=== PATIENT | female | born 1970 | race Two or more races ===

== ENCOUNTER → 2021-07-12 08:53 | Outpatient (BNVA) | payer OTHER, SELFPAY | PROVIDERS: Visit Provider Physician Assistant ==

== ENCOUNTER 2021-07-15 07:37 | Outpatient (REF) | payer OTHER, SELFPAY ==
--- NOTE | ~2021-07-15 | XR_ITS ---
EXAMINATION: XR CHEST CLINICAL INFORMATION: Preoperative evaluation. COMPARISON: None TECHNIQUE: 2 views of the chest were obtained. FINDINGS: No significant abnormality is noted involving the heart, lungs, mediastinum, bony thorax or soft tissues. XR/XR chest 2V IMPRESSION: No acute cardiopulmonary process.
--- NOTE | 2021-07-15 07:43 | ECG_ITS ---
Test Reason : preop Blood Pressure : / mmHG Vent. Rate : 074 BPM Atrial Rate : 074 BPM P-R Int : 180 ms QRS Dur : 102 ms QT Int : 434 ms P-R-T Axes : 045 015 -18 degrees QTc Int : 481 ms Normal sinus rhythm Minimal voltage criteria for LVH, may be normal variant ( [place] product ) Nonspecific T wave abnormality Prolonged QT Abnormal ECG No previous ECGs available Referred By: Justine Brady Electronically Signed By:NUHA CAMP
[2021-07-15 07:54] LABS: MANUAL DIFF FLAG NO
[2021-07-15 08:20] LABS: Basophils Percent Auto 0.4 % (0-2); Eosinophils Percent Auto 0.6 % (0-4); Hematocrit 42.6 % (37.0-47.0); Hemoglobin 14.3 g/dl (12.0-16.0); Imm Gran Abs Auto 0.01 X10*3/uL (0.00-0.03); Imm Gran Pct Auto 0.2 % (0.0-0.4); Lymphocytes Absolute Auto 1.9 X10*3/uL (1.2-4.9); Lymphocytes Percent Auto 39.9 % (20-40); Mean Corpuscular HGB Conc 33.6 g/dl (31.0-35.0); Mean Corpuscular Hemoglobin 29.4 pg (27.0-33.0); Mean Corpuscular Volume 87.5 fL (80.0-98.0); Mean Platelet Volume 9.6 fL (9.4-12.3); Monocytes Absolute Auto 0.4 X10*3/uL (0.1-1.2); Monocytes Percent Auto 7.5 % (2-11); Neutrophils Absolute Auto 2.5 x10*3/uL (2.0-8.3); Neutrophils Percent Auto 51.4 % (45-73); Platelet Count 211 X10*3/uL (160-400); Red Blood Count 4.87 X10*6/uL (4.20-5.50); Red Cell Distribution Width 12.9 % (11.0-16.0); White Blood Count 4.8 X10*3/uL (4.8-10.8)
[2021-07-15 08:30] LABS: Estimated Average Glucose 117 mg/dL; Hemoglobin A1C 149.9412 umol/L; Hemoglobin A1c % 5.7 %
[2021-07-15 08:46] LABS: Alanine Aminotransferase 10 U/L (0-31); Albumin Level 4.2 g/dL (3.5-5.0); Alkaline Phosphatase 89 U/L (39-117); Anion Gap 10 (12-20); Aspartate Amino Transferase 15 U/L (5-31); Bilirubin Total 0.5 mg/dL (0.0-1.0); Blood Urea Nitrogen 22 mg/dL (9-16); C Reactive Protein 1.09 mg/dL (< or = 0.50); Calcium 9.6 mg/dL (8.4-10.2); Carbon Dioxide 28 mmol/L (22-29); Chloride 101 mmol/L (96-108); Cholesterol 153 mg/dL; Estimated Glomerular Filt Rate > 60; Glucose Random 111 mg/dL (60-115); Iron 86 mcg/dL (30-160); Percent Iron Saturation 25 % (15-50); Potassium 4.1 mmol/L (3.3-5.1); Sodium 135 mmol/L (135-145); Total Iron Binding Capacity 348 mcg/dL (228-428); Total Protein 7.6 g/dL (6.5-8.0); Triglycerides 65 mg/dL; Unsaturated Iron Binding 262 ug/dL
[2021-07-15 08:47] LABS: HDL Cholesterol 49 mg/dL; LDL Cholesterol Calculated 91 mg/dl
[2021-07-15 09:11] LABS: TSH reflex Free T4 0.87 uIU/mL (0.32-4.0); Vitamin D 25-OH Total 19.6 ng/mL (>30)
[2021-07-15 09:15] LABS: Folate 19.4 ng/mL (> or = 4.0); Vitamin B12 376 pg/mL (200-900)
[2021-07-15 09:23] LABS: Ferritin 152 ng/mL (10-250); Insulin 14 uU/mL (2-29)
[2021-07-19 15:06] LABS: Calcium (PTHI) 9.6 mg/dL (8.6-10.4); PTHI 33 pg/mL (14-64)
[2021-07-20 03:01] LABS: Zinc 65 mcg/dL (60-130)
[2021-07-21 16:56] LABS: Vitamin B1 8 nmol/L (8-30)
[2021-07-21 17:31] LABS: Vitamin A 56 mcg/dL (38-98)
== END 2021-07-15 07:38 | disposition home or self-care (01) ==
LOC: HO.LAB 07:37
PROVIDERS: PCP Internal Medicine; Visit Provider Physician Assistant
DX: Z01.818 Encounter for other preprocedural examination (principal); I45.81 Long QT syndrome
CPT/HCPCS: 36415; 71046; 80053; 80061; 82306; 82607; 82728; 82746; 83036; 83525; 83540; 83970; 84425; 84443; 84590; 84630; 85025; 86140; 93005

== ENCOUNTER → 2021-08-04 14:54 | Outpatient (BNVA) | payer OTHER, SELFPAY | PROVIDERS: PCP Internal Medicine; Visit Provider Physician Assistant ==

== ENCOUNTER → 2021-08-17 08:08 | Outpatient (BNVA) | payer OTHER, SELFPAY | PROVIDERS: PCP Internal Medicine; Visit Provider Dietitian, Registered | DX: E66.9 Obesity, unspecified (principal); Z68.36 Body mass index [BMI] 36.0-36.9, adult | CPT/HCPCS: 97803 ==

== ENCOUNTER 2021-09-21 12:00 | Outpatient (REF) | payer OTHER, SELFPAY ==
[2021-09-23 11:10] LABS: H Pylori Breath Test Negative (Negative)
== END 2021-09-21 12:01 | disposition home or self-care (01) ==
LOC: HO.LNP 12:00
PROVIDERS: PCP Internal Medicine; Visit Provider Physician Assistant
DX: Z01.818 Encounter for other preprocedural examination (principal); K59.09 Other constipation; E66.9 Obesity, unspecified; Z90.3 Acquired absence of stomach [part of]
CPT/HCPCS: 83013

== ENCOUNTER 2021-09-27 07:49 | Outpatient (REF) | payer OTHER, SELFPAY ==
--- NOTE | ~2021-09-27 | FL_ITS ---
EXAMINATION: XR FLUOROSCOPY UPPER GI WITH AIR CLINICAL INFORMATION: Obesity. Preop. COMPARISON: None TECHNIQUE: Upper GI was performed using thin and thick barium and effervescent granules. FINDINGS: The swallowing mechanism is normal. There is mild gastroesophageal reflux. No hernia is seen. Postsurgical changes from gastric sleeve procedure not definitely identified. No fold thickening, mass, ulcer or stricture is seen. FLUOROSCOPY TIME: 0.9 minutes DOSE AREA PRODUCT: 11 gavin per centimeter squared. 30 saved fluoroscopic images. FL/FL upper GI w air IMPRESSION: Mild gastroesophageal reflux. Definite postsurgical changes from gastric sleeve procedure not appreciated.
--- NOTE | ~2021-09-27 | US_ITS ---
EXAMINATION: US COMPLETE ABDOMEN WITH LIVER ELASTOGRAPHY CLINICAL INFORMATION: Obesity. Preprocedure. COMPARISON: None. TECHNIQUE: Real-time imaging of the abdominal viscera. Noninvasive ultrasound liver fibrosis assessment is performed using Joana ElastPQ point quantification shear wave elastography (2D-SWE) with a C5-2 MHz transducer. Multiple elastography samples are obtained. FINDINGS: PANCREAS: Normal. The visualized pancreatic head and body are normal in appearance. The remainder of the pancreas is obscured from visualization by the overlying bowel gas. ABDOMINAL AORTA: The proximal, middle, and distal aortic segments are normal in caliber. INFERIOR VENA CAVA: Visualized portions are normal. LIVER: The liver demonstrates normal size, contour and increased. No focal lesion or intrahepatic biliary duct dilatation. The right lobe measures 17.6 cm in length. The left lobe measures 13.2 cm in length. Portal flow is hepatopedal. Shear wave liver elastography median stiffness is 1.5 m/s (reference: normal median stiffness is 1.3 m/s or less). IQR/median stiffness to assess sampling precision is 0.15 (reference: good quality data set is IQR/median stiffness of 0.15 or less). GALLBLADDER: Normal. The gallbladder is physiologically distended without evidence of stones, sludge, polyps, wall thickening or pericholecystic fluid. COMMON BILE DUCT: Normal in caliber measuring 0.4 cm in proximal and 0.9 cm and distal segment. RIGHT KIDNEY: No hydronephrosis. No renal calculi or focal parenchymal lesions. The kidney measures . 12.8 cm in maximum dimension. There is an echogenic lesion midpole cortex measuring 0.5 x 0.5 x 0.3 cm suggestive of angiomyolipoma. LEFT KIDNEY: Normal. No hydronephrosis. No renal calculi or focal parenchymal lesions. The kidney measures 11.3 cm in maximum dimension. SPLEEN: Normal. The spleen measures 11.4 cm in maximum dimension. FREE FLUID: None. US/US abdomen comp w elastography IMPRESSION: 1. Hepatic steatosis without focal lesion. 2. Small angiomyolipoma right kidney. 3. Liver elastography: Median liver stiffness 1.5 m/s, correlating with cACLD, ruled out. REFERENCE: Society of Radiologists in Ultrasound Liver Stiffness Thresholds (2020): LIVER STIFFNESS THRESHOLDS: *Liver Stiffness equal or less than 1.3 m/s: High probability of being normal. *Liver Stiffness less than 1.7 m/s: In the absence of other known clinical signs, rules out compensated advanced chronic liver disease. *Liver Stiffness 1.7-2.1 m/s: Suggestive of compensated advanced chronic liver disease but need further test for confirmation. *Liver Stiffness over 2.1 m/s: Rules in compensated advanced chronic liver disease. *Liver Stiffness over 2.4 m/s: Suggestive of clinically significant portal hypertension. QUALITY OF DATA SET: *IQR/Median value equal or less than 0.15 implies a quality data set. *IQR/Median value over 0.15 implies a poor quality data set. SIGNIFICANT CHANGE FROM PRIOR EXAM: Significant change if liver stiffness measurement is 10% or greater from prior exam. OTHER CONSIDERATIONS: The stage of liver fibrosis may be overestimated in the setting of acute hepatitis, liver inflammation, elevated liver function tests, hepatic vascular congestion, obstructive cholestasis, non-fasting state, and infiltrative diseases such as amyloidosis and lymphoma. In some patients with NAFLD, the liver stiffness thresholds for compensated advanced chronic liver disease may be lower. In causes other than viral hepatitis and NAFLD, liver stiffness thresholds are not well established.
== END 2021-09-27 07:50 | disposition home or self-care (01) ==
LOC: HO.US 07:49
PROVIDERS: Visit Provider Physician Assistant
DX: Z01.818 Encounter for other preprocedural examination (principal); E66.9 Obesity, unspecified
CPT/HCPCS: 74246; 76705; 76981

== ENCOUNTER → 2021-11-01 12:00 | Outpatient (BNVA) | payer OTHER, SELFPAY | PROVIDERS: PCP Internal Medicine; Visit Provider Counselor Mental Health | DX: F43.20 Adjustment disorder, unspecified (principal); E66.9 Obesity, unspecified; K59.09 Other constipation | CPT/HCPCS: 90791 ==

== ENCOUNTER 2021-11-16 11:02 | Outpatient (REF) | payer OTHER, SELFPAY ==
[2021-11-16 11:59] LABS: Estimated Average Glucose 120 mg/dL; Hemoglobin A1c % 5.8 %
[2021-11-16 12:15] LABS: Alanine Aminotransferase 11 U/L (0-31); Albumin Level 4.2 g/dL (3.5-5.0); Alkaline Phosphatase 95 U/L (39-117); Anion Gap 12 (12-20); Aspartate Amino Transferase 14 U/L (5-31); Bilirubin Total 0.4 mg/dL (0.0-1.0); Blood Urea Nitrogen 19 mg/dL (9-16); Carbon Dioxide 30 mmol/L (22-29); Chloride 104 mmol/L (96-108); Estimated Glomerular Filt Rate > 60; Glucose Random 94 mg/dL (60-115); Potassium 4.5 mmol/L (3.3-5.1); Sodium 141 mmol/L (135-145); Total Protein 7.4 g/dL (6.5-8.0)
== END 2021-11-16 11:03 | disposition home or self-care (01) ==
LOC: HO.LAB 11:02
PROVIDERS: PCP Internal Medicine; Visit Provider Internal Medicine
DX: E11.9 Type 2 diabetes mellitus without complications (principal); I10 Essential (primary) hypertension
CPT/HCPCS: 36415; 80053; 83036

== ENCOUNTER → 2021-12-01 14:50 | Outpatient (BNVA) | payer OTHER, SELFPAY | PROVIDERS: PCP Internal Medicine; Visit Provider Physician Assistant | DX: Z13.89 Encounter for screening for other disorder (principal) ==

== ENCOUNTER 2022-09-18 07:26 | Outpatient (REF) | payer OTHER, SELFPAY ==
[2022-09-18 07:38] LABS: MANUAL DIFF FLAG NO
[2022-09-18 09:21] LABS: Basophils Percent Auto 0.4 % (0-2); Eosinophils Absolute Auto 0.1 X10*3/uL (0.0-0.4); Hematocrit 40.2 % (37.0-47.0); Imm Gran Abs Auto 0.01 X10*3/uL (0.00-0.03); Imm Gran Pct Auto 0.2 % (0.0-0.4); Lymphocytes Absolute Auto 2.3 X10*3/uL (1.2-4.9); Lymphocytes Percent Auto 46.2 % (20-40); Mean Corpuscular HGB Conc 32.3 g/dl (31.0-35.0); Mean Corpuscular Hemoglobin 28.8 pg (27.0-33.0); Mean Corpuscular Volume 88.9 fL (80.0-98.0); Mean Platelet Volume 10.1 fL (9.4-12.3); Monocytes Absolute Auto 0.4 X10*3/uL (0.1-1.2); Monocytes Percent Auto 6.9 % (2-11); Neutrophils Absolute Auto 2.3 x10*3/uL (2.0-8.3); Neutrophils Percent Auto 45.3 % (45-73); Platelet Count 223 X10*3/uL (160-400); Red Blood Count 4.52 X10*6/uL (4.20-5.50); Red Cell Distribution Width 12.9 % (11.0-16.0)
[2022-09-18 09:32] LABS: Estimated Average Glucose 111 mg/dL; Hemoglobin A1c % 5.5 %
[2022-09-18 10:09] LABS: Alanine Aminotransferase 9 U/L (0-31); Alkaline Phosphatase 88 U/L (39-117); Anion Gap 15 (12-20); Aspartate Amino Transferase 12 U/L (5-31); Bilirubin Total 0.4 mg/dL (0.0-1.0); Carbon Dioxide 26 mmol/L (22-29); Chloride 107 mmol/L (96-108); Cholesterol 142 mg/dL; Estimated Glomerular Filt Rate > 60; Glucose Random 93 mg/dL (60-115); HDL Cholesterol 46 mg/dL; LDL Cholesterol Calculated 78 mg/dl; Potassium 4.8 mmol/L (3.3-5.1); Rheumatoid Factor < 13.0 IU/mL (<15.0); Sodium 143 mmol/L (135-145); Total Protein 6.8 g/dL (6.5-8.0); Triglycerides 91 mg/dL
[2022-09-18 10:37] LABS: Ferritin 54 ng/mL (10-250)
[2022-09-18 12:01] LABS: Blood Urea Nitrogen 18 mg/dL (9-16)
[2022-09-21 15:49] LABS: Cyclic Citrullinated Peptide <16 UNITS
== END 2022-09-18 07:27 | disposition home or self-care (01) ==
LOC: HO.LAB 07:26
PROVIDERS: PCP Internal Medicine; Visit Provider Internal Medicine
DX: M79.641 Pain in right hand (principal); R53.83 Other fatigue; I10 Essential (primary) hypertension; E11.9 Type 2 diabetes mellitus without complications
CPT/HCPCS: 36415; 80053; 80061; 82728; 83036; 85025; 86200; 86431

== ENCOUNTER 2022-09-24 19:03 | Emergency (ER) | payer OTHER, SELFPAY ==
--- NOTE | ~2022-09-24 | XR_ITS ---
EXAMINATION: XR SHOULDER, RIGHT. XR KNEE, RIGHT. XR ANKLE, LEFT. XR FOOT, LEFT. CLINICAL INFORMATION: Fall COMPARISON: None. TECHNIQUE: 4 views of the right shoulder. 4 views of the right knee. 3 views of the left ankle. 3 views of the left foot. FINDINGS: Right shoulder: No acute fracture or dislocation. Mild glenohumeral osteoarthritis. Right knee: No fracture or malalignment. Moderate patellofemoral and medial compartment osteoarthritis with a trace joint effusion. Left ankle and foot: The ankle mortise is preserved. Probable tiny avulsion fracture at the lateral aspect of the distal calcaneus, at the extensor digitorum brevis origin. Mild lateral soft tissue swelling. Mild hallux valgus and 1st MTP joint osteoarthritis. XR/XR knee RT 3V IMPRESSION: RIGHT SHOULDER: Mild glenohumeral osteoarthritis. RIGHT KNEE: No fracture. Moderate patellofemoral and medial compartment osteoarthritis with a trace joint effusion. LEFT ANKLE AND FOOT: Probable tiny avulsion fracture at the extensor digitorum brevis origin the lateral aspect of the distal calcaneus. Otherwise unremarkable.
--- NOTE | ~2022-09-24 | XR_ITS ---
EXAMINATION: XR SHOULDER, RIGHT. XR KNEE, RIGHT. XR ANKLE, LEFT. XR FOOT, LEFT. CLINICAL INFORMATION: Fall COMPARISON: None. TECHNIQUE: 4 views of the right shoulder. 4 views of the right knee. 3 views of the left ankle. 3 views of the left foot. FINDINGS: Right shoulder: No acute fracture or dislocation. Mild glenohumeral osteoarthritis. Right knee: No fracture or malalignment. Moderate patellofemoral and medial compartment osteoarthritis with a trace joint effusion. Left ankle and foot: The ankle mortise is preserved. Probable tiny avulsion fracture at the lateral aspect of the distal calcaneus, at the extensor digitorum brevis origin. Mild lateral soft tissue swelling. Mild hallux valgus and 1st MTP joint osteoarthritis. XR/XR shoulder RT min 2V IMPRESSION: RIGHT SHOULDER: Mild glenohumeral osteoarthritis. RIGHT KNEE: No fracture. Moderate patellofemoral and medial compartment osteoarthritis with a trace joint effusion. LEFT ANKLE AND FOOT: Probable tiny avulsion fracture at the extensor digitorum brevis origin the lateral aspect of the distal calcaneus. Otherwise unremarkable.
--- NOTE | ~2022-09-24 | XR_ITS ---
EXAMINATION: XR SHOULDER, RIGHT. XR KNEE, RIGHT. XR ANKLE, LEFT. XR FOOT, LEFT. CLINICAL INFORMATION: Fall COMPARISON: None. TECHNIQUE: 4 views of the right shoulder. 4 views of the right knee. 3 views of the left ankle. 3 views of the left foot. FINDINGS: Right shoulder: No acute fracture or dislocation. Mild glenohumeral osteoarthritis. Right knee: No fracture or malalignment. Moderate patellofemoral and medial compartment osteoarthritis with a trace joint effusion. Left ankle and foot: The ankle mortise is preserved. Probable tiny avulsion fracture at the lateral aspect of the distal calcaneus, at the extensor digitorum brevis origin. Mild lateral soft tissue swelling. Mild hallux valgus and 1st MTP joint osteoarthritis. XR/XR foot LT 2V IMPRESSION: RIGHT SHOULDER: Mild glenohumeral osteoarthritis. RIGHT KNEE: No fracture. Moderate patellofemoral and medial compartment osteoarthritis with a trace joint effusion. LEFT ANKLE AND FOOT: Probable tiny avulsion fracture at the extensor digitorum brevis origin the lateral aspect of the distal calcaneus. Otherwise unremarkable.
--- NOTE | ~2022-09-24 | XR_ITS ---
EXAMINATION: XR SHOULDER, RIGHT. XR KNEE, RIGHT. XR ANKLE, LEFT. XR FOOT, LEFT. CLINICAL INFORMATION: Fall COMPARISON: None. TECHNIQUE: 4 views of the right shoulder. 4 views of the right knee. 3 views of the left ankle. 3 views of the left foot. FINDINGS: Right shoulder: No acute fracture or dislocation. Mild glenohumeral osteoarthritis. Right knee: No fracture or malalignment. Moderate patellofemoral and medial compartment osteoarthritis with a trace joint effusion. Left ankle and foot: The ankle mortise is preserved. Probable tiny avulsion fracture at the lateral aspect of the distal calcaneus, at the extensor digitorum brevis origin. Mild lateral soft tissue swelling. Mild hallux valgus and 1st MTP joint osteoarthritis. XR/XR ankle LT min 3V IMPRESSION: RIGHT SHOULDER: Mild glenohumeral osteoarthritis. RIGHT KNEE: No fracture. Moderate patellofemoral and medial compartment osteoarthritis with a trace joint effusion. LEFT ANKLE AND FOOT: Probable tiny avulsion fracture at the extensor digitorum brevis origin the lateral aspect of the distal calcaneus. Otherwise unremarkable.
[2022-09-24 19:30] VITALS: BP 157/78; PULSE 87; RESP 18; TEMP 36.6; O2SAT 100; BMI 38.4
--- NOTE | 2022-09-24 19:33 | ED.FALL ---
HPI - Fall General Chief Complaint: Fall Stated Complaint: Fall Time Seen by Provider: 09/24/22 22:03 Related Data Home Medications Medication Instructions Recorded Confirmed cyanocobalamin (vitamin B-12) 1,000 mcg PO DAILY 07/12/21 1,000 mcg tablet (Vitamin B-12) omeprazole 40 mg capsule,delayed 40 mg PO DAILY 07/12/21 release irbesartan 75 mg tablet 75 mg PO DAILY 12/01/21 multivitamin 1 tab PO DAILY 03/31/22 Previous Rx's Medication Instructions Recorded docusate sodium 100 mg capsule 100 mg PO BID #60 caps 09/21/21 (Colace) inulin 2 gram chewable tablet 2 g PO BID #60 tabs 09/21/21 (Fiber Gummies) methylcellulose (with sugar) oral 1 tbsp PO DAILY #850 grams 09/21/21 powder (Citrucel (sucrose) oral powder) cyclobenzaprine 10 mg tablet 10 mg PO TID PRN pain #14 tabs 09/24/22 oxycodone 5 mg tablet 5 mg PO Q8H PRN pain #7 tabs 09/24/22 Allergies Allergy/AdvReac Type Severity Reaction Status Date / Time penicillin G Allergy Severe hives Verified 09/24/22 19:30 acetaminophen [From Tylenol] Allergy Intermediate hives Verified 09/24/22 19:30 lisinopril Allergy Intermediate tingling Verified 09/24/22 19:30 in throat and cough PMFSH Past Medical History Surgical History History of sleeve gastrectomy Hx of breast surgery Hx of carpal tunnel repair Hx of cholecystectomy Hx of total hysterectomy Hx of tubal ligation Family History Family History Mother Diabetes Hypertension Father No problems noted. Sister No problems noted. Sister Arthritis Son Diabetes Son Diabetes Social History Social History Alcohol intake: never Patient Tobacco Use Status: Former Tobacco user Quit Date: 2017 Smoked in Last 30 Days: No Use of substances other than those prescribed or required for medical reasons: No Advance Directives: No Advance Directives Information Provided: No Patient : No Physical Exam Vital Signs: Vital Signs: Last Vital Signs Temp 97.9 F 09/24/22 19:30 Pulse 87 09/24/22 19:30 Resp 18 09/24/22 19:30 BP 157/78 H 09/24/22 19:30 Pulse Ox 100 09/24/22 19:30 O2 Del Method Room Air 09/24/22 19:30 BMI result Body Mass Index 38.4 Course Course Course Narrative: RME: 52 yold female presents to the ED for RIght shoulder pain, right knee pain, and left ankle pain after falling. patient did not hit her head or lose consciousness. images ordered. Discharge Plan Discharge Clinical Impression: Sprain of right shoulder, Knee sprain, Avulsion fracture of ankle Patient Disposition: Home, Self-Care Instructions: Ankle Fracture (DC), Knee Sprain (DC), How to Use an Elastic Bandage (ED), Shoulder Sprain (ED) Prescriptions: New cyclobenzaprine 10 mg tablet 10 mg PO TID PRN (Reason: pain) Qty: 14 0RF oxycodone 5 mg tablet 5 mg PO Q8H PRN (Reason: pain) Qty: 7 0RF Rx Instructions: Partial Fill upon patient request. No Action Fiber Gummies 2 gram tablet,chewable 2 g PO BID Qty: 60 6RF Citrucel (sucrose) Powder 1 tbsp PO DAILY Qty: 850 6RF docusate sodium [Colace] 100 mg capsule 100 mg PO BID Qty: 60 6RF multivitamin Tablet 1 tab PO DAILY cyanocobalamin (vitamin B-12) [Vitamin B-12] 1,000 mcg tablet 1,000 mcg PO DAILY omeprazole 40 mg capsule,delayed release(DR/EC) 40 mg PO DAILY irbesartan 75 mg tablet 75 mg PO DAILY Referrals: Husam Estrada MD [Physician] - 2 days Physician,Unknown J [Primary Care Provider] - Stand Alone Forms: Work/School Release Interventions: ED Discharge Assessment Last Done: 09/24/22 23:05 Discharge Date/Time: 09/24/22 23:09
--- NOTE | 2022-09-24 22:05 | ED_ITS ---
HPI - Fall General Chief Complaint: Fall Stated Complaint: Fall Time Seen by Provider: 09/24/22 22:03 History of Present Illness HPI Narrative: Patient is a 52-year-old female not on blood thinners status post accidental fall hitting her right shoulder right knee and right ankle. No head injury. No nausea no vomiting. No focal weakness. Pain worsens with movement. Presented to the emergency department. Related Data Home Medications Medication Instructions Recorded Confirmed cyanocobalamin (vitamin B-12) 1,000 mcg PO DAILY 07/12/21 1,000 mcg tablet (Vitamin B-12) omeprazole 40 mg capsule,delayed 40 mg PO DAILY 07/12/21 release irbesartan 75 mg tablet 75 mg PO DAILY 12/01/21 multivitamin 1 tab PO DAILY 03/31/22 Previous Rx's Medication Instructions Recorded docusate sodium 100 mg capsule 100 mg PO BID #60 caps 09/21/21 (Colace) inulin 2 gram chewable tablet 2 g PO BID #60 tabs 09/21/21 (Fiber Gummies) methylcellulose (with sugar) oral 1 tbsp PO DAILY #850 grams 09/21/21 powder (Citrucel (sucrose) oral powder) cyclobenzaprine 10 mg tablet 10 mg PO TID PRN pain #14 tabs 09/24/22 oxycodone 5 mg tablet 5 mg PO Q8H PRN pain #7 tabs 09/24/22 Allergies Allergy/AdvReac Type Severity Reaction Status Date / Time penicillin G Allergy Severe hives Verified 09/24/22 19:30 acetaminophen [From Tylenol] Allergy Intermediate hives Verified 09/24/22 19:30 lisinopril Allergy Intermediate tingling Verified 09/24/22 19:30 in throat and cough Review of Systems Review of Systems: No chest pain or diaphoresis. No fever no chills. No focal weakness. Yes all other systems are reviewed and are negative [facility] Past Medical History Attestation statement: The following information was validated with the patient. Surgical History History of sleeve gastrectomy Hx of breast surgery Hx of carpal tunnel repair Hx of cholecystectomy Hx of total hysterectomy Hx of tubal ligation Family History Family History Mother Diabetes Hypertension Father No problems noted. Sister No problems noted. Sister Arthritis Son Diabetes Son Diabetes Social History Social History Alcohol intake: never Patient Tobacco Use Status: Former Tobacco user Quit Date: 2017 Smoked in Last 30 Days: No Use of substances other than those prescribed or required for medical reasons: No Advance Directives: No Advance Directives Information Provided: No Patient : No Physical Exam Vital Signs: Vital Signs: Last Vital Signs Temp 97.9 F 09/24/22 19:30 Pulse 87 09/24/22 19:30 Resp 18 09/24/22 19:30 BP 157/78 H 09/24/22 19:30 Pulse Ox 100 09/24/22 19:30 O2 Del Method Room Air 09/24/22 19:30 BMI result Body Mass Index 38.4 Appearance: Alert. Oriented X3. No acute distress. Eyes: Pupils equal, round and reactive to light. ENT: Pharynx normal. Neck: Normal inspection. Neck supple. No lymph nodes noted. No crepitus CVS: Normal heart rate and rhythm. Pulses normal. Normal S1 and S2 Respiratory: No respiratory distress. Breath sounds normal. No Wheezing. No rales Abdomen: Soft and nontender. No rigidity. No distention. good BS x4 Skin: Skin warm and dry. Normal skin color. Normal skin turgor. Extremities: Examination of the right shoulder limited range of motion. No gross deformity noted. Skin intact. Motion at the elbow the wrist the hands all intact. Capillary refill less than 2 seconds. Examination of the knee showed good range of motion. No tenderness on palpation of patella no tenderness on palpation in medial lateral collateral ligament. Examination of the ankle showed mild swelling over the lateral malleolus. Sensation over the foot intact pulse 2 +at dorsalis pedis. Skin intact Neuro: Oriented X 3. No motor deficit. No sensory deficit. Moving all extermities. No slurred speech Medical Decision Making Medical Decision Making MDM Narrative: Patient has no head injury. X-ray of the shoulder grossly negative for any acute evidence of fracture. X-ray of the right knee was grossly negative for any acute evidence of fracture no dislocation patient's x-ray of the ankle showed a possible avulsion fracture. We will go ahead wrap the knee in Jarred bandage. Close follow-up on an outpatient basis with Orthopedics. In stable condition. Pain medication given. Patient has no head injury not on blood thinners. No nausea no vomiting no focal weakness Differential Diagnosis Differential Diagnoses: The differential diagnosis associated with the presentation includes Traumatic injury to the shoulder, knee, ankle Lab Data MDM Lab Attestation statement: I reviewed the patient's lab results. Radiology Impression Discussion of test interpretation with radiology: I have reviewed the radiologist's reading. Independent Historian Additional history was obtained from patient's family Discharge Plan Discharge Clinical Impression: Sprain of right shoulder, Knee sprain, Avulsion fracture of ankle Patient Disposition: Home, Self-Care Instructions: Ankle Fracture (DC), Knee Sprain (DC), How to Use an Elastic Bandage (ED), Shoulder Sprain (ED) Prescriptions: New cyclobenzaprine 10 mg tablet 10 mg PO TID PRN (Reason: pain) Qty: 14 0RF oxycodone 5 mg tablet 5 mg PO Q8H PRN (Reason: pain) Qty: 7 0RF Rx Instructions: Partial Fill upon patient request. No Action Fiber Gummies 2 gram tablet,chewable 2 g PO BID Qty: 60 6RF Citrucel (sucrose) Powder 1 tbsp PO DAILY Qty: 850 6RF docusate sodium [Colace] 100 mg capsule 100 mg PO BID Qty: 60 6RF multivitamin Tablet 1 tab PO DAILY cyanocobalamin (vitamin B-12) [Vitamin B-12] 1,000 mcg tablet 1,000 mcg PO DAILY omeprazole 40 mg capsule,delayed release(DR/EC) 40 mg PO DAILY irbesartan 75 mg tablet 75 mg PO DAILY Referrals: Husam Estrada MD [Physician] - 2 days Physician,Unknown J [Primary Care Provider] - Stand Alone Forms: Work/School Release
--- NOTE | 2022-09-24 22:26 | PC.NURSE ---
Pt fell leaving [employer] this morning and is complaining of pain in the right shoulder, right knee, and left ankle. Pt has limited mobility in the right arm but is able to bend her knee and ankle with some pain. CSM's are in tact q4 extremities. Pt denies head strike or loss of consciousness.
== END 2022-09-24 23:09 | disposition home or self-care (01) ==
PROVIDERS: Emergency Provider Emergency Medicine Emergency Medical Services
DX: S43.401A Unspecified sprain of right shoulder joint, initial encounter (principal); S83.91XA Sprain of unspecified site of right knee, initial encounter; S82.891A Other fracture of right lower leg, initial encounter for closed fracture; M25.511 Pain in right shoulder; M25.572 Pain in left ankle and joints of left foot; M79.672 Pain in left foot; W01.0XXA Fall on same level from slipping, tripping and stumbling without subsequent striking against object, initial encounter; Y93.9 Activity, unspecified; Y92.9 Unspecified place or not applicable; Y99.9 Unspecified external cause status; X58.XXXA Exposure to other specified factors, initial encounter; Z87.891 Personal history of nicotine dependence; Z79.899 Other long term (current) drug therapy
CPT/HCPCS: 73030; 73562; 73610; 73620; 99283; 99284

== ENCOUNTER → 2022-10-10 10:14 | Outpatient (BNVA) | payer OTHER, SELFPAY | PROVIDERS: PCP Internal Medicine; Visit Provider Physician Assistant | DX: Z13.89 Encounter for screening for other disorder (principal) ==

== ENCOUNTER 2022-10-12 07:09 | Outpatient (REF) | payer OTHER, SELFPAY ==
--- NOTE | ~2022-10-12 | XR_ITS ---
EXAMINATION: XR SHOULDER, RIGHT CLINICAL INFORMATION: Pain in right shoulder. COMPARISON: None available. TECHNIQUE: 3 views of the right shoulder. FINDINGS: The bones and soft tissues are normal. No fracture. Glenohumeral and acromioclavicular alignment is anatomic with normal joint space. No abnormal soft tissue calcifications. XR/XR shoulder RT min 2V IMPRESSION: Unremarkable right shoulder.
== END 2022-10-12 07:10 | disposition home or self-care (01) ==
LOC: HO.HOSX 07:09
PROVIDERS: Visit Provider Physician Assistant
DX: S46.001A Unspecified injury of muscle(s) and tendon(s) of the rotator cuff of right shoulder, initial encounter (principal)
CPT/HCPCS: 73030

== ENCOUNTER 2022-11-08 07:30 | Outpatient (RCR) | payer OTHER, SELFPAY | END 2022-11-08 07:51 | disposition home or self-care (01) | LOC: HO.OT 07:30 | PROVIDERS: PCP Internal Medicine; Visit Provider Orthopaedic Surgery | DX: G56.02 Carpal tunnel syndrome, left upper limb (principal) | CPT/HCPCS: 29125; 97110; 97140; 97165; 97760 ==

== ENCOUNTER 2022-11-08 14:29 | Outpatient (REF) | payer OTHER, SELFPAY ==
--- NOTE | ~2022-11-08 | MR_ITS ---
EXAMINATION: MR SHOULDER WITHOUT CONTRAST, RIGHT CLINICAL INFORMATION: Right shoulder pain with motion following a fall. COMPARISON: Right shoulder radiographs dated 10/12/2022 and 09/24/2022. TECHNIQUE: MRI of the shoulder without contrast was performed on a high-field scanner. FINDINGS: ROTATOR CUFF: Mild infraspinatus tendinosis. Mild subscapularis tendinosis with articular surface fraying. No full-thickness rotator cuff tendon tear. No muscle atrophy or fatty infiltration. BICEPS: Intact. Fluid within the proximal tendon sheath, likely related to the joint effusion. CORACOACROMIAL ARCH: The undersurface of the acromion is flat with small subacromial spurs. Mild acromioclavicular osteoarthritis. LABRUM/CAPSULE: Heterogeneous signal within the base of the anteroinferior labrum, which could represent a nondisplaced labral injury. Intact joint capsule. GLENOHUMERAL JOINT/MARROW: Articular cartilage fissuring and heterogeneity of the anteroinferior glenoid. Marrow edema at the anteroinferior glenoid without a definite fracture line. Mild cortical flattening with marrow edema at the posterolateral humeral head which could represent a Hill-Sachs deformity. Findings could indicate a prior anteroinferior humeral head dislocation. The humeral head is currently well seated within the glenoid. Moderate joint effusion. MR/MR shoulder RT wo con IMPRESSION: 1. Mild infraspinatus tendinosis. Mild subscapularis tendinosis with articular surface fraying. No full-thickness rotator cuff tendon tear. 2. Mild acromioclavicular osteoarthritis with small subacromial spurs. 3. Heterogeneous signal within the base of the anteroinferior labrum, which could represent a nondisplaced labral injury. Adjacent marrow edema within the anteroinferior glenoid without a definite fracture line which could represent an osseous contusion. Possible mild Hill-Sachs deformity. Findings could indicate a prior anteroinferior humeral head dislocation. Moderate joint effusion.
== END 2022-11-08 14:30 | disposition home or self-care (01) ==
LOC: HO.MRI 14:29
PROVIDERS: PCP Internal Medicine; Visit Provider Physician Assistant
DX: S46.001A Unspecified injury of muscle(s) and tendon(s) of the rotator cuff of right shoulder, initial encounter (principal); X58.XXXA Exposure to other specified factors, initial encounter; Y93.9 Activity, unspecified; Y92.9 Unspecified place or not applicable; Y99.9 Unspecified external cause status
CPT/HCPCS: 73221

== ENCOUNTER → 2022-12-11 12:57 | Outpatient (BNVA) | payer OTHER, SELFPAY | PROVIDERS: PCP Internal Medicine; Visit Provider Orthopaedic Surgery | DX: M75.51 Bursitis of right shoulder (principal); S46.001D Unspecified injury of muscle(s) and tendon(s) of the rotator cuff of right shoulder, subsequent encounter | CPT/HCPCS: 20610; J1100 ==

== ENCOUNTER 2023-10-31 12:34 | Outpatient (AMB) | payer OTHER, SELFPAY ==
--- NOTE | 2023-10-31 12:57 | A.OFFVIS_ITS ---
Vital Signs 10/31/23 13:31 Height 5 ft 2 in Weight 208 lb BMI 38.0 Intake Visit Reasons: new prob- b/l cts Intake Note: Sherie 53 yr old right hand dominant female presents today for bilateral CTS. States her left is worse. States CTS come and go, worsens in the night time. States CTS in left hand started about 08/2022. EMG done with [facility]. Last A1C in on file was done 09/18/22 and was at a 5.5 however states she had another A1C checked about 6n months and was a 5.0 Hx of Right CTR in [address] [facility]. Allergies penicillin G Allergy (Severe, Verified 10/31/23 13:31) hives acetaminophen [From Tylenol] Allergy (Intermediate, Verified 10/31/23 13:31) hives lisinopril Allergy (Intermediate, Verified 10/31/23 13:31) tingling in throat and cough HPI HPI new prob- b/l cts: Details: Sherie is a 53 year old right hand dominant Diabetic woman who presents with complaints of left hand numbness. She complains of numbness in the thumb, index, and middle fingers. Symptoms intermittent, but daily, worse at night. She says she has occasional numbness in her left small finger. She says she was previously diagnosed with bilateral carpal tunnel syndrome. She has a hx of a right carpal tunnel release done at [facility] in 2019, and had good improvement in her numbness. She says she had a recent NCS done at [facility], she brought this with her today. She says ~5 months ago she struck the counter with the ulnar side of her right hand. She still sometimes has episodes of right ulnar-sided hand pain. She is a Diabetic and says this is well-controlled. She says she recently switched to a new Diabetes medication for weight loss, and due to the shortage she is not currently taking any medication at this time. [facility] Surgical History History of sleeve gastrectomy Hx of cholecystectomy Hx of carpal tunnel repair Hx of tubal ligation Hx of total hysterectomy Hx of breast surgery Family History Mother Diabetes Hypertension Father No problems noted. Sister No problems noted. 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 Review of Systems Const All systems reviewed & are unremarkable except as noted in HPI and below Physical Exam Vital Signs: BMI result Body Mass Index 38.0 Const General: cooperative, healthy appearing and no acute distress Orientation/consciousness: patient oriented x3 HEENT Head: Yes normocephalic and Yes atraumatic Eyes EOM: EOMs intact bilaterally Resp Effort & Inspection: normal respiratory effort and able to speak in complete sentences Cardio Jugular venous distension: no JVD Skin General skin exam: turgor normal Rashes: no rashes Neuro General: patient oriented x3 Extrem Other: Evaluation of Left Upper Extremity: The patient is alert, oriented, and in no acute distress Neuro: Median, Ulnar, Radial nerves motor and sensory intact and sensation is normal to the tips of all digits No thenar or intrinsic wasting Good APB muscle belly firing & good finger cross Vascular: Cap refill brisk ROM: She can make a fist and extend all her digits No locking or catching Skin: No lacerations or abrasions. General: No Ecchymosis. No Erythema or evidence of infection. Nerve Conduction Study: Left-side only 1. Mild left carpal tunnel syndrome No evidence of ulner neuropathy, cervical radiculopathy, or brachial plexopathy Wilberto Plascencia MD 02/21/23 [facility] Psych Appearance: grossly normal Affect: normal affect Attitude: cooperative Assessment & Plan Assessment & Plan (1) Carpal tunnel syndrome of left wrist: Code(s): G56.02 - Carpal tunnel syndrome, left upper limb Category: Medical (2) History of carpal tunnel surgery of right wrist: Comment: ~2019 at [facility] Code(s): Z98.890 - Other specified postprocedural states Category: Surgical (3) Diabetes mellitus: Code(s): E11.9 - Type 2 diabetes mellitus without complications Category: Medical Plan Assessment & Plan: 1. Left carpal tunnel syndrome, mild Symptoms intermittent, but daily, worse at night She reports having some intermittent numbness in her small finger Her NCS was negative for any cubital tunnel syndrome I educated her about this condition I discussed operative and non-operative treatment options The patient would like to proceed with surgery The risks and benefits of operative treatment were discussed with the patient and the patient wishes to proceed with surgery. These risks include, but are not limited to risk of damage to blood vessels, nerves, tendons, infection, recurrence, incomplete relief of preoperative symptoms, persistent pain, possible need for further surgery and the risks associated with regional blocks and anesthesia. The plan is to take the patient to the operating room sometime in the next few weeks for the following procedures: 1. Left carpal tunnel release, under local All of the preoperative paperwork including the consent was reviewed today. All the patient's questions were answered. The patient understands that they will be contacted by our medical office scheduler soon to schedule this procedure She denies blood thinners, asthma, heart, lung, kidney issues She is a Diabetic, she says this has been well-controlled but she is currently not on any medication due to a shortage. She is working with her PCP concerning this. They will need an updated HgA1c that is <8.1% in order to proceed with surgery, and they expressed understanding 2. Right carpal tunnel syndrome, S/P release DOS: 2019 at [facility] With normal sensation Scribed for Edel Peña MD by Mohit Candelario, medical engineer, on 10/31/23 at 1:55 PM, EST. Coding Level of Care Code New Pt Level 4 (50183) Diagnoses Carpal tunnel syndrome of left wrist G56.02 History of carpal tunnel surgery of right wrist Z98.890 Diabetes mellitus E11.9
[2023-10-31 13:31] VITALS: BMI 38.0
== END 2023-10-31 14:15 | disposition home or self-care (01) ==
PROVIDERS: PCP Internal Medicine; Visit Provider Orthopaedic Surgery
DX: G56.02 Carpal tunnel syndrome, left upper limb (principal); E11.9 Type 2 diabetes mellitus without complications
CPT/HCPCS: 99214

== ENCOUNTER → 2023-10-31 12:34 | Outpatient (BNVA) | payer OTHER, SELFPAY | PROVIDERS: PCP Internal Medicine; Visit Provider Orthopaedic Surgery ==

== ENCOUNTER 2024-01-07 10:42 | Day surgery (SDC) | payer OTHER, SELFPAY ==
[2024-01-07 06:34] VITALS: BMI 38.4
[2024-01-07 11:29] VITALS: BP 142/78; PULSE 78; RESP 20; TEMP 36.9; O2SAT 98
--- NOTE | 2024-01-07 13:49 | MHC.SHP ---
Pre-Procedural Eval Section A - 24 Hr Update-Section A only Date of Service: 01/07/24 The patient is an INPATIENT: No Changes since office visit: No Cold of Flu in the past 2 weeks, No New Medical Problems, No Changes in Medication and No Patient answered all questions The patient has been examined within 24 hours of the surgical procedure. The History & Physical has been completed within 30 days and I have reviewed it.: Yes Section B - Complete if H&P > 30 days Chief Complaint: Carpal tunnel syndrome, left upper limb Allergies: Allergies Allergy/AdvReac Type Severity Reaction Status Date / Time penicillin G Allergy Severe hives Verified 10/31/23 13:31 acetaminophen [From Tylenol] Allergy Intermediate hives Verified 10/31/23 13:31 lisinopril Allergy Intermediate tingling Verified 10/31/23 13:31 in throat and cough Plan Diagnosis/Plan: Unchanged I have reviewed the history and physical and performed a pertinent physical examination on my patient. No changes have occurred unless specified. Time Spent With Patient Time: Total time managing care of this patient today ____ minutes.
--- NOTE | 2024-01-07 13:51 | W.PM.OPN ---
Operative Note Operative Note Date of Service: 01/07/24 Narrative: Preop diagnosis: 1. Left Carpal tunnel syndrome Postop diagnosis: same Procedure: 1. Left Carpal tunnel release Surgeon: Edel Peña MD Anesthesia: local block using 1% lidocaine with epinephrine Findings: Thickened transverse carpal ligament. EBL: Less than 5 mL Specimens: None Complications: None Disposition: Brought to recovery room in stable condition Plan: Follow-up for 10-14 days for wound check and suture removal Indications: The patient is 53 years old, with left carpal tunnel syndrome that has been unresponsive to nonoperative management. The risks and benefits of operative treatment including but not limited to risk of damage to blood vessels, nerves, tendons, infection, persistent pain, persistent symptoms, or possible need for additional surgery were discussed with the patient and the patient wishes to proceed with surgery. Procedure: Once consent was obtained a local block was performed using a combination of 1% lidocaine with epinephrine. The patient was then brought back to the operating suite and placed on the operative table in supine position. The left upper extremity was prepped and draped in a standard surgical fashion. Once assured that we had a good block, a 2.0 cm longitudinal incision was made centered over the carpal tunnel. The incision was made through the skin to the subcutaneous tissues using a #15 blade. Dissection was made down to the level of the transverse carpal ligament with care being taken to protect the palmar cutaneous nerve. Once the transverse carpal ligament was clearly visualized, a longitudinal incision was made in the transverse carpal ligament 1st using a #15 blade, then using tenotomy scissors under direct visualization. Care was taken to look for and protect the motor branch of the median nerve when seen in this area. Once satisfied with our carpal tunnel release the wound was copiously irrigated with normal saline and hemostasis was obtained with a brief period of local pressure. The skin edges were reapproximated with some 5.0 nylon suture material and a sterile dressing was applied. The patient appears to have tolerated the procedure well and with no complications. All digits were well vascularized at the conclusion of the case.
[2024-01-07 14:33] VITALS: BP 150/87; PULSE 66; RESP 18; O2SAT 99
== END 2024-01-07 15:11 | disposition home or self-care (01) ==
PROVIDERS: PCP Internal Medicine; Visit Provider Orthopaedic Surgery
PROC: (CPT 64721; principal; 2024-01-07 13:20)
DX: G56.02 Carpal tunnel syndrome, left upper limb (principal); R20.0 Anesthesia of skin; E11.9 Type 2 diabetes mellitus without complications; Z79.899 Other long term (current) drug therapy; Z88.0 Allergy status to penicillin; Z98.84 Bariatric surgery status; Z98.890 Other specified postprocedural states; Z87.891 Personal history of nicotine dependence
CPT/HCPCS: 64721; J0171

== ENCOUNTER → 2024-01-07 10:42 | Outpatient (BNV) | payer OTHER, SELFPAY | PROVIDERS: PCP Internal Medicine; Visit Provider Orthopaedic Surgery | DX: G56.02 Carpal tunnel syndrome, left upper limb (principal) | CPT/HCPCS: 64721 ==

== ENCOUNTER 2024-01-23 12:48 | Outpatient (AMB) | payer OTHER, SELFPAY ==
--- NOTE | 2024-01-23 12:53 | A.OFFVIS_ITS ---
Vital Signs 01/23/24 12:54 Height 5 ft 2 in Weight 210 lb BMI 38.4 Intake Visit Reasons: PO LT CTR 01/07/24 AR Intake Note: Sherie a 53 year old female who presents today for a post operative visit s/p left CTR on 01/07/24 AR. Sutures removed and steri-strips applied. Patient reports she is doing well, however she complains of pain in her 4th and 5th digits. Allergies penicillin G Allergy (Severe, Verified 01/23/24 13:05) hives acetaminophen [From Tylenol] Allergy (Intermediate, Verified 01/23/24 13:05) hives lisinopril Allergy (Intermediate, Verified 01/23/24 13:05) tingling in throat and cough HPI HPI PO LT CTR 01/07/24 AR: Details: Sherie a 53 year old female who presents today for a post operative visit s/p left CTR on 01/07/24 AR. She reports overall she is doing well. She reports that she is able to make a full fist. She reports mild numbness and pain in her 4th and 5th digits. Sutures were removed and Steri-strips were applied. [facility] Surgical History History of sleeve gastrectomy Hx of cholecystectomy Hx of carpal tunnel repair Hx of tubal ligation Hx of total hysterectomy Hx of breast surgery Family History Mother Diabetes Hypertension Father No problems noted. Sister No problems noted. 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 Review of Systems Const All systems reviewed & are unremarkable except as noted in HPI and below Physical Exam Vital Signs: BMI result Body Mass Index 38.4 Const General: cooperative, healthy appearing, comfortable and no acute distress Orientation/consciousness: patient oriented x3 Neck Neck: Yes normal visual inspection and Yes no JVD Chest Chest palpation & inspection: normal inspection of the chest Resp Effort & Inspection: normal respiratory effort Auscultation: clear to auscultation bilaterally, crackles (no), rales (no), rhonchi (no) and wheezes (no) Cardio Jugular venous distension: no JVD Rate: regular rate Rhythm: regular rhythm Heart sounds: S1 normal heart sound present, S2 normal heart sound present, Murmur heart sound present (no) and Rub heart sound present (no) Neuro General: patient oriented x3 Extrem Other: Left wrist: Incision is clean, dry, and intact. No erythema or drainage. She can extend all digits and make a full fist. NVI. General: Yes normal to inspection, Yes no pedal edema and Yes no calf tenderness Psych Appearance: grossly normal Mental Status: mental status grossly normal Speech and movement: Normal speech and movement present Assessment & Plan Assessment & Plan (1) Carpal tunnel syndrome of left wrist: Code(s): G56.02 - Carpal tunnel syndrome, left upper limb Category: Medical Plan Sutures removed today, Steri-strips applied. She will refrain from submerging the left hand underwater for the next 7 to 10 days. She can lightly get it wet, but be certain to dry it off. No heavy lifting, grasping, and gripping motions for the next 3 weeks. She can return to the gym but avoid impact activities and avoid upper body strength for approximately 3 weeks. She will see us back as needed for her left wrist. She would like to make an appointment with her right hand to see Dr. Peña, which she will do so today. Patient Instructions: Scribed for Arianne Santos PA-C, by Galina Gutierrez medical transcriber, on 01/23/2024 at 1:00 PM EST. I, Arianne Santos PA-C, have personally reviewed and agree with the information entered by the scribe. Coding Level of Care Code Global (43214) Diagnoses Carpal tunnel syndrome of left wrist G56.02
[2024-01-23 12:54] VITALS: BMI 38.4
== END 2024-01-23 13:14 | disposition home or self-care (01) ==
PROVIDERS: PCP Internal Medicine; Visit Provider Physician Assistant
DX: G56.02 Carpal tunnel syndrome, left upper limb (principal)
CPT/HCPCS: 99024

== ENCOUNTER → 2024-01-23 12:48 | Outpatient (BNVA) | payer OTHER, SELFPAY | PROVIDERS: PCP Internal Medicine; Visit Provider Physician Assistant ==

== ENCOUNTER 2024-02-27 08:59 | Outpatient (AMB) | payer OTHER, SELFPAY ==
--- NOTE | 2024-02-27 09:18 | MHC.OFFVIS ---
Vital Signs 02/27/24 09:39 Height 5 ft 2 in Weight 195 lb BMI 35.7 Handedness Right Intake Visit Reasons: New Prob - Right Wrist/Hand Pain Intake Note: Sherie is a 53 year old right hand dominant female who presents today for a new problem visit with complaints of right wrist pain. Patient expresses aching pain on the ulnar aspect of her right wrist. She says some days it is so severe that she is unable to tolerate it. She reports this started approximately 8 months ago. At night her right hand occasionally wakes her up from numbness and tingling so she shakes her hand off for some kind of relief. The tingling is in the ulnar aspect as well, she says sometimes it is in her 3rd, 4th, and 5th digits but this is rare for her. 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 Patient is pre-diabetic. Hx of CTR Right hand [phone] at [facility]. Allergies penicillin G Allergy (Severe, Verified 02/27/24 09:44) hives acetaminophen [From Tylenol] Allergy (Intermediate, Verified 02/27/24 09:44) hives lisinopril Allergy (Intermediate, Verified 02/27/24 09:44) tingling in throat and cough HPI HPI New Prob - Right Wrist/Hand Pain: Details: Patient is a 53-year-old female presents for evaluation of bilateral wrist pain, as well as right hand numbness and tingling, ongoing for approximately 1-2 years. The patient reports that she did previously have a carpal tunnel release on the right in approximately 2018 to 2019, although she is unable to recall the exact year this was done. Patient reports that her numbness is intermittent, only occurs occasionally, and is worse at night. She reports that, when her fingers go numb, she believes it is her middle and ring fingers in the right hand. However, the patient is chief concern is ulnar-sided hand and wrist pain that worsens with passive flexion and active extension of bilateral wrists. Patient reports that this has been going on for approximately the same timeframe. No other acute complaints or concerns at this time. [facility] Surgical History History of sleeve gastrectomy Hx of cholecystectomy Hx of carpal tunnel repair Hx of tubal ligation Hx of total hysterectomy Hx of breast surgery Family History Mother Diabetes Hypertension Father No problems noted. Sister No problems noted. 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 Neuro: Patient reports normal sensation of the tips of all digits at this time Good APB muscle belly firing Good finger cross No evidence of thenar or intrinsic wasting Vascular: Cap refill brisk Pain: Patient reports tenderness to palpation over the ulnar styloid bilaterally, moving up into the forearm down into the hand No other pain or tenderness to palpation noted ROM: Patient is able to make a closed fist without difficulty Patient reports discomfort with active extension and passive flexion of bilateral wrists Skin: No lacerations or abrasions. General: No ecchymosis, erythema, or evidence of infection. Psych: Appears grossly normal Affect normal Attitude cooperative Assessment & Plan Assessment & Plan (1) Extensor carpi ulnaris tendinitis: Code(s): M77.8 - Other enthesopathies, not elsewhere classified Category: Medical (2) Numbness and tingling of right hand: Code(s): R20.0 - Anesthesia of skin; R20.2 - Paresthesia of skin Category: Medical Plan 1. Right hand numbness and tingling Symptoms intermittent, not daily, worse at night Patient has no current nerve conduction study on file Patient is referred for new nerve conduction study today to assess the health of the nerves of the right upper extremity Patient is amenable to this plan Patient will follow-up after nerve conduction study for results review and discussion of further treatment options at that time 2. Bilateral ECU tendinitis Ongoing for approximately 1-2 years Patient is educated about this condition and the typical recovery course Patient is referred to occupational hand therapy at this time for range of motion, strengthening, stabilization of bilateral wrists and treatment of ECU tendinitis bilaterally Patient is amenable to this plan Patient will follow-up p.r.n. with any acute concerns Orders: Orders OT Evaluation and Treatment Today M77.8 - Other enthesopathies, not elsewhere classified NE nerve conduction velocity Today R20.0 - Anesthesia of skin, R20.2 - Paresthesia of skin NE electromyogram (EMG) Today R20.0 - Anesthesia of skin, R20.2 - Paresthesia of skin Coding Level of Care Code New Pt Level 3 (63796) Diagnoses Extensor carpi ulnaris tendinitis M77.8 Numbness and tingling of right hand R20.0; R20.2
[2024-02-27 09:39] VITALS: BMI 35.7
== END 2024-02-27 10:04 | disposition home or self-care (01) ==
PROVIDERS: PCP Internal Medicine
DX: M77.8 Other enthesopathies, not elsewhere classified (principal); R20.0 Anesthesia of skin; R20.2 Paresthesia of skin
CPT/HCPCS: 99203

== ENCOUNTER → 2024-02-27 08:59 | Outpatient (BNVA) | payer OTHER, SELFPAY | PROVIDERS: PCP Internal Medicine ==

== ENCOUNTER 2024-03-07 12:37 | Outpatient (REF) | payer OTHER, SELFPAY ==
--- NOTE | 2024-03-07 12:39 | EMG_ITS ---
Chief complaint: Hand numbness especially the smaller fingers, Carpal Tunnel Syndrome surgery right side 2018 Reason for referral: Evaluate for Carpal Tunnel Syndrome Referred by: Shahid QUIROZ Procedure done: Right upper extremity NCS/EMG Precautions and/or limitations: None Previous EMG not available for comparison. The limb temperature was monitored continuously and remained between 32-36 degrees C during the performance of the NCS. Nerve Conduction Studies Anti Sensory Summary Table ?Stim Site NR Onset (ms) Norm Onset (ms) Peak (ms) Norm Peak (ms) O-P Amp (?V) Norm O-P Amp Site1 Site2 Delta-0 (ms) Dist (cm) Zacarias (m/s) Norm Zacarias (m/s) Right Median Anti Sensory (2nd Digit) Wrist ? 3.4 4.5 <3.6 57.8 >10 Wrist 2nd Digit 3.4 14.0 41 Right Radial Anti Sensory (Thumb) Forearm ? 2.1 2.7 <3.1 19.7 Forearm Thumb 2.1 0.0 Right Ulnar Anti Sensory (5th Digit) Wrist ? 2.9 3.7 <3.7 24.7 >15.0 Wrist 5th Digit 2.9 14.0 48 Motor Summary Table ?Stim Site NR Onset (ms) Norm Onset (ms) O-P Amp (mV) Norm O-P Amp iAmp (mV) Amp (1st) (%) Site1 Site2 Delta-0 (ms) Dist (cm) Zacarias (m/s) Norm Zacarias (m/s) Right Median Motor (Abd Poll Brev) Wrist ? 4.5 <3.9 7.9 >4.5 9.4 100.0 Elbow Wrist 4.1 20.0 49 >45 Elbow ? 8.6 7.8 9.3 98.7 Right Ulnar Motor (Abd Dig Minimi) Wrist ? 3.0 <3.0 10.7 >5 12.5 100.0 B Elbow Wrist 4.3 20.5 48 >45 B Elbow ? 7.3 10.6 12.6 99.1 A Elbow B Elbow 1.8 10.0 56 >45 A Elbow ? 9.1 10.5 12.3 98.1 EMG ?Side Muscle Nerve Root Ins Act Fibs Psw Amp Dur Poly Recrt Int Pat Comment Right 1stDorInt Ulnar C8-T1 Nml Nml Nml Nml Nml 0 Nml Complete Right FlexCarRad Median C6-7 Nml Nml Nml Nml Nml 0 Nml Complete Right Biceps Musculocut C5-6 Nml Nml Nml Nml Nml 0 Nml Complete Right Triceps Radial C6-7-8 Nml Nml Nml Nml Nml 0 Nml Complete Right Deltoid Axillary C5-6 Nml Nml Nml Nml Nml 0 Nml Complete FINDINGS: Right median motor nerve showed prolonged distal latency, normal amplitude and normal conduction velocity. Right median sensory nerve showed prolonged peak latency. All other nerves tested were within normal. Concentric needle EMG was performed in selected muscles of the right upper extremity. Study did not reveal signs of electric abnormalities as shown in the table above. IMPRESSION: 1. This is an abnormal study. 2. There is electrodiagnostic evidence for right moderate-severe median neuropathy at the wrist, consistent with carpal tunnel syndrome. 3. There is no electrodiagnostic evidence for ulnar neuropathy, brachial plexopathy, or cervical radiculopathy. CLINICAL COMMENT: Past EMG not available for comparison, obtain if possible. Thank you for your kind referral. Kaitlin Vizcarra MD, ADDY Board Certified, [place] Board [employer] and Rehabilitation (ABPMR) Board Certified, [place] Board [employer] Electrodiagnostic [employer] (ABEM) CODIN [id number] [facility]
== END 2024-03-07 12:38 | disposition home or self-care (01) ==
LOC: HO.NEURO 12:37
PROVIDERS: PCP Internal Medicine
DX: R20.0 Anesthesia of skin (principal); R20.2 Paresthesia of skin
CPT/HCPCS: 95886; 95909

== ENCOUNTER → 2024-03-07 12:39 | Outpatient (BNV) | payer OTHER, SELFPAY | PROVIDERS: PCP Internal Medicine; Visit Provider Physical Medicine & Rehabilitation | DX: G56.01 Carpal tunnel syndrome, right upper limb (principal) | CPT/HCPCS: 95886; 95909 ==

== ENCOUNTER 2024-03-19 08:42 | Observation (INO) | payer OTHER, SELFPAY ==
[2024-03-19] VITALS (7 sets, daily range): BP systolic 126–150; BP diastolic 65–83; PULSE 67–76; RESP 16–20; TEMP 36–36.7; O2SAT 98–100; BMI 34.8
--- NOTE | ~2024-03-19 | CT_ITS ---
EXAMINATION: CT ABDOMEN AND PELVIS WITHOUT CONTRAST CLINICAL INFORMATION: Left-sided flank pain COMPARISON: None available. TECHNIQUE: Multidetector volumetric imaging was performed from the superior aspect of the liver through the pubic symphysis. Sagittal and coronal reformatted images were obtained on the technologist's workstation. This CT examination was performed using dose optimization techniques as appropriate, variously including the following: *Automated exposure control *Adjustment of mA and/or kV according to patient size (this includes techniques or standardized protocols for targeted exams where dose is matched to indication/reason for exam; i.e. extremities or head) *Use of iterative reconstruction technique DLP: 622 mGy-cm FINDINGS: LUNG BASES: The visualized lung bases are unremarkable. LIVER, GALLBLADDER, AND BILIARY TREE: The liver is normal in size, shape, and attenuation. No focal hepatic lesion or biliary ductal dilatation is present. The gallbladder is absent. PANCREAS: Unremarkable. SPLEEN: Unremarkable. ADRENAL GLANDS: Unremarkable. KIDNEYS AND URETERS: The kidneys are normal in size, shape, and attenuation. No hydronephrosis, hydroureter, or calculi seen. No perinephric stranding. BLADDER: Unremarkable. GASTROINTESTINAL TRACT: Normal. Dilated jejunal loops are observed in the central upper abdomen and left upper quadrant. There is postsurgical change related to the stomach. Small bowel findings could be related to adhesions with a partial SBO. No right or left lower quadrant inflammation. Appendix normal. ABDOMINAL WALL: No significant hernia is appreciated. LYMPH NODES: Normal. VASCULAR: Unremarkable. PELVIC VISCERA: Uterus is absent. No adnexal masses. Multiple pelvic phleboliths present. OSSEOUS STRUCTURES: No destructive lesions in the spine. There is degenerative change in the thoracolumbar junction. CT/CT abdomen pelvis wo IV con IMPRESSION: Dilated jejunal loops suggest partial SBO or ileus. Fleischner guidelines were followed. Electronically signed by: Ben Bryan MD 03/19/2024 09:56 AM EDT
--- NOTE | 2024-03-19 09:29 | ED_ITS ---
HPI - Female Genitourinary General Chief complaint: Urogenital-Female Stated complaint: l flank pain Time Seen by Provider: 03/19/24 09:21 Source: patient Mode of arrival: ambulatory Limitations: no limitations History of Present Illness ED Provider: MAX AVILA Narrative: 53 yo female with PMH of DM, GERD, MARY KATE on CPAP, sleeve gastrectomy in the past, renal colic, she presents today with c/o L flank pain that was there 2 weeks ago and went away then last night could not get comfortable and she has nausea. Feels like she cannot empty her bladder. No fevers. Pain is not improving and she feels like when she did when she had stones in the past. No prior need for interventions in the past. No BM or flatus since yesterday MD elicited complaint: other (flank pain) Pertinent past history: other (renal colic) Onset (ago): day(s) (1) Location of symptoms: flank Severity: moderate Quality of pain: sharp Consistency: intermittent Vaginal discharge: none Vaginal bleeding: none Urinary symptoms: Frequency Exacerbating factors: none Relieving factors: none Associated symptoms: nausea Related Data Home Medications ?Medication ?Instructions ?Recorded ?Confirmed cyanocobalamin (vitamin B-12) 1,000 mcg PO DAILY 07/12/21 1,000 mcg tablet (Vitamin B-12) irbesartan 75 mg tablet 75 mg PO DAILY 12/01/21 multivitamin 1 tab PO DAILY 03/31/22 albuterol sulfate 90 mcg/actuation inhalation 02/27/24 aerosol inhaler alprazolam 0.5 mg tablet 0.5 mg PO DAILY 02/27/24 diclofenac sodium 1 % topical gel topical BID 02/27/24 duloxetine 30 mg capsule,delayed 30 mg PO DAILY 02/27/24 release mirtazapine 15 mg tablet 15 mg PO BEDTIME 02/27/24 ondansetron 4 mg disintegrating 4 mg PO DAILY 02/27/24 tablet tirzepatide 5 mg/0.5 mL mg subcut 02/27/24 subcutaneous pen injector (Mounjaro) tirzepatide 7.5 mg/0.5 mL mg subcut 02/27/24 subcutaneous pen injector (Mounjaro) zolpidem 10 mg tablet 10 mg PO BEDTIME PRN 02/27/24 Allergies Allergy/AdvReac Type Severity Reaction Status Date / Time penicillin G Allergy Severe hives Verified 03/19/24 08:59 acetaminophen [From Tylenol] Allergy Intermediate hives Verified 03/19/24 08:59 lisinopril Allergy Intermediate tingling Verified 03/19/24 08:59 in throat and cough Review of Systems 2 Review of Systems: Constitutional : No Weight loss, No Fever, No Chills ENT/Mouth : No sore throat, No Rhinorrhea Eyes: No Swelling, No Redness Cardiovascular : No Chest Pain, No SOB, NoEdema Respiratory : No Cough, No Sputum, No Wheezing Gastrointestinal : Positive Nausea, no Vomiting, no Diarrhea, positive flank Pain, No Hematochezia, No Melena Genitourinary : No Dysuria, pos Urinary Frequency, No Hematuria, No Urgency Musculoskeletal : No joint pain, No Myalgias, No Joint Swelling Skin : No Skin Lesions, No rash Neuro : No Weakness, No Numbness, No Dizziness, No Headache Psych : No Anxiety/Panic, No Depression All other systems reviewed and are negative. [facility] Past Medical History Attestation statement: The following information was validated with the patient. Source: old records reviewed Medical History Obesity MARY KATE on CPAP GERD (gastroesophageal reflux disease) Abnormal ECG Chronic constipation Adjustment disorder, unspecified Diabetes mellitus Surgical History History of sleeve gastrectomy Hx of cholecystectomy Hx of carpal tunnel repair Hx of tubal ligation Hx of total hysterectomy Hx of breast surgery Family History Family History Mother Diabetes Hypertension Father No problems noted. Sister No problems noted. 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 Oriented X3. No acute distress. Eyes: Pupils equal, round and reactive to light. ENT: Pharynx normal. Neck: Normal inspection. Neck supple. CVS: Normal heart rate and rhythm. Pulses normal. Respiratory: No respiratory distress. Breath sounds normal. Abdomen: Soft and nontender. L CVA ttp moderate Skin: Skin warm and dry. Normal skin color. Normal skin turgor. Extremities: No lower extremity edema. No calf ttp Neuro: Oriented X 3. No motor deficit. No sensory deficit. Medications Administered Generic Name Dose Route Start Last Admin Trade Name Freq PRN Reason Stop Dose Admin Sodium Chloride 1,000 mls @ 100 mls/hr 03/19/24 12:15 03/19/24 12:16 Ns IVCONT 100 mls/hr .Q10H PAYAM Administration Discontinued Medications Generic Name Dose Route Start Last Admin Trade Name Freq PRN Reason Stop Dose Admin Sodium Chloride 500 mls @ 500 mls/hr 03/19/24 09:25 03/19/24 11:30 Ns IV 03/19/24 10:24 Infused .Q1H ONE Infusion Morphine Sulfate 4 mg 03/19/24 09:31 03/19/24 09:55 Morphine Sulfate 4 Mg/Ml Cartridge IVPUSH 03/19/24 09:32 4 mg ONCE ONE Administration Protocol Ondansetron HCl 4 mg 03/19/24 09:25 03/19/24 09:55 Ondansetron Hcl 4 Mg/2 Ml Vial IVPUSH 03/19/24 09:26 4 mg ONCE ONE Administration Medical Decision Making Medical Decision Making MDM Narrative: 53 yo female with PMH of DM, GERD, MARY KATE on CPAP, sleeve gastrectomy in the past, renal colic, she presents today with c/o L flank pain, nausea and urinary frequency at this time will obtain labs, UA, CT scan for renal colic. Patient has had sleeve gastrectomy will avoid toradol. At this time labs, UA, CT scan for renal colic and IV morphine for pain. Also no BM or flatus since yesterday. Differential Diagnosis Differential Diagnoses: The differential diagnosis associated with the presentation includes renal colic, MSK pain, UTI, SBO Admission/Observation Consideration of admission/observation: Escalation of care including admission/observation considered to be admitted overnight by gen surgery Consult Healthcare Provider Management of the patient was discussed with: Chief Jailer noreen QUIROZ from bariatrics states refer to general surgery Dr. Hardwick came down to evaluate the patient Lab Data MDM Lab Attestation statement: I reviewed the patient's lab results. 03/19/24 09:46 03/19/24 09:46 Labs: Lab Results 03/19/24 03/19/24 Range/Units 09:46 09:57 WBC 4.8 (4.8-10.8) X10*3/uL RBC 4.51 (4.20-5.50) X10*6/uL Hgb 13.6 (12.0-16.0) g/dl Hct 38.8 (37.0-47.0) % MCV 86.0 (80.0-98.0) fL MCH 30.2 (27.0-33.0) pg MCHC 35.1 H (31.0-35.0) g/dl RDW 13.5 (11.0-16.0) % Plt Count 189 (160-400) X10*3/uL MPV 9.5 (9.4-12.3) fL Immature Gran % (Auto) 0.2 (0.0-0.4) % Neut % (Auto) 43.7 L (45-73) % Lymph % (Auto) 48.9 H (20-40) % [place] % (Auto) 5.8 (2-11) % Eos % (Auto) 1.2 (0-4) % Baso % (Auto) 0.2 (0-2) % Lymph # (Auto) 2.4 (1.2-4.9) X10*3/uL [place] # (Auto) 0.3 (0.1-1.2) X10*3/uL Eos # (Auto) 0.1 (0.0-0.4) X10*3/uL Baso # (Auto) 0.0 (0.0-0.2) X10*3/uL Abs Immat Gran (auto) 0.01 (0.00-0.03) X10*3/uL Absolute Neuts (auto) 2.1 (2.0-8.3) x10*3/uL Absolute Nucleated RBC 0.000 (0.0-0.012) X10*3/uL Nucleated RBC % (auto) 0.0 (0.0-0.2) /100WBC Sodium 140 (135-145) mmol/L Potassium 4.1 (3.3-5.1) mmol/L Chloride 110 H (96-108) mmol/L Carbon Dioxide 27 (22-29) mmol/L Anion Gap 7 L (12-20) BUN 14 (9-16) mg/dL Creatinine 0.75 (0.5-1.4) mg/dL Estim Creat Clear Calc 86.3 Estimated GFR > 60 Random Glucose 81 (60-115) mg/dL Calcium 9.0 (8.4-10.2) mg/dL Total Bilirubin 0.4 (0.0-1.0) mg/dL Direct Bilirubin 0.2 (0.0-0.5) mg/dL AST 14 (5-31) U/L ALT 9 (0-31) U/L Alkaline Phosphatase 83 (39-117) U/L Total Protein 7.1 (6.5-8.0) g/dL Albumin 3.9 (3.5-5.0) g/dL Lipase 19 (8-78) U/L Urine Color Yellow Urine Appearance Clear Urine pH 7.0 (5.0-9.0) Ur Specific [place] 1.025 (1.005-1.025) Urine Protein Negative (Neg-Trace) mg/dL Urine Glucose (UA) Negative (Negative) mg/dL Urine Ketones Negative (Negative) mg/dL Urine Blood Trace H (Negative) Urine Nitrite Negative (Negative) Ur Leukocyte Esterase Small (1+) H (Negative) Urine RBC 6-10 H (0-2) /HPF Urine WBC 6-10 H (0-5) /HPF Ur Squamous Epith Cells 6-10 (0-2) /HPF Urine Bacteria Trace (None Seen) Hyaline Casts 0-2 (0-2) /LPF Independent Interpretation I performed an independent interpretation of an: CT Scan (ileus vs SBO) Radiology Impression Discussion of test interpretation with radiology: I have reviewed the radiologist's reading. External Record Review External record reviewed: Inpatient record Discharge Plan Discharge Clinical Impression: Partial small bowel obstruction Patient Disposition: Admitted As Inpatient Print Language: Portuguese
[2024-03-19 09:51] LABS: MANUAL DIFF FLAG NO
[2024-03-19] MEDS: ondansetron HCL 4 MG/2 ML VIAL IVPUSH (09:55)
[2024-03-19] MEDS: Morphine Sulfate 4 MG/ML CARTRIDGE IVPUSH (09:55)
[2024-03-19] MEDS: 0.9 % Sodium Chloride 500 ML IV (09:55)
[2024-03-19 09:58] LABS: Basophils Percent Auto 0.2 % (0-2); Eosinophils Absolute Auto 0.1 X10*3/uL (0.0-0.4); Eosinophils Percent Auto 1.2 % (0-4); Hematocrit 38.8 % (37.0-47.0); Hemoglobin 13.6 g/dl (12.0-16.0); Imm Gran Abs Auto 0.01 X10*3/uL (0.00-0.03); Imm Gran Pct Auto 0.2 % (0.0-0.4); Lymphocytes Absolute Auto 2.4 X10*3/uL (1.2-4.9); Lymphocytes Percent Auto 48.9 % (20-40); Mean Corpuscular HGB Conc 35.1 g/dl (31.0-35.0); Mean Corpuscular Hemoglobin 30.2 pg (27.0-33.0); Mean Platelet Volume 9.5 fL (9.4-12.3); Monocytes Absolute Auto 0.3 X10*3/uL (0.1-1.2); Monocytes Percent Auto 5.8 % (2-11); Neutrophils Absolute Auto 2.1 x10*3/uL (2.0-8.3); Neutrophils Percent Auto 43.7 % (45-73); Platelet Count 189 X10*3/uL (160-400); Red Blood Count 4.51 X10*6/uL (4.20-5.50); Red Cell Distribution Width 13.5 % (11.0-16.0); White Blood Count 4.8 X10*3/uL (4.8-10.8)
[2024-03-19 10:04] LABS: Appearance Urine Clear; Color Urine Yellow; Glucose Urine UA Negative (Negative); Leukocyte Esterase Urine Small (1+) (Negative); Nitrite Urine Negative (Negative); Specific Gravity - Urine 1.025 (1.005-1.025); UMIC TRIGGER UACC YES; Urine Blood Trace (Negative); Urine Ketones Negative (Negative); Urine Protein Negative (Neg-Trace)
[2024-03-19 10:07] LABS: Bacteria Urine Trace (None Seen); Hyaline Casts Urine 0-2 /LPF (0-2); UACC Culture Trigger YES
[2024-03-19 10:30] LABS: Alanine Aminotransferase 9 U/L (0-31); Albumin Level 3.9 g/dL (3.5-5.0); Alkaline Phosphatase 83 U/L (39-117); Anion Gap 7 (12-20); Aspartate Amino Transferase 14 U/L (5-31); Bilirubin Direct 0.2 mg/dL (0.0-0.5); Bilirubin Total 0.4 mg/dL (0.0-1.0); Blood Urea Nitrogen 14 mg/dL (9-16); Carbon Dioxide 27 mmol/L (22-29); Chloride 110 mmol/L (96-108); Creatinine Clr Calc Pharmacy 86.3; Estimated Glomerular Filt Rate > 60; Glucose Random 81 mg/dL (60-115); Lipase 19 U/L (8-78); Potassium 4.1 mmol/L (3.3-5.1); Sodium 140 mmol/L (135-145); Total Protein 7.1 g/dL (6.5-8.0)
[2024-03-19] MEDS: 0.9 % Sodium Chloride 1,000 ML 100 ML IVCONT ×2 (12:16→23:41)
--- NOTE | 2024-03-19 13:11 | P.HPGS_ITS ---
History of Present Illness History of Present Illness Date of Service: 03/19/24 <Rowan Vela PA-C - Last Filed: 03/19/24 13:31> 03/20/24 <Db Hardwick MD - Last Filed: 03/20/24 14:36> Chief complaint: Abdominal pain <Rowan Vela PA-C - Last Filed: 03/19/24 13:31> Narrative: Sherie Michelle is a 53 year old female with PMH significant for diabetes mellitus, HTN, MARY KATE on CPAP who presented to the ED with complaints of abdominal pain. Patient reports acute onset of left upper flank pain yesterday. It began to radiate into her left upper abdomen. The pain was associated with nausea without vomiting. She denies flatus or BM since onset of pain. She reports one prior episode of pain a few weeks ago that was not as severe and resolved on its own. Due to the persistence of pain she presented to the ED for evaluation. Work up included CBC, BMP, LFTs which were WNL. UA essentially negative. CT scan abd/pelvis showed dilated small bowel loops in the LUQ. She has a surgical history of laparoscopic sleeve gastrectomy in 2019 and laparoscopic cholecystectomy in 2009. She feels somewhat improved currently. She denies fevers, chills, diarrhea, dysuria, hematuria. <Rowan Vela PA-C - Last Filed: 03/19/24 13:31> Review of Systems Constitutional: Constitutional: Denies chills and Denies fever(s) <Rowan Vela PA-C - Last Filed: 03/19/24 13:31> ENT: Denies dizziness <Rowan Vela PA-C - Last Filed: 03/19/24 13:31> Cardiovascular: Cardiovascular: Denies chest pain and Denies dyspnea <Rowan Vela PA-C - Last Filed: 03/19/24 13:31> Respiratory: Respiratory: Denies dyspnea <SAGE Schwarz Last Filed: 03/19/24 13:31> Gastrointestinal: Gastrointestinal: Reports as per HPI <Rowan Vela PA-C - Last Filed: 03/19/24 13:31> Genitourinary: Genitourinary: Denies hematuria and Denies dysuria <Rowan Vela PA-C - Last Filed: 03/19/24 13:31> Integumentary/Breasts: Skin/Breast: Denies rash and Denies jaundice <Rowan Vela PA-C - Last Filed: 03/19/24 13:31> Neurologic: Denies dizziness <Rowan Vela PA-C - Last Filed: 03/19/24 13:31> [facility] Past Medical History Medical History: Medical History Obesity MARY KATE on CPAP GERD (gastroesophageal reflux disease) Abnormal ECG Chronic constipation Adjustment disorder, unspecified Diabetes mellitus <SAGE Schwarz Last Filed: 03/19/24 13:31> Family History Family History: Family History Mother Diabetes Hypertension Father No problems noted. Sister No problems noted. Sister Arthritis Son Diabetes Son Diabetes <Rowan Vela PA-C - Last Filed: 03/19/24 13:31> Surgical History Surgical History: Surgical History History of sleeve gastrectomy Hx of cholecystectomy Hx of carpal tunnel repair Hx of tubal ligation Hx of total hysterectomy Hx of breast surgery <SAGE Schwarz Last Filed: 03/19/24 13:31> Social History Social History: Social History Household Members: Children Housing: House Do you presently have visiting nurse or other home services: No Alcohol intake: never Comment: counts correct Patient Tobacco Use Status: Never used Tobacco Smoked in Last 30 Days: No Use of substances other than those prescribed or required for medical reasons: No Currently Displaying Signs/Symptoms of Drug Intoxication Withdrawal: No Have you been hit, kicked, punched, or otherwise hurt by someone within the past year? 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 <Rowan Vela PA-C - Last Filed: 03/19/24 13:31> Meds Allergies/Adverse reactions: Allergies Allergy/AdvReac Type Severity Reaction Status Date / Time penicillin G Allergy Severe hives Verified 03/19/24 08:59 acetaminophen [From Tylenol] Allergy Intermediate hives Verified 03/19/24 08:59 lisinopril Allergy Intermediate tingling Verified 03/19/24 08:59 in throat and cough <Rowan Vela PA-C - Last Filed: 03/19/24 13:31> Active Medications: Current Medications Calcium Carbonate (Calcium Carbonate 750 Mg Tab.Chew) 750 mg PO Q4H PRN PRN Reason: Heartburn Glucose (Glucose Gel 15 Gm Gel..Gram.) 15 gm PO Q15M PRN; Protocol PRN Reason: per Hypoglycemia Standing Ord. Hydromorphone HCl (Hydromorphone Hcl 1 Mg/Ml Syringe) 0.5 mg IVPUSH Q4H PRN; Protocol PRN Reason: Pain, Severe (Pain Scale 7-10) Sodium Chloride (Ns) 1,000 mls @ 100 mls/hr IVCONT .Q10H [facility] Last Admin: 03/19/24 12:16 Dose: 100 mls/hr Insulin Human Lispro (Insulin Lispro 100 Unit/Ml 3 Ml Vial) 0 unit SUBCUT QIDACHS [facility]; Protocol Magnesium Hydroxide (Milk Of Magnesia 30 Ml Oral.Susp) 30 ml PO DAILY PRN PRN Reason: Constipation Melatonin (Melatonin 3 Mg Tablet) 6 mg PO BEDTIME PRN PRN Reason: Insomnia Ondansetron HCl (Ondansetron Hcl 4 Mg/2 Ml Vial) 4 mg IVPUSH Q8H PRN PRN Reason: Nausea and Vomiting Oxycodone HCl (Oxycodone Hcl Immed Release 5 Mg Tablet) 5 mg PO Q6H PRN PRN Reason: Pain, Moderate(Pain Scale 4-6) Sodium Chloride (0.9 % Sodium Chloride Flush 3 Ml Syringe) 3 ml IVFLUSH QSHIFT PAYAM <Rowan Vela PA-C - Last Filed: 03/19/24 13:31> Home medications: Home Medications ?Medication ?Instructions ?Recorded ?Confirmed ?Last Taken ?Type irbesartan 75 mg tablet 75 mg PO DAILY 12/01/21 03/19/24 03/18/24 History albuterol sulfate 90 mcg/actuation 2 puff inhalation QID PRN 02/27/24 03/19/24 Unknown History aerosol inhaler Shortness Of Breath Or Wheezing alprazolam 0.5 mg tablet 0.5 mg PO DAILY PRN Anxiety 02/27/24 03/19/24 03/18/24 History diclofenac sodium 1 % topical gel 1 ea topical BID PRN Pain 02/27/24 03/19/24 Unknown History duloxetine 30 mg capsule,delayed 30 mg PO DAILY 02/27/24 03/19/24 03/18/24 History release mirtazapine 15 mg tablet 15 mg PO BEDTIME 02/27/24 03/19/24 03/18/24 History ondansetron 4 mg disintegrating 4 mg PO DAILY PRN Nausea And 02/27/24 03/19/24 Unknown History tablet Vomiting tirzepatide 7.5 mg/0.5 mL 7.5 mg subcut TU 02/27/24 03/19/24 03/18/24 History subcutaneous pen injector (Deanne) risperidone 0.5 mg tablet 0.5 mg PO DAILY 03/19/24 03/19/24 03/18/24 History vitamin B complex 1 tab PO DAILY 03/19/24 03/19/24 03/18/24 History <Rowan Vela PA-C - Last Filed: 03/19/24 13:31> Physical Exam Vital Signs: Vital Signs: Last Vital Signs Temp 97.7 F 03/19/24 09:59 Pulse 70 03/19/24 12:15 Resp 16 03/19/24 12:15 BP 126/69 03/19/24 12:15 Pulse Ox 100 03/19/24 12:15 O2 Del Method Room Air 03/19/24 12:15 BMI result Body Mass Index 34.8 <Rowan Vela PA-C - Last Filed: 03/19/24 13:31> Const: General: comfortable, no acute distress and alert <Rowan Jonesdeau SAGE Rain Last Filed: 03/19/24 13:31> Orientation/consciousness: patient oriented x3 <Rowan JonesdeauRICHIEMert Rain Last Filed: 03/19/24 13:31> Neck: Neck: No JVD <Rowan Vela SAGE Rain Last Filed: 03/19/24 13:31> Resp: Effort & Inspection: normal respiratory effort <Rowan Vela SAGE Rain Last Filed: 03/19/24 13:31> Cardio: Rate: regular rate <Rowan Vela SAGE Rain Last Filed: 03/19/24 13:31> GI: Other: corpulent abdomen well healed small surgical scars of upper abdomen consistent with laparoscopic sleeve gastrectomy and cholecystectomy <Rowan Jonesdeau SAGE Rain Last Filed: 03/19/24 13:31> Inspection: No distended <Rowan Vela SAGE Rain Last Filed: 03/19/24 13:31> Palpation (GI): Soft to palpation, Tenderness to palpation present (GI) in the LUQ (very mild); with no rebound tenderness and no guarding <Rowan Jonesdeau SAGE Rain Last Filed: 03/19/24 13:31> Percussion: Yes normal to percussion <Rowan Jonesdeau SAGE Rain Last Filed: 03/19/24 13:31> Skin: General skin exam: no rashes or lesions noted <Rowan OseibodeauRICHIEMert Rain Last Filed: 03/19/24 13:31> Neuro: General: patient oriented x3 <Rowan Jonesmahogany SAGE Rain Last Filed: 03/19/24 13:31> Results Results Labs: Short CBC 03/19/24 Range/Units 09:46 WBC 4.8 (4.8-10.8) X10*3/uL Hgb 13.6 (12.0-16.0) g/dl Hct 38.8 (37.0-47.0) % Plt Count 189 (160-400) X10*3/uL BMP 03/19/24 09:46 Sodium 140 Potassium 4.1 Chloride 110 H Carbon Dioxide 27 BUN 14 Creatinine 0.75 Calcium 9.0 Liver Function 03/19/24 Range/Units 09:46 Total Bilirubin 0.4 (0.0-1.0) mg/dL Direct Bilirubin 0.2 (0.0-0.5) mg/dL AST 14 (5-31) U/L ALT 9 (0-31) U/L Alkaline Phosphatase 83 (39-117) U/L Albumin 3.9 (3.5-5.0) g/dL Urine 03/19/24 Range/Units 09:57 Urine Color Yellow Urine Appearance Clear Urine pH 7.0 (5.0-9.0) Ur Specific [place] 1.025 (1.005-1.025) Urine Protein Negative (Neg-Trace) mg/dL Urine Glucose (UA) Negative (Negative) mg/dL <SAGE Schwarz Last Filed: 03/19/24 13:31> Abdomen CT scan report/results: report reviewed and image reviewed <SAGE Schwarz Last Filed: 03/19/24 13:31> Assessment and Plan (1) Abdominal pain: Status: Acute <SAGE Schwarz Last Filed: 03/19/24 13:31> Patient with mostly left-sided abdominal pain since last night Denies flatus since then Little bit of nausea Abdomen is soft and very benign CT scan shows some mild dilatation of the jejunal loops We will admit for observation Clear liquids advance as tolerated Seen and examined independently <Db Hardwick MD - Last Filed: 03/20/24 14:36> 53 year old female with PMH significant for diabetes mellitus, HTN, MARY KATE on CPAP and surgical history or lap sleeve gastrectomy and cholecystectomy with acute onset left flank/left upper quadrant abdominal pain associated with nausea. CT scan shows mildly dilated jejunal loops in the LUQ. Unclear etiology of pain however her abdomen is very benign however given no evidence of flatus or GI function and concern for PSBO, will admit for observation. Cont IVF, can have clear liquids, PRN analgesics and antiemetics. Further plan dependent on clinical course. Patient is comfortable with plan. Hx of diabetes on Mounjaro. Reports good BS control at home. ISS. <SAGE Schwarz Last Filed: 03/19/24 13:31> Quality Stroke Does the patient have a stroke diagnosis?: No <Rowan Vela PA-C - Last Filed: 03/19/24 13:31> VTE Prior VTE?: No <Rowan Vela PA-C - Last Filed: 03/19/24 13:31> VTE Risk Level:: Medical - low <Rowan Vela PA-C - Last Filed: 03/19/24 13:31> VTE Device Contraindication: N/A - Device Ordered <Rowan Vela PA-C - Last Filed: 03/19/24 13:31> VTE Drug Contraindication: Treatment Not Indicated <Rowan Vela PA-C - Last Filed: 03/19/24 13:31> Procedures Date of Service Date of Service: 03/19/24 <Rowan Vela PA-C - Last Filed: 03/19/24 13:31> 03/20/24 <Db Hardwick MD - Last Filed: 03/20/24 14:36>
--- NOTE | 2024-03-19 13:33 | PHA.MEDREC ---
Addendum entered by Katya Tidwell RPh 03/19/24 13:53: Med rec was reviewed by [facility]. Original Note: Pharmacy Consult ? Medication Reconciliation Pharmacy has completed the medication reconciliation. Spoke to patient to confirm med list. patient states she in no longer taking Vitamin B-12 1,000 mg, Multivitamin , and Zoloidem 10 mg. Patient confirm Mounjaro 7.5 mg every Sun, last dose was 03-18-24.
--- NOTE | 2024-03-19 14:27 | MHC.CM.ED ---
PATIENT IS FULLY INDEPENDENT WITH ADLS. 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 IF SHE DOES NOT HAVE ONE AVAILABLE, SHE IS AWARE HTTA ONE CAN BE COMPLETED DURING HER STAY. MADDOX 03/19 SIGNED AND COPY PLACED IN CHART. CM FOLLOWING.
[2024-03-19] MEDS: oxyCODONE HCl Immed Release 5 MG TABLET PO (14:47)
[2024-03-19] MEDS: Ibuprofen 600 MG TABLET PO (18:12)
[2024-03-19 18:13] LABS: Glucose, Whole Blood 67 mg/dL (60-115)
[2024-03-19 18:56] LABS: Glucose, Whole Blood 94 mg/dL (60-115)
[2024-03-19] MEDS: Mirtazapine 15 MG TABLET PO (20:19)
[2024-03-19] MEDS: HYDROmorphone HCl 1 MG/ML SYRINGE 0.5 MG IVPUSH (20:31)
[2024-03-19] MEDS: Valsartan 40 MG TABLET PO (20:36)
[2024-03-20 03:33] VITALS: BP 142/71; PULSE 57; RESP 18; TEMP 36.6; O2SAT 98
--- NOTE | 2024-03-20 07:32 | PM.PNGS ---
Subjective Subjective Date of Service: 03/20/24 Interval history: Pain still somewhat present but better. Passing flatus now. Denies nausea. Physical Exam Vital Signs: Vital Signs: Last Vital Signs Temp 97.8 F 03/20/24 03:33 Pulse 57 03/20/24 03:33 Resp 18 03/20/24 03:33 BP 142/71 H 03/20/24 03:33 Pulse Ox 98 03/20/24 03:33 O2 Del Method Room Air 03/20/24 03:33 BMI result Body Mass Index 34.8 Const: General: comfortable, no acute distress and alert Orientation/consciousness: patient oriented x3 Resp: Effort & Inspection: normal respiratory effort GI: Inspection: No distended Palpation (GI): Soft to palpation, nontender and no guarding Percussion: Yes normal to percussion Skin: General skin exam: no rashes or lesions noted Neuro: General: patient oriented x3 Objective Data Active Medications Albuterol Sulfate (Albuterol Sulfate 90 Mcg 8 Gm Inhaler) 2 puff INHALE QID PRN PRN Reason: Shortness Of Breath Or Wheezing Alprazolam (Alprazolam 0.5 Mg Tablet) 0.5 mg PO DAILY PRN PRN Reason: Anxiety Calcium Carbonate (Calcium Carbonate 750 Mg Tab.Chew) 750 mg PO Q4H PRN PRN Reason: Heartburn Duloxetine HCl (Duloxetine Hcl 30 Mg Capsule.Dr) 30 mg PO DAILY PAYAM Glucose (Glucose Gel 15 Gm Gel..Gram.) 15 gm PO Q15M PRN; Protocol PRN Reason: per Hypoglycemia Standing Ord. Hydromorphone HCl (Hydromorphone Hcl 1 Mg/Ml Syringe) 0.5 mg IVPUSH Q4H PRN; Protocol PRN Reason: Pain, Severe (Pain Scale 7-10) Last Admin: 03/19/24 20:31 Dose: 0.5 mg Documented By: GILDA Sodium Chloride (Ns) 1,000 mls @ 100 mls/hr IVCONT .Q10H PAYAM Last Admin: 03/19/24 23:41 Dose: 100 mls/hr Documented By: GILDA Dextrose (D10) 250 mls @ 750 mls/hr IV Q15M PRN; Protocol PRN Reason: per Hypoglycemia Standing Ord. Ibuprofen (Ibuprofen 600 Mg Tablet) 600 mg PO Q6H PRN PRN Reason: Pain, Mild (Pain Scale 1-3) Last Admin: 03/19/24 18:12 Dose: 600 mg Documented By: LUH Influenza Virus Vaccine (Flu Vacc [id number](6mos Up)/Pf 0.5 Ml Syringe) 0.5 ml IM .ONCE ONE Stop: 03/20/24 09:01 Insulin Human Lispro (Insulin Lispro 100 Unit/Ml 3 Ml Vial) 0 unit SUBCUT QIDACHS [facility]; Protocol Last Admin: 03/19/24 21:26 Dose: Not Given Documented By: GILDA Non-Admin Reason: No Insulin Coverage Magnesium Hydroxide (Milk Of Magnesia 30 Ml Oral.Susp) 30 ml PO DAILY PRN PRN Reason: Constipation Melatonin (Melatonin 3 Mg Tablet) 6 mg PO BEDTIME PRN PRN Reason: Insomnia Mirtazapine (Mirtazapine 15 Mg Tablet) 15 mg PO BEDTIME [facility] Last Admin: 03/19/24 20:19 Dose: 15 mg Documented By: GILDA Ondansetron HCl (Ondansetron Hcl 4 Mg/2 Ml Vial) 4 mg IVPUSH Q8H PRN PRN Reason: Nausea and Vomiting Oxycodone HCl (Oxycodone Hcl Immed Release 5 Mg Tablet) 5 mg PO Q6H PRN PRN Reason: Pain, Moderate(Pain Scale 4-6) Last Admin: 03/19/24 14:47 Dose: 5 mg Documented By: KATHIE Risperidone (Risperidone 0.5 Mg Tablet) 0.5 mg PO DAILY [facility] Sodium Chloride (0.9 % Sodium Chloride Flush 3 Ml Syringe) 3 ml IVFLUSH QSHIFT [facility] Last Admin: 03/20/24 00:40 Dose: Not Given Documented By: GLIDA Non-Admin Reason: IV Running Valsartan (Valsartan 40 Mg Tablet) 40 mg PO BEDTIME [facility] Last Admin: 03/19/24 20:36 Dose: 40 mg Documented By: GILDA Labs 03/19/24 09:46 03/19/24 09:46 Labs: Laboratory Results - last 24 hr 03/19/24 03/19/24 03/19/24 09:46 09:57 18:08 MCV 86.0 MCH 30.2 MCHC 35.1 H RDW 13.5 Plt Count 189 MPV 9.5 Immature Gran % (Auto) 0.2 Neut % (Auto) 43.7 L Lymph % (Auto) 48.9 H [place] % (Auto) 5.8 Eos % (Auto) 1.2 Baso % (Auto) 0.2 Lymph # (Auto) 2.4 [place] # (Auto) 0.3 Eos # (Auto) 0.1 Baso # (Auto) 0.0 Abs Immat Gran (auto) 0.01 Absolute Neuts (auto) 2.1 Absolute Nucleated RBC 0.000 Nucleated RBC % (auto) 0.0 Anion Gap 7 L Estim Creat Clear Calc 86.3 Estimated GFR > 60 POC Glucose 67 Random Glucose 81 Calcium 9.0 Total Bilirubin 0.4 Direct Bilirubin 0.2 AST 14 ALT 9 Alkaline Phosphatase 83 Total Protein 7.1 Albumin 3.9 Lipase 19 Urine Color Yellow Urine Appearance Clear Urine pH 7.0 Ur Specific Witter 1.025 Urine Protein Negative Urine Glucose (UA) Negative Urine Ketones Negative Urine Blood Trace H Urine Nitrite Negative Ur Leukocyte Esterase Small (1+) H Urine RBC 6-10 H Urine WBC 6-10 H Ur Squamous Epith Cells 6-10 Urine Bacteria Trace Hyaline Casts 0-2 03/19/24 18:52 MCV MCH MCHC RDW Plt Count MPV Immature Gran % (Auto) Neut % (Auto) Lymph % (Auto) [place] % (Auto) Eos % (Auto) Baso % (Auto) Lymph # (Auto) [place] # (Auto) Eos # (Auto) Baso # (Auto) Abs Immat Gran (auto) Absolute Neuts (auto) Absolute Nucleated RBC Nucleated RBC % (auto) Anion Gap Estim Creat Clear Calc Estimated GFR POC Glucose 94 Random Glucose Calcium Total Bilirubin Direct Bilirubin AST ALT Alkaline Phosphatase Total Protein Albumin Lipase Urine Color Urine Appearance Urine pH Ur Specific [place] Urine Protein Urine Glucose (UA) Urine Ketones Urine Blood Urine Nitrite Ur Leukocyte Esterase Urine RBC Urine WBC Ur Squamous Epith Cells Urine Bacteria Hyaline Casts Procedures Date of Service Date of Service: 03/20/24 Progress Note: A&P Assessment and plan (1) Abdominal pain: Status: Acute Plan Clinically appearing well. Now with evidence of GI function, pain somewhat improved. Will advance to solid diet, bowel regimen. If tolerating, home today. Patient comfortable with plan. Time Spent With Patient Time: Total time managing care of this patient today ____ minutes. Quality Stroke Does the patient have a stroke diagnosis?: No VTE Prior VTE?: No VTE Risk Level:: Medical - low VTE Device Contraindication: N/A - Device Ordered VTE Drug Contraindication: Treatment Not Indicated
[2024-03-20 07:39] LABS: Glucose, Whole Blood 73 mg/dL (60-115)
[2024-03-20 07:46] VITALS: BP 148/78; PULSE 68; RESP 14; TEMP 36.3; O2SAT 99
[2024-03-20] MEDS: DULoxetine HCl 30 MG CAPSULE.DR PO (08:24)
[2024-03-20] MEDS: risperiDONE 0.5 MG TABLET PO (08:24)
[2024-03-20] MEDS: Ibuprofen 600 MG TABLET PO (08:25)
[2024-03-20] MEDS: Flu Vacc TS2024-25(6mos up)/PF 0.5 ML SYRINGE IM (08:25)
[2024-03-20] MEDS: 0.9 % Sodium Chloride 1,000 ML 100 ML IVCONT (11:40)
[2024-03-20 11:52] LABS: Glucose, Whole Blood 112 mg/dL (60-115)
--- NOTE | 2024-03-20 14:36 | PM.EVENT ---
Event Note Date of Service: 03/20/24 Event Note: Seen on afternoon rounds Tolerating diet well Passing flatus Abdomen is soft and benign She says she feels much better and denies pain She says she is ready to be discharged She says she has a history of constipation and is asking for a stool softener She was instructed to follow up with her primary care physician as well Time Spent With Patient Time: Total time managing care of this patient today ____ minutes.
--- NOTE | 2024-03-20 15:04 | MHC.CM.PN ---
PT CLEARED TO DC HOME TODAY WITH NO SERVICES VIA PRIVATE TRANSPORT
[2024-03-20 15:37] VITALS: BP 127/67; PULSE 74; RESP 18; TEMP 36.5; O2SAT 98
--- NOTE | 2024-03-20 15:55 | PM.DS ---
DS: Providers Provider Date of Service: 03/20/24 <Rowan Vela PA-C - Last Filed: 03/25/24 14:26> Date of admission: 03/19/24 13:07 <Rowan Vela PA-C - Last Filed: 03/25/24 14:26> Primary care physician: Unknown Physician <Rowan Vela PA-C - Last Filed: 03/25/24 14:26> Attending physician on admission: Db Hardwick <Rowan Vela PA-C - Last Filed: 03/25/24 14:26> Attending physician on discharge: Db Hardwick <Rowan Vela PA-C - Last Filed: 03/25/24 14:26> DS: Diagnosis Discharge Diagnosis (1) Abdominal pain: Status: Acute <Rowan Vela PA-C - Last Filed: 03/25/24 14:26> DS: Summary Hospital Course Hospital Course: HPI AT ADMISSION: Sherie Michelle is a 53 year old female with PMH significant for diabetes mellitus, HTN, MARY KATE on CPAP who presented to the ED with complaints of abdominal pain. Patient reports acute onset of left upper flank pain yesterday. It began to radiate into her left upper abdomen. The pain was associated with nausea without vomiting. She denies flatus or BM since onset of pain. She reports one prior episode of pain a few weeks ago that was not as severe and resolved on its own. Due to the persistence of pain she presented to the ED for evaluation. Work up included CBC, BMP, LFTs which were WNL. UA essentially negative. CT scan abd/pelvis showed dilated small bowel loops in the LUQ. She has a surgical history of laparoscopic sleeve gastrectomy in 2019 and laparoscopic cholecystectomy in 2009. She feels somewhat improved currently. She denies fevers, chills, diarrhea, dysuria, hematuria. HOSPITAL COURSE: She was admitted to the surgical service for further treatment of the possible PSBO for observation. She was started on clear liquids. She had improvement in her abdominal pain and resolution of her nausea the following day. She began to pass flatus. She was advanced to a solid diet. She was reassessed later in the day and was tolerating a solid diet without any symptoms. She felt ready for discharge. She was discharged to home on 03/20/24 in stable condition. She was discharged to home on a bowel regimen. <Rowan Vela PA-C - Last Filed: 03/25/24 14:26> Status at Discharge Functional status at discharge: independent ambulation <Rowan Vela PA-C - Last Filed: 03/25/24 14:26> Overall status at discharge: patient is progressing back to baseline <Rowan Vela PA-C - Last Filed: 03/25/24 14:26> Time Attestation Discharge Coordination Time (in mins): 30 min <Db Hardwick MD - Last Filed: 03/25/24 11:18> Quality: Safe Use of Opioids Does Pt have an Active Cancer Diagnosis on the Problem List?: No <Db Hardwick MD - Last Filed: 03/25/24 11:18> Quality: Stroke Does the patient have a stroke diagnosis?: No <Db Hardwick MD - Last Filed: 03/25/24 11:18> Physical Exam Vital Signs: Vital Signs: Last Vital Signs Temp 97.7 F 03/20/24 15:37 Pulse 74 03/20/24 15:37 Resp 18 03/20/24 15:37 BP 127/67 03/20/24 15:37 Pulse Ox 98 03/20/24 15:37 O2 Del Method Room Air 03/20/24 15:37 BMI result Body Mass Index 34.8 <Rowan Vela PA-C - Last Filed: 03/25/24 14:26> Const: General: comfortable, no acute distress and alert <Rowan Vela PA-C - Last Filed: 03/25/24 14:26> Resp: Effort & Inspection: normal respiratory effort <SAGE Schwarz Last Filed: 03/25/24 14:26> Discharge Plan Discharge Anticipated Discharge Date/Time: 03/20/24 08:35 <Rowan Vela PA-C - Last Filed: 03/25/24 14:26> Patient Disposition: Home, Self-Care <SAGE Schwarz Last Filed: 03/25/24 14:26> Discharge Diagnosis: abdominal pain <Rowan Vela PA-C - Last Filed: 03/25/24 14:26> abdominal pain <Db Hardwick MD - Last Filed: 03/25/24 11:18> Referrals: Physician,Unknown J [Primary Care Provider] - 1 Week <Rowan Vela PA-C - Last Filed: 03/25/24 14:26> Discharge Medications: New docusate sodium [Colace] 100 mg capsule 100 mg PO BID Qty: 60 2RF Continued risperidone 0.5 mg tablet 0.5 mg PO DAILY vitamin B complex Tablet 1 tab PO DAILY irbesartan 75 mg tablet 75 mg PO DAILY duloxetine 30 mg capsule,delayed release(DR/EC) 30 mg PO DAILY alprazolam 0.5 mg tablet 0.5 mg PO DAILY PRN (Reason: Anxiety) mirtazapine 15 mg tablet 15 mg PO BEDTIME Mounjaro 7.5 mg/0.5 mL pen injector 7.5 mg subcut TU albuterol sulfate 90 mcg/actuation HFA aerosol inhaler 2 puff inhalation QID PRN (Reason: Shortness Of Breath Or Wheezing) diclofenac sodium 1 % gel 1 ea topical BID PRN (Reason: Pain) ondansetron 4 mg tablet,disintegrating 4 mg PO DAILY PRN (Reason: Nausea And Vomiting) <Rowan Vela PA-C - Last Filed: 03/25/24 14:26> Discharge Orders: Discharge Order (Routine); Ordered 03/20/24 Ordered By: Db Hardwick <Rowan Vela PA-C - Last Filed: 03/25/24 14:26> Diet: Diabetic diet <Rowan Vela PA-C - Last Filed: 03/25/24 14:26> Diabetic diet <Db Hardwick MD - Last Filed: 03/25/24 11:18> Activity on Discharge: As tolerated <Rowan Vela PA-C - Last Filed: 03/25/24 14:26> As tolerated <Db Hardwick MD - Last Filed: 03/25/24 11:18> Stand Alone Forms: Patient Portal Discharge page <Rowan Vela PA-C - Last Filed: 03/25/24 14:26> Print Language: Bahraini <Rowan Vela PA-C - Last Filed: 03/25/24 14:26> Activity Restrictions/Additional Instructions: Follow up with your PCP. Call Your Doctor Or Return To ED If: ? ? -Your temperature exceeds 101.5? F? ? ? -You experience excessive pain ? ? -You have an unexpected reaction to medication ? ? -You experience continued vomiting/nausea <Rowan Vela PA-C - Last Filed: 03/25/24 14:26> Care Plan Goals: Return to baseline health and resume normal activities. <Rowan Vela PA-C - Last Filed: 03/25/24 14:26> Health Concerns: diabetes mellitus abdominal pain <SAGE Schwarz Last Filed: 03/25/24 14:26> Plan of Treatment: supportive with IVF, pain control f/u with PCP <Rowan Vela PA-C - Last Filed: 03/25/24 14:26> Assessment: Improved <Rowan Vela PA-C - Last Filed: 03/25/24 14:26> Discharge Date/Time: 03/20/24 16:55 <Rowan Vela PA-C - Last Filed: 03/25/24 14:26>
[2024-03-20 16:07] LABS: Glucose, Whole Blood 70 mg/dL (60-115)
== END 2024-03-20 16:55 | disposition home or self-care (01) ==
LOC: HO.ED 12:14 → HO.EDOVER 13:13 → HO.S3 16:08
PROVIDERS: Admitting Provider Physician Assistant Surgical; Emergency Provider Emergency Medicine; Visit Provider Physician Assistant Surgical
DX: K56.600 Partial intestinal obstruction, unspecified as to cause (principal); R10.12 Left upper quadrant pain; R11.0 Nausea; R11.2 Nausea with vomiting, unspecified; E11.9 Type 2 diabetes mellitus without complications; I10 Essential (primary) hypertension; G47.33 Obstructive sleep apnea (adult) (pediatric); Z99.89 Dependence on other enabling machines and devices; Z23 Encounter for immunization; Z79.899 Other long term (current) drug therapy
CPT/HCPCS: 36415; 74176; 80048; 80076; 81001; 81003; 82947; 83690; 85025; 87086; 87147; 90471; 90656; 96361; 96374; 96375; 99221; 99285; J1170; J2270; J2405

== ENCOUNTER → 2024-03-19 13:07 | Outpatient (BNV) | payer OTHER, SELFPAY | PROVIDERS: Admitting Provider Physician Assistant Surgical; Emergency Provider Emergency Medicine; Visit Provider Physician Assistant Surgical | DX: R10.9 Unspecified abdominal pain (principal) | CPT/HCPCS: 99222; 99238; 99499 ==

== ENCOUNTER 2024-04-08 08:33 | Outpatient (AMB) | payer OTHER, SELFPAY ==
--- NOTE | 2024-04-08 08:38 | MHC.OFFVIS ---
Vital Signs 04/08/24 08:39 Height 5 ft 2 in Weight 190 lb 0.6 oz BMI 34.8 Intake Visit Reasons: OV- Nerve Conduction Test follow up Intake Note: Sherie is a 53 year old right hand dominant female who presents today to discuss EMG results showing right carpal tunnel syndrome despite of right carpal tunnel repair done around 1414-0143 at [facility]. Patient reports numbness and tingling that occurs most days, on and off. Denies finger locking. Patient states pain is worse at night. Patient states a few months ago she was carrying a big water jug and since then she has been experiencing pain on the ulnar aspect of the right hand. She is also experiencing left hand numbness and tingling on the left ring finger and left small finger. Patient would like to be referred to rheumatology for concerns of fibromyalgia. She would also like a brace for the right hand. EMG done 03/07/24. Allergies penicillin G Allergy (Severe, Verified 04/08/24 08:40) hives acetaminophen [From Tylenol] Allergy (Intermediate, Verified 04/08/24 08:40) hives lisinopril Allergy (Intermediate, Verified 04/08/24 08:40) tingling in throat and cough HPI HPI OV- Nerve Conduction Test follow up: Details: Sherie is a 53 year old right hand dominant woman who returns for a NCS review of her right hand numbness & hand pain. She has a Hx of a right carpal tunnel release in ~2018, at [facility], and a left carpal tunnel release, DOS: 01/07/24. Her chief complaint today is of pain in the ulnar aspect of her bilateral hand & wrist, right worse than left, worse with heavy lifting activities. She has been attending OT hand therapy, which she finds helpful. She says this pain began after lifting a heavy it is bottle of water for a water dispenser ~8 months ago. She was previously noted to have pain in this region after she struck her hand against a countertop in ~06/2023. She also complains of similar pain in her left hand & wrist. She finds it difficult to lift & carry heavy objects. She also complains of numbness in the right index & middle fingers. Symptoms intermittent & occasional throughout the week, worse at night. She had good improvement and normal sensation following her right carpal tunnel release. She says she began feeling numbness in her index & middle fingers ~1 year ago. In regards to her left hand, her sensation is normal in the median nerve distribution, and she is doing well following surgery. [facility] Medical History Obesity MARY KATE on CPAP GERD (gastroesophageal reflux disease) Abnormal ECG Chronic constipation Adjustment disorder, unspecified Diabetes mellitus Surgical History History of sleeve gastrectomy Hx of cholecystectomy Hx of carpal tunnel repair Hx of tubal ligation Hx of total hysterectomy Hx of breast surgery Family History Mother Diabetes Hypertension Father No problems noted. Sister No problems noted. 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 Review of Systems Const All systems reviewed & are unremarkable except as noted in HPI and below Physical Exam Vital Signs: BMI result Body Mass Index 34.8 Const General: cooperative, healthy appearing and no acute distress Orientation/consciousness: patient oriented x3 HEENT Head: Yes normocephalic and Yes atraumatic Eyes EOM: EOMs intact bilaterally Resp Effort & Inspection: normal respiratory effort and able to speak in complete sentences Cardio Jugular venous distension: no JVD Skin General skin exam: turgor normal Rashes: no rashes Neuro General: patient oriented x3 Extrem Other: Evaluation of Right Upper Extremity: The patient is alert, oriented, and in no acute distress Neuro: Median, Ulnar, Radial nerves motor and sensory intact and sensation is normal to the tips of all digits No thenar or intrinsic wasting Good APB muscle belly firing and good finger cross Vascular: Cap refill brisk ROM: She can make a fist and extend all her digits No locking or catching General: No Ecchymosis. No Erythema or evidence of infection. Mild tenderness over the right ECU tendon Mildly Increased pain with resisted wrist extension No subluxation of the ECU tendon with pronosupination and ulnar deviation Nerve Conduction Study: Right-side only IMPRESSION: 1. This is an abnormal study. 2. There is electrodiagnostic evidence for right moderate-severe median neuropathy at the wrist, consistent with carpal tunnel syndrome. 3. There is no electrodiagnostic evidence for ulnar neuropathy, brachial plexopathy, or cervical radiculopathy. CLINICAL COMMENT: Past EMG not available for comparison, obtain if possible. Kaitlin Vizcarra MD, ADDY 03/07/24 Psych Appearance: grossly normal Affect: normal affect Attitude: cooperative Assessment & Plan Assessment & Plan (1) Carpal tunnel syndrome of right wrist: Code(s): G56.01 - Carpal tunnel syndrome, right upper limb Category: Medical (2) History of carpal tunnel surgery of right wrist: Comment: ~2018 at [facility] Code(s): Z98.890 - Other specified postprocedural states Category: Surgical (3) Carpal tunnel syndrome of left wrist: Code(s): G56.02 - Carpal tunnel syndrome, left upper limb Category: Medical (4) Extensor carpi ulnaris tendinitis: Comment: R Code(s): M77.8 - Other enthesopathies, not elsewhere classified Category: Medical Plan Assessment & Plan: 1. Right carpal tunnel syndrome, moderate-severe Recurrent S/P release, DOS: & [facility] Symptoms intermittent & occasional thoughout the week, worse at night I educated her about this condition I discussed operative and non-operative treatment options I recommend she consider surgical intervention, given the severity on her NCS She is unsure if she wants to consider surgery at this time I educated her on the risks of delaying treatment, and she expressed understanding She is also going to be more mindful to notice how often she is getting numbness and tingling in the right hand. If her symptoms increase in frequency or severity, she will follow up to discuss treatment options 2. Right ECU tendinitis I educated her about this condition I recommend activity modification & therapy She was fitted for a velcro wrist splint, to be worn with heavy lifting activities or when she has worsening pain. She should limit her use of this brace. She should limit or avoid any heavy lifting activities, or other activities which cause her pain She should continue to attend OT hand therapy for strengthening & normalizing function I am hopeful that this will resolve with time and activity modification. No indication for injection today. 3. Left carpal tunnel syndrome, S/P release DOS: 01/07/24 Pre-operative symptoms intermittent, but daily, worse at night Now with normal sensation Resolved Scribed for Edel Peña MD by Mohit Candelario, medical administrative, on 04/08/24 at 9:10 AM, EST. Coding Level of Care Code Est Pt Level 4 (83282) Diagnoses Carpal tunnel syndrome of right wrist G56.01 History of carpal tunnel surgery of right wrist Z98.890 Carpal tunnel syndrome of left wrist G56.02 Extensor carpi ulnaris tendinitis M77.8
[2024-04-08 08:39] VITALS: BMI 34.8
== END 2024-04-08 09:46 | disposition home or self-care (01) ==
PROVIDERS: PCP Internal Medicine; Visit Provider Orthopaedic Surgery
DX: G56.03 Carpal tunnel syndrome, bilateral upper limbs (principal); M77.8 Other enthesopathies, not elsewhere classified
CPT/HCPCS: 99214

== ENCOUNTER → 2024-04-08 08:33 | Outpatient (BNVA) | payer OTHER, SELFPAY | PROVIDERS: PCP Internal Medicine; Visit Provider Orthopaedic Surgery ==

== ENCOUNTER 2024-04-22 07:33 | Outpatient (REF) | payer OTHER, SELFPAY ==
[2024-04-22 10:52] LABS: Rheumatoid Factor < 13.0 IU/mL (<15.0)
[2024-04-30 07:54] LABS: Anti Nuclear Antibody Pattern Nuclear, Speckled; Anti Nuclear Antibody Screen POSITIVE (NEGATIVE); Anti Nuclear Antibody Titer 1:40 titer
== END 2024-04-22 07:34 | disposition home or self-care (01) ==
LOC: HO.LAB 07:33
PROVIDERS: PCP Internal Medicine; Visit Provider Internal Medicine
DX: R52 Pain, unspecified (principal)
CPT/HCPCS: 36415; 86038; 86039; 86431

== ENCOUNTER 2024-04-29 06:49 | Outpatient (REF) | payer OTHER, SELFPAY ==
[2024-04-29 08:21] LABS: Calcium 9.5 mg/dL (8.4-10.2)
[2024-04-29 08:29] LABS: Ferritin 157 ng/mL (10-250); Vitamin D 25-OH Total 30.7 ng/mL (>30)
[2024-04-29 08:41] LABS: Vitamin B12 354 pg/mL (200-900)
== END 2024-04-29 06:50 | disposition home or self-care (01) ==
LOC: HO.LAB 06:49
PROVIDERS: PCP Internal Medicine; Visit Provider Surgery
DX: E66.09 Other obesity due to excess calories (principal); Z98.84 Bariatric surgery status
CPT/HCPCS: 36415; 82306; 82310; 82607; 82728

== ENCOUNTER 2024-05-01 06:23 | Outpatient (REF) | payer OTHER, SELFPAY ==
[2024-05-01 06:43] LABS: MANUAL DIFF FLAG NO
[2024-05-01 08:01] LABS: Appearance Urine Clear; Color Urine Yellow; Glucose Urine UA Negative (Negative); Leukocyte Esterase Urine Small (1+) (Negative); Nitrite Urine Negative (Negative); Specific Gravity - Urine >= 1.030 (1.005-1.025); UMIC TRIGGER UA YES; Urine Blood Trace (Negative); Urine Ketones Negative (Negative); Urine Protein Negative (Neg-Trace)
[2024-05-01 08:02] LABS: Basophils Percent Auto 0.4 % (0-2); Eosinophils Absolute Auto 0.1 X10*3/uL (0.0-0.4); Hematocrit 40.6 % (37.0-47.0); Hemoglobin 14.1 g/dl (12.0-16.0); Imm Gran Abs Auto 0.01 X10*3/uL (0.00-0.03); Imm Gran Pct Auto 0.2 % (0.0-0.4); Lymphocytes Absolute Auto 2.3 X10*3/uL (1.2-4.9); Lymphocytes Percent Auto 45.9 % (20-40); Mean Corpuscular HGB Conc 34.7 g/dl (31.0-35.0); Mean Corpuscular Hemoglobin 30.4 pg (27.0-33.0); Mean Corpuscular Volume 87.5 fL (80.0-98.0); Mean Platelet Volume 9.7 fL (9.4-12.3); Monocytes Absolute Auto 0.3 X10*3/uL (0.1-1.2); Monocytes Percent Auto 6.7 % (2-11); Neutrophils Absolute Auto 2.3 x10*3/uL (2.0-8.3); Neutrophils Percent Auto 45.8 % (45-73); Platelet Count 217 X10*3/uL (160-400); Red Blood Count 4.64 X10*6/uL (4.20-5.50); Red Cell Distribution Width 12.8 % (11.0-16.0); White Blood Count 5.1 X10*3/uL (4.8-10.8)
[2024-05-01 08:07] LABS: Bacteria Urine None Seen (None Seen); Hyaline Casts Urine 0-2 /LPF (0-2)
[2024-05-01 08:44] LABS: Estimated Average Glucose 103 mg/dL; Hemoglobin A1C 117.1408 umol/L; Hemoglobin A1c % 5.2 % (<6.0); Total Hemoglobin (HGBA1C) 3533.7861 umol/L
[2024-05-01 08:50] LABS: Alanine Aminotransferase 9 U/L (0-31); Albumin Level 4.2 g/dL (3.5-5.0); Alkaline Phosphatase 86 U/L (39-117); Anion Gap 16 (12-20); Aspartate Amino Transferase 23 U/L (5-31); Bilirubin Total 0.5 mg/dL (0.0-1.0); Blood Urea Nitrogen 22 mg/dL (9-16); Calcium 9.3 mg/dL (8.4-10.2); Carbon Dioxide 25 mmol/L (22-29); Chloride 104 mmol/L (96-108); Cholesterol 133 mg/dL (<200); Estimated Glomerular Filt Rate > 60; Glucose Random 80 mg/dL (60-115); HDL Cholesterol 50 mg/dL (>40); LDL Cholesterol Calculated 64 mg/dL (<100); Potassium 3.9 mmol/L (3.3-5.1); Sodium 141 mmol/L (135-145); Total Protein 7.5 g/dL (6.5-8.0); Triglycerides 97 mg/dL (<150)
[2024-05-01 09:09] LABS: Thyroid Stimulating Hormone 1.97 uIU/mL (0.32-4.0); Vitamin D 25-OH Total 30.7 ng/mL (>30)
== END 2024-05-01 06:24 | disposition home or self-care (01) ==
LOC: HO.LAB 06:23
PROVIDERS: Visit Provider Nurse Practitioner Acute Care
DX: Z00.00 Encounter for general adult medical examination without abnormal findings (principal); E55.9 Vitamin D deficiency, unspecified; Z13.1 Encounter for screening for diabetes mellitus; Z13.220 Encounter for screening for lipoid disorders
CPT/HCPCS: 36415; 80053; 80061; 81001; 81003; 82306; 83036; 84443; 85025

== ENCOUNTER 2024-05-08 08:00 | Outpatient (RCR) | payer OTHER, SELFPAY ==
--- NOTE | 2024-05-08 08:36 | MHC.OT.DC ---
[address] [phone] F: [phone] Occupational Therapy Discharge Note Patient Name: Sherie Michelle Provider: Shahid Arreola Diagnosis: Date of Surgery: Date of Evaluation: 03/21/24 Date of Discharge: Treatments to Date: 9 Cancellations to Date: No Shows to Date: Discharge Status: Discharge Summary: Pt tolerated therapy well today; we reviewed HEP, ergonomics, self massage w/ pt. She has improved since her IE and is OK for d/charge; she has a GREAT understanding of her HEP and ergonomics to continue w/ progression of physical improvements on her own Electronically Signed By: Molly Forbes OTR/L Reviewed/agree with student documentation: N/A Therapist: Please Sign and return to therapist, thank you for your referral.
== END 2024-05-08 08:37 | disposition home or self-care (01) ==
LOC: HO.OT 08:00
PROVIDERS: PCP Internal Medicine
DX: M23.91 Unspecified internal derangement of right knee (principal)
CPT/HCPCS: 97035; 97110; 97140; 97166; 97535

== ENCOUNTER 2024-06-17 09:19 | Outpatient (AMB) | payer OTHER, SELFPAY ==
--- NOTE | 2024-06-17 10:43 | A.OFFVIS_ITS ---
Vital Signs 06/17/24 10:51 Height 5 ft 2 in Weight 194 lb 14.218 oz BMI 35.6 BP 150/90 H Blood Pressure Location Lt brachial Position Sitting Pulse 94 Pulse Source Pulse Oximeter Pulse Oximetry (%) 98 Oxygen Delivery Method Room Air Intake Visit Reasons: Joint Pain Intake Note: Patient presents for joint pain. I have pain all over the joints of my body. The pain comes and goes but is extremely painful. I been feeling this pains for over a year. I take Duloxetine, Gabapantin and Ibupropfen. The medicine works sometimes. Allergies penicillin G Allergy (Severe, Verified 06/17/24 10:51) hives acetaminophen [From Tylenol] Allergy (Intermediate, Verified 06/17/24 10:51) hives lisinopril Allergy (Intermediate, Verified 06/17/24 10:51) tingling in throat and cough Medication List - Last Reconciled 06/17/24 by Tapan Weber MD albuterol sulfate 90 mcg/actuation 2 puffs inhalation QID PRN alprazolam 0.5 mg PO DAILY PRN diclofenac sodium 1% 1 ea topical BID PRN docusate sodium (Colace) 100 mg PO BID duloxetine 30 mg PO DAILY irbesartan 75 mg PO DAILY mirtazapine 15 mg PO BEDTIME ondansetron 4 mg PO DAILY PRN risperidone 0.5 mg PO DAILY tirzepatide (Mounjaro) 7.5 mg subcut TU vitamin B complex 1 tab PO DAILY HPI Comments Details: This is a 54-year-old female who presents for evaluation of diffuse pain. She states that for over 1 year she has been having diffuse pains, affecting different areas, she would have abrupt sharp pains in different joints such as her hands, her knees, her ankles. She denies any unexplained fevers. She has lost significant weight on Mounjaro then gained some of it back when majora was no longer covered by insurance. She denies any skin rashes. She has noticed thinning of her hair. She denies any history of DVT/PE. She had 2 pregnancies, 2 children, no abortions or miscarriages. She mentions that she has a half sister who in her 20s from lupus. For her pains she was started on gabapentin, she took 200 mg without much improvement, she was also prescribed duloxetine, she did not take it has it was recently recalled. She has history of MARY KATE but she had a sleeve procedure in the past and no longer needed the CPAP machine. She is seeing a psychiatrist for anxiety. She is on risperidone and Xanax as needed [facility] Medical History Obesity MARY KATE on CPAP GERD (gastroesophageal reflux disease) Abnormal ECG Chronic constipation Adjustment disorder, unspecified Diabetes mellitus Surgical History History of sleeve gastrectomy Hx of cholecystectomy Hx of carpal tunnel repair Hx of tubal ligation Hx of total hysterectomy Hx of breast surgery Family History Mother Diabetes Hypertension Father No problems noted. 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 Female Reproductive History Menstrual Total pregnancies: 2 Full term: 2 Ab induced: 0 Ab spontaneous: 0 Review of Systems Const Reports fatigue, Denies fever(s) and Reports weakness Eyes Reports blurry vision and Denies diplopia GI Reports constipation and Reports heartburn Musc Reports joint swelling, Reports muscle weakness and Reports stiffness Neuro Reports weakness Psych Reports abnormal sleep pattern and Reports anxiety Endo Reports fatigue Physical Exam Vital Signs: Last Vital Signs Pulse 94 06/17/24 10:51 BP 150/90 H 06/17/24 10:51 Pulse Ox 98 06/17/24 10:51 Oxygen Delivery Method Room Air 06/17/24 10:51 BMI result Body Mass Index 35.6 Const General: cooperative, healthy appearing and comfortable Nutritional Appearance: obese morbidly obese Orientation/consciousness: patient oriented x3 Limitations: no limitations HEENT Head: Yes normocephalic and Yes atraumatic Mouth: moist mucous membranes Resp Effort & Inspection: normal respiratory effort and able to speak in complete sentences Auscultation: clear to auscultation bilaterally Cardio Rate: regular rate Rhythm: regular rhythm Skin Other: Subtle hyperpigmentation on her cheeks Neuro General: patient oriented x3 Extrem Other: Bilateral tender wrists but no swelling Negative MCP squeeze test bilaterally Numerous fibromyalgia tender points Normal nailfold capillaroscopy Assessment & Plan Assessment & Plan (1) QUNA positive: Code(s): R76.8 - Other specified abnormal immunological findings in serum Category: Medical Plan: This is a 54-year-old female who presents for evaluation of diffuse pain. Labs showed a positive QUAN 1-40. Upon evaluation I do not see any signs suggestive of an autoimmune rheumatic disease. About 20% of the population can have a positive QUAN with no underlying autoimmune rheumatic disease. QUAN 1-40 is generally considered negative in the Rheumatology world symptoms are rather consistent with fibromyalgia Discussed management of fibromyalgia with patient. Is a noninflammatory, non- autoimmune central afferent processing disorder leading to a diffuse pain syndrome. Patient follows up regularly with a psychiatrist for anxiety, I suggested evaluation by a psychotherapist. Try to follow sleep hygiene practices. Patient would benefit from increased physical activity, either through formal physical therapy or by joining a gym. She has a treadmill at home that she uses about twice a. I suggested different exercises such as swimming, aquatherapy, light weights. Discussed symptoms and signs that are suggestive of an autoimmune rheumatic disease and advised patient to return as needed Follow-up with PCP Plan I spent 30 minutes reviewing patient's chart, evaluating patient, counseling patient and documenting in the chart Coding Level of Care Code New Pt Level 3 (21397) Diagnoses QUAN positive R76.8
[2024-06-17 10:51] VITALS: BP 150/90; PULSE 94; O2SAT 98; BMI 35.6
== END 2024-06-17 11:27 | disposition home or self-care (01) ==
PROVIDERS: PCP Internal Medicine; Visit Provider Student in an Organized Health Care Education/Training Program
DX: R76.8 Other specified abnormal immunological findings in serum (principal)
CPT/HCPCS: 99203

== ENCOUNTER → 2024-06-17 09:19 | Outpatient (BNVA) | payer OTHER, SELFPAY | PROVIDERS: PCP Internal Medicine; Visit Provider Student in an Organized Health Care Education/Training Program ==

== ENCOUNTER 2024-07-01 07:49 | Outpatient (RCR) | payer OTHER, SELFPAY | END 2024-08-07 15:33 | disposition home or self-care (01) | LOC: HO.PT 07:49 | PROVIDERS: PCP Internal Medicine; Visit Provider Student in an Organized Health Care Education/Training Program | DX: M76.32 Iliotibial band syndrome, left leg (principal); G57.02 Lesion of sciatic nerve, left lower limb | CPT/HCPCS: 97110; 97140; 97161 ==

== ENCOUNTER → 2024-08-06 14:29 | Outpatient (BNVA) | payer OTHER, SELFPAY | PROVIDERS: PCP Internal Medicine; Visit Provider Surgery ==

== ENCOUNTER 2024-08-22 07:53 | Outpatient (AMB) | payer OTHER, SELFPAY ==
--- OUTSIDE RECORDS SUMMARY | 2024-08-22 07:55 | XMS_ITS ---
Author Organization [facility] Address [address] [place] [address] Care Team Providers Care Web Art Director Name Role Phone ACE UGALDE Unavailable [phone] REASON FOR VISIT Pt here for Tirzepatide 2.5mg on LLQ sub q, pt tolerated well with no reaction. Encounters Encounter Location Date Provider Diagnosis [address] [address] 06/02/2024 ACE UGALDE PLAN OF TREATMENT No Information MEDICATIONS ADMINISTERED Medication Instructions Date of Administration Dosage Notes Tirzepatide 06/02/2024 Progress Notes * Sherie GARCIADOB:[birth year] (54 yo F)Acc No.[id number]:06/02/2024 Patient:??Catie GARCIA Provider:??ACE UGALDE NP :1970?Age:53 Y?Sex:Fe male Date:06/02/2024 Address:[address] [place] [address] Subjective: * Chief Complaints: * ?1. Pt here for Tirzepa tide 2.5mg on LLQ sub q, pt tolerated well with no reaction.. * Medical History:?? Objective: Assessment: Plan: * Treatment: * Therapeutic Injections:? Tirzepatide (Route: Subcutaneous) given by Elaine Mendieta on subcutaneus * Images: Billing Information: * Visit Code:?? * Procedure Codes:?? * Sign off status: Pending * Provider:??ACE UGALDE NP Date:??08/2023
--- OUTSIDE RECORDS SUMMARY | 2024-08-22 07:55 | XMS_ITS | Encounter Summary ---
Author Organization [facility] Address [address] [place] [address] Care Team Providers Care Electrical Sign Servicer Name Role Tap DancerRaji Wallace MD Primary Care Provider Unavailab le Alda Thurman MD Primary Care Provider [facility], Pcp Primary Care Provider [facility] Encounter Details Date Type Department Care Team Description 05/29/2017 [facility] Medical Records [address] [place] [id number] Abstract, Provider Social History Tobacco Use Types Packs/Day Years Used Date Smoking Tobacco: Former Cigarettes 0 07/02/2015 - 06/25/2016 Smokeless Tobacco: Never Alcohol Use Standard Drinks/Week Comments Yes 0 (1 standard drink = 0.6 oz pur e alcohol) twice a year Sex Assigned at Date Recorded Not on file Job Start Date Occupation Industry Not on file Not on file Not on file documented as of this encounter Plan of Treatment Not on file documented as of this encounter Visit Diagnoses Not on filedocumented in this encounter Additional Health Concerns Infection Onset Date Last Indicated Resolved Time COVID-19 01/17/2022 01/17/2022 documented as of this encounter Care Teams Electrical Sign Servicer Relationship Specialty Start Date End Date Raji Wallace MD PCP - General Internal Medicine 01/29/15 08/13/18 Alda Thurman MD PCP - General Internal Medicine 08/14/18 [facility], Pcp PCP - General Internal Medicine 12/05/22 documented as of this encounter
--- OUTSIDE RECORDS SUMMARY | 2024-08-22 07:56 | XMS_ITS | Encounter Summary ---
Author Organization [facility] Address [address] [place] [address] Care Team Providers Care General Operations Manager Name Role Phone Alda Thurman MD Primary Care Provider renee Hoskins, Pcp [facility] Encounter Details Date Type Department Care Team Description 02/27/2019 Telephone Adult Medicine [facility] [address] [place] [address] Alda Thurman MD Social History Tobacco Use Types Packs/Day Years [...] documented as of this encounter Care Teams General Operations Manager Relationship Specialty Start Date End Date Alda Thurman MD PCP - General Internal Medicine 08/14/18 [facility], Pcp PCP - General Internal Medicine 12/05/22 documented as of this encounter
--- OUTSIDE RECORDS SUMMARY | 2024-08-22 07:56 | XMS_ITS | Encounter Summary ---
Author Organization [facility] Address [address] [place] [address] Care Team Providers Care Pickling Tank Operator Name Role Phone Alda Thurman MD Primary Care Provider [facility] Hoskins Pcp [facility] Encounter Details Date Type Department Care Team Description 12/14/2021 Release of Information Medical Records [address] [place] [address] Abstract, Provider Social History Tobacco Use Types Packs/Day Years Used Date Smoking Tobacco: Former Cigarettes 0 07/02/2015 - 06/25/2016 Smokeless Tobacco: Never Alcohol Use Standard Drinks/Week Comments No 0 (1 standard drink = 0.6 oz pur e alcohol) Sex Assigned at Date Recorded Not on file Job Start Date Occupation Industry Not on file Not on file Not on file COVID-19 Exposure Response Date Recorded In the last 10 days, have brenda landaverde been in contact with someone who was confirmed or suspected to have Coronavirus/COVID-19? No / Unsure 12/13/2021 7:51 AM EDT documented as of this encounter Plan of Treatment Not on file documented as of this encounter Visit Diagnoses Not on filedocumented in this encounter Additional Health Concerns Infection Onset Date Last Indicated Resolved Time COVID-19 01/17/2022 01/17/2022 documented as of this encounter Care Teams Pickling Tank Operator Relationship Specialty Start Date End Date Alda Thurman MD PCP - General Internal Medicine 08/14/18 [facility], Pcp PCP - General Internal Medicine 12/05/22 documented as of this encounter
--- OUTSIDE RECORDS SUMMARY | 2024-08-22 07:56 | XMS_ITS | Encounter Summary ---
Author Organization [facility] Address [address] [place] [address] Care Team Providers Care Shrimping Boat Captain Name Role Phone Alda Thurman MD Primary Care Provider renee [facility], Pcp Primary Care Provider [facility] Encounter Details Date Type Department Care Team Description 03/13/2019 [facility] Report Medical Records [address] [place] [address] Nils Duggan IV, MD Social History Tobacco Use Types Packs/Day [...] documented as of this encounter Care Teams Shrimping Boat Captain Relationship Specialty Start Date End Date Alda Thurman MD PCP - General Internal Medicine 08/14/18 [facility], Pcp PCP - General Internal Medicine 12/05/22 documented as of this encounter
--- OUTSIDE RECORDS SUMMARY | 2024-08-22 07:56 | XMS_ITS | Encounter Summary ---
Author Organization [facility] Address [address] [place] [address] Care Team Providers Care Rn Complex Care Name Role Phone [facility], Pcp Primary Care Provider Unavailabl e Encounter Details Date Type Department Care Team Description 01/09/2023 Telephone [facility] [address] [id number] Lea Egan MD [address] [address] Social History Tobacco Use Types Packs/Day Years Used Date Smoking Tobacco: Former Cigarettes 0 07/02/2015 - 06/25/2016 Smokeless Tobacco: Never Alcohol Use Standard Drinks/Week Comments No 0 (1 standard drink = 0.6 oz pur e alcohol) Sex Assigned at Date Recorded Not on file Job Start Date Occupation Industry Not on file Not on file Not on file documented as of this encounter Miscellaneous Notes * Telephone Encounter - Maribell Mccloud - 01/09/2023 3:03 PM EDT carpal tunnel release on the right back in 2019 * Telephone Encounter - Maribell Mccloud - 01/09/2023 3:00 PM EDT Pt requested Op Note from Dr Egan be faxed to [phone] Unable to find in [facility] may have been surgery ctr in the past Please obtain from [facility] and scan into chart Thank You documented in this encounter Plan of Treatment Not on file documented as of this encounter Visit Diagnoses Not on filedocumented in this encounter Additional Health Concerns Infection Onset Date Last Indicated Resolved Time COVID-19 01/17/2022 01/17/2022 documented as of this encounter Care Teams Rn Complex Care Relationship Specialty Start Date End Date [facility], Pcp PCP - General Internal Medicine 12/05/22 documented as of this encounter
--- OUTSIDE RECORDS SUMMARY | 2024-08-22 07:56 | XMS_ITS | Encounter Summary ---
Author Organization [facility] Address [address] [place] [address] Care Team Providers Care Business Process Specialist Name Role Phone Alda Thurman MD Primary Care Provider [facility] Pcp Primary Care Provider Unavailabl e Reason for Visit * Reason Comments E-prescribe Rx Request Encounter Details Date Type Department Care Team Description 12/03/2022 Refill Adult Medicine A - [address] [address] Maryse Fernandez APRN [address] [place] [address] E-prescribe Rx Request Social History Tobacco Use Types Packs/Day Years [...] encounter Miscellaneous Notes * Telephone Encounter - Herber Gannon PA-C - 12/04/2022 2:00 PM EDT Patient will need med review * Telephone Encounter - Leigh Howe M.A. - 12/04/2022 1:33 PM EDT Jon 06/15/22 no pended appt Lab Results Component Value Date NA 139 04/21/2021 K 4.6 04/21/2021 CO2 27 04/21/2021 CL 107 04/21/2021 BUN 19 04/21/2021 CREAT 0.66 04/21/2021 GLU 76 04/21/2021 CA 9.3 04/21/2021 GFR > 60 04/21/2021 * Telephone Encounter - Mario Alberto Mora - 12/04/2022 10:30 AM EDT Patient would like script to be: E-PRESCRIBED/FAXED TO PHARMACY ?? WHEN WAS THE PATIENT'S LAST APPOINTMENT IN ADULT MEDICINE? 06/15/22 ?? WHEN WAS THE LAST TIME THE PATIENT SAW THEIR PCP? ?? Does patient have an upcoming appointment? Left vm for pt to call and change pcp and make an appt ?? (THE MEDICATION REQUESTED IS ON THE MED LIST ABOVE) All of the medications requested were on the CURRENT MEDS list ?? Did you check the Pharmacy information above?: YES ?? Patient wants: 30 -day supply ?? Is this a mail order prescription request ? NO ?? If the refill is from a FAXED refill request what is the RX # listed on the fax? N/A ?? Patients current insurance carrier is: Payor: [employer]-SHAD/PPO POS / Plan: EPO $35 [place] / Product Type: EPO ?? documented in this encounter Plan of Treatment Not on file documented as of this encounter Visit Diagnoses Not on filedocumented in this encounter Additional Health Concerns Infection Onset Date Last Indicated Resolved Time COVID-19 01/17/2022 01/17/2022 documented as of this encounter Care Teams Business Process Specialist Relationship Specialty Start Date End Date Alda Thurman MD PCP - General Internal Medicine 08/14/18 [facility], Pcp PCP - General Internal Medicine 12/05/22 documented as of this encounter
--- OUTSIDE RECORDS SUMMARY | 2024-08-22 07:56 | XMS_ITS | Clinical Summary ---
Author Organization [facility] ity Address [address] [place] [address] Care Team Providers Care Windows Server Architect Name Role Phone Alda Galan MD Primary Care Provider [phone] Allergies Active Allergy Reactions Criticality Noted Date Comments Acetaminophen Rash 03/15/2015 Lisinopril Cough 04/13/2015 Penicillins Rash 03/15/2015 Medications famotidine (PEPCID) 20 mg tablet TAKE 1 TABLET BY MOUTH TWICE A DAY NEEDED FOR DYSPEPSIA 3 Active gabapentin (NEURONTIN) 100 mg capsule Take 1 Capsule by mouth daily. Active hydroquinone (ALEXSANDRA) 4 % cream APPLY TO DARK SPOTS ON FACE TWICE A DAY X6 MONTHS 3 Active ibuprofen (ADVIL,MOTRIN) 200 mg tablet TAKE 2 TABLETS BY MOUTH EVERY 6 HOURS NEEDED FOR PAIN 3 Active irbesartan (AVAPRO) 75 mg tablet TAKE 1 TABLET BY MOUTH EVERY DAY 3 Active ketoconazole (NIZORAL) 2 % shampoo Apply to wet hair, lather, and rinse thoroughly; repeat. Use every 3 to 4 days for up to 8 weeks 2 Active risperiDONE (RisperDAL) 0.5 mg tablet TAKE 1 TABLET BY MOUTH AT BEDTIME 3 Active tirzepatide (Mounjaro) 2.5 mg/0.5 mL injection INJECT 1 PEN WEEKLY 3 Active zolpidem (AMBIEN) 10 mg tablet TAKE 1 TABLET BY MOUTH EVERY DAY AT BEDTIME NEEDED 3 Active albuterol HFA (PROAIR HFA ; PROVENTIL HFA ; VENTOLIN HFA) 90 mcg/actuation inhaler Inhale 2 Puffs into the lungs every 4 hours as needed for Cough, Wheezing or Shortness of Breath. 2 Active Active Problems Problem Noted Date Diagnosed Date Left carpal tunnel syndrome 09/19/2022 Right carpal tunnel syndrome 09/19/2022 COVID-19 virus detected 01/17/2022 Prediabetes 11/22/2021 Obesity (BMI 35.0-39.9 without comorbidity) 12/01 Type 2 diabetes mellitus wit hout complication, without long-term current use of insulin 05/01/2018 Asthma 09/05/2017 Gastroesophageal reflux disease 09/05/2017 Positive PPD 05/02/2017 Overview (06/12/2024): [facility] 01/16 - negative QuantiFERON testing Obstructive sleep apnea 04/24/2016 Overview (06/12/2024): Intolerant to CPAP [facility] 06/28/18 - home sleep study ordered, follow-up 3 months Home sleep study 07/11/18 - mild obstructive sleep apnea, auto CPAP 8-16 cm H2O Osteopenia 09/20/2015 Overview (06/12/2024): 08/20 - bone density, osteopenia Hypertension 03/15/2015 Migraine 03/15/2015 Immunizations Name Administration Dates Next Due Hepatitis B (Mkczrou-Y-Teatb , Recombivax HB-Adult) 19yo and older 05/15/2016,01/12/2016,12/09/2015 Influenza Quadravalent, MDCK , 0.5ml, preservative free (Flucelvax) 6mo and older 04/21/2021,03/24/2020 Influenza trivalent, 0.5mL, preservative free (Fluarix; FluLaval; Fluzone) ages 6mo and older (Afluria) 3 years and older 04/04/2022,03/20/2019,03/02/2017,2015 Moderna SARS-CoV-2 COVID-19, mRNA, LNP-S, preservative free 05/17/2021 PPD Test 12/24/2015 Rubella 03/06/2019 Tdap Tetanus diptheria acell ular pertussis (Boostrix; Adacel) 7yo and older 04/13/2015 Varicella live (Varivax) 12m o and older 03/07/2019 Surgical History Surgery Date Site/Laterality Comments HYSTERECTOMY 2008 PROCEDURE: HISTORICAL TOTAL HYSTERECTOMY WITH BSO CHOLECYSTECTOMY PROCEDURE: HISTORICAL CHOLECYSTECTOMY TUBAL LIGATION 1988 PROCEDURE: HISTORICAL TUBAL LIGATION OTHER SURGICAL HISTORY PROCEDURE: ---- OTHER ----; COMMENT: breast cysts bilaterally BREAST BIOPSY 2007 PROCEDURE: BX BREAST; PERC NEEDLE CORE W/IMAG GUID BREAST BIOPSY 2013 Right PROCEDURE: BX BREAST; PERC NEEDLE CORE W/IMAG GUID; COMMENT: benign BREAST SURGERY Left PROCEDURE: TN UNLISTED PROCEDURE BREAST; COMMENT: exc as teenager benign BREAST SURGERY Right PROCEDURE: TN UNLISTED PROCEDURE BREAST; COMMENT: exc as teenager benign COLONOSCOPY 12/02/2018 PROCEDURE: HISTORICAL COLONOSCOPY; COMMENT: Senthil. Normal. q10 years OTHER SURGICAL HISTORY 10/04/2018 PROCEDURE: ---- OTHER ----; COMMENT: Urban. Sleeve Gastrectomy Medical History Medical History Date Comments Essential hypertension DX:Essent ial hypertension Positive PPD 05/02/2017 DX:Positive PPD Gastroesophageal reflux disease 09/05/2017 DX:Gastroesophageal reflux disease Morbid obesity with BMI of 4 0.0-44.9, adult ([facility]) 04/16/2015 DX:Morbid obesity with BMI o f 40.0-44.9, adult ([facility]) Abnormal mammogram 04/01/2015 DX:Abnormal m ammogram; COMMENT: 03/31/15 Probable benign lymph node R breast- follow up recommended 6 months 09/27/15 - mammo repeated 04/16 - normal mammogram Asthma 09/05/2017 DX:Asthma Elevated hemoglobin A1c 12/11/2016 DX:Douglass sb hemoglobin A1c Hypertension 03/15/2015 DX:Hypertension Migraine 03/15/2015 DX:Migraine Obstructive sleep apnea 04/24/2016 DX:Obstr uctive sleep apnea; COMMENT: Intolerant to CPAP Osteopenia 09/20/2015 DX:Osteopenia Smoker 04/14/2015 DX:Smoker Type 2 diabetes mellitus wit hout complication, without long-term current use of insulin ([facility]) 05/01/2018 DX:Type 2 diabetes mellitus without complication, without long-term current use of insulin (HCC) Family History Medical History Relation Name Comments Diabetes Father HTN Lung cancer Father Breast cancer Mother dx'd age 73 Mental illness Mother dx'd age 73 CAD, ulcers Blindness Other great paternal uncle Other: Lupus Sister 1 Depression Sister 2 chronic back pa in No Known Problems Son 1 No Known Problems Son 2 Cataracts Neg Hx Colon cancer Neg Hx Glaucoma Neg Hx Macular degeneration Neg Hx Ovarian cancer Neg Hx Strabismus Neg Hx Relation Name Status Comments Father Maternal Grandfather Alive Maternal Grandmother Stroke Mother dx'd age 73 Alive Other Paternal Grandfather Paternal Grandmother Stomach Ca Sister 1 Sister 2 Alive Son 1 Alive Healthy Son 2 Alive Healthy Social History Tobacco Use Types Packs/Day Years Used Date Smoking Tobacco: Former Cigarettes 0 07/02/2015 - 06/25/2016 Smokeless Tobacco: Never Alcohol Use Standard Drinks/Week Comments No 0 (1 standard drink = 0.6 oz pur e alcohol) Comments Unknown Sex and Gender Information Value Date Recorded Sex Assigned at Not on file Legal Sex Female 10:11 AM EST Gender Identity Not on file Sexual Orientation Not on file Obstetrics History Last Filed Vital Signs Vital Sign Reading Time Taken Comments Blood Pressure 126/85 04/15/2024 8:17 AM EDT Pulse 84 04/15/2024 8:17 AM EDT Temperature - - Respiratory Rate - - Oxygen Saturation - - Inhaled Oxygen Concentration - - Weight 86.6 kg (191 lb) 04/15/2024 8:17 AM EDT Height 157.5 cm (5' 2 ) 04/15/2024 8:17 AM EDT Body Mass Index 34.93 04/15/2024 8:17 AM EDT Plan of Treatment Upcoming Encounters Date Type Department Care Team (Late st Contact Info) Description 09/05/2024 1:00 PM EST Appointment Radiology Department - [address] [phone] 10/14/2024 8:00 AM EDT Office Visit Bariatric Surgery - [place] [address] [id number] Stella Bhandari MD 175 [facility] [address] [place] [address] Health Maintenance Due Date Last Done Comments Diabetes: Annual Foot Exam 1978 Diabetes: Annual Retina Eye Exam 1978 Pneumococcal Vaccine: 50+ Years (1 of 2 - PCV) 1987 Pneumococcal Vaccine: Pediatrics (0 to 5 Years) and At-Risk Patients (6 to 64 Years) (1 of 2 - PCV) 1987 Zoster Vaccines (1 of 2) 05/02/2019 03/07/2019 Depression Screening 06/10/2022 HIV Screening 06/10/2022 Hepatitis C Screening 06/10/2022 Social Influencers of Health Screening 06/10/2022 Diabetes: Blood Sugar Control Test (HGBA1C) 06/16/2022 11/16/2021 Diabetes: Annual Urine Albumin-Creatinine Ratio (uACR) 11/16/2022 11/16/2021 Diabetes: Annual GFR (Glomerular Filtration Rate) 11/16/2022 11/16/2021 Hypertension/CHF/CAD Annual BMP Blood Test 11/16/2022 11/16/2021 Osteoporosis Screening (Bone Density Screening) 08/26/2023 08/26/2018 COVID-19 Vaccine ( season) 2024 05/17/2021, 08/18/2020, 07/23/2020 Influenza Vaccine (#1) 2024 , 04/21/2021, 03/24/2020, Additional history exists DTaP,Tdap,and Td Vaccines (2 - Td or Tdap) 04/13/2025 04/13/2015 Breast Cancer Screening 08/15/2025 08/15/19 24, 08/15/2023, 08/11/2022, Additional history exists Cholesterol Screening (Lipid Panel) 04/21/2026 04/21/2021 Colorectal Cancer Screening: Colonoscopy 12/02/2028 12/02/2018 Hepatitis B Vaccines Completed 05/15/2016, 01/12/2016, 12/09/2015 Varicella Vaccines Aged Out 03/07/2019 No longer eligible based on patient's age to complete this topic HIB Vaccines Aged Out No longer eligi ble based on patient's age to complete this topic HPV Vaccines Aged Out No longer eligi ble based on patient's age to complete this topic Hepatitis A Vaccines Aged Out No long er eligible based on patient's age to complete this topic IPV Vaccines Aged Out No longer eligi ble based on patient's age to complete this topic MMR Vaccines Aged Out No longer eligi ble based on patient's age to complete this topic Meningococcal ACWY Vaccine Aged Out N o longer eligible based on patient's age to complete this topic Meningococcal B Vacine Aged Out No lo nger eligible based on patient's age to complete this topic RSV Immunization Patients Under 20 months Aged Out No longer eligible based on patient's age to complete this topic Procedures Procedure Name Priority Date/Time Associated Diagnosis Comments SCREENING MAMMOGRAPHY BI 2-VIEW BREAST INC CAD Routine 08/15/2023 7:53 AM EST Encounter for screening mammogram for malignant neoplasm of breast URINE ALBUMIN CREATININE RATIO Routine 11/16/2021 ANNUAL BMP BLOOD TEST Routine 11/16/2021 HEMOGLOBIN A1C Routine 11/16/2021 LIPID PANEL Routine 04/21/2021 COLONOSCOPY Routine 12/02/2018 DXA BONE DENSITY STUDY 1+ SITS AXIAL SKEL Routine 08/26/2018 1:19 PM EST Other specified disorders of bone density and structure, unspecified site from Last 3 Months or Most Recently Relevant to Health Maintenance Results * SCREENING MAMMOGRAPHY BI 2-VIEW BREAST INC CAD (08/15/2023 7:53 AM EST) Anatomical Region Laterality Modality Radiographic Meredith ging 08/11/2022 7:23 AM EST Narrative 08/15/2023 12:58 PM EST This is a summary report. The complete report is available in the patient's medical record. If you cannot access the medical record, please contact the sending organization for a detailed fax or copy. Study: SCREENING MAMMOGRAPHY BI 2-VIEW BREAST INC CAD Technique: Bilateral full-field digital screening mammography is obtained and read in conjunction with computer aided detection. ??Tomosynthesis as well as 2D C-View imaging were obtained. Comparison: Comparison made to multiple prior, most recent August 11, 2022, and most remote March 31, 2015. Breast composition: There are scattered areas of fibroglandular density. Right breast: Tissue marker from previous needle core biopsy. ??History of remote excisional biopsy. ??No suspicious masses, suspicious calcifications or other abnormalities are seen. Left breast: History of remote excisional biopsy. ??No suspicious masses, suspicious calcifications or other abnormalities are seen. IMPRESSION: Impression: Bilateral breasts: Benign, no specific mammographic evidence of malignancy. ??Normal interval follow-up is recommended in 12 months. BI-RADS: Category 2: Benign Procedure Note Kenji Bruce MD - 02/18/2024 This is a summary report. The complete report is available in thepatient's medical record. If you cannot access the medical record, pleasecontact the sending organization for a detailed fax or copy. Study: SCREENING MAMMOGRAPHY BI 2-VIEW BREAST INC CAD Technique: Bilateral full-field digital screening mammography is obtainedand read in conjunction with computer aided detection. Tomosynthesis aswell as 2D C-View imaging were obtained. Comparison: Comparison made to multiple prior, most recent August, and most remote March 31, 2015. Breast composition: There are scattered areas of fibroglandular density. Right breast: Tissue marker from previous needle core biopsy. History ofremote excisional biopsy. No suspicious masses, suspicious calcificationsor other abnormalities are seen. Left breast: History of remote excisional biopsy. No suspicious masses,suspicious calcifications or other abnormalities are seen. IMPRESSION: Impression: Bilateral breasts: Benign, no specific mammographic evidence ofmalignancy. Normal interval follow-up is recommended in 12 months. BI-RADS: Category 2: Benign Alda Galan MD IMG XR PROCEDURES Final Result * Urine Albumin Creatinine Ratio (11/16/2021) Urine Albumin Creatinine Ratio Abstracted Historical Provider HEALTH MAINTENANCE Final Result * Annual BMP Blood Test (11/16/2021) Annual BMP Blood Test Abstracted Historical Provider HEALTH MAINTENANCE Final Result * Hemoglobin A1c (11/16/2021) Pathologist [facility] Hemoglobin A1C 0.0 % Blood Venous blood specimen / Unknown Historical Provider LAB BLOOD ORDERABLES Priti l Result * Lipid panel (04/21/2021) Pathologist [facility] LDL/HDL Ratio 2 0 - 4 Triglycerides 89 0 - 150 mg/dL Cholesterol 146 0 - 200 mg/dL HDL 62 >=40 mg/dL LDL Cholesterol 67 0 - 100 mg/dL Blood Venous blood specimen / Unknown Historical Provider LAB BLOOD ORDERABLES Priti l Result * Colonoscopy (12/02/2018) Pathologist [facility] HM Colonoscopy No interpreta tion,abstr acted Anatomical Region Laterality Modality Other Historical Provider HEALTH MAINTENANCE Final Result * DXA BONE DENSITY STUDY 1+ SITS AXIAL SKEL (08/26/2018 1:19 PM EST) Anatomical Region Laterality Modality Bone Densitometr y 08/05/2018 12:1 8 PM EST Narrative 08/26/2018 4:33 PM EST BONE DENSITY ? Lumbar Spine T-score is -1.4 ?? (SD relative to 20-29 y/o adult) Z-score is -0.7 ??(SD relative to age matched peers) This is consistent with osteopenia by criteria defined by the WHO. Left Hip T-score is -0.8 Z-score is -0.3 This is normal by criteria defined by the WHO. Comparison exam(s): significant increase in bone density of ??hip and lumbar spine when compared to most recent bone density examination ?? Confidence level is +/-95%. Impression: Based on the World Health Organization criteria, Sherie Michelle should be classified as having osteopenia. This patient has a 1.8% risk of major osteoporotic fracture and a 0.1% risk of hip fracture over the next 10 years. (World Health Organization Fracture Risk Assessment) The [facility] Department of Internal Medicine recommends using National Osteoporosis Foundation (NOF) guidelines in treatment decisions related to osteoporosis. NOF guidelines suggest considering treatment for postmenopausal women and men aged 50 or older presenting with the following: History of hip or vertebral fracture. T-score less than or equal to -2.5 (DXA) at the femoral neck, total hip, or spine, after appropriate evaluation to exclude secondary causes. Low bone mass (T-score between -1.0 and -2.5 at the femoral neck or spine) AND a 10-year probability of a hip fracture greater than or equal to 3% OR a 10-year probability of a major osteoporosis-related fracture greater than or equal to 20% based on the [place]-adapted WHO algorithm Please note that all treatment decisions require clinical judgment and consideration of individual patient factors, including patient preferences, co-morbidities, previous drug use, risk factors not captured in the FRAX model (e.g., frailty, falls, vitamin D deficiency, increased bone turnover, interval significant decline in bone density) and possible under- or over-estimation of fracture risk by FRAX. Procedure Note Jose F Gray MD - 06/20/2022 BONE DENSITY Lumbar Spine T-score is -1.4 (SD relative to 20-29 y/o adult) Z-score is -0.7 (SD relative to age matched peers) This is consistent with osteopenia by criteria defined by the WHO. Left Hip T-score is -0.8 Z-score is -0.3 This is normal by criteria defined by the WHO. Comparison exam(s): significant increase in bone density of hip andlumbar spine when compared to most recent bone density examination Confidence level is +/-95%. Impression: Based on the World Health Organization criteria, Sherie Douglasould be classified as having osteopenia. This patient has a 1.8% risk ofmajor osteoporotic fracture and a 0.1% risk of hip fracture over the next10 years. (World Health Organization Fracture Risk Assessment) [facility] Department of Internal Medicine recommendsusing National Osteoporosis Foundation (NOF) guidelines in treatmentdecisions related to osteoporosis. NOF guidelines suggest consideringtreatment for postmenopausal women and men aged 50 or older presentingwith the following: History of hip or vertebral fracture. T-score less than or equal to -2.5 (DXA) at the femoral neck, total hip,or spine, after appropriate evaluation to exclude secondary causes. Low bone mass (T-score between -1.0 and -2.5 at the femoral neck or spine)AND a 10-year probability of a hip fracture greater than or equal to 3% ORa 10-year probability of a major osteoporosis-related fracture greaterthan or equal to 20% based on the [place]-adapted WHO algorithm Please note that all treatment decisions require clinical judgment andconsideration of individual patient factors, including patientpreferences, co-morbidities, previous drug use, risk factors not capturedin the FRAX model (e.g., frailty, falls, vitamin D deficiency, increasedbone turnover, interval significant decline in bone density) and possibleunder- or over-estimation of fracture risk by FRAX. Raji Wallace MD IMG DXA PROCEDURES Final Resul t from Last 3 Months or Most Recently Relevant to Health Maintenance Care Teams Windows Server Architect Relationship Specialty Start Date End Date Alda Galan MD PCP - General Internal Medicine 08/14/18
--- OUTSIDE RECORDS SUMMARY | 2024-08-22 07:56 | XMS_ITS | Encounter Summary ---
Author Organization [facility] Address [address] [place] [address] Care Team Providers Care Grinder Set Up Operator Thread Tool Name Role Cash AnalystRaji Wallace MD Primary Care Provider Unavailab le Alda Thurman MD Primary Care Provider [facility], Pcp Primary Care Provider [facility] john Encounter Details Date Type Department Care Team Description 12/25/2015 Pt. Referral Request [address] [address] Md Josefa Social History Tobacco Use Types Packs/Day Years Used Date Smoking Tobacco: Light Smoker Smokeless Tobacco: Never Alcohol Use Standard Drinks/Week [...] documented as of this encounter Care Teams Grinder Set Up Operator Thread Tool Relationship Specialty Start Date End Date Raji Wallace MD PCP - General Internal Medicine 01/29/15 08/13/18 Alda Thurman MD PCP - General Internal Medicine 08/14/18 [facility], Ashley PCP - General Internal Medicine 12/05/22 documented as of this encounter
--- OUTSIDE RECORDS SUMMARY | 2024-08-22 07:56 | XMS_ITS | Encounter Summary ---
Author Organization [facility] Address [address] [place] [address] Care Team Providers Care Wrapper Stripper Name Role Phone Community, Pcp Primary Care Provider Unavailabl e Encounter Details Date Type Department Care Team Description 03/06/2023 Control Area Operator Report Medical Records [address] [place] [id number] Gilberto Tinajero MD Social History Tobacco Use Types Packs/Day [...] documented as of this encounter Care Teams Wrapper Stripper Relationship Specialty Start Date End Date Community, Pcp PCP - General Internal Medicine 12/05/22 documented as of this encounter
--- OUTSIDE RECORDS SUMMARY | 2024-08-22 07:56 | XMS_ITS | Encounter Summary ---
Author Organization [facility] Address [address] [place] [address] Care Team Providers Care Instructor Industrial Design Name Role Phone Alda Thurman MD Primary Care Provider renee [facility], Pcp Primary Care Provider [facility] Encounter Details Date Type Department Care Team Description 10/04/2018 Hospital Medical Records [address] [place] [address] Nils Duggan IV, MD Social History Tobacco [...] documented as of this encounter Care Teams Instructor Industrial Design Relationship Specialty Start Date End Date Alda Thurman MD PCP - General Internal Medicine 08/14/18 [facility], Pcp PCP - General Internal Medicine 12/05/22 documented as of this encounter
--- OUTSIDE RECORDS SUMMARY | 2024-08-22 07:56 | XMS_ITS ---
Author Organization [facility] Address [address] [place] [address] Care Team Providers Care Net Software Developer Name Role Phone ACE UGALDE Unavailable [phone] Encounters Encounter Location Date Provider Diagnosis [place] [id number] [phone] 07/08/2024 ACE UGALDE PLAN OF TREATMENT No Information Progress Notes * Sherie GARCIADOB:[birth year] (54 yo F)Acc No.[id number]:07/08/2024 Patient:??Catie GARCIA Provider:??ACE UGALDE NP :1970?Age:54 Y?Sex:Fe male Date:07/08/2024 Address:[address] [place], [place] [id number] Subjective: * Chief Complaints: * ? * Medical History:?? Objective: Assessment: Plan: * Treatment: * Images: Billing Information: * Visit Code:?? * Procedure Codes:?? * Sign off status: Pending * Provider:??ACE UGALDE NP Date:??12/2024
--- OUTSIDE RECORDS SUMMARY | 2024-08-22 07:56 | XMS_ITS | Encounter Summary ---
Author Organization [facility] Address [address] [place] [address] Care Team Providers Care Drill Press Hand Name Role Phone Alda Thurman MD Primary Care Provider [facility], Pcp Primary Care Provider [facility] e Encounter Details Date Type Department Care Team Description 03/05/2019 Orders Only Adult Medicine - [place] [address] [place] [address] Alda Thurman MD Antibody response examination; Screening for endocrine, nutritional, metabolic and immunity disorder Social History Tobacco Use Types Packs/Day Years [...] on file documented as of this encounter Results * QUANTIFERON TB GOLD (03/06/2019 10:32 AM EDT) QFT PLUS NIL 0.02 IU/mL 03/08/2019 12:38 PM EDT [facility] QFT PLUS MITOGEN 3.93 IU/mL 03/08/20 19 12:38 PM EDT [facility] QFT PLUS ANTIGEN 1 0 IU/mL 2018 12:38 PM EDT [facility] QFT PLUS ANTIGEN 2 0 IU/mL 2018 12:38 PM EDT [facility] INTERPRETATION NEGATIVE NEGATIVE 03/08/2019 12:38 PM EDT [facility] 03/06/2019 10:3 2 AM EDT 03/06/2019 10:33 AM EDT Alda Galan MD LAB Performing Organization Address [facility] Co de Phone Number [facility] * (ABNORMAL) HEPATITIS B SURFACE AB TEST (03/06/2019 10:32 AM EDT) Hepatitis B surface antibody POSITIVE(A ) NEGATIVE 03/06/2019 3:29 PM EDT [facility] 03/06/2019 10:3 2 AM EDT 03/06/2019 10:33 AM EDT Alda Galan MD LAB Performing Organization Address [facility] de Phone Number [facility] * VARICELLA-ZOSTER ANTIBODY SCREENING (03/06/2019 10:32 AM EDT) VARICELLA ANTIBODY IGG POSITIVE POSITIVE 03/07/2019 9:06 AM EDT [facility] Varicella IGG Quant 1800.0 >165 INDEX 03/07/2019 9:06 AM EDT [facility] Comment:>165 Index is consid ered to be consistent with Immunity. 03/06/2019 10:3 2 AM EDT 03/06/2019 10:33 AM EDT Alda Galan MD LAB Performing Organization Address [facility] Co de Phone Number [facility] * RUBELLA ANTIBODY (03/06/2019 10:32 AM EDT) Rubella IGG Qual POSITIVE POSITIVE 03/06/2019 3:45 PM EDT [facility] Rubella IGG QUANT 336.5 >=10.0 IU/mL 03/06/2019 3:45 PM EDT [facility] 03/06/2019 10:3 2 AM EDT 03/06/2019 10:33 AM EDT Alda Galan MD LAB Performing Organization Address [facility] de Phone Number [facility] * RUBEOLA ANTIBODY IGG (03/06/2019 10:32 AM EDT) MEASLES IGG POSITIVE POSITIVE 03/07/2019 9:06 AM EDT [facility] MEASLES IGG QUANT > 300.0 >=30.0 AU/mL 03/07/2019 9:06 AM EDT [facility] Comment:>=30 AU/mL is consid ered to be consistent with Immunity. 03/06/2019 10:3 2 AM EDT 03/06/2019 10:33 AM EDT Alda Galan MD LAB Performing Organization Address [facility] de Phone Number [facility] * MUMPS ANTIBODY IGG,SAMANTHA (03/06/2019 10:32 AM EDT) MUMPS IGG POSITIVE POSITIVE 03/07/2019 9:06 AM EDT [facility] Mumps IGG Quant 16.6 >=11 AU/mL 9 9:06 AM EDT [facility] Comment:>=11 AU/mL is consid ered to be consistent with Immunity. 03/06/2019 10:3 2 AM EDT 03/06/2019 10:33 AM EDT Alda Galan MD LAB Performing Organization Address [facility] Co de Phone Number [facility] documented in this encounter Visit Diagnoses Diagnosis Antibody response examination Screening for endocrine, nutritional, metabolic and immunity disorder Screening for other and unspecified endocrine, nutritional, metabolic, and immunity disorders documented in this encounter Additional Health Concerns Infection Onset Date Last Indicated Resolved Time COVID-19 01/17/2022 01/17/2022 documented as of this encounter Care Teams Drill Press Hand Relationship Specialty Start Date End Date Alda Thurman MD PCP - General Internal Medicine 08/14/18 Community, Pcp PCP - General Internal Medicine 12/05/22 documented as of this encounter
--- OUTSIDE RECORDS SUMMARY | 2024-08-22 07:56 | XMS_ITS | Patient Health Record ---
Author Organization [facility] Address [address] [place] [address] Care Team Providers Care Siderographist Name Role Phone ACE UGALDE Unavailable [phone] VLAD BALL Unavailable [phone] AKIL STARKS Unavailable [phone] ALLERGIES Allergen (clinical drug ingredient) Drug/Non Drug Allergy documented on EMR Reaction Allergy Type Onset Date Status lisinopril Lisinopril Dry cough Drug Allergy Activ e acetaminophen Tylenol hives Drug Allergy Act sary Penicillin hives Drug Allergy Active REASON FOR REFERRAL No Information MEDICATIONS Medication SIG (Take, Route, Frequency, Duration) Notes Start Date End Date Status Mounjaro 2.5 MG/0.5ML 2.5mg Subcutaneous weekly for 30 days Not-Taking Ondansetron 4 MG 1 tablet on the tong ue and allow to dissolve prn nausea/vomiting Orally Once a day for 30 days 09/28/2023 Active Zepbound 10 MG/0.5ML 10mg Subcutaneous w eekly for 30 days 05/15/2024 Active Mounjaro 10 MG/0.5ML Inject 10 mg (0.5 m L) Subcutaneous once weekly for 28 days Active ALPRAZolam 0.5 MG 1 tablet Orally Twic e a day Active Irbesartan 75 MG 2 tablets Orally Onc e a day Active risperiDONE 0.5 MG 1 tablet on the tong ue and allow to dissolve Orally Once daily at night time Active Mounjaro 5 MG/0.5ML 5mg Subcutaneous wee kly for 30 days 06/18/2023 Not-Taking PROBLEMS Problem Type ICD Code Onset Dates Problem Status W/U Status Risk SNOMED Code Notes Problem Vitamin D deficiency, unspecified (E55.9) Active confirmed 57289799 Problem Other obesity due to excess calories (E66.09) Active confirmed 830651600 Problem Anxiety (F41.9) Active confirmed 292632 02 Problem MARY KATE (obstructive sleep apnea) (G47.33) Active confirmed 99725088 Problem Body mass index [BMI] 39.0-39.9, adult (Z68.39) Active confirmed 049923517 Problem BMI 37.0-37.9, adult (Z68.37) Active confirmed 645036115 Problem BMI 33.0-33.9,adult (Z68.33) Active confirmed 411732494 Problem BMI 38.0-38.9,adult (Z68.38) Active confirmed 553436773 Problem Adult-onset obesity (E66.9) Active confirmed 208144208 VITAL SIGNS Heart Rate 80 /min 05/09/2024 Oximetry 99 % 05/09/2024 Blood pressure diastolic 82 mm Hg 05/09/2024 Height 62 in 05/09/2024 Blood pressure systolic 126 mm Hg 05/09/2024 Weight 184 lbs 05/09/2024 BMI 33.65 kg/m2 05/09/2024 Encounters Encounter Location Date Provider Diagnosis [facility] [address] [facility] [address] [id number] 11/16/[address] [facility] [address] [facility] [address] 12/21/2023 [facility] [address] 01/02/2024 [facility] [address] [address] [place] [address] 01/17/2024 [facility] [address] [facility] [address] 02/04/2024 ACE UGALDE Other obesity due to excess calories E66.09 ; BMI 37.0-37.9, adult Z68.37 ; Dietary counseling and surveillance Z71.3 ; Prediabetes R73.03 and MARY KATE (obstructive sleep apnea) G47.33 [address] [facility] [address] [facility] [address] [place] [address] 05/19/2024 ACE [facility]HOT [address] [place], [place] 06/02/2024 [facility] [address] [facility] [address] [place], [place] 06/10/2024 VLAD BALL [facility] [address] [facility] [address] 07/08/2024 [facility] [address] [facility] [address] 09/28/2023 ACE SAGARHOT Other obesity due to excess calories E66.09 ; Prediabetes R73.03 ; MARY KATE (obstructive sleep apnea) G47.33 and BMI 37.0-37.9, adult Z68.[address] [facility] [address] [facility] [address] [facility] [address] 12/03/2023 ACE BORHOT Other obesity due to excess calories E66.09 ; BMI 37.0-37.9, adult Z68.37 ; Dietary counseling and surveillance Z71.3 ; Prediabetes R73.03 and MARY KATE (obstructive sleep apnea) G47.[address] [facility] [address] [facility] [address] [facility] [address] 04/07/2024 ACE KEITHHOT Other obesity due to excess calories E66.09 ; BMI 33.0-33.9,adult Z68.33 ; Dietary counseling and surveillance Z71.3 ; Prediabetes R73.03 and MAR YKATE (obstructive sleep apnea) G47.[address] [facility] [address] [facility] [address] 05/09/2024 AKIL STARKS Adult-onset obesity E66.9 ; BMI 33.0-33.9,adult Z68.33 ; Prediabetes R73.03 ; Anxiety F41.9 and Nausea R11.[address] [facility] [address] [address] 12/20/2023 ACE BORHOT [facility] [address] 05/15/2024 ACE BORHOT [facility] [address] [place] [phone] 05/16/2024 [facility] Encounter Date Diagnosis Assessment Notes Treatment Notes Treatment Clinical Notes Section Notes 09/28/2023 Other obesity due to excess calories (ICD-10 - E66.09) #Weight Management 09/28/2023 Updated hemoglobin A1c in office 5.5, now euglycemic incr to 7.5 mg Deanne Body analysis improvement including fat mass Total time spent today was 30 minutes of which greater than 50% was spent on coordinating and counseling Patient has been found to be obese with a BMI of (37). Patient has class (2) obesity. We are a board certified obesity and weight management practice Patient has trialed behavioral modification, dietary restrictions and exercise for a minimum of 6 months The most recent [place] [employer]ocrinologists and [place] [employer] guidelines recommend patients who have overweight BMI or obesity BMI, who also have metabolic syndrome, prediabetes, HLD, and other comorbidities or at risk of developing type 2 diabetes should aim for a weight loss goal of at least 10% of the baseline body weight Patient counseled regarding effects of GLP/GIP-1 agonists, and other FDA approved wgt loss meds with regards to a multifactorial approach of weight loss as mentioned above and not solely appetite suppression. We have discussed the mechanism of GLP-1's/GIP, dual incretins, appetitite suppressants I think this would be fantastic option for her given her metabolic workup and body composition We have discussed the risks and benefits and side effects including/and not limited to Sarcopenia, intestinal obstruction, constipation, nausea, lethargy, headache Discussed importance of protein consumption for muscle maintenance as well as strength and resistance training ,probiotics, B12 complex biotin , iron and other nutrients, To help avoid telogen effluvium We have discussed the lifelong requirement of nutritional supplementation And adherence to an exercise regimen as well as importance of follow-up The patient understands and agrees There is no history of medullary thyroid cancer or multiple endocrine neoplasia There is also no history of cardiovascular disease, hypertension, palpitations, or arrhythmias In the setting of potential stimulant/amphetamine use such as phentermine We have also discussed risks and benefits, and the use of compounded medications to help offset the national shortages as well as financial implications vs trade name drugs Patient was reassured and welcomed to the practice. We discussed that we stress a hollistic medical approach with emphasis on lifestyle modification. Patient was informed that a healthy lifestyle with exercise and good eating habits can help reduce his risk of medical complications. He is explained that obesity increases his risk of diabetes, cardiovascular disease, or organ damage. We spent a lot of time discussing the relationship between food, exercise, sleep, mental health and obesity. Patient was counseled on the importance EATING local, organic food when possible. Patient was educated on clean 15 and dirty dozen. I provided information about reading books called The Food Rules by Mic Orosco and Eat Fat Get Lean by Dr Jhonatan Toledo. Self education is important in the journey for weight management. Patient was offered diagnostic testing. We want to measure visceral adiposity, advanced body composition, adverse lipids, fatty acid balance, risk for heart disease and atherosclerosis, markers of inflammation and genetic susceptibility. Patient was counseled on weight management and was advised to lose weight using A. Meal Replacement Products We discussed the lifelong requirement of nutritional supplementation and adherence to an exercise regimen as well as importance of dietary follow-up Patient was educated on the replacement products called optifast. This is a good way of taking fixed amount of calories. It has been shown in studies to be ineffective weight management tool. We also recommend maintaining adequate protein intake and muscle composition, 1.5mg/kg This however has to be coupled with lifestyle intervention as well as laboratory data and EKG monitoring. It is impossible to know how a person will tolerate complete meal replacement. The side effects of meal replacement and weight loss could include syncopal attacks, dizziness, gallstones, potential cholecystectomy, possible heart attack and even . The benefits of meal replacement would be potential weight loss but no guarantees can be made. Meal replacement products are not covered by insurance. Once the patient has bought these products we cannot return them B. Lifestyle management which includes several strategies as below 1. Eat a low carbohydrate good fat good protein diet. Eliminate refined carbohydrates from the diet. Continue blood sugar and sugared beverages. Eat local organic when possible. Cook your own meals. Read food labels. None about healthy snacks. Portion control and food with low glycemic index 2. Exercise regularly. Try to get at least 6000 steps a day. Use a predominant to track activity level. Consider using apps like Minitrade, Redeemiapal, lose it, stick as needed for self-monitoring and weight management. Consider group exercises. Consider hiring a hearing dog trainer. Regular exercise is arce to sustainable health and prevents as a buffer against weight regain 3. Sleep is most important for healing. Tried to sleep at least 8 hours a night. A good quality sleep needs a sleep ritual with ideal room temperature of around 68. It might help to take a shower and have no electronics in the room and sleep in a very dark room without artificial light. Start her sleep routine and get up early in the morning and go to bed on time 4. Make a social connection. Surround yourself with positive people with positive energy. Connect with friends and family. 5. Get into the habit of meditating and mindfulness while doing everything. 6. Go outside and connect with nature. C. Prescription medications Patient was educated on the use of prescription medications for medical weight loss. This is a growing list and includes phentermine, Topamax,Qsymia, contrave, belviq and saxenda. All prescription medications could have side effects including but not limited to kidney stones, seizure disorder cardiac arrhythmias heart attack pancreatitis etc. etc.. Patient was encouraged to read the prescription insert and have coaching with their pharmacist and make an informed decision about taking medication and know that these medications are being prescribed with good intentions and we do not know how a patient would react to her medication. Sudden medications are FDA approved for weight loss and there is also off label use depending on patient's inability to afford medications in an attempt to lose weight D. Behavioral counseling was done to establish a relationship between food and an mood. Patient was provided information about local counseling and psychiatry and Dr Saldana at [email or web address]. We would like to cover regular topics and build on low glycemic eating exercise mindful eating, using yoga and meditation along with deep breathing and connecting with friends and family. E. MASS PAT reviewed, Patient's current medications were reviewed and opinion was given on medication that can cause weight gain and can be substituted F. Patient was assessed for risk with obesity including and not limiting to atherosclerosis heart disease stroke kidney disease, restrictive lung disease, irritable bowel syndrome and overall mortality. Risk of developing prediabetes diabetes and metabolic syndrome was discussed G. Therapeutic plan: We have decided to make therapeutic plan which would include choosing wisely on calories restricting portion getting active, tracking weight, getting good quality sleep and working on time management H. Patient will follow up in (4) weeks for weight management Of note, some information is being carried forward from prior records for informational purposes only and is being cited so that efficiency, safety and quality of the patient's care is not compromised This note was prepared using voice recognition software and direct typing Please excuse inadvertent union carpenter or typing errors, or uncorrected word substitutions Although every attempt has been made by the provider to proofread this document, occasional misspellings and typographical errors may still be present Due to the previous pandemic, and the use of personal protective equipment (PPE) This may decrease voice recognition accuracy Inadvertent union carpenter errors may occur 12/03/2023 Other obesity due to excess calories (ICD-10 - E66.09) #Weight Management 12/03/2023 scheduled to have left hand CTS surgery, [facility] [place] under local anesthesia, not GENERAL, 01/07/2024 she would not have to hold this dual incretin Updated hemoglobin A1c in office 5.5, now euglycemic cont 7.5 mg Mounjaro Body analysis improvement including fat mass Total time spent today was 30 minutes of which greater than 50% was spent on coordinating and counseling Patient has been found to be obese with a BMI of (37). Patient has class (2) obesity. We are a board certified obesity and weight management practice Patient has trialed behavioral modification, dietary restrictions and exercise for a minimum of 6 months The most recent [place] [employer]ocrinologists and [place] [employer] guidelines recommend patients who have overweight BMI or obesity BMI, who also have metabolic syndrome, prediabetes, HLD, and other comorbidities or at risk of developing type 2 diabetes should aim for a weight loss goal of at least 10% of the baseline body weight Patient counseled regarding effects of GLP/GIP-1 agonists, and other FDA approved wgt loss meds with regards to a multifactorial approach of weight loss as mentioned above and not solely appetite suppression. We have discussed the mechanism of GLP-1's/GIP, dual incretins, appetitite suppressants I think this would be fantastic option for her given her metabolic workup and body composition We have discussed the risks and benefits and side effects including/and not limited to Sarcopenia, intestinal obstruction, constipation, nausea, lethargy, headache Discussed importance of protein consumption for muscle maintenance as well as strength and resistance training ,probiotics, B12 complex biotin , iron and other nutrients, To help avoid telogen effluvium We have discussed the lifelong requirement of nutritional supplementation And adherence to an exercise regimen as well as importance of follow-up The patient understands and agrees There is no history of medullary thyroid cancer or multiple endocrine neoplasia There is also no history of cardiovascular disease, hypertension, palpitations, or arrhythmias In the setting of potential stimulant/amphetamine use such as phentermine We have also discussed risks and benefits, and the use of compounded medications to help offset the national shortages as well as financial implications vs trade name drugs Patient was reassured and welcomed to the practice. We discussed that we stress a hollistic medical approach with emphasis on lifestyle modification. Patient was informed that a healthy lifestyle with exercise and good eating habits can help reduce his risk of medical complications. He is explained that obesity increases his risk of diabetes, cardiovascular disease, or organ damage. We spent a lot of time discussing the relationship between food, exercise, sleep, mental health and obesity. Patient was counseled on the importance EATING local, organic food when possible. Patient was educated on clean 15 and dirty dozen. I provided information about reading books called The Food Rules by Mic Orosco and Eat Fat Get Lean by Dr Jhonatan Toledo. Self education is important in the journey for weight management. Patient was offered diagnostic testing. We want to measure visceral adiposity, advanced body composition, adverse lipids, fatty acid balance, risk for heart disease and atherosclerosis, markers of inflammation and genetic susceptibility. Patient was counseled on weight management and was advised to lose weight using A. Meal Replacement Products We discussed the lifelong requirement of nutritional supplementation and adherence to an exercise regimen as well as importance of dietary follow-up Patient was educated on the replacement products called optifast. This is a good way of taking fixed amount of calories. It has been shown in studies to be ineffective weight management tool. We also recommend maintaining adequate protein intake and muscle composition, 1.5mg/kg This however has to be coupled with lifestyle intervention as well as laboratory data and EKG monitoring. It is impossible to know how a person will tolerate complete meal replacement. The side effects of meal replacement and weight loss could include syncopal attacks, dizziness, gallstones, potential cholecystectomy, possible heart attack and even . The benefits of meal replacement would be potential weight loss but no guarantees can be made. Meal replacement products are not covered by insurance. Once the patient has bought these products we cannot return them B. Lifestyle management which includes several strategies as below 1. Eat a low carbohydrate good fat good protein diet. Eliminate refined carbohydrates from the diet. Continue blood sugar and sugared beverages. Eat local organic when possible. Cook your own meals. Read food labels. None about healthy snacks. Portion control and food with low glycemic index 2. Exercise regularly. Try to get at least 6000 steps a day. Use a predominant to track activity level. Consider using apps like Minitrade, JukedeckfitCloudsnappal, lose it, stick as needed for self-monitoring and weight management. Consider group exercises. Consider hiring a hearing dog trainer. Regular exercise is arce to sustainable health and prevents as a buffer against weight regain 3. Sleep is most important for healing. Tried to sleep at least 8 hours a night. A good quality sleep needs a sleep ritual with ideal room temperature of around 68. It might help to take a shower and have no electronics in the room and sleep in a very dark room without artificial light. Start her sleep routine and get up early in the morning and go to bed on time 4. Make a social connection. Surround yourself with positive people with positive energy. Connect with friends and family. 5. Get into the habit of meditating and mindfulness while doing everything. 6. Go outside and connect with nature. C. Prescription medications Patient was educated on the use of prescription medications for medical weight loss. This is a growing list and includes phentermine, Topamax,Qsymia, contrave, belviq and saxenda. All prescription medications could have side effects including but not limited to kidney stones, seizure disorder cardiac arrhythmias heart attack pancreatitis etc. etc.. Patient was encouraged to read the prescription insert and have coaching with their pharmacist and make an informed decision about taking medication and know that these medications are being prescribed with good intentions and we do not know how a patient would react to her medication. Sudden medications are FDA approved for weight loss and there is also off label use depending on patient's inability to afford medications in an attempt to lose weight D. Behavioral counseling was done to establish a relationship between food and an mood. Patient was provided information about local counseling and psychiatry and Dr Saldana at [email or web address]. We would like to cover regular topics and build on low glycemic eating exercise mindful eating, using yoga and meditation along with deep breathing and connecting with friends and family. E. MASS PAT reviewed, Patient's current medications were reviewed and opinion was given on medication that can cause weight gain and can be substituted F. Patient was assessed for risk with obesity including and not limiting to atherosclerosis heart disease stroke kidney disease, restrictive lung disease, irritable bowel syndrome and overall mortality. Risk of developing prediabetes diabetes and metabolic syndrome was discussed G. Therapeutic plan: We have decided to make therapeutic plan which would include choosing wisely on calories restricting portion getting active, tracking weight, getting good quality sleep and working on time management H. Patient will follow up in (4) weeks for weight management Of note, some information is being carried forward from prior records for informational purposes only and is being cited so that efficiency, safety and quality of the patient's care is not compromised This note was prepared using voice recognition software and direct typing Please excuse inadvertent union carpenter or typing errors, or uncorrected word substitutions Although every attempt has been made by the provider to proofread this document, occasional misspellings and typographical errors may still be present Due to the previous pandemic, and the use of personal protective equipment (PPE) This may decrease voice recognition accuracy Inadvertent union carpenter errors may occur 12/03/2023 BMI 37.0-37.9, adult (ICD-10 - Z68.37) #Weight Management 12/03/2023 scheduled to have left hand CTS surgery, [facility] [place] under local anesthesia, not GENERAL, 01/07/2024 she would not have to hold this dual incretin Updated hemoglobin A1c in office 5.5, now euglycemic cont 7.5 mg Mounjaro Body analysis improvement including fat mass Total time spent today was 30 minutes of which greater than 50% was spent on coordinating and counseling Patient has been found to be obese with a BMI of (37). Patient has class (2) obesity. We are a board certified obesity and weight management practice Patient has trialed behavioral modification, dietary restrictions and exercise for a minimum of 6 months The most recent [place] [employer]ocrinologists and [place] [employer] guidelines recommend patients who have overweight BMI or obesity BMI, who also have metabolic syndrome, prediabetes, HLD, and other comorbidities or at risk of developing type 2 diabetes should aim for a weight loss goal of at least 10% of the baseline body weight Patient counseled regarding effects of GLP/GIP-1 agonists, and other FDA approved wgt loss meds with regards to a multifactorial approach of weight loss as mentioned above and not solely appetite suppression. We have discussed the mechanism of GLP-1's/GIP, dual incretins, appetitite suppressants I think this would be fantastic option for her given her metabolic workup and body composition We have discussed the risks and benefits and side effects including/and not limited to Sarcopenia, intestinal obstruction, constipation, nausea, lethargy, headache Discussed importance of protein consumption for muscle maintenance as well as strength and resistance training ,probiotics, B12 complex biotin , iron and other nutrients, To help avoid telogen effluvium We have discussed the lifelong requirement of nutritional supplementation And adherence to an exercise regimen as well as importance of follow-up The patient understands and agrees There is no history of medullary thyroid cancer or multiple endocrine neoplasia There is also no history of cardiovascular disease, hypertension, palpitations, or arrhythmias In the setting of potential stimulant/amphetamine use such as phentermine We have also discussed risks and benefits, and the use of compounded medications to help offset the national shortages as well as financial implications vs trade name drugs Patient was reassured and welcomed to the practice. We discussed that we stress a hollistic medical approach with emphasis on lifestyle modification. Patient was informed that a healthy lifestyle with exercise and good eating habits can help reduce his risk of medical complications. He is explained that obesity increases his risk of diabetes, cardiovascular disease, or organ damage. We spent a lot of time discussing the relationship between food, exercise, sleep, mental health and obesity. Patient was counseled on the importance EATING local, organic food when possible. Patient was educated on clean 15 and dirty dozen. I provided information about reading books called The Food Rules by Mic Orosco and Eat Fat Get Lean by Dr Jhonatan Toledo. Self education is important in the journey for weight management. Patient was offered diagnostic testing. We want to measure visceral adiposity, advanced body composition, adverse lipids, fatty acid balance, risk for heart disease and atherosclerosis, markers of inflammation and genetic susceptibility. Patient was counseled on weight management and was advised to lose weight using A. Meal Replacement Products We discussed the lifelong requirement of nutritional supplementation and adherence to an exercise regimen as well as importance of dietary follow-up Patient was educated on the replacement products called optifast. This is a good way of taking fixed amount of calories. It has been shown in studies to be ineffective weight management tool. We also recommend maintaining adequate protein intake and muscle composition, 1.5mg/kg This however has to be coupled with lifestyle intervention as well as laboratory data and EKG monitoring. It is impossible to know how a person will tolerate complete meal replacement. The side effects of meal replacement and weight loss could include syncopal attacks, dizziness, gallstones, potential cholecystectomy, possible heart attack and even . The benefits of meal replacement would be potential weight loss but no guarantees can be made. Meal replacement products are not covered by insurance. Once the patient has bought these products we cannot return them B. Lifestyle management which includes several strategies as below 1. Eat a low carbohydrate good fat good protein diet. Eliminate refined carbohydrates from the diet. Continue blood sugar and sugared beverages. Eat local organic when possible. Cook your own meals. Read food labels. None about healthy snacks. Portion control and food with low glycemic index 2. Exercise regularly. Try to get at least 6000 steps a day. Use a predominant to track activity level. Consider using apps like Minitrade, Redeemiapal, lose it, stick as needed for self-monitoring and weight management. Consider group exercises. Consider hiring a hearing dog trainer. Regular exercise is arce to sustainable health and prevents as a buffer against weight regain 3. Sleep is most important for healing. Tried to sleep at least 8 hours a night. A good quality sleep needs a sleep ritual with ideal room temperature of around 68. It might help to take a shower and have no electronics in the room and sleep in a very dark room without artificial light. Start her sleep routine and get up early in the morning and go to bed on time 4. Make a social connection. Surround yourself with positive people with positive energy. Connect with friends and family. 5. Get into the habit of meditating and mindfulness while doing everything. 6. Go outside and connect with nature. C. Prescription medications Patient was educated on the use of prescription medications for medical weight loss. This is a growing list and includes phentermine, Topamax,Qsymia, contrave, belviq and saxenda. All prescription medications could have side effects including but not limited to kidney stones, seizure disorder cardiac arrhythmias heart attack pancreatitis etc. etc.. Patient was encouraged to read the prescription insert and have coaching with their pharmacist and make an informed decision about taking medication and know that these medications are being prescribed with good intentions and we do not know how a patient would react to her medication. Sudden medications are FDA approved for weight loss and there is also off label use depending on patient's inability to afford medications in an attempt to lose weight D. Behavioral counseling was done to establish a relationship between food and an mood. Patient was provided information about local counseling and psychiatry and Dr Saldana at [email or web address]. We would like to cover regular topics and build on low glycemic eating exercise mindful eating, using yoga and meditation along with deep breathing and connecting with friends and family. E. MASS PAT reviewed, Patient's current medications were reviewed and opinion was given on medication that can cause weight gain and can be substituted F. Patient was assessed for risk with obesity including and not limiting to atherosclerosis heart disease stroke kidney disease, restrictive lung disease, irritable bowel syndrome and overall mortality. Risk of developing prediabetes diabetes and metabolic syndrome was discussed G. Therapeutic plan: We have decided to make therapeutic plan which would include choosing wisely on calories restricting portion getting active, tracking weight, getting good quality sleep and working on time management H. Patient will follow up in (4) weeks for weight management Of note, some information is being carried forward from prior records for informational purposes only and is being cited so that efficiency, safety and quality of the patient's care is not compromised This note was prepared using voice recognition software and direct typing Please excuse inadvertent union carpenter or typing errors, or uncorrected word substitutions Although every attempt has been made by the provider to proofread this document, occasional misspellings and typographical errors may still be present Due to the previous pandemic, and the use of personal protective equipment (PPE) This may decrease voice recognition accuracy Inadvertent union carpenter errors may occur 02/04/2024 Other obesity due to excess calories (ICD-10 - E66.09) #Weight Management 02/04/2024 scheduled to have left hand CTS surgery, [facility], [place] under local anesthesia, not GENERAL, 01/07/2024 she would not have to hold this dual incretin Updated hemoglobin A1c in office 5.5, now euglycemic cont 7.5 mg Frankunjaro Body analysis improvement including fat mass Total time spent today was 30 minutes of which greater than 50% was spent on coordinating and counseling Patient has been found to be obese with a BMI of (37). Patient has class (2) obesity. We are a board certified obesity and weight management practice Patient has trialed behavioral modification, dietary restrictions and exercise for a minimum of 6 months The most recent [place] [employer] and [place] guidelines recommend patients who have overweight BMI or obesity BMI, who also have metabolic syndrome, prediabetes, HLD, and other comorbidities or at risk of developing type 2 diabetes should aim for a weight loss goal of at least 10% of the baseline body weight Patient counseled regarding effects of GLP/GIP-1 agonists, and other FDA approved wgt loss meds with regards to a multifactorial approach of weight loss as mentioned above and not solely appetite suppression. We have discussed the mechanism of GLP-1's/GIP, dual incretins, appetitite suppressants I think this would be fantastic option for her given her metabolic workup and body composition We have discussed the risks and benefits and side effects including/and not limited to Sarcopenia, intestinal obstruction, constipation, nausea, lethargy, headache Discussed importance of protein consumption for muscle maintenance as well as strength and resistance training ,probiotics, B12 complex biotin , iron and other nutrients, To help avoid telogen effluvium We have discussed the lifelong requirement of nutritional supplementation And adherence to an exercise regimen as well as importance of follow-up The patient understands and agrees There is no history of medullary thyroid cancer or multiple endocrine neoplasia There is also no history of cardiovascular disease, hypertension, palpitations, or arrhythmias In the setting of potential stimulant/amphetamine use such as phentermine We have also discussed risks and benefits, and the use of compounded medications to help offset the national shortages as well as financial implications vs trade name drugs Patient was reassured and welcomed to the practice. We discussed that we stress a hollistic medical approach with emphasis on lifestyle modification. Patient was informed that a healthy lifestyle with exercise and good eating habits can help reduce his risk of medical complications. He is explained that obesity increases his risk of diabetes, cardiovascular disease, or organ damage. We spent a lot of time discussing the relationship between food, exercise, sleep, mental health and obesity. Patient was counseled on the importance EATING local, organic food when possible. Patient was educated on clean 15 and dirty dozen. I provided information about reading books called The Food Rules by Mic Orosco and Eat Fat Get Lean by Dr Jhonatan Toledo. Self education is important in the journey for weight management. Patient was offered diagnostic testing. We want to measure visceral adiposity, advanced body composition, adverse lipids, fatty acid balance, risk for heart disease and atherosclerosis, markers of inflammation and genetic susceptibility. Patient was counseled on weight management and was advised to lose weight using A. Meal Replacement Products We discussed the lifelong requirement of nutritional supplementation and adherence to an exercise regimen as well as importance of dietary follow-up Patient was educated on the replacement products called optifast. This is a good way of taking fixed amount of calories. It has been shown in studies to be ineffective weight management tool. We also recommend maintaining adequate protein intake and muscle composition, 1.5mg/kg This however has to be coupled with lifestyle intervention as well as laboratory data and EKG monitoring. It is impossible to know how a person will tolerate complete meal replacement. The side effects of meal replacement and weight loss could include syncopal attacks, dizziness, gallstones, potential cholecystectomy, possible heart attack and even . The benefits of meal replacement would be potential weight loss but no guarantees can be made. Meal replacement products are not covered by insurance. Once the patient has bought these products we cannot return them B. Lifestyle management which includes several strategies as below 1. Eat a low carbohydrate good fat good protein diet. Eliminate refined carbohydrates from the diet. Continue blood sugar and sugared beverages. Eat local organic when possible. Cook your own meals. Read food labels. None about healthy snacks. Portion control and food with low glycemic index 2. Exercise regularly. Try to get at least 6000 steps a day. Use a predominant to track activity level. Consider using apps like Minitrade, myfitCloudsnappal, lose it, stick as needed for self-monitoring and weight management. Consider group exercises. Consider hiring a hearing dog trainer. Regular exercise is arce to sustainable health and prevents as a buffer against weight regain 3. Sleep is most important for healing. Tried to sleep at least 8 hours a night. A good quality sleep needs a sleep ritual with ideal room temperature of around 68. It might help to take a shower and have no electronics in the room and sleep in a very dark room without artificial light. Start her sleep routine and get up early in the morning and go to bed on time 4. Make a social connection. Surround yourself with positive people with positive energy. Connect with friends and family. 5. Get into the habit of meditating and mindfulness while doing everything. 6. Go outside and connect with nature. C. Prescription medications Patient was educated on the use of prescription medications for medical weight loss. This is a growing list and includes phentermine, Topamax,Qsymia, contrave, belviq and saxenda. All prescription medications could have side effects including but not limited to kidney stones, seizure disorder cardiac arrhythmias heart attack pancreatitis etc. etc.. Patient was encouraged to read the prescription insert and have coaching with their pharmacist and make an informed decision about taking medication and know that these medications are being prescribed with good intentions and we do not know how a patient would react to her medication. Sudden medications are FDA approved for weight loss and there is also off label use depending on patient's inability to afford medications in an attempt to lose weight D. Behavioral counseling was done to establish a relationship between food and an mood. Patient was provided information about local counseling and psychiatry and Dr Saldana at [email or web address]. We would like to cover regular topics and build on low glycemic eating exercise mindful eating, using yoga and meditation along with deep breathing and connecting with friends and family. E. MASS PAT reviewed, Patient's current medications were reviewed and opinion was given on medication that can cause weight gain and can be substituted F. Patient was assessed for risk with obesity including and not limiting to atherosclerosis heart disease stroke kidney disease, restrictive lung disease, irritable bowel syndrome and overall mortality. Risk of developing prediabetes diabetes and metabolic syndrome was discussed G. Therapeutic plan: We have decided to make therapeutic plan which would include choosing wisely on calories restricting portion getting active, tracking weight, getting good quality sleep and working on time management H. Patient will follow up in (4) weeks for weight management Of note, some information is being carried forward from prior records for informational purposes only and is being cited so that efficiency, safety and quality of the patient's care is not compromised This note was prepared using voice recognition software and direct typing Please excuse inadvertent union carpenter or typing errors, or uncorrected word substitutions Although every attempt has been made by the provider to proofread this document, occasional misspellings and typographical errors may still be present Due to the previous pandemic, and the use of personal protective equipment (PPE) This may decrease voice recognition accuracy Inadvertent union carpenter errors may occur 04/07/2024 Other obesity due to excess calories (ICD-10 - E66.09) #Weight Management 04/07/2024 Patient reports intestinal obstruction two weeks ago, treated at [facility]. Will obtain ER and admission notes from [facility] to verify diagnosis and adjust treatment if necessary. Patient is due for lab work. Ordered comprehensive labs. She understands that she she will be called about any abnormal findings. She is proud of her weight loss and will continue on Mounjaro 7.5 mg . She was given a sample of Linzess in office today as well as education on its function as an osmotic laxative. Counseling was given on the continued importance of resistance training and protein intake to prevent muscle loss over time. She will resume her resistance training pending results of orthopedic workup for hand pain. Body analysis improvement including fat mass Total time spent today was 30 minutes of which greater than 50% was spent on coordinating and counseling Patient has been found to be obese with a BMI of (37). Patient has class (2) obesity. We are a board certified obesity and weight management practice Patient has trialed behavioral modification, dietary restrictions and exercise for a minimum of 6 months The most recent [place] [employer]in[employer] and [place] [employer] guidelines recommend patients who have overweight BMI or obesity BMI, who also have metabolic syndrome, prediabetes, HLD, and other comorbidities or at risk of developing type 2 diabetes should aim for a weight loss goal of at least 10% of the baseline body weight Patient counseled regarding effects of GLP/GIP-1 agonists, and other FDA approved wgt loss meds with regards to a multifactorial approach of weight loss as mentioned above and not solely appetite suppression. We have discussed the mechanism of GLP-1's/GIP, dual incretins, appetitite suppressants I think this would be fantastic option for her given her metabolic workup and body composition We have discussed the risks and benefits and side effects including/and not limited to Sarcopenia, intestinal obstruction, constipation, nausea, lethargy, headache Discussed importance of protein consumption for muscle maintenance as well as strength and resistance training ,probiotics, B12 complex biotin , iron and other nutrients, To help avoid telogen effluvium We have discussed the lifelong requirement of nutritional supplementation And adherence to an exercise regimen as well as importance of follow-up The patient understands and agrees There is no history of medullary thyroid cancer or multiple endocrine neoplasia There is also no history of cardiovascular disease, hypertension, palpitations, or arrhythmias In the setting of potential stimulant/amphetamine use such as phentermine We have also discussed risks and benefits, and the use of compounded medications to help offset the national shortages as well as financial implications vs trade name drugs Patient was reassured and welcomed to the practice. We discussed that we stress a hollistic medical approach with emphasis on lifestyle modification. Patient was informed that a healthy lifestyle with exercise and good eating habits can help reduce his risk of medical complications. He is explained that obesity increases his risk of diabetes, cardiovascular disease, or organ damage. We spent a lot of time discussing the relationship between food, exercise, sleep, mental health and obesity. Patient was counseled on the importance EATING local, organic food when possible. Patient was educated on clean 15 and dirty dozen. I provided information about reading books called The Food Rules by Mci Orosco and Eat Fat Get Lean by Dr Jhonatan Toledo. Self education is important in the journey for weight management. Patient was offered diagnostic testing. We want to measure visceral adiposity, advanced body composition, adverse lipids, fatty acid balance, risk for heart disease and atherosclerosis, markers of inflammation and genetic susceptibility. Patient was counseled on weight management and was advised to lose weight using A. Meal Replacement Products We discussed the lifelong requirement of nutritional supplementation and adherence to an exercise regimen as well as importance of dietary follow-up Patient was educated on the replacement products called optifast. This is a good way of taking fixed amount of calories. It has been shown in studies to be ineffective weight management tool. We also recommend maintaining adequate protein intake and muscle composition, 1.5mg/kg This however has to be coupled with lifestyle intervention as well as laboratory data and EKG monitoring. It is impossible to know how a person will tolerate complete meal replacement. The side effects of meal replacement and weight loss could include syncopal attacks, dizziness, gallstones, potential cholecystectomy, possible heart attack and even . The benefits of meal replacement would be potential weight loss but no guarantees can be made. Meal replacement products are not covered by insurance. Once the patient has bought these products we cannot return them B. Lifestyle management which includes several strategies as below 1. Eat a low carbohydrate good fat good protein diet. Eliminate refined carbohydrates from the diet. Continue blood sugar and sugared beverages. Eat local organic when possible. Cook your own meals. Read food labels. None about healthy snacks. Portion control and food with low glycemic index 2. Exercise regularly. Try to get at least 6000 steps a day. Use a predominant to track activity level. Consider using apps like Minitrade, Redeemiapal, lose it, stick as needed for self-monitoring and weight management. Consider group exercises. Consider hiring a hearing dog trainer. Regular exercise is arce to sustainable health and prevents as a buffer against weight regain 3. Sleep is most important for healing. Tried to sleep at least 8 hours a night. A good quality sleep needs a sleep ritual with ideal room temperature of around 68. It might help to take a shower and have no electronics in the room and sleep in a very dark room without artificial light. Start her sleep routine and get up early in the morning and go to bed on time 4. Make a social connection. Surround yourself with positive people with positive energy. Connect with friends and family. 5. Get into the habit of meditating and mindfulness while doing everything. 6. Go outside and connect with nature. C. Prescription medications Patient was educated on the use of prescription medications for medical weight loss. This is a growing list and includes phentermine, Topamax,Qsymia, contrave, belviq and saxenda. All prescription medications could have side effects including but not limited to kidney stones, seizure disorder cardiac arrhythmias heart attack pancreatitis etc. etc.. Patient was encouraged to read the prescription insert and have coaching with their pharmacist and make an informed decision about taking medication and know that these medications are being prescribed with good intentions and we do not know how a patient would react to her medication. Sudden medications are FDA approved for weight loss and there is also off label use depending on patient's inability to afford medications in an attempt to lose weight D. Behavioral counseling was done to establish a relationship between food and an mood. Patient was provided information about local counseling and psychiatry and Dr Saldana at [email or web address]. We would like to cover regular topics and build on low glycemic eating exercise mindful eating, using yoga and meditation along with deep breathing and connecting with friends and family. E. MASS PAT reviewed, Patient's current medications were reviewed and opinion was given on medication that can cause weight gain and can be substituted F. Patient was assessed for risk with obesity including and not limiting to atherosclerosis heart disease stroke kidney disease, restrictive lung disease, irritable bowel syndrome and overall mortality. Risk of developing prediabetes diabetes and metabolic syndrome was discussed G. Therapeutic plan: We have decided to make therapeutic plan which would include choosing wisely on calories restricting portion getting active, tracking weight, getting good quality sleep and working on time management H. Patient will follow up in (4) weeks for weight management Of note, some information is being carried forward from prior records for informational purposes only and is being cited so that efficiency, safety and quality of the patient's care is not compromised This note was prepared using voice recognition software and direct typing Please excuse inadvertent union carpenter or typing errors, or uncorrected word substitutions Although every attempt has been made by the provider to proofread this document, occasional misspellings and typographical errors may still be present Due to the previous pandemic, and the use of personal protective equipment (PPE) This may decrease voice recognition accuracy Inadvertent union carpenter errors may occur 04/07/2024 BMI 33.0-33.9,adult (ICD-10 - Z68.33) #Weight Management 04/07/2024 Patient reports intestinal obstruction two weeks ago, treated at [facility]. Will obtain ER and admission notes from [facility] to verify diagnosis and adjust treatment if necessary. Patient is due for lab work. Ordered comprehensive labs. She understands that she she will be called about any abnormal findings. She is proud of her weight loss and will continue on Mounjaro 7.5 mg . She was given a sample of Linzess in office today as well as education on its function as an osmotic laxative. Counseling was given on the continued importance of resistance training and protein intake to prevent muscle loss over time. She will resume her resistance training pending results of orthopedic workup for hand pain. Body analysis improvement including fat mass Total time spent today was 30 minutes of which greater than 50% was spent on coordinating and counseling Patient has been found to be obese with a BMI of (37). Patient has class (2) obesity. We are a board certified obesity and weight management practice Patient has trialed behavioral modification, dietary restrictions and exercise for a minimum of 6 months The most recent [place] [employer] and [employer] guidelines recommend patients who have overweight BMI or obesity BMI, who also have metabolic syndrome, prediabetes, HLD, and other comorbidities or at risk of developing type 2 diabetes should aim for a weight loss goal of at least 10% of the baseline body weight Patient counseled regarding effects of GLP/GIP-1 agonists, and other FDA approved wgt loss meds with regards to a multifactorial approach of weight loss as mentioned above and not solely appetite suppression. We have discussed the mechanism of GLP-1's/GIP, dual incretins, appetitite suppressants I think this would be fantastic option for her given her metabolic workup and body composition We have discussed the risks and benefits and side effects including/and not limited to Sarcopenia, intestinal obstruction, constipation, nausea, lethargy, headache Discussed importance of protein consumption for muscle maintenance as well as strength and resistance training ,probiotics, B12 complex biotin , iron and other nutrients, To help avoid telogen effluvium We have discussed the lifelong requirement of nutritional supplementation And adherence to an exercise regimen as well as importance of follow-up The patient understands and agrees There is no history of medullary thyroid cancer or multiple endocrine neoplasia There is also no history of cardiovascular disease, hypertension, palpitations, or arrhythmias In the setting of potential stimulant/amphetamine use such as phentermine We have also discussed risks and benefits, and the use of compounded medications to help offset the national shortages as well as financial implications vs trade name drugs Patient was reassured and welcomed to the practice. We discussed that we stress a hollistic medical approach with emphasis on lifestyle modification. Patient was informed that a healthy lifestyle with exercise and good eating habits can help reduce his risk of medical complications. He is explained that obesity increases his risk of diabetes, cardiovascular disease, or organ damage. We spent a lot of time discussing the relationship between food, exercise, sleep, mental health and obesity. Patient was counseled on the importance EATING local, organic food when possible. Patient was educated on clean 15 and dirty dozen. I provided information about reading books called The Food Rules by Mic Orosco and Eat Fat Get Lean by Dr Jhonatan Toledo. Self education is important in the journey for weight management. Patient was offered diagnostic testing. We want to measure visceral adiposity, advanced body composition, adverse lipids, fatty acid balance, risk for heart disease and atherosclerosis, markers of inflammation and genetic susceptibility. Patient was counseled on weight management and was advised to lose weight using A. Meal Replacement Products We discussed the lifelong requirement of nutritional supplementation and adherence to an exercise regimen as well as importance of dietary follow-up Patient was educated on the replacement products called optifast. This is a good way of taking fixed amount of calories. It has been shown in studies to be ineffective weight management tool. We also recommend maintaining adequate protein intake and muscle composition, 1.5mg/kg This however has to be coupled with lifestyle intervention as well as laboratory data and EKG monitoring. It is impossible to know how a person will tolerate complete meal replacement. The side effects of meal replacement and weight loss could include syncopal attacks, dizziness, gallstones, potential cholecystectomy, possible heart attack and even . The benefits of meal replacement would be potential weight loss but no guarantees can be made. Meal replacement products are not covered by insurance. Once the patient has bought these products we cannot return them B. Lifestyle management which includes several strategies as below 1. Eat a low carbohydrate good fat good protein diet. Eliminate refined carbohydrates from the diet. Continue blood sugar and sugared beverages. Eat local organic when possible. Cook your own meals. Read food labels. None about healthy snacks. Portion control and food with low glycemic index 2. Exercise regularly. Try to get at least 6000 steps a day. Use a predominant to track activity level. Consider using apps like Minitrade, Redeemiapal, lose it, stick as needed for self-monitoring and weight management. Consider group exercises. Consider hiring a hearing dog trainer. Regular exercise is arce to sustainable health and prevents as a buffer against weight regain 3. Sleep is most important for healing. Tried to sleep at least 8 hours a night. A good quality sleep needs a sleep ritual with ideal room temperature of around 68. It might help to take a shower and have no electronics in the room and sleep in a very dark room without artificial light. Start her sleep routine and get up early in the morning and go to bed on time 4. Make a social connection. Surround yourself with positive people with positive energy. Connect with friends and family. 5. Get into the habit of meditating and mindfulness while doing everything. 6. Go outside and connect with nature. C. Prescription medications Patient was educated on the use of prescription medications for medical weight loss. This is a growing list and includes phentermine, Topamax,Qsymia, contrave, belviq and saxenda. All prescription medications could have side effects including but not limited to kidney stones, seizure disorder cardiac arrhythmias heart attack pancreatitis etc. etc.. Patient was encouraged to read the prescription insert and have coaching with their pharmacist and make an informed decision about taking medication and know that these medications are being prescribed with good intentions and we do not know how a patient would react to her medication. Sudden medications are FDA approved for weight loss and there is also off label use depending on patient's inability to afford medications in an attempt to lose weight D. Behavioral counseling was done to establish a relationship between food and an mood. Patient was provided information about local counseling and psychiatry and Dr Saldana at [email or web address]. We would like to cover regular topics and build on low glycemic eating exercise mindful eating, using yoga and meditation along with deep breathing and connecting with friends and family. E. MASS PAT reviewed, Patient's current medications were reviewed and opinion was given on medication that can cause weight gain and can be substituted F. Patient was assessed for risk with obesity including and not limiting to atherosclerosis heart disease stroke kidney disease, restrictive lung disease, irritable bowel syndrome and overall mortality. Risk of developing prediabetes diabetes and metabolic syndrome was discussed G. Therapeutic plan: We have decided to make therapeutic plan which would include choosing wisely on calories restricting portion getting active, tracking weight, getting good quality sleep and working on time management H. Patient will follow up in (4) weeks for weight management Of note, some information is being carried forward from prior records for informational purposes only and is being cited so that efficiency, safety and quality of the patient's care is not compromised This note was prepared using voice recognition software and direct typing Please excuse inadvertent union carpenter or typing errors, or uncorrected word substitutions Although every attempt has been made by the provider to proofread this document, occasional misspellings and typographical errors may still be present Due to the previous pandemic, and the use of personal protective equipment (PPE) This may decrease voice recognition accuracy Inadvertent union carpenter errors may occur 05/09/2024 BMI 33.0-33.9,adult (ICD-10 - Z68.33) Patient is here for weight management follow-up. We focused on significance of healthy lifestyle changes. We talked about need to track steps with goal between 6000-10,000 steps daily, focus on portion control, read food labels, get adequate sleep between 7 to 8 hours, get adequate rest to the body, meditate, frequent nutritious meals including vegetables and healthy choices of lean meats, fish, and elimination of refined carbohydrates. We also talked about mindfulness and mindful eating. Particular focus was on continuing portion control and mindful eating. Total time spent with 30 minutes with greater than 50% spent on counseling and coordinating care. 05/09/2024: Weight 184 pounds, BMI 33.65. Seca scan completed and interpreted with the patient. Between 2 visits no change in fat mass or muscle mass. Patient is still in the upper limit of normal for muscle mass which she was congratulated for. Currently using Mounjaro 7.5 mg once weekly. Has noticed over the past couple of weeks that suppression of her appetite is decreased and she has increased hunger at nighttime. Reports good diet. Limited exercise at this time due to having had carpal tunnel repair in December. Interested at this time and increasing dose of Mounjaro 10 mg once weekly. Discussed proper use of the medication including rotating injection sites and expected side effect profile including but not limited to nausea, constipation, abdominal pain, and heartburn. She will follow-up in the office approximately 4 weeks for weight management. All patient question answered at this time. # Hypertension: Blood pressure stable in office today 126/82. Continue irbesartan 75 mg 2 tablets once daily. Discussed proper use of medication and expected side effect profile including but not limited to low blood pressure and cough. Red flag signs of hypertension include but are not limited to headache, blurry vision, chest pain, shortness of breath, abdominal pain, vomiting, dizziness, or weakness. Will continue to monitor. Please follow-up with PCP. # Anxiety: Stable at this time. Continue alprazolam 0.5 mg twice daily as needed for increased anxiety. Continue risperidone 0.5 mg 1 tablet once daily at nighttime. Patient states he takes his medication for anxiety and for recent development of intrusive thoughts. Discussed appropriate use of the medications. Common side effects of alprazolam include but are not limited to drowsiness, fatigue, irritability, and impaired coordination. Common side effects of risperidone include but are not limited to somnolence, increased appetite, weight gain, and extra pyramidal symptoms. Will continue to monitor. Please follow-up with PCP. # Prediabetes: Hemoglobin A1c of 6.2% which improved to 5.5% on 08/2023. Will continue to monitor. All questions have been answered to patient's satisfaction. Patient verbalized understanding of diagnosis and treatments explained. Advised to call sooner prior to next visit it any questions/concerns arise. Case discussed with collaborating physician Karlos Heart who reviewed the assessment and plan. Chart, medications, labs, vital signs reviewed. Dictation was accomplished with the use of [employer] voice recognition software, which is prone to medical misidentifications and grammatical errors. This are unintentional and the practitioner does try to identify and correct these, but some could still be present. Please do not hesitate to contact practitioner for clarification. 05/09/2024 Adult-onset obesity (ICD-10 - E66.9) Patient is here for weight management follow-up. We focused on significance of healthy lifestyle changes. We talked about need to track steps with goal between 6000-10,000 steps daily, focus on portion control, read food labels, get adequate sleep between 7 to 8 hours, get adequate rest to the body, meditate, frequent nutritious meals including vegetables and healthy choices of lean meats, fish, and elimination of refined carbohydrates. We also talked about mindfulness and mindful eating. Particular focus was on continuing portion control and mindful eating. Total time spent with 30 minutes with greater than 50% spent on counseling and coordinating care. 05/09/2024: Weight 184 pounds, BMI 33.65. Seca scan completed and interpreted with the patient. Between 2 visits no change in fat mass or muscle mass. Patient is still in the upper limit of normal for muscle mass which she was congratulated for. Currently using Mounjaro 7.5 mg once weekly. Has noticed over the past couple of weeks that suppression of her appetite is decreased and she has increased hunger at nighttime. Reports good diet. Limited exercise at this time due to having had carpal tunnel repair in December. Interested at this time and increasing dose of Mounjaro 10 mg once weekly. Discussed proper use of the medication including rotating injection sites and expected side effect profile including but not limited to nausea, constipation, abdominal pain, and heartburn. She will follow-up in the office approximately 4 weeks for weight management. All patient question answered at this time. # Hypertension: Blood pressure stable in office today 126/82. Continue irbesartan 75 mg 2 tablets once daily. Discussed proper use of medication and expected side effect profile including but not limited to low blood pressure and cough. Red flag signs of hypertension include but are not limited to headache, blurry vision, chest pain, shortness of breath, abdominal pain, vomiting, dizziness, or weakness. Will continue to monitor. Please follow-up with PCP. # Anxiety: Stable at this time. Continue alprazolam 0.5 mg twice daily as needed for increased anxiety. Continue risperidone 0.5 mg 1 tablet once daily at nighttime. Patient states he takes his medication for anxiety and for recent development of intrusive thoughts. Discussed appropriate use of the medications. Common side effects of alprazolam include but are not limited to drowsiness, fatigue, irritability, and impaired coordination. Common side effects of risperidone include but are not limited to somnolence, increased appetite, weight gain, and extra pyramidal symptoms. Will continue to monitor. Please follow-up with PCP. # Prediabetes: Hemoglobin A1c of 6.2% which improved to 5.5% on 08/2023. Will continue to monitor. All questions have been answered to patient's satisfaction. Patient verbalized understanding of diagnosis and treatments explained. Advised to call sooner prior to next visit it any questions/concerns arise. Case discussed with collaborating physician Karlos Heart who reviewed the assessment and plan. Chart, medications, labs, vital signs reviewed. Dictation was accomplished with the use of [employer] voice recognition software, which is prone to medical misidentifications and grammatical errors. This are unintentional and the practitioner does try to identify and correct these, but some could still be present. Please do not hesitate to contact practitioner for clarification. 05/09/2024 Prediabetes (ICD-10 - R73.03) Patient is here for weight management follow-up. We focused on significance of healthy lifestyle changes. We talked about need to track steps with goal between 6000-10,000 steps daily, focus on portion control, read food labels, get adequate sleep between 7 to 8 hours, get adequate rest to the body, meditate, frequent nutritious meals including vegetables and healthy choices of lean meats, fish, and elimination of refined carbohydrates. We also talked about mindfulness and mindful eating. Particular focus was on continuing portion control and mindful eating. Total time spent with 30 minutes with greater than 50% spent on counseling and coordinating care. 05/09/2024: Weight 184 pounds, BMI 33.65. Seca scan completed and interpreted with the patient. Between 2 visits no change in fat mass or muscle mass. Patient is still in the upper limit of normal for muscle mass which she was congratulated for. Currently using Mounjaro 7.5 mg once weekly. Has noticed over the past couple of weeks that suppression of her appetite is decreased and she has increased hunger at nighttime. Reports good diet. Limited exercise at this time due to having had carpal tunnel repair in December. Interested at this time and increasing dose of Mounjaro 10 mg once weekly. Discussed proper use of the medication including rotating injection sites and expected side effect profile including but not limited to nausea, constipation, abdominal pain, and heartburn. She will follow-up in the office approximately 4 weeks for weight management. All patient question answered at this time. # Hypertension: Blood pressure stable in office today 126/82. Continue irbesartan 75 mg 2 tablets once daily. Discussed proper use of medication and expected side effect profile including but not limited to low blood pressure and cough. Red flag signs of hypertension include but are not limited to headache, blurry vision, chest pain, shortness of breath, abdominal pain, vomiting, dizziness, or weakness. Will continue to monitor. Please follow-up with PCP. # Anxiety: Stable at this time. Continue alprazolam 0.5 mg twice daily as needed for increased anxiety. Continue risperidone 0.5 mg 1 tablet once daily at nighttime. Patient states he takes his medication for anxiety and for recent development of intrusive thoughts. Discussed appropriate use of the medications. Common side effects of alprazolam include but are not limited to drowsiness, fatigue, irritability, and impaired coordination. Common side effects of risperidone include but are not limited to somnolence, increased appetite, weight gain, and extra pyramidal symptoms. Will continue to monitor. Please follow-up with PCP. # Prediabetes: Hemoglobin A1c of 6.2% which improved to 5.5% on 08/2023. Will continue to monitor. All questions have been answered to patient's satisfaction. Patient verbalized understanding of diagnosis and treatments explained. Advised to call sooner prior to next visit it any questions/concerns arise. Case discussed with collaborating physician Karlos Heart who reviewed the assessment and plan. Chart, medications, labs, vital signs reviewed. Dictation was accomplished with the use of Blog[employer] voice recognition software, which is prone to medical misidentifications and grammatical errors. This are unintentional and the practitioner does try to identify and correct these, but some could still be present. Please do not hesitate to contact practitioner for clarification. 04/07/2024 Dietary counseling and surveillance (ICD-10 - Z71.3) #Weight Management 04/07/2024 Patient reports intestinal obstruction two weeks ago, treated at [facility]. Will obtain ER and admission notes from [facility] to verify diagnosis and adjust treatment if necessary. Patient is due for lab work. Ordered comprehensive labs. She understands that she she will be called about any abnormal findings. She is proud of her weight loss and will continue on Mounjaro 7.5 mg . She was given a sample of Linzess in office today as well as education on its function as an osmotic laxative. Counseling was given on the continued importance of resistance training and protein intake to prevent muscle loss over time. She will resume her resistance training pending results of orthopedic workup for hand pain. Body analysis improvement including fat mass Total time spent today was 30 minutes of which greater than 50% was spent on coordinating and counseling Patient has been found to be obese with a BMI of (37). Patient has class (2) obesity. We are a board certified obesity and weight management practice Patient has trialed behavioral modification, dietary restrictions and exercise for a minimum of 6 months The most recent [place] [employer] and [employer] guidelines recommend patients who have overweight BMI or obesity BMI, who also have metabolic syndrome, prediabetes, HLD, and other comorbidities or at risk of developing type 2 diabetes should aim for a weight loss goal of at least 10% of the baseline body weight Patient counseled regarding effects of GLP/GIP-1 agonists, and other FDA approved wgt loss meds with regards to a multifactorial approach of weight loss as mentioned above and not solely appetite suppression. We have discussed the mechanism of GLP-1's/GIP, dual incretins, appetitite suppressants I think this would be fantastic option for her given her metabolic workup and body composition We have discussed the risks and benefits and side effects including/and not limited to Sarcopenia, intestinal obstruction, constipation, nausea, lethargy, headache Discussed importance of protein consumption for muscle maintenance as well as strength and resistance training ,probiotics, B12 complex biotin , iron and other nutrients, To help avoid telogen effluvium We have discussed the lifelong requirement of nutritional supplementation And adherence to an exercise regimen as well as importance of follow-up The patient understands and agrees There is no history of medullary thyroid cancer or multiple endocrine neoplasia There is also no history of cardiovascular disease, hypertension, palpitations, or arrhythmias In the setting of potential stimulant/amphetamine use such as phentermine We have also discussed risks and benefits, and the use of compounded medications to help offset the national shortages as well as financial implications vs trade name drugs Patient was reassured and welcomed to the practice. We discussed that we stress a hollistic medical approach with emphasis on lifestyle modification. Patient was informed that a healthy lifestyle with exercise and good eating habits can help reduce his risk of medical complications. He is explained that obesity increases his risk of diabetes, cardiovascular disease, or organ damage. We spent a lot of time discussing the relationship between food, exercise, sleep, mental health and obesity. Patient was counseled on the importance EATING local, organic food when possible. Patient was educated on clean 15 and dirty dozen. I provided information about reading books called The Food Rules by Mic Orosco and Eat Fat Get Lean by Dr Jhonatan Toledo. Self education is important in the journey for weight management. Patient was offered diagnostic testing. We want to measure visceral adiposity, advanced body composition, adverse lipids, fatty acid balance, risk for heart disease and atherosclerosis, markers of inflammation and genetic susceptibility. Patient was counseled on weight management and was advised to lose weight using A. Meal Replacement Products We discussed the lifelong requirement of nutritional supplementation and adherence to an exercise regimen as well as importance of dietary follow-up Patient was educated on the replacement products called optifast. This is a good way of taking fixed amount of calories. It has been shown in studies to be ineffective weight management tool. We also recommend maintaining adequate protein intake and muscle composition, 1.5mg/kg This however has to be coupled with lifestyle intervention as well as laboratory data and EKG monitoring. It is impossible to know how a person will tolerate complete meal replacement. The side effects of meal replacement and weight loss could include syncopal attacks, dizziness, gallstones, potential cholecystectomy, possible heart attack and even . The benefits of meal replacement would be potential weight loss but no guarantees can be made. Meal replacement products are not covered by insurance. Once the patient has bought these products we cannot return them B. Lifestyle management which includes several strategies as below 1. Eat a low carbohydrate good fat good protein diet. Eliminate refined carbohydrates from the diet. Continue blood sugar and sugared beverages. Eat local organic when possible. Cook your own meals. Read food labels. None about healthy snacks. Portion control and food with low glycemic index 2. Exercise regularly. Try to get at least 6000 steps a day. Use a predominant to track activity level. Consider using apps like Minitrade, myfitnesspal, lose it, stick as needed for self-monitoring and weight management. Consider group exercises. Consider hiring a hearing dog trainer. Regular exercise is arce to sustainable health and prevents as a buffer against weight regain 3. Sleep is most important for healing. Tried to sleep at least 8 hours a night. A good quality sleep needs a sleep ritual with ideal room temperature of around 68. It might help to take a shower and have no electronics in the room and sleep in a very dark room without artificial light. Start her sleep routine and get up early in the morning and go to bed on time 4. Make a social connection. Surround yourself with positive people with positive energy. Connect with friends and family. 5. Get into the habit of meditating and mindfulness while doing everything. 6. Go outside and connect with nature. C. Prescription medications Patient was educated on the use of prescription medications for medical weight loss. This is a growing list and includes phentermine, Topamax,Qsymia, contrave, belviq and saxenda. All prescription medications could have side effects including but not limited to kidney stones, seizure disorder cardiac arrhythmias heart attack pancreatitis etc. etc.. Patient was encouraged to read the prescription insert and have coaching with their pharmacist and make an informed decision about taking medication and know that these medications are being prescribed with good intentions and we do not know how a patient would react to her medication. Sudden medications are FDA approved for weight loss and there is also off label use depending on patient's inability to afford medications in an attempt to lose weight D. Behavioral counseling was done to establish a relationship between food and an mood. Patient was provided information about local counseling and psychiatry and Dr Saldana at [email or web address]. We would like to cover regular topics and build on low glycemic eating exercise mindful eating, using yoga and meditation along with deep breathing and connecting with friends and family. E. MASS PAT reviewed, Patient's current medications were reviewed and opinion was given on medication that can cause weight gain and can be substituted F. Patient was assessed for risk with obesity including and not limiting to atherosclerosis heart disease stroke kidney disease, restrictive lung disease, irritable bowel syndrome and overall mortality. Risk of developing prediabetes diabetes and metabolic syndrome was discussed G. Therapeutic plan: We have decided to make therapeutic plan which would include choosing wisely on calories restricting portion getting active, tracking weight, getting good quality sleep and working on time management H. Patient will follow up in (4) weeks for weight management Of note, some information is being carried forward from prior records for informational purposes only and is being cited so that efficiency, safety and quality of the patient's care is not compromised This note was prepared using voice recognition software and direct typing Please excuse inadvertent union carpenter or typing errors, or uncorrected word substitutions Although every attempt has been made by the provider to proofread this document, occasional misspellings and typographical errors may still be present Due to the previous pandemic, and the use of personal protective equipment (PPE) This may decrease voice recognition accuracy Inadvertent union carpenter errors may occur 12/03/2023 Dietary counseling and surveillance (ICD-10 - Z71.3) #Weight Management 12/03/2023 scheduled to have left hand CTS surgery, [facility], [place] under local anesthesia, not GENERAL, 01/07/2024 she would not have to hold this dual incretin Updated hemoglobin A1c in office 5.5, now euglycemic cont 7.5 mg Deanne Body analysis improvement including fat mass Total time spent today was 30 minutes of which greater than 50% was spent on coordinating and counseling Patient has been found to be obese with a BMI of (37). Patient has class (2) obesity. We are a board certified obesity and weight management practice Patient has trialed behavioral modification, dietary restrictions and exercise for a minimum of 6 months The most recent [place] [employer] and [place] [employer] guidelines recommend patients who have overweight BMI or obesity BMI, who also have metabolic syndrome, prediabetes, HLD, and other comorbidities or at risk of developing type 2 diabetes should aim for a weight loss goal of at least 10% of the baseline body weight Patient counseled regarding effects of GLP/GIP-1 agonists, and other FDA approved wgt loss meds with regards to a multifactorial approach of weight loss as mentioned above and not solely appetite suppression. We have discussed the mechanism of GLP-1's/GIP, dual incretins, appetitite suppressants I think this would be fantastic option for her given her metabolic workup and body composition We have discussed the risks and benefits and side effects including/and not limited to Sarcopenia, intestinal obstruction, constipation, nausea, lethargy, headache Discussed importance of protein consumption for muscle maintenance as well as strength and resistance training ,probiotics, B12 complex biotin , iron and other nutrients, To help avoid telogen effluvium We have discussed the lifelong requirement of nutritional supplementation And adherence to an exercise regimen as well as importance of follow-up The patient understands and agrees There is no history of medullary thyroid cancer or multiple endocrine neoplasia There is also no history of cardiovascular disease, hypertension, palpitations, or arrhythmias In the setting of potential stimulant/amphetamine use such as phentermine We have also discussed risks and benefits, and the use of compounded medications to help offset the national shortages as well as financial implications vs trade name drugs Patient was reassured and welcomed to the practice. We discussed that we stress a hollistic medical approach with emphasis on lifestyle modification. Patient was informed that a healthy lifestyle with exercise and good eating habits can help reduce his risk of medical complications. He is explained that obesity increases his risk of diabetes, cardiovascular disease, or organ damage. We spent a lot of time discussing the relationship between food, exercise, sleep, mental health and obesity. Patient was counseled on the importance EATING local, organic food when possible. Patient was educated on clean 15 and dirty dozen. I provided information about reading books called The Food Rules by Mic Orosco and Eat Fat Get Lean by Dr Jhonatan Toledo. Self education is important in the journey for weight management. Patient was offered diagnostic testing. We want to measure visceral adiposity, advanced body composition, adverse lipids, fatty acid balance, risk for heart disease and atherosclerosis, markers of inflammation and genetic susceptibility. Patient was counseled on weight management and was advised to lose weight using A. Meal Replacement Products We discussed the lifelong requirement of nutritional supplementation and adherence to an exercise regimen as well as importance of dietary follow-up Patient was educated on the replacement products called optifast. This is a good way of taking fixed amount of calories. It has been shown in studies to be ineffective weight management tool. We also recommend maintaining adequate protein intake and muscle composition, 1.5mg/kg This however has to be coupled with lifestyle intervention as well as laboratory data and EKG monitoring. It is impossible to know how a person will tolerate complete meal replacement. The side effects of meal replacement and weight loss could include syncopal attacks, dizziness, gallstones, potential cholecystectomy, possible heart attack and even . The benefits of meal replacement would be potential weight loss but no guarantees can be made. Meal replacement products are not covered by insurance. Once the patient has bought these products we cannot return them B. Lifestyle management which includes several strategies as below 1. Eat a low carbohydrate good fat good protein diet. Eliminate refined carbohydrates from the diet. Continue blood sugar and sugared beverages. Eat local organic when possible. Cook your own meals. Read food labels. None about healthy snacks. Portion control and food with low glycemic index 2. Exercise regularly. Try to get at least 6000 steps a day. Use a predominant to track activity level. Consider using apps like Minitrade, Redeemiapal, lose it, stick as needed for self-monitoring and weight management. Consider group exercises. Consider hiring a hearing dog trainer. Regular exercise is arce to sustainable health and prevents as a buffer against weight regain 3. Sleep is most important for healing. Tried to sleep at least 8 hours a night. A good quality sleep needs a sleep ritual with ideal room temperature of around 68. It might help to take a shower and have no electronics in the room and sleep in a very dark room without artificial light. Start her sleep routine and get up early in the morning and go to bed on time 4. Make a social connection. Surround yourself with positive people with positive energy. Connect with friends and family. 5. Get into the habit of meditating and mindfulness while doing everything. 6. Go outside and connect with nature. C. Prescription medications Patient was educated on the use of prescription medications for medical weight loss. This is a growing list and includes phentermine, Topamax,Qsymia, contrave, belviq and saxenda. All prescription medications could have side effects including but not limited to kidney stones, seizure disorder cardiac arrhythmias heart attack pancreatitis etc. etc.. Patient was encouraged to read the prescription insert and have coaching with their pharmacist and make an informed decision about taking medication and know that these medications are being prescribed with good intentions and we do not know how a patient would react to her medication. Sudden medications are FDA approved for weight loss and there is also off label use depending on patient's inability to afford medications in an attempt to lose weight D. Behavioral counseling was done to establish a relationship between food and an mood. Patient was provided information about local counseling and psychiatry and Dr Saldana at [email or web address]. We would like to cover regular topics and build on low glycemic eating exercise mindful eating, using yoga and meditation along with deep breathing and connecting with friends and family. E. MASS PAT reviewed, Patient's current medications were reviewed and opinion was given on medication that can cause weight gain and can be substituted F. Patient was assessed for risk with obesity including and not limiting to atherosclerosis heart disease stroke kidney disease, restrictive lung disease, irritable bowel syndrome and overall mortality. Risk of developing prediabetes diabetes and metabolic syndrome was discussed G. Therapeutic plan: We have decided to make therapeutic plan which would include choosing wisely on calories restricting portion getting active, tracking weight, getting good quality sleep and working on time management H. Patient will follow up in (4) weeks for weight management Of note, some information is being carried forward from prior records for informational purposes only and is being cited so that efficiency, safety and quality of the patient's care is not compromised This note was prepared using voice recognition software and direct typing Please excuse inadvertent union carpenter or typing errors, or uncorrected word substitutions Although every attempt has been made by the provider to proofread this document, occasional misspellings and typographical errors may still be present Due to the previous pandemic, and the use of personal protective equipment (PPE) This may decrease voice recognition accuracy Inadvertent union carpenter errors may occur 09/28/2023 Prediabetes (ICD-10 - R73.03) #Weight Management 09/28/2023 Updated hemoglobin A1c in office 5.5, now euglycemic incr to 7.5 mg Frankunjacezar Body analysis improvement including fat mass Total time spent today was 30 minutes of which greater than 50% was spent on coordinating and counseling Patient has been found to be obese with a BMI of (37). Patient has class (2) obesity. We are a board certified obesity and weight management practice Patient has trialed behavioral modification, dietary restrictions and exercise for a minimum of 6 months The most recent [place] [employer]in[employer] and [place] [employer] guidelines recommend patients who have overweight BMI or obesity BMI, who also have metabolic syndrome, prediabetes, HLD, and other comorbidities or at risk of developing type 2 diabetes should aim for a weight loss goal of at least 10% of the baseline body weight Patient counseled regarding effects of GLP/GIP-1 agonists, and other FDA approved wgt loss meds with regards to a multifactorial approach of weight loss as mentioned above and not solely appetite suppression. We have discussed the mechanism of GLP-1's/GIP, dual incretins, appetitite suppressants I think this would be fantastic option for her given her metabolic workup and body composition We have discussed the risks and benefits and side effects including/and not limited to Sarcopenia, intestinal obstruction, constipation, nausea, lethargy, headache Discussed importance of protein consumption for muscle maintenance as well as strength and resistance training ,probiotics, B12 complex biotin , iron and other nutrients, To help avoid telogen effluvium We have discussed the lifelong requirement of nutritional supplementation And adherence to an exercise regimen as well as importance of follow-up The patient understands and agrees There is no history of medullary thyroid cancer or multiple endocrine neoplasia There is also no history of cardiovascular disease, hypertension, palpitations, or arrhythmias In the setting of potential stimulant/amphetamine use such as phentermine We have also discussed risks and benefits, and the use of compounded medications to help offset the national shortages as well as financial implications vs trade name drugs Patient was reassured and welcomed to the practice. We discussed that we stress a hollistic medical approach with emphasis on lifestyle modification. Patient was informed that a healthy lifestyle with exercise and good eating habits can help reduce his risk of medical complications. He is explained that obesity increases his risk of diabetes, cardiovascular disease, or organ damage. We spent a lot of time discussing the relationship between food, exercise, sleep, mental health and obesity. Patient was counseled on the importance EATING local, organic food when possible. Patient was educated on clean 15 and dirty dozen. I provided information about reading books called The Food Rules by Mic Orosco and Eat Fat Get Lean by Dr Jhonatan Toledo. Self education is important in the journey for weight management. Patient was offered diagnostic testing. We want to measure visceral adiposity, advanced body composition, adverse lipids, fatty acid balance, risk for heart disease and atherosclerosis, markers of inflammation and genetic susceptibility. Patient was counseled on weight management and was advised to lose weight using A. Meal Replacement Products We discussed the lifelong requirement of nutritional supplementation and adherence to an exercise regimen as well as importance of dietary follow-up Patient was educated on the replacement products called optifast. This is a good way of taking fixed amount of calories. It has been shown in studies to be ineffective weight management tool. We also recommend maintaining adequate protein intake and muscle composition, 1.5mg/kg This however has to be coupled with lifestyle intervention as well as laboratory data and EKG monitoring. It is impossible to know how a person will tolerate complete meal replacement. The side effects of meal replacement and weight loss could include syncopal attacks, dizziness, gallstones, potential cholecystectomy, possible heart attack and even . The benefits of meal replacement would be potential weight loss but no guarantees can be made. Meal replacement products are not covered by insurance. Once the patient has bought these products we cannot return them B. Lifestyle management which includes several strategies as below 1. Eat a low carbohydrate good fat good protein diet. Eliminate refined carbohydrates from the diet. Continue blood sugar and sugared beverages. Eat local organic when possible. Cook your own meals. Read food labels. None about healthy snacks. Portion control and food with low glycemic index 2. Exercise regularly. Try to get at least 6000 steps a day. Use a predominant to track activity level. Consider using apps like Minitrade, Redeemiapal, lose it, stick as needed for self-monitoring and weight management. Consider group exercises. Consider hiring a hearing dog trainer. Regular exercise is arce to sustainable health and prevents as a buffer against weight regain 3. Sleep is most important for healing. Tried to sleep at least 8 hours a night. A good quality sleep needs a sleep ritual with ideal room temperature of around 68. It might help to take a shower and have no electronics in the room and sleep in a very dark room without artificial light. Start her sleep routine and get up early in the morning and go to bed on time 4. Make a social connection. Surround yourself with positive people with positive energy. Connect with friends and family. 5. Get into the habit of meditating and mindfulness while doing everything. 6. Go outside and connect with nature. C. Prescription medications Patient was educated on the use of prescription medications for medical weight loss. This is a growing list and includes phentermine, Topamax,Qsymia, contrave, belviq and saxenda. All prescription medications could have side effects including but not limited to kidney stones, seizure disorder cardiac arrhythmias heart attack pancreatitis etc. etc.. Patient was encouraged to read the prescription insert and have coaching with their pharmacist and make an informed decision about taking medication and know that these medications are being prescribed with good intentions and we do not know how a patient would react to her medication. Sudden medications are FDA approved for weight loss and there is also off label use depending on patient's inability to afford medications in an attempt to lose weight D. Behavioral counseling was done to establish a relationship between food and an mood. Patient was provided information about local counseling and psychiatry and Dr Saldana at [email or web address]. We would like to cover regular topics and build on low glycemic eating exercise mindful eating, using yoga and meditation along with deep breathing and connecting with friends and family. E. MASS PAT reviewed, Patient's current medications were reviewed and opinion was given on medication that can cause weight gain and can be substituted F. Patient was assessed for risk with obesity including and not limiting to atherosclerosis heart disease stroke kidney disease, restrictive lung disease, irritable bowel syndrome and overall mortality. Risk of developing prediabetes diabetes and metabolic syndrome was discussed G. Therapeutic plan: We have decided to make therapeutic plan which would include choosing wisely on calories restricting portion getting active, tracking weight, getting good quality sleep and working on time management H. Patient will follow up in (4) weeks for weight management Of note, some information is being carried forward from prior records for informational purposes only and is being cited so that efficiency, safety and quality of the patient's care is not compromised This note was prepared using voice recognition software and direct typing Please excuse inadvertent union carpenter or typing errors, or uncorrected word substitutions Although every attempt has been made by the provider to proofread this document, occasional misspellings and typographical errors may still be present Due to the previous pandemic, and the use of personal protective equipment (PPE) This may decrease voice recognition accuracy Inadvertent union carpenter errors may occur 02/04/2024 BMI 37.0-37.9, adult (ICD-10 - Z68.37) #Weight Management 02/04/2024 scheduled to have left hand CTS surgery, [facility], [place] under local anesthesia, not GENERAL, 01/07/2024 she would not have to hold this dual incretin Updated hemoglobin A1c in office 5.5, now euglycemic cont 7.5 mg Deanne Body analysis improvement including fat mass Total time spent today was 30 minutes of which greater than 50% was spent on coordinating and counseling Patient has been found to be obese with a BMI of (37). Patient has class (2) obesity. We are a board certified obesity and weight management practice Patient has trialed behavioral modification, dietary restrictions and exercise for a minimum of 6 months The most recent [place] [employer] and [place] [employer] guidelines recommend patients who have overweight BMI or obesity BMI, who also have metabolic syndrome, prediabetes, HLD, and other comorbidities or at risk of developing type 2 diabetes should aim for a weight loss goal of at least 10% of the baseline body weight Patient counseled regarding effects of GLP/GIP-1 agonists, and other FDA approved wgt loss meds with regards to a multifactorial approach of weight loss as mentioned above and not solely appetite suppression. We have discussed the mechanism of GLP-1's/GIP, dual incretins, appetitite suppressants I think this would be fantastic option for her given her metabolic workup and body composition We have discussed the risks and benefits and side effects including/and not limited to Sarcopenia, intestinal obstruction, constipation, nausea, lethargy, headache Discussed importance of protein consumption for muscle maintenance as well as strength and resistance training ,probiotics, B12 complex biotin , iron and other nutrients, To help avoid telogen effluvium We have discussed the lifelong requirement of nutritional supplementation And adherence to an exercise regimen as well as importance of follow-up The patient understands and agrees There is no history of medullary thyroid cancer or multiple endocrine neoplasia There is also no history of cardiovascular disease, hypertension, palpitations, or arrhythmias In the setting of potential stimulant/amphetamine use such as phentermine We have also discussed risks and benefits, and the use of compounded medications to help offset the national shortages as well as financial implications vs trade name drugs Patient was reassured and welcomed to the practice. We discussed that we stress a hollistic medical approach with emphasis on lifestyle modification. Patient was informed that a healthy lifestyle with exercise and good eating habits can help reduce his risk of medical complications. He is explained that obesity increases his risk of diabetes, cardiovascular disease, or organ damage. We spent a lot of time discussing the relationship between food, exercise, sleep, mental health and obesity. Patient was counseled on the importance EATING local, organic food when possible. Patient was educated on clean 15 and dirty dozen. I provided information about reading books called The Food Rules by Mic Orosco and Eat Fat Get Lean by Dr Jhonatan Toledo. Self education is important in the journey for weight management. Patient was offered diagnostic testing. We want to measure visceral adiposity, advanced body composition, adverse lipids, fatty acid balance, risk for heart disease and atherosclerosis, markers of inflammation and genetic susceptibility. Patient was counseled on weight management and was advised to lose weight using A. Meal Replacement Products We discussed the lifelong requirement of nutritional supplementation and adherence to an exercise regimen as well as importance of dietary follow-up Patient was educated on the replacement products called optifast. This is a good way of taking fixed amount of calories. It has been shown in studies to be ineffective weight management tool. We also recommend maintaining adequate protein intake and muscle composition, 1.5mg/kg This however has to be coupled with lifestyle intervention as well as laboratory data and EKG monitoring. It is impossible to know how a person will tolerate complete meal replacement. The side effects of meal replacement and weight loss could include syncopal attacks, dizziness, gallstones, potential cholecystectomy, possible heart attack and even . The benefits of meal replacement would be potential weight loss but no guarantees can be made. Meal replacement products are not covered by insurance. Once the patient has bought these products we cannot return them B. Lifestyle management which includes several strategies as below 1. Eat a low carbohydrate good fat good protein diet. Eliminate refined carbohydrates from the diet. Continue blood sugar and sugared beverages. Eat local organic when possible. Cook your own meals. Read food labels. None about healthy snacks. Portion control and food with low glycemic index 2. Exercise regularly. Try to get at least 6000 steps a day. Use a predominant to track activity level. Consider using apps like Minitrade, myfitnesspal, lose it, stick as needed for self-monitoring and weight management. Consider group exercises. Consider hiring a hearing dog trainer. Regular exercise is arce to sustainable health and prevents as a buffer against weight regain 3. Sleep is most important for healing. Tried to sleep at least 8 hours a night. A good quality sleep needs a sleep ritual with ideal room temperature of around 68. It might help to take a shower and have no electronics in the room and sleep in a very dark room without artificial light. Start her sleep routine and get up early in the morning and go to bed on time 4. Make a social connection. Surround yourself with positive people with positive energy. Connect with friends and family. 5. Get into the habit of meditating and mindfulness while doing everything. 6. Go outside and connect with nature. C. Prescription medications Patient was educated on the use of prescription medications for medical weight loss. This is a growing list and includes phentermine, Topamax,Qsymia, contrave, belviq and saxenda. All prescription medications could have side effects including but not limited to kidney stones, seizure disorder cardiac arrhythmias heart attack pancreatitis etc. etc.. Patient was encouraged to read the prescription insert and have coaching with their pharmacist and make an informed decision about taking medication and know that these medications are being prescribed with good intentions and we do not know how a patient would react to her medication. Sudden medications are FDA approved for weight loss and there is also off label use depending on patient's inability to afford medications in an attempt to lose weight D. Behavioral counseling was done to establish a relationship between food and an mood. Patient was provided information about local counseling and psychiatry and Dr Saldana at [email or web address]. We would like to cover regular topics and build on low glycemic eating exercise mindful eating, using yoga and meditation along with deep breathing and connecting with friends and family. E. MASS PAT reviewed, Patient's current medications were reviewed and opinion was given on medication that can cause weight gain and can be substituted F. Patient was assessed for risk with obesity including and not limiting to atherosclerosis heart disease stroke kidney disease, restrictive lung disease, irritable bowel syndrome and overall mortality. Risk of developing prediabetes diabetes and metabolic syndrome was discussed G. Therapeutic plan: We have decided to make therapeutic plan which would include choosing wisely on calories restricting portion getting active, tracking weight, getting good quality sleep and working on time management H. Patient will follow up in (4) weeks for weight management Of note, some information is being carried forward from prior records for informational purposes only and is being cited so that efficiency, safety and quality of the patient's care is not compromised This note was prepared using voice recognition software and direct typing Please excuse inadvertent union carpenter or typing errors, or uncorrected word substitutions Although every attempt has been made by the provider to proofread this document, occasional misspellings and typographical errors may still be present Due to the previous pandemic, and the use of personal protective equipment (PPE) This may decrease voice recognition accuracy Inadvertent union carpenter errors may occur 09/28/2023 MARY KATE (obstructive sleep apnea) (ICD-10 - G47.33) #Weight Management 09/28/2023 Updated hemoglobin A1c in office 5.5, now euglycemic incr to 7.5 mg Deanne Body analysis improvement including fat mass Total time spent today was 30 minutes of which greater than 50% was spent on coordinating and counseling Patient has been found to be obese with a BMI of (37). Patient has class (2) obesity. We are a board certified obesity and weight management practice Patient has trialed behavioral modification, dietary restrictions and exercise for a minimum of 6 months The most recent [place] [employer] and [place] [employer] guidelines recommend patients who have overweight BMI or obesity BMI, who also have metabolic syndrome, prediabetes, HLD, and other comorbidities or at risk of developing type 2 diabetes should aim for a weight loss goal of at least 10% of the baseline body weight Patient counseled regarding effects of GLP/GIP-1 agonists, and other FDA approved wgt loss meds with regards to a multifactorial approach of weight loss as mentioned above and not solely appetite suppression. We have discussed the mechanism of GLP-1's/GIP, dual incretins, appetitite suppressants I think this would be fantastic option for her given her metabolic workup and body composition We have discussed the risks and benefits and side effects including/and not limited to Sarcopenia, intestinal obstruction, constipation, nausea, lethargy, headache Discussed importance of protein consumption for muscle maintenance as well as strength and resistance training ,probiotics, B12 complex biotin , iron and other nutrients, To help avoid telogen effluvium We have discussed the lifelong requirement of nutritional supplementation And adherence to an exercise regimen as well as importance of follow-up The patient understands and agrees There is no history of medullary thyroid cancer or multiple endocrine neoplasia There is also no history of cardiovascular disease, hypertension, palpitations, or arrhythmias In the setting of potential stimulant/amphetamine use such as phentermine We have also discussed risks and benefits, and the use of compounded medications to help offset the national shortages as well as financial implications vs trade name drugs Patient was reassured and welcomed to the practice. We discussed that we stress a hollistic medical approach with emphasis on lifestyle modification. Patient was informed that a healthy lifestyle with exercise and good eating habits can help reduce his risk of medical complications. He is explained that obesity increases his risk of diabetes, cardiovascular disease, or organ damage. We spent a lot of time discussing the relationship between food, exercise, sleep, mental health and obesity. Patient was counseled on the importance EATING local, organic food when possible. Patient was educated on clean 15 and dirty dozen. I provided information about reading books called The Food Rules by Mic Orosco and Eat Fat Get Lean by Dr Jhonatan Toledo. Self education is important in the journey for weight management. Patient was offered diagnostic testing. We want to measure visceral adiposity, advanced body composition, adverse lipids, fatty acid balance, risk for heart disease and atherosclerosis, markers of inflammation and genetic susceptibility. Patient was counseled on weight management and was advised to lose weight using A. Meal Replacement Products We discussed the lifelong requirement of nutritional supplementation and adherence to an exercise regimen as well as importance of dietary follow-up Patient was educated on the replacement products called optifast. This is a good way of taking fixed amount of calories. It has been shown in studies to be ineffective weight management tool. We also recommend maintaining adequate protein intake and muscle composition, 1.5mg/kg This however has to be coupled with lifestyle intervention as well as laboratory data and EKG monitoring. It is impossible to know how a person will tolerate complete meal replacement. The side effects of meal replacement and weight loss could include syncopal attacks, dizziness, gallstones, potential cholecystectomy, possible heart attack and even . The benefits of meal replacement would be potential weight loss but no guarantees can be made. Meal replacement products are not covered by insurance. Once the patient has bought these products we cannot return them B. Lifestyle management which includes several strategies as below 1. Eat a low carbohydrate good fat good protein diet. Eliminate refined carbohydrates from the diet. Continue blood sugar and sugared beverages. Eat local organic when possible. Cook your own meals. Read food labels. None about healthy snacks. Portion control and food with low glycemic index 2. Exercise regularly. Try to get at least 6000 steps a day. Use a predominant to track activity level. Consider using apps like Minitrade, JukedeckfitCloudsnappal, lose it, stick as needed for self-monitoring and weight management. Consider group exercises. Consider hiring a hearing dog trainer. Regular exercise is arce to sustainable health and prevents as a buffer against weight regain 3. Sleep is most important for healing. Tried to sleep at least 8 hours a night. A good quality sleep needs a sleep ritual with ideal room temperature of around 68. It might help to take a shower and have no electronics in the room and sleep in a very dark room without artificial light. Start her sleep routine and get up early in the morning and go to bed on time 4. Make a social connection. Surround yourself with positive people with positive energy. Connect with friends and family. 5. Get into the habit of meditating and mindfulness while doing everything. 6. Go outside and connect with nature. C. Prescription medications Patient was educated on the use of prescription medications for medical weight loss. This is a growing list and includes phentermine, Topamax,Qsymia, contrave, belviq and saxenda. All prescription medications could have side effects including but not limited to kidney stones, seizure disorder cardiac arrhythmias heart attack pancreatitis etc. etc.. Patient was encouraged to read the prescription insert and have coaching with their pharmacist and make an informed decision about taking medication and know that these medications are being prescribed with good intentions and we do not know how a patient would react to her medication. Sudden medications are FDA approved for weight loss and there is also off label use depending on patient's inability to afford medications in an attempt to lose weight D. Behavioral counseling was done to establish a relationship between food and an mood. Patient was provided information about local counseling and psychiatry and Dr Saldana at [email or web address]. We would like to cover regular topics and build on low glycemic eating exercise mindful eating, using yoga and meditation along with deep breathing and connecting with friends and family. E. MASS PAT reviewed, Patient's current medications were reviewed and opinion was given on medication that can cause weight gain and can be substituted F. Patient was assessed for risk with obesity including and not limiting to atherosclerosis heart disease stroke kidney disease, restrictive lung disease, irritable bowel syndrome and overall mortality. Risk of developing prediabetes diabetes and metabolic syndrome was discussed G. Therapeutic plan: We have decided to make therapeutic plan which would include choosing wisely on calories restricting portion getting active, tracking weight, getting good quality sleep and working on time management H. Patient will follow up in (4) weeks for weight management Of note, some information is being carried forward from prior records for informational purposes only and is being cited so that efficiency, safety and quality of the patient's care is not compromised This note was prepared using voice recognition software and direct typing Please excuse inadvertent union carpenter or typing errors, or uncorrected word substitutions Although every attempt has been made by the provider to proofread this document, occasional misspellings and typographical errors may still be present Due to the previous pandemic, and the use of personal protective equipment (PPE) This may decrease voice recognition accuracy Inadvertent union carpenter errors may occur 12/03/2023 Prediabetes (ICD-10 - R73.03) #Weight Management 12/03/2023 scheduled to have left hand CTS surgery, [facility], [place] under local anesthesia, not GENERAL, 01/07/2024 she would not have to hold this dual incretin Updated hemoglobin A1c in office 5.5, now euglycemic cont 7.5 mg Deanne Body analysis improvement including fat mass Total time spent today was 30 minutes of which greater than 50% was spent on coordinating and counseling Patient has been found to be obese with a BMI of (37). Patient has class (2) obesity. We are a board certified obesity and weight management practice Patient has trialed behavioral modification, dietary restrictions and exercise for a minimum of 6 months The most recent [place] [employer]in[employer] and [place] [employer] guidelines recommend patients who have overweight BMI or obesity BMI, who also have metabolic syndrome, prediabetes, HLD, and other comorbidities or at risk of developing type 2 diabetes should aim for a weight loss goal of at least 10% of the baseline body weight Patient counseled regarding effects of GLP/GIP-1 agonists, and other FDA approved wgt loss meds with regards to a multifactorial approach of weight loss as mentioned above and not solely appetite suppression. We have discussed the mechanism of GLP-1's/GIP, dual incretins, appetitite suppressants I think this would be fantastic option for her given her metabolic workup and body composition We have discussed the risks and benefits and side effects including/and not limited to Sarcopenia, intestinal obstruction, constipation, nausea, lethargy, headache Discussed importance of protein consumption for muscle maintenance as well as strength and resistance training ,probiotics, B12 complex biotin , iron and other nutrients, To help avoid telogen effluvium We have discussed the lifelong requirement of nutritional supplementation And adherence to an exercise regimen as well as importance of follow-up The patient understands and agrees There is no history of medullary thyroid cancer or multiple endocrine neoplasia There is also no history of cardiovascular disease, hypertension, palpitations, or arrhythmias In the setting of potential stimulant/amphetamine use such as phentermine We have also discussed risks and benefits, and the use of compounded medications to help offset the national shortages as well as financial implications vs trade name drugs Patient was reassured and welcomed to the practice. We discussed that we stress a hollistic medical approach with emphasis on lifestyle modification. Patient was informed that a healthy lifestyle with exercise and good eating habits can help reduce his risk of medical complications. He is explained that obesity increases his risk of diabetes, cardiovascular disease, or organ damage. We spent a lot of time discussing the relationship between food, exercise, sleep, mental health and obesity. Patient was counseled on the importance EATING local, organic food when possible. Patient was educated on clean 15 and dirty dozen. I provided information about reading books called The Food Rules by Mic Orosco and Eat Fat Get Lean by Dr Jhonatan Toledo. Self education is important in the journey for weight management. Patient was offered diagnostic testing. We want to measure visceral adiposity, advanced body composition, adverse lipids, fatty acid balance, risk for heart disease and atherosclerosis, markers of inflammation and genetic susceptibility. Patient was counseled on weight management and was advised to lose weight using A. Meal Replacement Products We discussed the lifelong requirement of nutritional supplementation and adherence to an exercise regimen as well as importance of dietary follow-up Patient was educated on the replacement products called optifast. This is a good way of taking fixed amount of calories. It has been shown in studies to be ineffective weight management tool. We also recommend maintaining adequate protein intake and muscle composition, 1.5mg/kg This however has to be coupled with lifestyle intervention as well as laboratory data and EKG monitoring. It is impossible to know how a person will tolerate complete meal replacement. The side effects of meal replacement and weight loss could include syncopal attacks, dizziness, gallstones, potential cholecystectomy, possible heart attack and even . The benefits of meal replacement would be potential weight loss but no guarantees can be made. Meal replacement products are not covered by insurance. Once the patient has bought these products we cannot return them B. Lifestyle management which includes several strategies as below 1. Eat a low carbohydrate good fat good protein diet. Eliminate refined carbohydrates from the diet. Continue blood sugar and sugared beverages. Eat local organic when possible. Cook your own meals. Read food labels. None about healthy snacks. Portion control and food with low glycemic index 2. Exercise regularly. Try to get at least 6000 steps a day. Use a predominant to track activity level. Consider using apps like Minitrade, Redeemiapal, lose it, stick as needed for self-monitoring and weight management. Consider group exercises. Consider hiring a hearing dog trainer. Regular exercise is arce to sustainable health and prevents as a buffer against weight regain 3. Sleep is most important for healing. Tried to sleep at least 8 hours a night. A good quality sleep needs a sleep ritual with ideal room temperature of around 68. It might help to take a shower and have no electronics in the room and sleep in a very dark room without artificial light. Start her sleep routine and get up early in the morning and go to bed on time 4. Make a social connection. Surround yourself with positive people with positive energy. Connect with friends and family. 5. Get into the habit of meditating and mindfulness while doing everything. 6. Go outside and connect with nature. C. Prescription medications Patient was educated on the use of prescription medications for medical weight loss. This is a growing list and includes phentermine, Topamax,Qsymia, contrave, belviq and saxenda. All prescription medications could have side effects including but not limited to kidney stones, seizure disorder cardiac arrhythmias heart attack pancreatitis etc. etc.. Patient was encouraged to read the prescription insert and have coaching with their pharmacist and make an informed decision about taking medication and know that these medications are being prescribed with good intentions and we do not know how a patient would react to her medication. Sudden medications are FDA approved for weight loss and there is also off label use depending on patient's inability to afford medications in an attempt to lose weight D. Behavioral counseling was done to establish a relationship between food and an mood. Patient was provided information about local counseling and psychiatry and Dr Saldana at [email or web address]. We would like to cover regular topics and build on low glycemic eating exercise mindful eating, using yoga and meditation along with deep breathing and connecting with friends and family. E. MASS PAT reviewed, Patient's current medications were reviewed and opinion was given on medication that can cause weight gain and can be substituted F. Patient was assessed for risk with obesity including and not limiting to atherosclerosis heart disease stroke kidney disease, restrictive lung disease, irritable bowel syndrome and overall mortality. Risk of developing prediabetes diabetes and metabolic syndrome was discussed G. Therapeutic plan: We have decided to make therapeutic plan which would include choosing wisely on calories restricting portion getting active, tracking weight, getting good quality sleep and working on time management H. Patient will follow up in (4) weeks for weight management Of note, some information is being carried forward from prior records for informational purposes only and is being cited so that efficiency, safety and quality of the patient's care is not compromised This note was prepared using voice recognition software and direct typing Please excuse inadvertent union carpenter or typing errors, or uncorrected word substitutions Although every attempt has been made by the provider to proofread this document, occasional misspellings and typographical errors may still be present Due to the previous pandemic, and the use of personal protective equipment (PPE) This may decrease voice recognition accuracy Inadvertent union carpenter errors may occur 04/07/2024 Prediabetes (ICD-10 - R73.03) #Weight Management 04/07/2024 Patient reports intestinal obstruction two weeks ago, treated at [facility]. Will obtain ER and admission notes from [facility] to verify diagnosis and adjust treatment if necessary. Patient is due for lab work. Ordered comprehensive labs. She understands that she she will be called about any abnormal findings. She is proud of her weight loss and will continue on Mounjaro 7.5 mg . She was given a sample of Linzess in office today as well as education on its function as an osmotic laxative. Counseling was given on the continued importance of resistance training and protein intake to prevent muscle loss over time. She will resume her resistance training pending results of orthopedic workup for hand pain. Body analysis improvement including fat mass Total time spent today was 30 minutes of which greater than 50% was spent on coordinating and counseling Patient has been found to be obese with a BMI of (37). Patient has class (2) obesity. We are a board certified obesity and weight management practice Patient has trialed behavioral modification, dietary restrictions and exercise for a minimum of 6 months The most recent [place] [employer] and [place] guidelines recommend patients who have overweight BMI or obesity BMI, who also have metabolic syndrome, prediabetes, HLD, and other comorbidities or at risk of developing type 2 diabetes should aim for a weight loss goal of at least 10% of the baseline body weight Patient counseled regarding effects of GLP/GIP-1 agonists, and other FDA approved wgt loss meds with regards to a multifactorial approach of weight loss as mentioned above and not solely appetite suppression. We have discussed the mechanism of GLP-1's/GIP, dual incretins, appetitite suppressants I think this would be fantastic option for her given her metabolic workup and body composition We have discussed the risks and benefits and side effects including/and not limited to Sarcopenia, intestinal obstruction, constipation, nausea, lethargy, headache Discussed importance of protein consumption for muscle maintenance as well as strength and resistance training ,probiotics, B12 complex biotin , iron and other nutrients, To help avoid telogen effluvium We have discussed the lifelong requirement of nutritional supplementation And adherence to an exercise regimen as well as importance of follow-up The patient understands and agrees There is no history of medullary thyroid cancer or multiple endocrine neoplasia There is also no history of cardiovascular disease, hypertension, palpitations, or arrhythmias In the setting of potential stimulant/amphetamine use such as phentermine We have also discussed risks and benefits, and the use of compounded medications to help offset the national shortages as well as financial implications vs trade name drugs Patient was reassured and welcomed to the practice. We discussed that we stress a hollistic medical approach with emphasis on lifestyle modification. Patient was informed that a healthy lifestyle with exercise and good eating habits can help reduce his risk of medical complications. He is explained that obesity increases his risk of diabetes, cardiovascular disease, or organ damage. We spent a lot of time discussing the relationship between food, exercise, sleep, mental health and obesity. Patient was counseled on the importance EATING local, organic food when possible. Patient was educated on clean 15 and dirty dozen. I provided information about reading books called The Food Rules by Mic Orosco and Eat Fat Get Lean by Dr Jhonatan Toledo. Self education is important in the journey for weight management. Patient was offered diagnostic testing. We want to measure visceral adiposity, advanced body composition, adverse lipids, fatty acid balance, risk for heart disease and atherosclerosis, markers of inflammation and genetic susceptibility. Patient was counseled on weight management and was advised to lose weight using A. Meal Replacement Products We discussed the lifelong requirement of nutritional supplementation and adherence to an exercise regimen as well as importance of dietary follow-up Patient was educated on the replacement products called optifast. This is a good way of taking fixed amount of calories. It has been shown in studies to be ineffective weight management tool. We also recommend maintaining adequate protein intake and muscle composition, 1.5mg/kg This however has to be coupled with lifestyle intervention as well as laboratory data and EKG monitoring. It is impossible to know how a person will tolerate complete meal replacement. The side effects of meal replacement and weight loss could include syncopal attacks, dizziness, gallstones, potential cholecystectomy, possible heart attack and even . The benefits of meal replacement would be potential weight loss but no guarantees can be made. Meal replacement products are not covered by insurance. Once the patient has bought these products we cannot return them B. Lifestyle management which includes several strategies as below 1. Eat a low carbohydrate good fat good protein diet. Eliminate refined carbohydrates from the diet. Continue blood sugar and sugared beverages. Eat local organic when possible. Cook your own meals. Read food labels. None about healthy snacks. Portion control and food with low glycemic index 2. Exercise regularly. Try to get at least 6000 steps a day. Use a predominant to track activity level. Consider using apps like Minitrade, Redeemiapal, lose it, stick as needed for self-monitoring and weight management. Consider group exercises. Consider hiring a hearing dog trainer. Regular exercise is arce to sustainable health and prevents as a buffer against weight regain 3. Sleep is most important for healing. Tried to sleep at least 8 hours a night. A good quality sleep needs a sleep ritual with ideal room temperature of around 68. It might help to take a shower and have no electronics in the room and sleep in a very dark room without artificial light. Start her sleep routine and get up early in the morning and go to bed on time 4. Make a social connection. Surround yourself with positive people with positive energy. Connect with friends and family. 5. Get into the habit of meditating and mindfulness while doing everything. 6. Go outside and connect with nature. C. Prescription medications Patient was educated on the use of prescription medications for medical weight loss. This is a growing list and includes phentermine, Topamax,Qsymia, contrave, belviq and saxenda. All prescription medications could have side effects including but not limited to kidney stones, seizure disorder cardiac arrhythmias heart attack pancreatitis etc. etc.. Patient was encouraged to read the prescription insert and have coaching with their pharmacist and make an informed decision about taking medication and know that these medications are being prescribed with good intentions and we do not know how a patient would react to her medication. Sudden medications are FDA approved for weight loss and there is also off label use depending on patient's inability to afford medications in an attempt to lose weight D. Behavioral counseling was done to establish a relationship between food and an mood. Patient was provided information about local counseling and psychiatry and Dr Saldana at [email or web address]. We would like to cover regular topics and build on low glycemic eating exercise mindful eating, using yoga and meditation along with deep breathing and connecting with friends and family. E. MASS PAT reviewed, Patient's current medications were reviewed and opinion was given on medication that can cause weight gain and can be substituted F. Patient was assessed for risk with obesity including and not limiting to atherosclerosis heart disease stroke kidney disease, restrictive lung disease, irritable bowel syndrome and overall mortality. Risk of developing prediabetes diabetes and metabolic syndrome was discussed G. Therapeutic plan: We have decided to make therapeutic plan which would include choosing wisely on calories restricting portion getting active, tracking weight, getting good quality sleep and working on time management H. Patient will follow up in (4) weeks for weight management Of note, some information is being carried forward from prior records for informational purposes only and is being cited so that efficiency, safety and quality of the patient's care is not compromised This note was prepared using voice recognition software and direct typing Please excuse inadvertent union carpenter or typing errors, or uncorrected word substitutions Although every attempt has been made by the provider to proofread this document, occasional misspellings and typographical errors may still be present Due to the previous pandemic, and the use of personal protective equipment (PPE) This may decrease voice recognition accuracy Inadvertent union carpenter errors may occur 02/04/2024 Dietary counseling and surveillance (ICD-10 - Z71.3) #Weight Management 02/04/2024 scheduled to have left hand CTS surgery, [facility], [place] under local anesthesia, not GENERAL, 01/07/2024 she would not have to hold this dual incretin Updated hemoglobin A1c in office 5.5, now euglycemic cont 7.5 mg Deanne Body analysis improvement including fat mass Total time spent today was 30 minutes of which greater than 50% was spent on coordinating and counseling Patient has been found to be obese with a BMI of (37). Patient has class (2) obesity. We are a board certified obesity and weight management practice Patient has trialed behavioral modification, dietary restrictions and exercise for a minimum of 6 months The most recent [place] [employer]in[employer] and [place] [employer] guidelines recommend patients who have overweight BMI or obesity BMI, who also have metabolic syndrome, prediabetes, HLD, and other comorbidities or at risk of developing type 2 diabetes should aim for a weight loss goal of at least 10% of the baseline body weight Patient counseled regarding effects of GLP/GIP-1 agonists, and other FDA approved wgt loss meds with regards to a multifactorial approach of weight loss as mentioned above and not solely appetite suppression. We have discussed the mechanism of GLP-1's/GIP, dual incretins, appetitite suppressants I think this would be fantastic option for her given her metabolic workup and body composition We have discussed the risks and benefits and side effects including/and not limited to Sarcopenia, intestinal obstruction, constipation, nausea, lethargy, headache Discussed importance of protein consumption for muscle maintenance as well as strength and resistance training ,probiotics, B12 complex biotin , iron and other nutrients, To help avoid telogen effluvium We have discussed the lifelong requirement of nutritional supplementation And adherence to an exercise regimen as well as importance of follow-up The patient understands and agrees There is no history of medullary thyroid cancer or multiple endocrine neoplasia There is also no history of cardiovascular disease, hypertension, palpitations, or arrhythmias In the setting of potential stimulant/amphetamine use such as phentermine We have also discussed risks and benefits, and the use of compounded medications to help offset the national shortages as well as financial implications vs trade name drugs Patient was reassured and welcomed to the practice. We discussed that we stress a hollistic medical approach with emphasis on lifestyle modification. Patient was informed that a healthy lifestyle with exercise and good eating habits can help reduce his risk of medical complications. He is explained that obesity increases his risk of diabetes, cardiovascular disease, or organ damage. We spent a lot of time discussing the relationship between food, exercise, sleep, mental health and obesity. Patient was counseled on the importance EATING local, organic food when possible. Patient was educated on clean 15 and dirty dozen. I provided information about reading books called The Food Rules by Mic Orosco and Eat Fat Get Lean by Dr Jhonatan Toledo. Self education is important in the journey for weight management. Patient was offered diagnostic testing. We want to measure visceral adiposity, advanced body composition, adverse lipids, fatty acid balance, risk for heart disease and atherosclerosis, markers of inflammation and genetic susceptibility. Patient was counseled on weight management and was advised to lose weight using A. Meal Replacement Products We discussed the lifelong requirement of nutritional supplementation and adherence to an exercise regimen as well as importance of dietary follow-up Patient was educated on the replacement products called optifast. This is a good way of taking fixed amount of calories. It has been shown in studies to be ineffective weight management tool. We also recommend maintaining adequate protein intake and muscle composition, 1.5mg/kg This however has to be coupled with lifestyle intervention as well as laboratory data and EKG monitoring. It is impossible to know how a person will tolerate complete meal replacement. The side effects of meal replacement and weight loss could include syncopal attacks, dizziness, gallstones, potential cholecystectomy, possible heart attack and even . The benefits of meal replacement would be potential weight loss but no guarantees can be made. Meal replacement products are not covered by insurance. Once the patient has bought these products we cannot return them B. Lifestyle management which includes several strategies as below 1. Eat a low carbohydrate good fat good protein diet. Eliminate refined carbohydrates from the diet. Continue blood sugar and sugared beverages. Eat local organic when possible. Cook your own meals. Read food labels. None about healthy snacks. Portion control and food with low glycemic index 2. Exercise regularly. Try to get at least 6000 steps a day. Use a predominant to track activity level. Consider using apps like Minitrade, myfitCloudsnappal, lose it, stick as needed for self-monitoring and weight management. Consider group exercises. Consider hiring a hearing dog trainer. Regular exercise is arce to sustainable health and prevents as a buffer against weight regain 3. Sleep is most important for healing. Tried to sleep at least 8 hours a night. A good quality sleep needs a sleep ritual with ideal room temperature of around 68. It might help to take a shower and have no electronics in the room and sleep in a very dark room without artificial light. Start her sleep routine and get up early in the morning and go to bed on time 4. Make a social connection. Surround yourself with positive people with positive energy. Connect with friends and family. 5. Get into the habit of meditating and mindfulness while doing everything. 6. Go outside and connect with nature. C. Prescription medications Patient was educated on the use of prescription medications for medical weight loss. This is a growing list and includes phentermine, Topamax,Qsymia, contrave, belviq and saxenda. All prescription medications could have side effects including but not limited to kidney stones, seizure disorder cardiac arrhythmias heart attack pancreatitis etc. etc.. Patient was encouraged to read the prescription insert and have coaching with their pharmacist and make an informed decision about taking medication and know that these medications are being prescribed with good intentions and we do not know how a patient would react to her medication. Sudden medications are FDA approved for weight loss and there is also off label use depending on patient's inability to afford medications in an attempt to lose weight D. Behavioral counseling was done to establish a relationship between food and an mood. Patient was provided information about local counseling and psychiatry and Dr Saldana at [email or web address]. We would like to cover regular topics and build on low glycemic eating exercise mindful eating, using yoga and meditation along with deep breathing and connecting with friends and family. E. MASS PAT reviewed, Patient's current medications were reviewed and opinion was given on medication that can cause weight gain and can be substituted F. Patient was assessed for risk with obesity including and not limiting to atherosclerosis heart disease stroke kidney disease, restrictive lung disease, irritable bowel syndrome and overall mortality. Risk of developing prediabetes diabetes and metabolic syndrome was discussed G. Therapeutic plan: We have decided to make therapeutic plan which would include choosing wisely on calories restricting portion getting active, tracking weight, getting good quality sleep and working on time management H. Patient will follow up in (4) weeks for weight management Of note, some information is being carried forward from prior records for informational purposes only and is being cited so that efficiency, safety and quality of the patient's care is not compromised This note was prepared using voice recognition software and direct typing Please excuse inadvertent union carpenter or typing errors, or uncorrected word substitutions Although every attempt has been made by the provider to proofread this document, occasional misspellings and typographical errors may still be present Due to the previous pandemic, and the use of personal protective equipment (PPE) This may decrease voice recognition accuracy Inadvertent union carpenter errors may occur 05/09/2024 Anxiety (ICD-10 - F41.9) Patient is here for weight management follow-up. We focused on significance of healthy lifestyle changes. We talked about need to track steps with goal between 6000-10,000 steps daily, focus on portion control, read food labels, get adequate sleep between 7 to 8 hours, get adequate rest to the body, meditate, frequent nutritious meals including vegetables and healthy choices of lean meats, fish, and elimination of refined carbohydrates. We also talked about mindfulness and mindful eating. Particular focus was on continuing portion control and mindful eating. Total time spent with 30 minutes with greater than 50% spent on counseling and coordinating care. 05/09/2024: Weight 184 pounds, BMI 33.65. Seca scan completed and interpreted with the patient. Between 2 visits no change in fat mass or muscle mass. Patient is still in the upper limit of normal for muscle mass which she was congratulated for. Currently using Mounjaro 7.5 mg once weekly. Has noticed over the past couple of weeks that suppression of her appetite is decreased and she has increased hunger at nighttime. Reports good diet. Limited exercise at this time due to having had carpal tunnel repair in December. Interested at this time and increasing dose of Mounjaro 10 mg once weekly. Discussed proper use of the medication including rotating injection sites and expected side effect profile including but not limited to nausea, constipation, abdominal pain, and heartburn. She will follow-up in the office approximately 4 weeks for weight management. All patient question answered at this time. # Hypertension: Blood pressure stable in office today 126/82. Continue irbesartan 75 mg 2 tablets once daily. Discussed proper use of medication and expected side effect profile including but not limited to low blood pressure and cough. Red flag signs of hypertension include but are not limited to headache, blurry vision, chest pain, shortness of breath, abdominal pain, vomiting, dizziness, or weakness. Will continue to monitor. Please follow-up with PCP. # Anxiety: Stable at this time. Continue alprazolam 0.5 mg twice daily as needed for increased anxiety. Continue risperidone 0.5 mg 1 tablet once daily at nighttime. Patient states he takes his medication for anxiety and for recent development of intrusive thoughts. Discussed appropriate use of the medications. Common side effects of alprazolam include but are not limited to drowsiness, fatigue, irritability, and impaired coordination. Common side effects of risperidone include but are not limited to somnolence, increased appetite, weight gain, and extra pyramidal symptoms. Will continue to monitor. Please follow-up with PCP. # Prediabetes: Hemoglobin A1c of 6.2% which improved to 5.5% on 08/2023. Will continue to monitor. All questions have been answered to patient's satisfaction. Patient verbalized understanding of diagnosis and treatments explained. Advised to call sooner prior to next visit it any questions/concerns arise. Case discussed with collaborating physician Karlos Heart who reviewed the assessment and plan. Chart, medications, labs, vital signs reviewed. Dictation was accomplished with the use of Blog[employer] voice recognition software, which is prone to medical misidentifications and grammatical errors. This are unintentional and the practitioner does try to identify and correct these, but some could still be present. Please do not hesitate to contact practitioner for clarification. 05/09/2024 Nausea (ICD-10 - R11.0) Patient is here for weight management follow-up. We focused on significance of healthy lifestyle changes. We talked about need to track steps with goal between 6000-10,000 steps daily, focus on portion control, read food labels, get adequate sleep between 7 to 8 hours, get adequate rest to the body, meditate, frequent nutritious meals including vegetables and healthy choices of lean meats, fish, and elimination of refined carbohydrates. We also talked about mindfulness and mindful eating. Particular focus was on continuing portion control and mindful eating. Total time spent with 30 minutes with greater than 50% spent on counseling and coordinating care. 05/09/2024: Weight 184 pounds, BMI 33.65. Seca scan completed and interpreted with the patient. Between 2 visits no change in fat mass or muscle mass. Patient is still in the upper limit of normal for muscle mass which she was congratulated for. Currently using Mounjaro 7.5 mg once weekly. Has noticed over the past couple of weeks that suppression of her appetite is decreased and she has increased hunger at nighttime. Reports good diet. Limited exercise at this time due to having had carpal tunnel repair in December. Interested at this time and increasing dose of Mounjaro 10 mg once weekly. Discussed proper use of the medication including rotating injection sites and expected side effect profile including but not limited to nausea, constipation, abdominal pain, and heartburn. She will follow-up in the office approximately 4 weeks for weight management. All patient question answered at this time. # Hypertension: Blood pressure stable in office today 126/82. Continue irbesartan 75 mg 2 tablets once daily. Discussed proper use of medication and expected side effect profile including but not limited to low blood pressure and cough. Red flag signs of hypertension include but are not limited to headache, blurry vision, chest pain, shortness of breath, abdominal pain, vomiting, dizziness, or weakness. Will continue to monitor. Please follow-up with PCP. # Anxiety: Stable at this time. Continue alprazolam 0.5 mg twice daily as needed for increased anxiety. Continue risperidone 0.5 mg 1 tablet once daily at nighttime. Patient states he takes his medication for anxiety and for recent development of intrusive thoughts. Discussed appropriate use of the medications. Common side effects of alprazolam include but are not limited to drowsiness, fatigue, irritability, and impaired coordination. Common side effects of risperidone include but are not limited to somnolence, increased appetite, weight gain, and extra pyramidal symptoms. Will continue to monitor. Please follow-up with PCP. # Prediabetes: Hemoglobin A1c of 6.2% which improved to 5.5% on 08/2023. Will continue to monitor. All questions have been answered to patient's satisfaction. Patient verbalized understanding of diagnosis and treatments explained. Advised to call sooner prior to next visit it any questions/concerns arise. Case discussed with collaborating physician Karlos Heart who reviewed the assessment and plan. Chart, medications, labs, vital signs reviewed. Dictation was accomplished with the use of [employer] voice recognition software, which is prone to medical misidentifications and grammatical errors. This are unintentional and the practitioner does try to identify and correct these, but some could still be present. Please do not hesitate to contact practitioner for clarification. 02/04/2024 Prediabetes (ICD-10 - R73.03) #Weight Management 02/04/2024 scheduled to have left hand CTS surgery, [facility], [place] under local anesthesia, not GENERAL, 01/07/2024 she would not have to hold this dual incretin Updated hemoglobin A1c in office 5.5, now euglycemic cont 7.5 mg Deanne Body analysis improvement including fat mass Total time spent today was 30 minutes of which greater than 50% was spent on coordinating and counseling Patient has been found to be obese with a BMI of (37). Patient has class (2) obesity. We are a board certified obesity and weight management practice Patient has trialed behavioral modification, dietary restrictions and exercise for a minimum of 6 months The most recent [place] [employer] and [place] guidelines recommend patients who have overweight BMI or obesity BMI, who also have metabolic syndrome, prediabetes, HLD, and other comorbidities or at risk of developing type 2 diabetes should aim for a weight loss goal of at least 10% of the baseline body weight Patient counseled regarding effects of GLP/GIP-1 agonists, and other FDA approved wgt loss meds with regards to a multifactorial approach of weight loss as mentioned above and not solely appetite suppression. We have discussed the mechanism of GLP-1's/GIP, dual incretins, appetitite suppressants I think this would be fantastic option for her given her metabolic workup and body composition We have discussed the risks and benefits and side effects including/and not limited to Sarcopenia, intestinal obstruction, constipation, nausea, lethargy, headache Discussed importance of protein consumption for muscle maintenance as well as strength and resistance training ,probiotics, B12 complex biotin , iron and other nutrients, To help avoid telogen effluvium We have discussed the lifelong requirement of nutritional supplementation And adherence to an exercise regimen as well as importance of follow-up The patient understands and agrees There is no history of medullary thyroid cancer or multiple endocrine neoplasia There is also no history of cardiovascular disease, hypertension, palpitations, or arrhythmias In the setting of potential stimulant/amphetamine use such as phentermine We have also discussed risks and benefits, and the use of compounded medications to help offset the national shortages as well as financial implications vs trade name drugs Patient was reassured and welcomed to the practice. We discussed that we stress a hollistic medical approach with emphasis on lifestyle modification. Patient was informed that a healthy lifestyle with exercise and good eating habits can help reduce his risk of medical complications. He is explained that obesity increases his risk of diabetes, cardiovascular disease, or organ damage. We spent a lot of time discussing the relationship between food, exercise, sleep, mental health and obesity. Patient was counseled on the importance EATING local, organic food when possible. Patient was educated on clean 15 and dirty dozen. I provided information about reading books called The Food Rules by Mic Orosco and Eat Fat Get Lean by Dr Jhonatan Toledo. Self education is important in the journey for weight management. Patient was offered diagnostic testing. We want to measure visceral adiposity, advanced body composition, adverse lipids, fatty acid balance, risk for heart disease and atherosclerosis, markers of inflammation and genetic susceptibility. Patient was counseled on weight management and was advised to lose weight using A. Meal Replacement Products We discussed the lifelong requirement of nutritional supplementation and adherence to an exercise regimen as well as importance of dietary follow-up Patient was educated on the replacement products called optifast. This is a good way of taking fixed amount of calories. It has been shown in studies to be ineffective weight management tool. We also recommend maintaining adequate protein intake and muscle composition, 1.5mg/kg This however has to be coupled with lifestyle intervention as well as laboratory data and EKG monitoring. It is impossible to know how a person will tolerate complete meal replacement. The side effects of meal replacement and weight loss could include syncopal attacks, dizziness, gallstones, potential cholecystectomy, possible heart attack and even . The benefits of meal replacement would be potential weight loss but no guarantees can be made. Meal replacement products are not covered by insurance. Once the patient has bought these products we cannot return them B. Lifestyle management which includes several strategies as below 1. Eat a low carbohydrate good fat good protein diet. Eliminate refined carbohydrates from the diet. Continue blood sugar and sugared beverages. Eat local organic when possible. Cook your own meals. Read food labels. None about healthy snacks. Portion control and food with low glycemic index 2. Exercise regularly. Try to get at least 6000 steps a day. Use a predominant to track activity level. Consider using apps like Minitrade, myfitnesspal, lose it, stick as needed for self-monitoring and weight management. Consider group exercises. Consider hiring a hearing dog trainer. Regular exercise is arce to sustainable health and prevents as a buffer against weight regain 3. Sleep is most important for healing. Tried to sleep at least 8 hours a night. A good quality sleep needs a sleep ritual with ideal room temperature of around 68. It might help to take a shower and have no electronics in the room and sleep in a very dark room without artificial light. Start her sleep routine and get up early in the morning and go to bed on time 4. Make a social connection. Surround yourself with positive people with positive energy. Connect with friends and family. 5. Get into the habit of meditating and mindfulness while doing everything. 6. Go outside and connect with nature. C. Prescription medications Patient was educated on the use of prescription medications for medical weight loss. This is a growing list and includes phentermine, Topamax,Qsymia, contrave, belviq and saxenda. All prescription medications could have side effects including but not limited to kidney stones, seizure disorder cardiac arrhythmias heart attack pancreatitis etc. etc.. Patient was encouraged to read the prescription insert and have coaching with their pharmacist and make an informed decision about taking medication and know that these medications are being prescribed with good intentions and we do not know how a patient would react to her medication. Sudden medications are FDA approved for weight loss and there is also off label use depending on patient's inability to afford medications in an attempt to lose weight D. Behavioral counseling was done to establish a relationship between food and an mood. Patient was provided information about local counseling and psychiatry and Dr Saldana at [email or web address]. We would like to cover regular topics and build on low glycemic eating exercise mindful eating, using yoga and meditation along with deep breathing and connecting with friends and family. E. MASS PAT reviewed, Patient's current medications were reviewed and opinion was given on medication that can cause weight gain and can be substituted F. Patient was assessed for risk with obesity including and not limiting to atherosclerosis heart disease stroke kidney disease, restrictive lung disease, irritable bowel syndrome and overall mortality. Risk of developing prediabetes diabetes and metabolic syndrome was discussed G. Therapeutic plan: We have decided to make therapeutic plan which would include choosing wisely on calories restricting portion getting active, tracking weight, getting good quality sleep and working on time management H. Patient will follow up in (4) weeks for weight management Of note, some information is being carried forward from prior records for informational purposes only and is being cited so that efficiency, safety and quality of the patient's care is not compromised This note was prepared using voice recognition software and direct typing Please excuse inadvertent union carpenter or typing errors, or uncorrected word substitutions Although every attempt has been made by the provider to proofread this document, occasional misspellings and typographical errors may still be present Due to the previous pandemic, and the use of personal protective equipment (PPE) This may decrease voice recognition accuracy Inadvertent union carpenter errors may occur 04/07/2024 MARY KATE (obstructive sleep apnea) (ICD-10 - G47.33) #Weight Management 04/07/2024 Patient reports intestinal obstruction two weeks ago, treated at [facility]. Will obtain ER and admission notes from [facility] to verify diagnosis and adjust treatment if necessary. Patient is due for lab work. Ordered comprehensive labs. She understands that she she will be called about any abnormal findings. She is proud of her weight loss and will continue on Mounjaro 7.5 mg . She was given a sample of Linzess in office today as well as education on its function as an osmotic laxative. Counseling was given on the continued importance of resistance training and protein intake to prevent muscle loss over time. She will resume her resistance training pending results of orthopedic workup for hand pain. Body analysis improvement including fat mass Total time spent today was 30 minutes of which greater than 50% was spent on coordinating and counseling Patient has been found to be obese with a BMI of (37). Patient has class (2) obesity. We are a board certified obesity and weight management practice Patient has trialed behavioral modification, dietary restrictions and exercise for a minimum of 6 months The most recent [place] [employer]in[employer] and [place] [employer] guidelines recommend patients who have overweight BMI or obesity BMI, who also have metabolic syndrome, prediabetes, HLD, and other comorbidities or at risk of developing type 2 diabetes should aim for a weight loss goal of at least 10% of the baseline body weight Patient counseled regarding effects of GLP/GIP-1 agonists, and other FDA approved wgt loss meds with regards to a multifactorial approach of weight loss as mentioned above and not solely appetite suppression. We have discussed the mechanism of GLP-1's/GIP, dual incretins, appetitite suppressants I think this would be fantastic option for her given her metabolic workup and body composition We have discussed the risks and benefits and side effects including/and not limited to Sarcopenia, intestinal obstruction, constipation, nausea, lethargy, headache Discussed importance of protein consumption for muscle maintenance as well as strength and resistance training ,probiotics, B12 complex biotin , iron and other nutrients, To help avoid telogen effluvium We have discussed the lifelong requirement of nutritional supplementation And adherence to an exercise regimen as well as importance of follow-up The patient understands and agrees There is no history of medullary thyroid cancer or multiple endocrine neoplasia There is also no history of cardiovascular disease, hypertension, palpitations, or arrhythmias In the setting of potential stimulant/amphetamine use such as phentermine We have also discussed risks and benefits, and the use of compounded medications to help offset the national shortages as well as financial implications vs trade name drugs Patient was reassured and welcomed to the practice. We discussed that we stress a hollistic medical approach with emphasis on lifestyle modification. Patient was informed that a healthy lifestyle with exercise and good eating habits can help reduce his risk of medical complications. He is explained that obesity increases his risk of diabetes, cardiovascular disease, or organ damage. We spent a lot of time discussing the relationship between food, exercise, sleep, mental health and obesity. Patient was counseled on the importance EATING local, organic food when possible. Patient was educated on clean 15 and dirty dozen. I provided information about reading books called The Food Rules by Mic Orosco and Eat Fat Get Lean by Dr Jhonatan Toledo. Self education is important in the journey for weight management. Patient was offered diagnostic testing. We want to measure visceral adiposity, advanced body composition, adverse lipids, fatty acid balance, risk for heart disease and atherosclerosis, markers of inflammation and genetic susceptibility. Patient was counseled on weight management and was advised to lose weight using A. Meal Replacement Products We discussed the lifelong requirement of nutritional supplementation and adherence to an exercise regimen as well as importance of dietary follow-up Patient was educated on the replacement products called optifast. This is a good way of taking fixed amount of calories. It has been shown in studies to be ineffective weight management tool. We also recommend maintaining adequate protein intake and muscle composition, 1.5mg/kg This however has to be coupled with lifestyle intervention as well as laboratory data and EKG monitoring. It is impossible to know how a person will tolerate complete meal replacement. The side effects of meal replacement and weight loss could include syncopal attacks, dizziness, gallstones, potential cholecystectomy, possible heart attack and even . The benefits of meal replacement would be potential weight loss but no guarantees can be made. Meal replacement products are not covered by insurance. Once the patient has bought these products we cannot return them B. Lifestyle management which includes several strategies as below 1. Eat a low carbohydrate good fat good protein diet. Eliminate refined carbohydrates from the diet. Continue blood sugar and sugared beverages. Eat local organic when possible. Cook your own meals. Read food labels. None about healthy snacks. Portion control and food with low glycemic index 2. Exercise regularly. Try to get at least 6000 steps a day. Use a predominant to track activity level. Consider using apps like Minitrade, Redeemiapal, lose it, stick as needed for self-monitoring and weight management. Consider group exercises. Consider hiring a hearing dog trainer. Regular exercise is arce to sustainable health and prevents as a buffer against weight regain 3. Sleep is most important for healing. Tried to sleep at least 8 hours a night. A good quality sleep needs a sleep ritual with ideal room temperature of around 68. It might help to take a shower and have no electronics in the room and sleep in a very dark room without artificial light. Start her sleep routine and get up early in the morning and go to bed on time 4. Make a social connection. Surround yourself with positive people with positive energy. Connect with friends and family. 5. Get into the habit of meditating and mindfulness while doing everything. 6. Go outside and connect with nature. C. Prescription medications Patient was educated on the use of prescription medications for medical weight loss. This is a growing list and includes phentermine, Topamax,Qsymia, contrave, belviq and saxenda. All prescription medications could have side effects including but not limited to kidney stones, seizure disorder cardiac arrhythmias heart attack pancreatitis etc. etc.. Patient was encouraged to read the prescription insert and have coaching with their pharmacist and make an informed decision about taking medication and know that these medications are being prescribed with good intentions and we do not know how a patient would react to her medication. Sudden medications are FDA approved for weight loss and there is also off label use depending on patient's inability to afford medications in an attempt to lose weight D. Behavioral counseling was done to establish a relationship between food and an mood. Patient was provided information about local counseling and psychiatry and Dr Saldana at [email or web address]. We would like to cover regular topics and build on low glycemic eating exercise mindful eating, using yoga and meditation along with deep breathing and connecting with friends and family. E. MASS PAT reviewed, Patient's current medications were reviewed and opinion was given on medication that can cause weight gain and can be substituted F. Patient was assessed for risk with obesity including and not limiting to atherosclerosis heart disease stroke kidney disease, restrictive lung disease, irritable bowel syndrome and overall mortality. Risk of developing prediabetes diabetes and metabolic syndrome was discussed G. Therapeutic plan: We have decided to make therapeutic plan which would include choosing wisely on calories restricting portion getting active, tracking weight, getting good quality sleep and working on time management H. Patient will follow up in (4) weeks for weight management Of note, some information is being carried forward from prior records for informational purposes only and is being cited so that efficiency, safety and quality of the patient's care is not compromised This note was prepared using voice recognition software and direct typing Please excuse inadvertent union carpenter or typing errors, or uncorrected word substitutions Although every attempt has been made by the provider to proofread this document, occasional misspellings and typographical errors may still be present Due to the previous pandemic, and the use of personal protective equipment (PPE) This may decrease voice recognition accuracy Inadvertent union carpenter errors may occur 12/03/2023 MARY KATE (obstructive sleep apnea) (ICD-10 - G47.33) #Weight Management 12/03/2023 scheduled to have left hand CTS surgery, [facility], [place] under local anesthesia, not GENERAL, 01/07/2024 she would not have to hold this dual incretin Updated hemoglobin A1c in office 5.5, now euglycemic cont 7.5 mg Deanne Body analysis improvement including fat mass Total time spent today was 30 minutes of which greater than 50% was spent on coordinating and counseling Patient has been found to be obese with a BMI of (37). Patient has class (2) obesity. We are a board certified obesity and weight management practice Patient has trialed behavioral modification, dietary restrictions and exercise for a minimum of 6 months The most recent [place] [employer] and [place] [employer] guidelines recommend patients who have overweight BMI or obesity BMI, who also have metabolic syndrome, prediabetes, HLD, and other comorbidities or at risk of developing type 2 diabetes should aim for a weight loss goal of at least 10% of the baseline body weight Patient counseled regarding effects of GLP/GIP-1 agonists, and other FDA approved wgt loss meds with regards to a multifactorial approach of weight loss as mentioned above and not solely appetite suppression. We have discussed the mechanism of GLP-1's/GIP, dual incretins, appetitite suppressants I think this would be fantastic option for her given her metabolic workup and body composition We have discussed the risks and benefits and side effects including/and not limited to Sarcopenia, intestinal obstruction, constipation, nausea, lethargy, headache Discussed importance of protein consumption for muscle maintenance as well as strength and resistance training ,probiotics, B12 complex biotin , iron and other nutrients, To help avoid telogen effluvium We have discussed the lifelong requirement of nutritional supplementation And adherence to an exercise regimen as well as importance of follow-up The patient understands and agrees There is no history of medullary thyroid cancer or multiple endocrine neoplasia There is also no history of cardiovascular disease, hypertension, palpitations, or arrhythmias In the setting of potential stimulant/amphetamine use such as phentermine We have also discussed risks and benefits, and the use of compounded medications to help offset the national shortages as well as financial implications vs trade name drugs Patient was reassured and welcomed to the practice. We discussed that we stress a hollistic medical approach with emphasis on lifestyle modification. Patient was informed that a healthy lifestyle with exercise and good eating habits can help reduce his risk of medical complications. He is explained that obesity increases his risk of diabetes, cardiovascular disease, or organ damage. We spent a lot of time discussing the relationship between food, exercise, sleep, mental health and obesity. Patient was counseled on the importance EATING local, organic food when possible. Patient was educated on clean 15 and dirty dozen. I provided information about reading books called The Food Rules by Mic Orosco and Eat Fat Get Lean by Dr Jhonatan Toledo. Self education is important in the journey for weight management. Patient was offered diagnostic testing. We want to measure visceral adiposity, advanced body composition, adverse lipids, fatty acid balance, risk for heart disease and atherosclerosis, markers of inflammation and genetic susceptibility. Patient was counseled on weight management and was advised to lose weight using A. Meal Replacement Products We discussed the lifelong requirement of nutritional supplementation and adherence to an exercise regimen as well as importance of dietary follow-up Patient was educated on the replacement products called optifast. This is a good way of taking fixed amount of calories. It has been shown in studies to be ineffective weight management tool. We also recommend maintaining adequate protein intake and muscle composition, 1.5mg/kg This however has to be coupled with lifestyle intervention as well as laboratory data and EKG monitoring. It is impossible to know how a person will tolerate complete meal replacement. The side effects of meal replacement and weight loss could include syncopal attacks, dizziness, gallstones, potential cholecystectomy, possible heart attack and even . The benefits of meal replacement would be potential weight loss but no guarantees can be made. Meal replacement products are not covered by insurance. Once the patient has bought these products we cannot return them B. Lifestyle management which includes several strategies as below 1. Eat a low carbohydrate good fat good protein diet. Eliminate refined carbohydrates from the diet. Continue blood sugar and sugared beverages. Eat local organic when possible. Cook your own meals. Read food labels. None about healthy snacks. Portion control and food with low glycemic index 2. Exercise regularly. Try to get at least 6000 steps a day. Use a predominant to track activity level. Consider using apps like Minitrade, Redeemiapal, lose it, stick as needed for self-monitoring and weight management. Consider group exercises. Consider hiring a hearing dog trainer. Regular exercise is arce to sustainable health and prevents as a buffer against weight regain 3. Sleep is most important for healing. Tried to sleep at least 8 hours a night. A good quality sleep needs a sleep ritual with ideal room temperature of around 68. It might help to take a shower and have no electronics in the room and sleep in a very dark room without artificial light. Start her sleep routine and get up early in the morning and go to bed on time 4. Make a social connection. Surround yourself with positive people with positive energy. Connect with friends and family. 5. Get into the habit of meditating and mindfulness while doing everything. 6. Go outside and connect with nature. C. Prescription medications Patient was educated on the use of prescription medications for medical weight loss. This is a growing list and includes phentermine, Topamax,Qsymia, contrave, belviq and saxenda. All prescription medications could have side effects including but not limited to kidney stones, seizure disorder cardiac arrhythmias heart attack pancreatitis etc. etc.. Patient was encouraged to read the prescription insert and have coaching with their pharmacist and make an informed decision about taking medication and know that these medications are being prescribed with good intentions and we do not know how a patient would react to her medication. Sudden medications are FDA approved for weight loss and there is also off label use depending on patient's inability to afford medications in an attempt to lose weight D. Behavioral counseling was done to establish a relationship between food and an mood. Patient was provided information about local counseling and psychiatry and Dr Saldana at [email or web address]. We would like to cover regular topics and build on low glycemic eating exercise mindful eating, using yoga and meditation along with deep breathing and connecting with friends and family. E. MASS PAT reviewed, Patient's current medications were reviewed and opinion was given on medication that can cause weight gain and can be substituted F. Patient was assessed for risk with obesity including and not limiting to atherosclerosis heart disease stroke kidney disease, restrictive lung disease, irritable bowel syndrome and overall mortality. Risk of developing prediabetes diabetes and metabolic syndrome was discussed G. Therapeutic plan: We have decided to make therapeutic plan which would include choosing wisely on calories restricting portion getting active, tracking weight, getting good quality sleep and working on time management H. Patient will follow up in (4) weeks for weight management Of note, some information is being carried forward from prior records for informational purposes only and is being cited so that efficiency, safety and quality of the patient's care is not compromised This note was prepared using voice recognition software and direct typing Please excuse inadvertent union carpenter or typing errors, or uncorrected word substitutions Although every attempt has been made by the provider to proofread this document, occasional misspellings and typographical errors may still be present Due to the previous pandemic, and the use of personal protective equipment (PPE) This may decrease voice recognition accuracy Inadvertent union carpenter errors may occur 09/28/2023 BMI 37.0-37.9, adult (ICD-10 - Z68.37) #Weight Management 09/28/2023 Updated hemoglobin A1c in office 5.5, now euglycemic incr to 7.5 mg Deanne Body analysis improvement including fat mass Total time spent today was 30 minutes of which greater than 50% was spent on coordinating and counseling Patient has been found to be obese with a BMI of (37). Patient has class (2) obesity. We are a board certified obesity and weight management practice Patient has trialed behavioral modification, dietary restrictions and exercise for a minimum of 6 months The most recent [place] [employer]in[employer] and [place] [employer] guidelines recommend patients who have overweight BMI or obesity BMI, who also have metabolic syndrome, prediabetes, HLD, and other comorbidities or at risk of developing type 2 diabetes should aim for a weight loss goal of at least 10% of the baseline body weight Patient counseled regarding effects of GLP/GIP-1 agonists, and other FDA approved wgt loss meds with regards to a multifactorial approach of weight loss as mentioned above and not solely appetite suppression. We have discussed the mechanism of GLP-1's/GIP, dual incretins, appetitite suppressants I think this would be fantastic option for her given her metabolic workup and body composition We have discussed the risks and benefits and side effects including/and not limited to Sarcopenia, intestinal obstruction, constipation, nausea, lethargy, headache Discussed importance of protein consumption for muscle maintenance as well as strength and resistance training ,probiotics, B12 complex biotin , iron and other nutrients, To help avoid telogen effluvium We have discussed the lifelong requirement of nutritional supplementation And adherence to an exercise regimen as well as importance of follow-up The patient understands and agrees There is no history of medullary thyroid cancer or multiple endocrine neoplasia There is also no history of cardiovascular disease, hypertension, palpitations, or arrhythmias In the setting of potential stimulant/amphetamine use such as phentermine We have also discussed risks and benefits, and the use of compounded medications to help offset the national shortages as well as financial implications vs trade name drugs Patient was reassured and welcomed to the practice. We discussed that we stress a hollistic medical approach with emphasis on lifestyle modification. Patient was informed that a healthy lifestyle with exercise and good eating habits can help reduce his risk of medical complications. He is explained that obesity increases his risk of diabetes, cardiovascular disease, or organ damage. We spent a lot of time discussing the relationship between food, exercise, sleep, mental health and obesity. Patient was counseled on the importance EATING local, organic food when possible. Patient was educated on clean 15 and dirty dozen. I provided information about reading books called The Food Rules by Mic Orosco and Eat Fat Get Lean by Dr Jhonatan Toledo. Self education is important in the journey for weight management. Patient was offered diagnostic testing. We want to measure visceral adiposity, advanced body composition, adverse lipids, fatty acid balance, risk for heart disease and atherosclerosis, markers of inflammation and genetic susceptibility. Patient was counseled on weight management and was advised to lose weight using A. Meal Replacement Products We discussed the lifelong requirement of nutritional supplementation and adherence to an exercise regimen as well as importance of dietary follow-up Patient was educated on the replacement products called optifast. This is a good way of taking fixed amount of calories. It has been shown in studies to be ineffective weight management tool. We also recommend maintaining adequate protein intake and muscle composition, 1.5mg/kg This however has to be coupled with lifestyle intervention as well as laboratory data and EKG monitoring. It is impossible to know how a person will tolerate complete meal replacement. The side effects of meal replacement and weight loss could include syncopal attacks, dizziness, gallstones, potential cholecystectomy, possible heart attack and even . The benefits of meal replacement would be potential weight loss but no guarantees can be made. Meal replacement products are not covered by insurance. Once the patient has bought these products we cannot return them B. Lifestyle management which includes several strategies as below 1. Eat a low carbohydrate good fat good protein diet. Eliminate refined carbohydrates from the diet. Continue blood sugar and sugared beverages. Eat local organic when possible. Cook your own meals. Read food labels. None about healthy snacks. Portion control and food with low glycemic index 2. Exercise regularly. Try to get at least 6000 steps a day. Use a predominant to track activity level. Consider using apps like Minitrade, Redeemiapal, lose it, stick as needed for self-monitoring and weight management. Consider group exercises. Consider hiring a hearing dog trainer. Regular exercise is arce to sustainable health and prevents as a buffer against weight regain 3. Sleep is most important for healing. Tried to sleep at least 8 hours a night. A good quality sleep needs a sleep ritual with ideal room temperature of around 68. It might help to take a shower and have no electronics in the room and sleep in a very dark room without artificial light. Start her sleep routine and get up early in the morning and go to bed on time 4. Make a social connection. Surround yourself with positive people with positive energy. Connect with friends and family. 5. Get into the habit of meditating and mindfulness while doing everything. 6. Go outside and connect with nature. C. Prescription medications Patient was educated on the use of prescription medications for medical weight loss. This is a growing list and includes phentermine, Topamax,Qsymia, contrave, belviq and saxenda. All prescription medications could have side effects including but not limited to kidney stones, seizure disorder cardiac arrhythmias heart attack pancreatitis etc. etc.. Patient was encouraged to read the prescription insert and have coaching with their pharmacist and make an informed decision about taking medication and know that these medications are being prescribed with good intentions and we do not know how a patient would react to her medication. Sudden medications are FDA approved for weight loss and there is also off label use depending on patient's inability to afford medications in an attempt to lose weight D. Behavioral counseling was done to establish a relationship between food and an mood. Patient was provided information about local counseling and psychiatry and Dr Saldana at [email or web address]. We would like to cover regular topics and build on low glycemic eating exercise mindful eating, using yoga and meditation along with deep breathing and connecting with friends and family. E. MASS PAT reviewed, Patient's current medications were reviewed and opinion was given on medication that can cause weight gain and can be substituted F. Patient was assessed for risk with obesity including and not limiting to atherosclerosis heart disease stroke kidney disease, restrictive lung disease, irritable bowel syndrome and overall mortality. Risk of developing prediabetes diabetes and metabolic syndrome was discussed G. Therapeutic plan: We have decided to make therapeutic plan which would include choosing wisely on calories restricting portion getting active, tracking weight, getting good quality sleep and working on time management H. Patient will follow up in (4) weeks for weight management Of note, some information is being carried forward from prior records for informational purposes only and is being cited so that efficiency, safety and quality of the patient's care is not compromised This note was prepared using voice recognition software and direct typing Please excuse inadvertent union carpenter or typing errors, or uncorrected word substitutions Although every attempt has been made by the provider to proofread this document, occasional misspellings and typographical errors may still be present Due to the previous pandemic, and the use of personal protective equipment (PPE) This may decrease voice recognition accuracy Inadvertent union carpenter errors may occur 02/04/2024 MARY KATE (obstructive sleep apnea) (ICD-10 - G47.33) #Weight Management 02/04/2024 scheduled to have left hand CTS surgery, [facility] [place] under local anesthesia, not GENERAL, 01/07/2024 she would not have to hold this dual incretin Updated hemoglobin A1c in office 5.5, now euglycemic cont 7.5 mg Deanne Body analysis improvement including fat mass Total time spent today was 30 minutes of which greater than 50% was spent on coordinating and counseling Patient has been found to be obese with a BMI of (37). Patient has class (2) obesity. We are a board certified obesity and weight management practice Patient has trialed behavioral modification, dietary restrictions and exercise for a minimum of 6 months The most recent [place] [employer]ocrinologists and [place] [employer] guidelines recommend patients who have overweight BMI or obesity BMI, who also have metabolic syndrome, prediabetes, HLD, and other comorbidities or at risk of developing type 2 diabetes should aim for a weight loss goal of at least 10% of the baseline body weight Patient counseled regarding effects of GLP/GIP-1 agonists, and other FDA approved wgt loss meds with regards to a multifactorial approach of weight loss as mentioned above and not solely appetite suppression. We have discussed the mechanism of GLP-1's/GIP, dual incretins, appetitite suppressants I think this would be fantastic option for her given her metabolic workup and body composition We have discussed the risks and benefits and side effects including/and not limited to Sarcopenia, intestinal obstruction, constipation, nausea, lethargy, headache Discussed importance of protein consumption for muscle maintenance as well as strength and resistance training ,probiotics, B12 complex biotin , iron and other nutrients, To help avoid telogen effluvium We have discussed the lifelong requirement of nutritional supplementation And adherence to an exercise regimen as well as importance of follow-up The patient understands and agrees There is no history of medullary thyroid cancer or multiple endocrine neoplasia There is also no history of cardiovascular disease, hypertension, palpitations, or arrhythmias In the setting of potential stimulant/amphetamine use such as phentermine We have also discussed risks and benefits, and the use of compounded medications to help offset the national shortages as well as financial implications vs trade name drugs Patient was reassured and welcomed to the practice. We discussed that we stress a hollistic medical approach with emphasis on lifestyle modification. Patient was informed that a healthy lifestyle with exercise and good eating habits can help reduce his risk of medical complications. He is explained that obesity increases his risk of diabetes, cardiovascular disease, or organ damage. We spent a lot of time discussing the relationship between food, exercise, sleep, mental health and obesity. Patient was counseled on the importance EATING local, organic food when possible. Patient was educated on clean 15 and dirty dozen. I provided information about reading books called The Food Rules by Mic Orosco and Eat Fat Get Lean by Dr Jhonatan Toledo. Self education is important in the journey for weight management. Patient was offered diagnostic testing. We want to measure visceral adiposity, advanced body composition, adverse lipids, fatty acid balance, risk for heart disease and atherosclerosis, markers of inflammation and genetic susceptibility. Patient was counseled on weight management and was advised to lose weight using A. Meal Replacement Products We discussed the lifelong requirement of nutritional supplementation and adherence to an exercise regimen as well as importance of dietary follow-up Patient was educated on the replacement products called optifast. This is a good way of taking fixed amount of calories. It has been shown in studies to be ineffective weight management tool. We also recommend maintaining adequate protein intake and muscle composition, 1.5mg/kg This however has to be coupled with lifestyle intervention as well as laboratory data and EKG monitoring. It is impossible to know how a person will tolerate complete meal replacement. The side effects of meal replacement and weight loss could include syncopal attacks, dizziness, gallstones, potential cholecystectomy, possible heart attack and even . The benefits of meal replacement would be potential weight loss but no guarantees can be made. Meal replacement products are not covered by insurance. Once the patient has bought these products we cannot return them B. Lifestyle management which includes several strategies as below 1. Eat a low carbohydrate good fat good protein diet. Eliminate refined carbohydrates from the diet. Continue blood sugar and sugared beverages. Eat local organic when possible. Cook your own meals. Read food labels. None about healthy snacks. Portion control and food with low glycemic index 2. Exercise regularly. Try to get at least 6000 steps a day. Use a predominant to track activity level. Consider using apps like Minitrade, myfitCloudsnappal, lose it, stick as needed for self-monitoring and weight management. Consider group exercises. Consider hiring a hearing dog trainer. Regular exercise is arce to sustainable health and prevents as a buffer against weight regain 3. Sleep is most important for healing. Tried to sleep at least 8 hours a night. A good quality sleep needs a sleep ritual with ideal room temperature of around 68. It might help to take a shower and have no electronics in the room and sleep in a very dark room without artificial light. Start her sleep routine and get up early in the morning and go to bed on time 4. Make a social connection. Surround yourself with positive people with positive energy. Connect with friends and family. 5. Get into the habit of meditating and mindfulness while doing everything. 6. Go outside and connect with nature. C. Prescription medications Patient was educated on the use of prescription medications for medical weight loss. This is a growing list and includes phentermine, Topamax,Qsymia, contrave, belviq and saxenda. All prescription medications could have side effects including but not limited to kidney stones, seizure disorder cardiac arrhythmias heart attack pancreatitis etc. etc.. Patient was encouraged to read the prescription insert and have coaching with their pharmacist and make an informed decision about taking medication and know that these medications are being prescribed with good intentions and we do not know how a patient would react to her medication. Sudden medications are FDA approved for weight loss and there is also off label use depending on patient's inability to afford medications in an attempt to lose weight D. Behavioral counseling was done to establish a relationship between food and an mood. Patient was provided information about local counseling and psychiatry and Dr Saldana at [email or web address]. We would like to cover regular topics and build on low glycemic eating exercise mindful eating, using yoga and meditation along with deep breathing and connecting with friends and family. E. MASS PAT reviewed, Patient's current medications were reviewed and opinion was given on medication that can cause weight gain and can be substituted F. Patient was assessed for risk with obesity including and not limiting to atherosclerosis heart disease stroke kidney disease, restrictive lung disease, irritable bowel syndrome and overall mortality. Risk of developing prediabetes diabetes and metabolic syndrome was discussed G. Therapeutic plan: We have decided to make therapeutic plan which would include choosing wisely on calories restricting portion getting active, tracking weight, getting good quality sleep and working on time management H. Patient will follow up in (4) weeks for weight management Of note, some information is being carried forward from prior records for informational purposes only and is being cited so that efficiency, safety and quality of the patient's care is not compromised This note was prepared using voice recognition software and direct typing Please excuse inadvertent union carpenter or typing errors, or uncorrected word substitutions Although every attempt has been made by the provider to proofread this document, occasional misspellings and typographical errors may still be present Due to the previous pandemic, and the use of personal protective equipment (PPE) This may decrease voice recognition accuracy Inadvertent union carpenter errors may occur PLAN OF TREATMENT Pending Test Test Name Order Date CBC (COMPLETE BLOOD COUNT) WITH DIFF 12/2023 COMPREHENSIVE METABOLIC PANEL 04/07/2024 HEMOGLOBIN A1C 04/07/2024 LIPID PANEL 04/07/2024 TSH 04/07/2024 URINALYSIS, COMPLETE 04/07/2024 VITAMIN D, 1,25 DIHYDROXY LC/MS/MS 04/07 Insurance Providers Payer Name Payer Address Payer Phone Subscriber Number Group Number Insured Name Patient Relationship to Insured Coverage Start Date Coverage End Date [employer] [place] [address] [address] [place] [address] [id number] Sherie Garcia Self - patient is the insured MEDICATIONS ADMINISTERED Medication Instructions Date of Administration Dosage Notes MICC B12 INJECTION 12/21/2023 MICC B12 INJECTION 01/02/2024 1 mL MICC B12 INJECTION 01/17/2024 1 mL Tirzepatide 05/19/2024 2.5 mg Tirzepatide 06/02/2024 MEDICAL (GENERAL) HISTORY Medical History History ICD Code hypertension type II diabetes asthma hemorrhoids Arthritis kidney stones anxiety weight gain/loss Surgical History Surgery Date(Month/Year) tubes tithe hysterectomy Hospitalization History Reason Date(Month/Year) carpal tunnel
--- OUTSIDE RECORDS SUMMARY | 2024-08-22 07:56 | XMS_ITS | Encounter Summary ---
Author Organization [facility] Address [address] [place] [address] Care Team Providers Care Receiver Dispatcher Name Role Pot WasherRaji Wallace MD Primary Care Provider Unavailab Alda Nathan MD Primary Care Provider [facility], Pcp Primary Care Provider Unavailabl e Reason for Visit * Reason Onset Date Comments Heel Blacker Feedback 10/24/2016 Marcela Son Encounter Details Date Type Department Care Team Description 10/24/2016 Telephone Medicine/Pediatrics - [address] [id number] Raji Wallace MD Heel Blacker Feedback (Marcela Son) Social History Tobacco Use Types Packs/Day Years Used Date Smoking Tobacco: Light Smoker Cigarettes Started: 07/02/2015 Smokeless Tobacco: Never Alcohol Use Standard Drinks/Week Comments Yes 0 (1 standard drink = 0.6 oz pur e alcohol) twice a year Sex Assigned at Date Recorded Not on file Job Start Date Occupation Industry Not on file Not on file Not on file documented as of this encounter Miscellaneous Notes * Telephone Encounter - Li Boone - 10/24/2016 9:30 AM EDT What insurance does the patient have today? BCBS Effective 04/01/09: BCBS will not retro referral requests over 90 days. If request is for this please instruct patient to call the 800# on their insurance card to appeal. Do not submit a request. Referrals cannot be processed if the insurance is not accurate. If the insurance listed above in red is NO BILLING INFORMATION FOUND FOR THIS ENCOUTNER The patients correct insurance must be obtained and registered in [facility] or their referral can not be processed. Is this a retro request? NO. If yes for what date of service do you need the retro referral? N/A Who is calling to request this referral? Dr. Bhandari office If the caller is not the patient, what is their name? Rosaline Ask the patient WHO referred them to this specialty: Not an initial visit; it is for follow up/continuation of care. Patients PCP is Dr. 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 YES Is this visit:Follow Up Address of Specialist:[address] [place] [address] Phone # of Specialist:[phone] Fax #: (if applicable):[phone] Does patient have an appointment scheduled?: YES Date of appointment- (including a retro-request): 10/25/16 Is this appointment related to: Not MVA, WC or Surgery related documented in this encounter Plan of Treatment Not on file documented as of this encounter Visit Diagnoses Not on filedocumented in this encounter Additional Health Concerns Infection Onset Date Last Indicated Resolved Time COVID-19 01/17/2022 01/17/2022 documented as of this encounter Care Teams Receiver Dispatcher Relationship Specialty Start Date End Date Raji Wallace MD PCP - General Internal Medicine 01/29/15 08/13/18 Alda Thurman MD PCP - General Internal Medicine 08/14/18 [facility], Pcp PCP - General Internal Medicine 12/05/22 documented as of this encounter
--- OUTSIDE RECORDS SUMMARY | 2024-08-22 07:56 | XMS_ITS | Encounter Summary ---
Author Organization [facility] Address [address] [place] [address] Care Team Providers Care Resident Surgeon Name Role Phone Alda Thurman MD Primary Care Provider [facility], Pcp [facility] Reason for Visit * Reason Onset Date Comments medication problems 09/03/2018 Encounter Details Date Type Department Care Team Description 09/03/2018 Telephone Adult Medicine [address] [address] Alda Thurman MD medication problems Social History Tobacco Use Types Packs/Day Years [...] encounter Miscellaneous Notes * Telephone Encounter - Helena Machuca - 09/03/2018 3:05 PM EST Patient was advised to contact the pharmacy to see if the lot number that was on recall for the Losartan pertain to her. Patient states this is the second time that happens and would like alternative med sent to the pharmacy. Please advised, if med is change please inform patient of raimundo villarreal. * Telephone Encounter - Helena Machuca - 09/03/2018 1:27 PM EST Left message to call back [facility] When patient calls back please transfer call to x [phone], if no answered please re-message to messagepool [phone]] * Telephone Encounter - Mica Dimas - 09/03/2018 12:13 PM EST What is the name of the medication patient is having a problem with?: losartan (COZAAR) 50 MG tablet What is the problem?: the patient would like her blood pressure medication changed. She saw in the news there were more problems with losartan, and she would like to take something else instead Is the patient calling about the problem? YES If the patient is not the caller who is? Is this a NEW medication?: NO How long has the patient been taking this medication? Who prescribed this medication for the patient? Alda Galan Who is patients PCP?: Alda Galan Payor: [employer] [facility] [employer] [facility] FFS / Plan: [employer] [facility] HOST $20 / Product Type: HMO [id number] documented in this encounter Plan of Treatment Not on file documented as of this encounter Visit Diagnoses Not on filedocumented in this encounter Additional Health Concerns Infection Onset Date Last Indicated Resolved Time COVID-19 01/17/2022 01/17/2022 documented as of this encounter Care Teams Resident Surgeon Relationship Specialty Start Date End Date Alda Thurman MD PCP - General Internal Medicine 08/14/18 [facility], Pcp PCP - General Internal Medicine 12/05/22 documented as of this encounter
--- OUTSIDE RECORDS SUMMARY | 2024-08-22 07:56 | XMS_ITS | Encounter Summary ---
Author Organization [facility] Address [address] [place] [address] Care Team Providers Care Paralegal Assistant Name Role Phone Community, Pcp Primary Care Provider Unavailabl e Reason for Visit * Reason Comments E-prescribe Rx Request Encounter Details Date Type Department Care Team Description 03/03/2023 Refill Adult Medicine [facility] [address] [place] [address] Herber Gannon PA-C [address] [place] [address] E-prescribe Rx Request Social History Tobacco Use [...] encounter Miscellaneous Notes * Telephone Encounter - Felipa Soto - 03/06/2023 2:56 PM EDT Community pcp documented in this encounter Plan of Treatment Not on file documented as of this encounter Visit Diagnoses Not on filedocumented in this encounter Additional Health Concerns Infection Onset Date Last Indicated Resolved Time COVID-19 01/17/202201/1701/17/2022 documented as of this encounter Care Teams Paralegal Assistant Relationship Specialty Start Date End Date Community, Pcp PCP - General Internal Medicine 12/05/22 documented as of this encounter
--- OUTSIDE RECORDS SUMMARY | 2024-08-22 07:56 | XMS_ITS | Encounter Summary ---
Author Organization [facility] Address [address] [place] [address] Care Team Providers Care [employer] Sales Name Role Car HostlerRaji Wallace MD Primary Care Provider Unavailab Alda Nathan MD Primary Care Provider [facility], Pcp [facility] Encounter Details Date Type Department Care Team Description 07/22/2015 Psychiatric Nursing Aide Report Medical Records [address] [place] [address] Stella Bhandari MD [address] [place] [address] [address] [place] [address] Social History Tobacco Use Types Packs/Day Years Used Date Smoking Tobacco: Light Smoker Alcohol Use Standard Drinks/Week Comments Yes 0 [...] documented as of this encounter Care Teams [employer] Relationship Specialty Start Date End Date Raji Wallace MD PCP - General Internal Medicine 01/29/15 08/13/18 Alda Thurman MD PCP - General Internal Medicine 08/14/18 [facility], Pcp PCP - General Internal Medicine 12/05/22 documented as of this encounter
--- OUTSIDE RECORDS SUMMARY | 2024-08-22 07:56 | XMS_ITS | Encounter Summary ---
[facility] Organization [facility] Address [address] [place] [address] Care Team Providers Care Repairer Cylinder Heads Name Role Phone Alda Thurman MD Primary Care Provider [facility], Pcp [facility] Encounter Details Date Type Department Care Team Description 12/01/2021 Corporate Intern Report Medical Records [address] [place] [id number] Justine Brady PA-C Social History Tobacco Use Types Packs/Day Years [...] suspected to have Coronavirus/COVID-19? No / Unsure 11/16/2021 9:02 AM EDT documented as of this encounter Plan of Treatment Not on file documented as of this encounter Visit Diagnoses Not on filedocumented in this encounter Additional Health Concerns Infection Onset Date Last Indicated Resolved Time COVID-19 01/17/2022 01/17/2022 documented as of this encounter Care Teams Repairer Cylinder Heads Relationship Specialty Start Date End Date Alda Thurman MD PCP - General Internal Medicine 08/14/18 [facility], Pcp PCP - General Internal Medicine 12/05/22 documented as of this encounter
--- OUTSIDE RECORDS SUMMARY | 2024-08-22 07:56 | XMS_ITS | Encounter Summary ---
Author Organization [email or web address] Address [address] [place] [address] Care Team Providers Care Candy Wrapping Machine Operator Name Role Floor AssemblerRaji Wallace MD Primary Care Provider Unavail Alda Nathan MD Primary Care Provider [facility], Pcp Primary Care Provider [facility] Encounter Details Date Type Department Care Team Description 01/08/2018 Coal Conveyor Operator Report Medical Records [address] [place] [address] Social History Tobacco Use Types Packs/Day Years [...] documented as of this encounter Care Teams Candy Wrapping Machine Operator Relationship Specialty Start Date End Date Raji Wallace MD PCP - General Internal Medicine 01/29/15 08/13/18 Alda Thurman MD PCP - General Internal Medicine 08/14/18 [facility], Pcp PCP - General Internal Medicine 12/05/22 documented as of this encounter
--- OUTSIDE RECORDS SUMMARY | 2024-08-22 07:56 | XMS_ITS | Encounter Summary ---
Author Organization [facility] Address [address] [place] [address] Care Team Providers Care Closing Manager Name Role Phone Alda Thurman MD Primary Care Provider [facility], Pcp Primary Care Provider [facility] e Encounter Details Date Type Department Care Team Description 12/19/2019 Telephone Adult Medicine - [address] [address] Alda Thurman MD Social History Tobacco Use [...] encounter Miscellaneous Notes * Telephone Encounter - Alda Galan MD - 12/19/2019 11:05 AM EDT Please keep them for my Sunday pile. Thank you, Matilde * Telephone Encounter - Matilde Machuca - 12/19/2019 9:41 AM EDT Having notes faxed over would you like me to hold onto the notes till your return Sunday or have them scanned in right away? * Telephone Encounter - Alda Galan MD - 12/19/2019 7:48 AM EDT Completed audio visit, patient had a stress test at [facility] on 11/04/2019 but the results are not scanned. Can you please obtain records so I can inform patient? THank you documented in this encounter Plan of Treatment Not on file documented as of this encounter Visit Diagnoses Not on filedocumented in this encounter Additional Health Concerns Infection Onset Date Last Indicated Resolved Time COVID-19 01/17/2022 01/17/2022 documented as of this encounter Care Teams Closing Manager Relationship Specialty Start Date End Date Alda Thurman MD PCP - General Internal Medicine 08/14/18 [facility], Pcp PCP - General Internal Medicine 12/05/22 documented as of this encounter
--- OUTSIDE RECORDS SUMMARY | 2024-08-22 07:56 | XMS_ITS | Encounter Summary ---
Author Organization [facility] Address [address] [place] [address] Care Team Providers Care Folder Machine Name Role Bill ClerkRaji Wallace MD Primary Care Provider Unavail le Alda Thurman MD Primary Care Provider [facility], Pcp Primary Care Provider [facility] e Encounter Details Date Type Department Care Team Description 03/18/2015 Release of Information Medical Records [address] [place] [id number] Abstract, Provider Social History Tobacco Use Types [...] documented as of this encounter Care Teams Folder Machine Relationship Specialty Start Date End Date Raji Wallace MD PCP - General Internal Medicine 01/29/15 08/13/18 Alda Thurman MD PCP - General Internal Medicine 08/14/18 [facility], Pcp PCP - General Internal Medicine 12/05/22 documented as of this encounter
--- OUTSIDE RECORDS SUMMARY | 2024-08-22 07:56 | XMS_ITS | Encounter Summary ---
[facility] Address [address] [place] [address] Care Team Providers Care Director Of Science Name Role Phone Alda Thurman MD Primary Care Provider [facility], Pcp [facility] Encounter Details Date Type Department Care Team Description 08/04/2021 Mechanical Energy Engineer Report Medical Records [address] [place] [id number] Justine Brady PA-C Social History Tobacco Use [...] Exposure Response Date Recorded In the last month, have you been in contact with someone who was confirmed or suspected to have Coronavirus / COVID-19? No / Unsure 07/14/2021 7:13 AM EST documented as of this encounter Plan of Treatment Not on file documented as of this encounter Visit Diagnoses Not on filedocumented in this encounter Additional Health Concerns Infection Onset Date Last Indicated Resolved Time COVID-19 01/17/2022 01/17/2022 documented as of this encounter Care Teams Director Of Science Relationship Specialty Start Date End Date Alda Thurman MD PCP - General Internal Medicine 08/14/18 [facility], Pcp PCP - General Internal Medicine 12/05/22 documented as of this encounter
--- OUTSIDE RECORDS SUMMARY | 2024-08-22 07:56 | XMS_ITS | Encounter Summary ---
Author Organization [facility] Address [address] [place] [address] Care Team Providers Care Registered Pharmacy Technician Name Role Phone Alda Thurman MD Primary Care Provider [facility], Pcp [facility] Reason for Referral * EXTERNAL (Urgent) - Authorized/Booked Specialty Diagnoses / Procedures Referred By Contac t Referred To Contact Internal Medicine / Adult Med Procedures REFERRAL TO ADULT MEDICINE Alda Thurman MD [address] [place] [address] Garry Arnold MD [address] [place] [id number] Referral ID Status Reason Start Date Expiration Date Visits Requested Visits Authorized SEE NOTE Authorized/ Booked Emergency Services 11/21/2018 02/22/2019 1 1 Reason for Visit * Reason Onset Date Comments Lighting Specialist Feedback 11/21/2018 U/Lauren, Dr Garry Mcguire [facility] Encounter Details Date Type Department Care Team Description 11/21/2018 Telephone Adult Medicine [address] [address] Alda Thurman MD Lighting Specialist Feedback (U/C, Dr Garry Latif [facility]) Social History Tobacco Use Types Packs/Day Years [...] encounter Miscellaneous Notes * Telephone Encounter - Alesia Valverdeos - 11/21/2018 1:47 PM EDT Pt is calling for status of referral; advised with BCBS we can back date up to 30 days. * Telephone Encounter - Zion Luz Marina - 11/21/2018 10:13 AM EDT Please review this patients new referral request. The referral has been pended. Please complete thefollowing: If approved> sign order If denied>please give instructions and route to your practice nursing pool. Practice nurse should inform referrals and the patient if denied. * Telephone Encounter - Ksenia Candelario - 11/21/2018 10:08 AM EDT What insurance does the patient have today? bcbs Referrals cannot be processed if the insurance is not accurate. If the insurance listed above in red is NO BILLING INFORMATION FOUND FOR THIS ENCOUTNER The patients correct insurance must be obtained and registered in [facility] or their referral can not be processed. BCBS will not retro referral requests over 90 days. If request is for this please instruct patient to call the 800# on their insurance card to appeal. Do not submit a request. Please tell patient while on the call: [facility] has many new providers and ample appointments available daily for urgent care visits. We are also open every Sunday & Sunday 8:30-5PM in our [place] office for UC visits. Please callour office prior to going to an area walk-in clinic so that we can schedule a visit for you with your PCP's Care Team Is this a retro request? YES. If yes for what date of service do you need the retro referral? 11/19/18 Who is calling to request this referral? patient If the caller is not the patient, what is their name? N/A What is the name of the clinic patient went to? [facility], [facility] [place], [place] [phone] FIRST and LAST NAME of provider patient saw: garry latif DIAGNOSIS Patient is being seen for (Not a body part or a procedure): throat and ear infection Date of appointment- (including a retro-request): n/a Is this appointment related to: Not MVA, WC or Surgery related documented in this encounter Plan of Treatment Not on file documented as of this encounter Visit Diagnoses Not on filedocumented in this encounter Additional Health Concerns Infection Onset Date Last Indicated Resolved Time COVID-19 01/17/2022 01/17/2022 documented as of this encounter Care Teams Registered Pharmacy Technician Relationship Specialty Start Date End Date Alda Thurman MD PCP - General Internal Medicine 08/14/18 [facility], Pcp PCP - General Internal Medicine 12/05/22 documented as of this encounter
--- OUTSIDE RECORDS SUMMARY | 2024-08-22 07:57 | XMS_ITS | Encounter Summary ---
[facility] Address [address] [place] [address] Care Team Providers Care Gold Marker Name Role Phone Alda Thurman MD Primary Care Provider [facility], Pcp Primary Care Provider Unavailabl e Reason for Visit * Reason Onset Date Comments Pre-visit Diabetes Lab Adult Medicine 03/11/202003/24 Encounter Details Date Type Department Care Team Description 03/11/2020 Telephone Adult Medicine [address] [address] Alda Thurman MD Pre-visit Diabetes Lab Adult Medicine (03/24) Social History Tobacco Use Types Packs/Day Years [...] encounter Miscellaneous Notes * Telephone Encounter - Tamika Bell - 03/11/2020 10:06 AM EDT Sent patient an email advising them to complete diabetic lab work at least three days prior to their upcoming appointment. documented in this encounter Plan of Treatment Not on file documented as of this encounter Visit Diagnoses Not on filedocumented in this encounter Additional Health Concerns Infection Onset Date Last Indicated Resolved Time COVID-19 01/17/2022 01/17/2022 documented as of this encounter Care Teams Gold Marker Relationship Specialty Start Date End Date Alda Thurman MD PCP - General Internal Medicine 08/14/18 [facility], Pcp PCP - General Internal Medicine 12/05/22 documented as of this encounter
--- OUTSIDE RECORDS SUMMARY | 2024-08-22 07:57 | XMS_ITS | Encounter Summary ---
Author Organization [facility] Address [address] [place] [address] Care Team Providers Care Garage Hand Name Role Phone Alda Thurman MD Primary Care Provider [facility], Pcp Primary Care Provider Unavailabl e Reason for Visit * Reason Onset Date Comments Faxed Refill 03/01/2020 Encounter Details Date Type Department Care Team Description 03/01/2020 Refill Adult Medicine - [place] [address] [place] [address] Alda Thurman MD Faxed Refill Social History Tobacco Use Types Packs/Day Years [...] Telephone Encounter - Alda Galan MD - 03/01/2020 12:34 PM EDT Needs another vitamin D drawn prior to refill, to see if another course of vitamin D booster is indicated * Telephone Encounter - Anastasiia Velazco M.A. - 03/01/2020 12:17 PM EDT [id number] Lab Results Component Value Date 25OHD 16 12/30/2019 25HYDROXYVIT 22 03/26/2017 * Telephone Encounter - Yolanda Rodríguez - 03/01/2020 11:41 AM EDT Patient would like script to be: E-PRESCRIBED/FAXED TO PHARMACY WHEN WAS THE PATIENT'S LAST APPOINTMENT IN ADULT MEDICINE? 12/19/19 WHEN WAS THE LAST TIME THE PATIENT SAW THEIR PCP? Same as above Does patient have an upcoming appointment? Yes 03/24/20 (THE MEDICATION REQUESTED IS ON THE MED LIST ABOVE) All of the medications requested were on the CURRENT MEDS list Did you check the Pharmacy information above?: YES Patient wants: 30 -day supply Is this a mail order prescription request ? NO If the refill is from a FAXED refill request what is the RX # listed on the fax? N/A Patients current insurance carrier is: Payor: [facility] / Plan: O $25 [place] 1 / Product Type: HMO [id number] documented in this encounter Plan of Treatment Not on file documented as of this encounter Visit Diagnoses Not on filedocumented in this encounter Additional Health Concerns Infection Onset Date Last Indicated Resolved Time COVID-19 01/17/2022 01/17/2022 documented as of this encounter Care Teams Garage Hand Relationship Specialty Start Date End Date Alda Thurman MD PCP - General Internal Medicine 08/14/18 [facility], Pcp PCP - General Internal Medicine 12/05/22 documented as of this encounter
--- OUTSIDE RECORDS SUMMARY | 2024-08-22 07:57 | XMS_ITS ---
Author Organization [facility] Address [address] [place] [address] Care Team Providers Care Sealing And Canceling Machine Operator Name Role Phone SAGARACE NICE Unavailable [phone] VLAD BALL Unavailable [phone] Encounters Encounter Location Date Provider Diagnosis [address] [place] [phone] 06/10/2024 VLAD BALL PLAN OF TREATMENT No Information Progress Notes * Sherie GARCIADOB:[birth year] (54 yo F)Acc No.[id number]:06/10/2024 Patient:??Catie GARCIA Provider:??VLAD BALL PA-C :1970?Age:54 Y?Sex:Fe male Date:06/10/2024 Address:[address] [place], [place] [id number] Subjective: * Chief Complaints: * ? * Medical History:?? Objective: Assessment: Plan: * Treatment: * Images: Billing Information: * Visit Code:?? * Procedure Codes:?? * Sign off status: Pending * Provider:??VLAD BALL PA-C Date:?? 06/10/2024
--- NOTE | 2024-08-22 08:09 | A.OFFVIS_ITS ---
VS Expanded 08/22/24 08:38 Height 5 ft 2 in Weight 196 lb 8 oz BMI 35.9 Body Fat % 43 Body Fat Mass 84.6 Fat Free Mass 112 Visceral Fat Rating 12 Body Water % 40.4 Body Water Mass 79.4 Basal Metabolic Rate/Score 1,555 Intake Visit Reasons: TV DRILL HAND SWL BMI 36.0 Allergies penicillin G Allergy (Severe, Verified 08/22/24 08:16) hives lisinopril Allergy (Intermediate, Verified 08/22/24 08:16) tingling in throat and cough Medication List - Last Reconciled 08/22/24 by Harley Scherer MD albuterol sulfate 90 mcg/actuation 2 puffs inhalation QID PRN alprazolam 0.5 mg PO DAILY PRN diclofenac sodium 1% 1 ea topical BID PRN docusate sodium (Colace) 100 mg PO BID famotidine (Acid Railway Patrol Officer (famotidine)) 20 mg PO BID gabapentin 300 mg PO DAILY irbesartan 75 mg PO DAILY mirtazapine 15 mg PO BEDTIME risperidone 0.5 mg PO DAILY vitamin B complex 1 tab PO DAILY HPI HPI TV DRILL HAND SWL BMI 36.0: Details: Start time: 8.05am, End time: 8.41am ?I spent 31 minutes speaking with the patient on the phone plus an additional 5 minutes reviewing and updating records for a total of 36 minutes HPI Comments Details: Previous weight loss efforts: LSG (Dr. Wray, pre-sleeve weight: 231lbs and lowest: 190lbs) Wakes up: 5am, Sleeps: 9pm Breakfast: 5.30am (toast) Lunch:12.30pm (salad, sandwich) Dinner: 5.30pm (meat, salad, rice, beans) Snacks: 10am (Pure protein bar), 7pm (popcorn, chips) Exercise: has a home treadmill Fluids: Coffee (2 cups/d, milk with splenda), hot tea: (3/wk, plain), soda: Coke zero, juice: Crystal light, ETOH: none Complains of severe GERD daily despite the famotidine to the point she even wakes up in the middle of the night [facility] Medical History (Updated 08/22/24 @ 08:40 by Harley Scherer MD) GERD (gastroesophageal reflux disease) Obesity Asthma Anxiety Depression Insomnia Fibromyalgia MARY KATE on CPAP Abnormal ECG Chronic constipation Adjustment disorder, unspecified Diabetes mellitus Surgical History History of sleeve gastrectomy Hx of cholecystectomy Hx of carpal tunnel repair Hx of tubal ligation Hx of total hysterectomy Hx of breast surgery Family History Mother Diabetes Hypertension Father No problems noted. 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 Telehealth Telehealth Telehealth Platform: Telephone Location of provider rendering services: practice address Location of patient: address on file Patient Identification confirmed using: Name, : Yes Telehealth method: voice only Patient verbally consented to treatment: Yes Patient verbally consented to billing insurance company: Yes Patient informed of any privacy concerns related to visit: Yes Minutes spent on Phone/Video with Pt.: 36 Assessment & Plan Assessment & Plan (1) GERD (gastroesophageal reflux disease): Code(s): K21.9 - Gastro-esophageal reflux disease without esophagitis Category: Medical Qualifiers: Esophagitis presence: esophagitis presence not specified Qualified Code(s): K21.9 - Gastro-esophageal reflux disease without esophagitis Plan: To be scheduled for EGD due to the history of sleeve gastrectomy and severe GERD. The possibility of biopsies was discussed. Patient needs to avoid use of NSAIDs and aspirin for 1 week prior to EGD. You must be on liquids only the day before your endoscopy. Risks of perforation and bleeding was discussed with the patient. This will be an outpatient procedure with IV sedation. Once this is performed and depending on the results, we will discuss the next steps. Patient is in agreement with the plan.
[2024-08-22 08:38] VITALS: BMI 35.9
== END 2024-08-22 08:42 | disposition home or self-care (01) ==
LOC: HO.HBS 07:53
PROVIDERS: PCP Internal Medicine; Visit Provider Surgery
DX: K21.9 Gastro-esophageal reflux disease without esophagitis (principal)
CPT/HCPCS: 98016

== ENCOUNTER 2024-11-11 14:35 | Outpatient (AMB) | payer OTHER, SELFPAY ==
[2024-11-11 14:37] VITALS: BP 120/90; PULSE 84; O2SAT 97; BMI 35.3
--- NOTE | 2024-11-11 14:37 | A.OFFPC_ITS ---
Vital Signs 11/11/24 14:37 Height 5 ft 2 in Weight 193 lb 2 oz BMI 35.3 BP 120/90 H Blood Pressure Location Lt brachial Position Sitting Pulse 84 Pulse Source Pulse Oximeter Pulse Oximetry (%) 97 Oxygen Delivery Method Room Air Intake Visit Reasons: establish care Sandblaster Supervisor Required: No Accompanied by: Self / Same As Patient Allergies penicillin G Allergy (Severe, Verified 11/11/24 15:01) hives lisinopril Allergy (Intermediate, Verified 11/11/24 15:01) tingling in throat and cough acetaminophen Allergy (Mild, Verified 11/11/24 15:01) Hives Medication List - Last Reconciled 11/11/24 by Abhay العراقي MD albuterol sulfate 90 mcg/actuation 2 puffs inhalation QID PRN alprazolam 0.5 mg PO DAILY PRN baclofen 5 mg PO BID PRN diclofenac sodium 1% 1 ea topical BID PRN docusate sodium (Colace) 100 mg PO BID PRN famotidine (Acid Segment Assembler (famotidine)) 20 mg PO BID gabapentin 300 mg PO DAILY irbesartan 75 mg PO DAILY vitamin B complex 1 tab PO DAILY zolpidem 10 mg PO BEDTIME PRN Tobacco use date assessed: 11/11/24 Dental Screening Dental Screen Date: 11/11/24 Did you have a dental visit in the last 12 months?: Yes Did you have a dental problem in the last 6 months where you did not have access to dental care?: No Was dental information given to patient?: Patient has dentist HPI establish care HPI Details Patient comes in today to establish care - is a new patient to the practice Her previous PCP is now with [place] Patient states that she feels okay except for her diffuse aches and pains due to her fibromyalgia She denies any headaches or dizziness Denies any chest pains, no SOB No nausea/vomiting, no abdominal pain No change in bowel habits noted She denies any acute urinary symptoms Needs a couple of her Rx refilled today She is seeing a psychiatrist (Dr. Mcallister) in [place] regularly every month for her anxiety and depression FORMERLY [facility], [facility] Medical History Bipolar disorder Obesity (BMI 30-39.9) Constipation Essential hypertension GERD (gastroesophageal reflux disease) Obesity Asthma Anxiety Depression Insomnia Fibromyalgia MARY KATE on CPAP Abnormal ECG Chronic constipation Adjustment disorder, unspecified Diabetes mellitus Surgical History History of sleeve gastrectomy Hx of cholecystectomy Hx of carpal tunnel repair Hx of tubal ligation Hx of total hysterectomy Hx of breast surgery Family History Mother Diabetes Hypertension Father No problems noted. 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 1. Little interest or pleasure in doing things: not at all 2. Feeling down, depressed, or hopeless: not at all 3. Trouble falling or staying asleep, or sleeping too much: several days 4. Feeling tired or having little energy: not at all 5. Poor appetite or overeating: not at all 6. Feeling bad about yourself - or that you are a failure or have let yourself or your family down: not at all 7. Trouble concentrating on things, such as reading the newspaper or watching television: more than half the days 8. Moving or speaking so slowly that other people could have noticed. Or the opposite - being so fidgety or restless that you have been moving around a lot more than usual: not at all 9. Thoughts that you would be better off or of hurting yourself in some way: not at all Total score: 3 Depression Screening Interpretation: Positive Depression Screening Follow-up: Existing condition and In treatment Depression Screening Done: Yes 71304 - PHQ-9 Billing: Yes Source: Developed by Drs. Yunior Amaro, Joan Fragoso, Mark Anthony Toussaint and colleagues, with an educational margarito from [employer]. Thrive Questionnaire Date Thrive assessed: 11/11/24 I am a: Patient What is your living situation today?: I have a steady place to live Within the past 12 months, did the food you bought not last and you didn't have the money to get more?: Never true Within the past 12 months, did you worry whether your food would run out before you got money to buy more?: Never true Do you have trouble paying for medicines?: No Do you have trouble getting transportation to medical appointments?: No Do you have trouble paying your heating and electricity bill?: No Do you have trouble taking care of your child, family member or friend?: No Do you have trouble with day-to-day activities such as bathing, preparing meals, shopping, managing finances, etc.?: No Are you currently unemployed and looking for a job?: No Are you interested in more education?: No Please select the resources that you would like help with: None Currently or been in a relationship where the following occur: No concerns reported THRIVE Score: 0 AUDIT C Alcohol Use Questionnaire (AUDIT-C) 1. How often do you have a drink containing alcohol?: Never 3. How often do you have six or more drinks on one occasion?: Never Total Score: 0 Score Reviewed/Action Taken: Yes KELLY-7 AMB Questionnaire KELLY-7 Date KELLY - 7 assessed: 11/11/24 Feeling nervous, anxious, or on edge: 2 = More than half the days Not being able to stop or control worryin = Several days Worrying too much about different things: 1 = Several days Trouble relaxin = Several days Being so restless that it is hard to sit still: 1 = Several days Becoming easily annoyed or irritable: 1 = Several days Feeling afraid as if something awful might happen: 0 = Not at all Total KELLY-7 score (0-4 normal; 5-9 mild; 10-14 moderate; 15-21 severe): 7 Source: Developed by Drs. Yunior Amaro, Joan Fragoso, Mark Anthony Toussaint and colleagues, with an educational margarito from [employer]. Review of Systems Const Denies chills, Denies fatigue, Denies fever(s) and Denies headache(s) ENT Denies dysphagia, Denies dizziness, Denies otalgia, Denies headache(s), Denies neck pain, Denies odynophagia and Denies sore throat Card Denies chest pain, Denies rapid heart rate, Denies irregular heart rhythm, Denies palpitations and Denies dyspnea Resp Denies chest congestion, Denies cough and Denies dyspnea GI Denies abdominal pain, Denies constipation, Denies dysphagia, Denies heartburn, Denies diarrhea, Denies nausea, Denies odynophagia and Denies vomiting Denies difficulty voiding, Denies nocturia, Denies dysuria and Denies urinary urgency Musc Denies back pain, Reports myalgias (diffuse), Reports arthralgias (on and off over multiple joints), Denies joint swelling and Denies neck pain Skin/Breast Denies rash Neuro Denies dizziness, Denies headache(s) and Denies paresthesias Psych Reports anxiety and Reports depression Endo Denies fatigue and Denies palpitations Amado/Lymph Denies easy bruising Physical exam (Primary Care) Vital Signs: Last Vital Signs Pulse 84 11/11/24 14:37 BP 120/90 H 11/11/24 14:37 Pulse Ox 97 11/11/24 14:37 Oxygen Delivery Method Room Air 11/11/24 14:37 BMI result Body Mass Index 35.3 Tobacco/Smoking Status: Tobacco use Status Tobacco use date assessed 11/11/24 11/11/24 14:51 Patient Tobacco Use Status Never used Tobacco 11/11/24 14:51 e-Cigarette/Vaping Use Never Used 11/11/24 14:51 PHQ-9: PHQ-9 Score PHQ-9: Total score 3 11/11/24 15:03 Depression Screening Interpretation: Positive Depression Screening Follow-up: Existing condition and In treatment Thrive Assessment: Date of Thrive Assessment Date Thrive assessed 11/11/24 11/11/24 14:51 Currently or been in a relationship where the following occur: No concerns reported Const General: no acute distress and alert HENMT Ears: TM's normal bilaterally and EAC's normal Throat: Yes posterior oropharynx normal and Yes tonsils normal (no TP congestion) Neck Neck: Yes supple and No lymphadenopathy Thyroid: Thyroid normal Resp Auscultation: clear to auscultation bilaterally, no rales and no wheezes Cardio Rate: regular rate Rhythm: regular rhythm Heart sounds: no murmurs GI Palpation (GI): Soft to palpation and nontender Auscultation: normal bowel sounds General: Yes no CVA tenderness Back/Spine/Pelvis Back: no CVA tenderness Thoracic/Lumbar Spine: No lumbar spinal tenderness Skin Rashes: no rashes Extrem General: Yes no clubbing, cyanosis or edema Coding Level of Care Code New Pt Level 4 (41894) Diagnoses Essential hypertension I10 Mild intermittent asthma without complication J45.20 Asthma severity: mild Asthma persistence: intermittent Asthma complication type: uncomplicated Gastroesophageal reflux disease, unspecified whether esophagitis present K21.9 Esophagitis presence: esophagitis presence not specified Constipation, unspecified constipation type K59.00 Constipation type: unspecified constipation type Fibromyalgia M79.7 Insomnia, unspecified type G47.00 Insomnia type: unspecified Anxiety F41.9 Bipolar affective disorder, current episode depressed, current episode severity unspecified F31.30 Active/Remission status: currently active Current bipolar episode type: depressed Current episode severity: unspecified Obesity (BMI 30-39.9) E66.9 Additional Codes PHQ-9 - 50065 - PHQ-9 Billing: Yes ([id number]) Assessment & Plan Assessment & Plan (1) Essential hypertension: Code(s): I10 - Essential (primary) hypertension Category: Medical Plan: Reinforced low sodium diet - goal is systolic BP of 120 mm or less Continue Irbesartan 75 mg QD Patient is reminded to continue monitoring her blood pressure regularly Will have patient get some follow up labs done in 4 months - she is advised to get these done just before she comes back in 4 months for her next appointment (2) Asthma: Code(s): J45.909 - Unspecified asthma, uncomplicated Category: Medical Qualifiers: Asthma severity: mild Asthma persistence: intermittent Asthma complication type: uncomplicated Qualified Code(s): J45.20 - Mild intermittent asthma, uncomplicated Plan: Continue Albuterol HFA 1 to 2 inhalations Q 6 hours PRN (3) GERD (gastroesophageal reflux disease): Code(s): K21.9 - Gastro-esophageal reflux disease without esophagitis Category: Medical Qualifiers: Esophagitis presence: esophagitis presence not specified Qualified Code(s): K21.9 - Gastro-esophageal reflux disease without esophagitis Plan: Dietary restrictions reinforced Continue Famotidine 20 mg BID PRN (4) Constipation: Code(s): K59.00 - Constipation, unspecified Category: Medical Qualifiers: Constipation type: unspecified constipation type Qualified Code(s): K59.00 - Constipation, unspecified Plan: Patient is encouraged on increased oral fluids and dietary fiber intake to help better manage her symptoms of constipation Continue Colace 100 mg BID PRN (5) Fibromyalgia: Code(s): M79.7 - Fibromyalgia Category: Medical Plan: Patient is encouraged on regular exercise and increased physical activity as much as she can to help manage her fibromyalgia symptoms better Continue Gabapentin 300 mg QD, Baclofen 5 mg BID PRN and Diclofenac sodium 1% to apply topically to affected areas/joints BID PRN for symptomatic relief (6) Insomnia: Code(s): G47.00 - Insomnia, unspecified Category: Medical Qualifiers: Insomnia type: unspecified Qualified Code(s): G47.00 - Insomnia, unspecified Plan: Sleep hygiene reinforced/discussed Continue Zolpidem 10 mg Q HS PRN (7) Anxiety: Code(s): F41.9 - Anxiety disorder, unspecified Category: Medical Plan: Continue Alprazolam 0.5 mg QD PRN Follow up with psychiatry as scheduled (8) Bipolar disorder: Code(s): F31.9 - Bipolar disorder, unspecified Category: Medical Qualifiers: Active/Remission status: currently active Current bipolar episode type: depressed Current episode severity: unspecified Qualified Code(s): F31.30 - Bipolar disorder, current episode depressed, mild or moderate severity, unspecified Plan: Patient used to take Mirtazapine and Risperidone but have apparently stopped taking these recently Follow up with psychiatry (Dr. Mcallister in [place]) as scheduled (9) Obesity (BMI 30-39.9): Code(s): E66.9 - Obesity, unspecified Category: Medical Plan: S/P sleeve gastrectomy at [facility] about 6 to 7 years ago Reinforced activity and weight-lifting restrictions Plan Follow up in 4 months Orders: Orders Complete Blood Count Auto Diff 4 Months Abhay العراقي MD D64.9 - Anemia, unspecified Comprehensive [place]. Panel Fast 4 Months Abhay العراقي MD E78.00 - Pure hypercholesterolemia, unspecified TSH reflex Free T4 4 Months Abhay العراقي MD E78.00 - Pure hypercholesterolemia, unspecified Lipid Panel 4 Months Abhay العراقي MD E78.00 - Pure hypercholesterolemia, unspecified UA CC w/rflx Micro + Cult 4 Months Abhay العراقي MD R30.0 - Dysuria Vitamin D 25-OH Total 4 Months Abhay العراقي MD E55.9 - Vitamin D deficiency, unspecified Medications: Changed From docusate sodium (Colace) 100 mg PO BID 60 caps 2RF To docusate sodium (Colace) 100 mg PO BID PRN Db Hardwick MD From irbesartan 75 mg PO DAILY To irbesartan 75 mg PO DAILY 90 tabs 1RF 90 days Abhay العراقي MD
--- OUTSIDE RECORDS SUMMARY | 2024-11-11 15:43 | XMS_ITS | Encounter Summary ---
Author Organization [facility] Address [address] [place] [address] Care Team Providers Care Technology Engineer Name Role Phone Alda Thurman MD Primary Care Provider renee [facility], Pcp [facility] Encounter Details Date Type Department Care Team Description 09/21/2021 Manager Bench Report Medical Records [address] [place] [id number] Justine Brady PA-C Social History Tobacco Use [...] documented as of this encounter Care Teams Technology Engineer Relationship Specialty Start Date End Date Alda Thurman MD PCP - General Internal Medicine 08/14/18 [facility], Pcp PCP - General Internal Medicine 12/05/22 documented as of this encounter
--- OUTSIDE RECORDS SUMMARY | 2024-11-11 15:43 | XMS_ITS | Encounter Summary ---
Author Organization [facility] Address [address] [place] [address] Care Team Providers Care Lift Operator Name Role Phone Alda Thurman MD Primary Care Provider renee [facility], Pcp [facility] Encounter Details Date Type Department Care Team Description 03/13/2019 Infrastructure Design Engineer Report Medical Records [address] [place] [address] Nils Duggan IV, MD Social History Tobacco [...] documented as of this encounter Care Teams Lift Operator Relationship Specialty Start Date End Date Alda Thurman MD PCP - General Internal Medicine 08/14/18 [facility], Pcp PCP - General Internal Medicine 12/05/22 documented as of this encounter
--- OUTSIDE RECORDS SUMMARY | 2024-11-11 15:43 | XMS_ITS | Encounter Summary ---
Author Organization [employer] [facility] Address [address] [place] [address] Care Team Providers Care Batch Freezer Name Role Paper SteamerRaji Wallace MD Primary Care Provider Unavailab le Adla Thurman MD Primary Care Provider [facility], Pcp [facility] Encounter Details Date Type Department Care Team Description 03/12/2018 Scrap Yard Worker Report Medical Records [address] [place] [address] Nils Duggan IV, MD Social History Tobacco [...] documented as of this encounter Care Teams Batch Freezer Relationship Specialty Start Date End Date Raji Wallace MD PCP - General Internal Medicine 01/29/15 08/13/18 Alda Thurman MD PCP - General Internal Medicine 08/14/18 [facility], Pcp PCP - General Internal Medicine 12/05/22 documented as of this encounter
--- OUTSIDE RECORDS SUMMARY | 2024-11-11 15:43 | XMS_ITS | Encounter Summary ---
Author Organization [facility] Address [address] [place] [address] Care Team Providers Care Technical Project Manager Name Role Phone Alda Thurman MD Primary Care Provider [facility], Pcp Primary Care Provider Unavailabl e Reason for Visit * Reason Onset Date Comments REFERRAL 11/23/2021 Encounter Details Date Type Department Care Team Description 11/23/2021 Telephone [facility] Medical [facility] [address] [place] [address] [place] [phone] Antonino Hilario PA-C REFERRAL Social History Tobacco Use Types Packs/Day Years [...] Recorded In the last 10 days, have yo u been in contact with someone who was [...] documented as of this encounter Care Teams Technical Project Manager Relationship Specialty Start Date End Date Alda Thurman MD PCP - General Internal Medicine 08/14/18 [facility], Pcp PCP - General Internal Medicine 12/05/22 documented as of this encounter
--- OUTSIDE RECORDS SUMMARY | 2024-11-11 15:43 | XMS_ITS ---
Author Organization [facility] Address [address] [place] [address] Care Team Providers Care Radial Drill Press Set Up Operator Name Role Phone ACE UGALDE Unavailable [phone] REASON FOR VISIT Pt here for Tirzepatide 2.5mg on LLQ sub q, pt tolerated well with no reaction. Encounters Encounter Location Date Provider Diagnosis [phone] [address] 06/02/2024 ACE UGALDE PLAN OF TREATMENT No Information MEDICATIONS ADMINISTERED Medication Instructions Date of Administration Dosage Notes Tirzepatide 06/02/2024 Progress Notes * Sherie GARCIADOB:[birth year] (54 yo F)Acc No.[id number]:06/02/2024 Patient:??Catie GARCIA Provider:??ACE UGALDE NP :1970?Age:53 Y?Sex:Fe male Date:06/02/2024 Address:[address] [place] [address] Subjective: * Chief Complaints: * ?1. Pt [...]
--- OUTSIDE RECORDS SUMMARY | 2024-11-11 15:43 | XMS_ITS | Encounter Summary ---
Author Organization [facility] Address [address] [place] [address] Care Team Providers Care Vehicle Leasing And Rental Manager Name Role Certified CoderRaji Wallace MD Primary Care Provider Unavail Alda Nathan MD Primary Care Provider [facility], Pcp Primary Care Provider [facility] Encounter Details Date Type Department Care Team Description 01/08/2018 Oracle Ebs Developer Report Medical Records [address] [place] [address] Social History Tobacco Use Types Packs/Day Years [...] documented as of this encounter Care Teams Vehicle Leasing And Rental Manager Relationship Specialty Start Date End Date Raji Wallace MD PCP - General Internal Medicine 01/29/15 08/13/18 Alda Thurman MD PCP - General Internal Medicine 08/14/18 [facility], Pcp PCP - General Internal Medicine 12/05/22 documented as of this encounter
--- OUTSIDE RECORDS SUMMARY | 2024-11-11 15:43 | XMS_ITS ---
Author Organization [facility] Address [address] [place] [address] Care Team Providers Care First Officer Name Role Phone ACE UGALDE Unavailable [phone] Encounters Encounter Location Date Provider Diagnosis [place] [address] [phone] 07/08/2024 ACE UGALDE PLAN OF TREATMENT No Information Progress Notes * Sherie GARCIADOB:[birth year] (54 yo F)Acc No.[id number]:07/08/2024 Patient:??Catie GARCIA Provider:??ACE UGALDE NP :1970?Age:54 Y?Sex:Fe male Date:07/08/2024 Address:[address] [place], [place] [id number] Subjective: * Chief Complaints: * ? * Medical History:?? Objective: Assessment: Plan: * Treatment: * Images: Billing Information: * Visit Code:?? * Procedure Codes:?? * Sign off status: Pending * Provider:??ACE UGALDE NP Date:??12/2024
--- OUTSIDE RECORDS SUMMARY | 2024-11-11 15:43 | XMS_ITS | Encounter Summary ---
Author Organization [facility] Address [address] [place] [address] Care Team Providers Care Director Of Litigation Name Role Electric Motor TesterRaji Wallace MD Primary Care Provider Unavail Alda Nathan MD Primary Care Provider [facility], Pcp Primary Care Provider [facility] john Encounter Details Date Type Department Care Team Description 01/01/2018 Formal Wear Rental Clerk Report Medical Records [address] [place] [address] Social History Tobacco Use Types Packs/Day Years [...] of this encounter Care Teams Director Of Litigation Relationship Specialty Start Date End Date Raji Wallace MD PCP - General Internal Medicine 01/29/15 08/13/18 Alda Thurman MD PCP - General Internal Medicine 08/14/18 [facility], Pcp PCP - General Internal Medicine 12/05/22 documented as of this encounter
--- OUTSIDE RECORDS SUMMARY | 2024-11-11 15:43 | XMS_ITS | Encounter Summary ---
Author Organization [facility] Address [address] [place] [address] Care Team Providers Care Document Restorer Name Role Phone Alda Thurman MD Primary Care Provider renee [facility], Pcp Primary Care Provider [facility] e Encounter Details Date Type Department Care Team Description 05/08/2019 Transfer Records Medical Records [address] [place] [address] Abstract, Provider Social History Tobacco Use Types [...] documented as of this encounter Care Teams Document Restorer Relationship Specialty Start Date End Date Alda Thurman MD PCP - General Internal Medicine 08/14/18 [facility], Pcp PCP - General Internal Medicine 12/05/22 documented as of this encounter
--- OUTSIDE RECORDS SUMMARY | 2024-11-11 15:43 | XMS_ITS | Encounter Summary ---
Author Organization [facility] Address [address] [place] [address] Care Team Providers Care Sawmill Or Timber Yard Worker Name Role Phone Alda Thurman MD Primary Care Provider renee [facility], Pcp [facility] Encounter Details Date Type Department Care Team Description 03/24/2019 Transfer Records Medical Records [address] [place] [address] Abstract, Provider Social History Tobacco Use Types [...] documented as of this encounter Care Teams Sawmill Or Timber Yard Worker Relationship Specialty Start Date End Date Alda Thurman MD PCP - General Internal Medicine 08/14/18 [facility], Pcp PCP - General Internal Medicine 12/05/22 documented as of this encounter
--- OUTSIDE RECORDS SUMMARY | 2024-11-11 15:43 | XMS_ITS | Encounter Summary ---
Author Organization [facility] Address [address] [place] [address] Care Team Providers Care Electronic Science Teacher Name Role Phone Alda Thurman MD Primary Care Provider [facility], Pcp Primary Care Provider Unavailabl e Encounter Details Date Type Department Care Team Description 11/22/2021 Orders Only Adult Medicine [facility] [address] [place] [address] Alda Thurman MD Type 2 diabetes mellitus without complication, without long-term current use of insulin (HCC); Primary hypertension Social History Tobacco Use Types Packs/Day Years [...] on file documented as of this encounter Procedures Procedure Name Priority Date/Time Associated Diagnosis Comments HEMOGLOBIN A1C Routine 11/16/2021 Type 2 diabetes mellitus without complication, without long-term current use of insulin (HCC) CHG COMPREHENSIVE METABOLIC PANEL Routine 11/16/2021 Primary hypertension Type 2 diabetes mellitus without complication, without long-term current use of insulin (HCC) documented in this encounter Results * COMPREHENSIVE METABOLIC PANEL (11/16/2021) 11/16/2021 Alda Galan MD LAB Performing Organization Address [facility] Co de Phone Number Eons * HEMOGLOBIN A1C (11/16/2021) 11/16/2021 Alda Galan MD LAB Performing Organization Address [facility] Co de Phone Number Eons documented in this encounter Visit Diagnoses Diagnosis Type 2 diabetes mellitus without complication, without long-term current use of insulin (HCC) Primary hypertension Unspecified essential hypertension documented in this encounter Additional Health Concerns Infection Onset Date Last Indicated Resolved Time COVID-19 01/17/2022 01/17/2022 documented as of this encounter Care Teams Electronic Science Teacher Relationship Specialty Start Date End Date Alda Thurman MD PCP - General Internal Medicine 08/14/18 [facility], Pcp PCP - General Internal Medicine 12/05/22 documented as of this encounter
--- OUTSIDE RECORDS SUMMARY | 2024-11-11 15:43 | XMS_ITS | Encounter Summary ---
Author Organization [employer] [facility] Address [address] [place] [address] Care Team Providers Care Manager Basketball Name Role Parking Regulation Enforcement OfficerRaji Wallace MD Primary Care Provider Unavailab le Alda Thurman MD Primary Care Provider [facility], Pcp Primary Care Provider [facility] Encounter Details Date Type Department Care Team Description 05/29/2017 [facility] Medical Records [address] [place] [id number] Abstract, Provider Social History Tobacco Use Types [...] documented as of this encounter Care Teams Manager Basketball Relationship Specialty Start Date End Date Raji Wallace MD PCP - General Internal Medicine 01/29/15 08/13/18 Alda Thurman MD PCP - General Internal Medicine 08/14/18 [facility], Pcp PCP - General Internal Medicine 12/05/22 documented as of this encounter
--- OUTSIDE RECORDS SUMMARY | 2024-11-11 15:43 | XMS_ITS | Encounter Summary ---
Author Organization [facility] Address [address] [place] [address] Care Team Providers Care Pick Up Name Role Pleat PatternmakerRaji Wallace MD Primary Care Provider Unavailab Alda Nathan MD Primary Care Provider [facility], Pcp Primary Care Provider Unavailabl e Reason for Visit * Reason Onset Date Comments Prior Authorization 02/09/2017 Encounter Details Date Type Department Care Team Description 02/09/2017 Telephone Radiology - [address] [address] Raji Wallace MD Prior Authorization Social History Tobacco Use Types Packs/Day Years [...] encounter Miscellaneous Notes * Telephone Encounter - Diane Marquez - 02/12/2017 9:19 AM EDT [employer]- no auth required * Telephone Encounter - Amy Moncada - 02/09/2017 4:05 PM EDT Requesting prior auth for echocardiogram. Thank you documented in this encounter Plan of Treatment Not on file documented as of this encounter Visit Diagnoses Not on filedocumented in this encounter Additional Health Concerns Infection Onset Date Last Indicated Resolved Time COVID-19 01/17/2022 01/17/2022 documented as of this encounter Care Teams Pick Up Relationship Specialty Start Date End Date Raji Wallace MD PCP - General Internal Medicine 01/29/15 08/13/18 Alda Thurman MD PCP - General Internal Medicine 08/14/18 [facility], Pcp PCP - General Internal Medicine 12/05/22 documented as of this encounter
--- OUTSIDE RECORDS SUMMARY | 2024-11-11 15:43 | XMS_ITS | Encounter Summary ---
Author Organization [facility] Address [address] [place] [address] Care Team Providers Care Consulting Technical Director Name Role Specimen BossRaji Wallace MD Primary Care Provider Unavailab Alda Nathan MD Primary Care Provider [facility], Pcp Primary Care Provider Unavailabl e Reason for Visit * Reason Onset Date Comments Sample Driller Feedback 10/24/2016 Marcela Son Encounter Details Date Type Department Care Team Description 10/24/2016 Telephone Medicine/Pediatrics - [address] [phone] Raji Wallace MD Sample Driller Feedback (Marcela Son) Social History Tobacco Use [...] insurance must be obtained and registered in [facility] or their referral can not [...] of SPECIALIST PATIENT is seeing: Marcela DAVENPORT #[id number] 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 YES Is this visit:Follow Up Address of Specialist:[address] [place] [address] Phone # of Specialist:[phone] Fax #: (if applicable):[phone] Does patient have an appointment scheduled?: YES [...] documented as of this encounter Care Teams Consulting Technical Director Relationship Specialty Start Date End Date Raji Wallace MD PCP - General Internal Medicine 01/29/15 08/13/18 Alda Thurman MD PCP - General Internal Medicine 08/14/18 [facility], Pcp PCP - General Internal Medicine 12/05/22 documented as of this encounter
--- OUTSIDE RECORDS SUMMARY | 2024-11-11 15:43 | XMS_ITS | Encounter Summary ---
Author Organization [facility] Address [address] [place] [address] Care Team Providers Care Cooker Meal Name Role Phone Alda Thurman MD Primary Care Provider [facility], Pcp Primary Care Provider Unavailabl e Reason for Visit * Reason Onset Date Comments Pre-visit Diabetes Lab Adult Medicine 09/14/202009/24 Encounter Details Date Type Department Care Team Description 09/14/2020 Telephone Adult Medicine [facility] [address] [place] [address] Alda Thurman MD Pre-visit Diabetes Lab Adult Medicine (09/24) Social History Tobacco Use Types Packs/Day Years [...] * Telephone Encounter - Tamika Bell - 09/14/2020 10:38 AM EDT Sent patient an email advising them to complete diabetic lab work at least three days prior to their upcoming appointment. documented in this encounter Plan of Treatment Not on file documented as of this encounter Results * HEMOGLOBIN A1C (09/21/2020 7:31 AM EDT) GLYCATED HEMOGLOBIN A1C 5.7 <6.5 % 09/21/2020 11:40 AM EDT [facility] ESTIMATED AVERAGE GLUCOSE 117 mg/dL 09/21/2020 11:40 AM EDT [facility] 09/21/2020 7:31 AM EDT 09/21/2020 7:32 AM EDT Alda Galan MD LAB [facility] documented in this encounter Visit Diagnoses Diagnosis Type 2 diabetes mellitus without complication, without long-term current use of insulin (HCC)- Primary documented in this encounter Additional Health Concerns Infection Onset Date Last Indicated Resolved Time COVID-19 01/17/2022 01/17/2022 documented as of this encounter Care Teams Cooker Meal Relationship Specialty Start Date End Date Alda Thurman MD PCP - General Internal Medicine 08/14/18 [facility], Pcp PCP - General Internal Medicine 12/05/22 documented as of this encounter
--- OUTSIDE RECORDS SUMMARY | 2024-11-11 15:43 | XMS_ITS | Clinical Summary ---
Author Organization [address] Address [address] [place] [phone] Phone Care Team Providers Care Pan Washer Name Role Phone Cleveland Galan NP Primary Care Provider [phone] Allergies Active Allergy Reactions Criticality Noted Date [...] complication, without long-term current use of insulin ([facility] V24, [facility] V28) 05/01/2018 Asthma 09/05/2017 Gastroesophageal reflux disease 09/05/2017 Positive PPD 05/02/2017 Overview (06/12/2024): [facility] 01/16 - negative QuantiFERON testing Obstructive sleep apnea 04/24/2016 Overview (06/12/2024): Intolerant to CPAP [facility] 06/28/18 - home sleep study ordered, follow-up 3 months Home sleep study 07/11/18 - mild obstructive sleep apnea, auto CPAP 8-16 cm H2O Osteopenia 09/20/2015 Overview (06/12/2024): 08/20 - bone density, osteopenia Hypertension 03/15/2015 Migraine 03/15/2015 Encounters Date Type Department Care Team Description 09/05/2024 12:32 PM EST - 09/05/2024 11:59 PM EST Hospital Encounter Radiology Department [address] [phone] Encounter for screening mammogram for breast cancer Discharge Disposition: Home or Self Care from Last 3 Months Immunizations Name Administration Dates Next Due Hepatitis B (Nhojvlk-F-Wjugx , Recombivax HB-Adult) 19yo and older 05/15/2016,01/12/2016,12/09/2015 [...] GUID; COMMENT: benign BREAST SURGERY Left PROCEDURE: RI UNLISTED PROCEDURE BREAST; COMMENT: exc as teenager benign BREAST SURGERY Right PROCEDURE: RI UNLISTED PROCEDURE BREAST; COMMENT: exc as teenager benign COLONOSCOPY 12/02/2018 PROCEDURE: HISTORICAL COLONOSCOPY; COMMENT: Senthil. Normal. q10 years OTHER SURGICAL HISTORY 10/04/2018 PROCEDURE: ---- OTHER ----; COMMENT: Urban. Sleeve Gastrectomy Medical History Medical History Date Comments Essential hypertension DX:Essent ial hypertension Positive PPD 05/02/2017 DX:Positive PPD Gastroesophageal reflux disease 09/05/2017 DX:Gastroesophageal reflux disease Morbid obesity with BMI of 4 0.0-44.9, adult ([facility] V24, [facility] V28) 04/16/2015 DX:Morbid obesity wit h BMI of 40.0-44.9, adult ([facility]) Abnormal mammogram 04/01/2015 DX:Abnormal m ammogram; COMMENT: 03/31/15 Probable benign lymph node R breast- follow up recommended 6 months 09/27/15 - mammo repeated 04/16 - normal mammogram Asthma 09/05/2017 DX:Asthma Elevated hemoglobin A1c 12/11/2016 DX:Tasley sb hemoglobin A1c Hypertension 03/15/2015 DX:Hypertension Migraine 03/15/2015 DX:Migraine Obstructive sleep apnea 04/24/2016 DX:Obstr uctive sleep apnea; COMMENT: Intolerant to CPAP Osteopenia 09/20/2015 DX:Osteopenia Smoker 04/14/2015 DX:Smoker Type 2 diabetes mellitus wit hout complication, without long-term current use of insulin ([facility] V24, [facility] V28) 05/01/2018 DX:Type 2 diabetes mellitus without complication, without long-term current use of insulin ([facility]) Family History Medical History Relation Name Comments [...] = 0.6 oz pur e alcohol) Comments No Sex and Gender Information Value Date Recorded Sex Assigned at Not on file Legal Sex Female 10:11 AM EST Gender Identity Not on file Sexual Orientation Not on file Obstetrics History Para Term AB IAB SAB Ectopic Multiple Livin g Live Births 2 2 2 2 Date Outcome GA Total Labor Labor/2nd/3rd Weight Sex Type Anes PTL Ama A1 A5 Name Clin Term Term Last Filed Vital Signs Vital Sign Reading [...] 04/15/2024 8:17 AM EDT Plan of Treatment Health Maintenance Due Date Last Done Comments Diabetes: Annual Foot Exam 1978 Diabetes: Annual Retina Eye Exam 1978 Hepatitis A Vaccines (1 of 2 - Risk 2-dose series) 1987 Pneumococcal Vaccine: 50+ Years (1 of 2 - PCV) 1987 Pneumococcal Vaccine: Pediatrics (0 to 5 Years) and At-Risk Patients (6 to 64 Years) (1 of 2 - PCV) 1987 Depression Screening 06/10/2022 HIV Screening 06/10/2022 Hepatitis C Screening 06/10/2022 Social Influencers of Health Screening 06/10/2022 Diabetes: Blood Sugar Control Test (HGBA1C) 06/16/2022 11/16/2021 Diabetes: Annual Urine Albumin-Creatinine Ratio (uACR) 11/16/2022 11/16/2021 Diabetes: Annual GFR (Glomerular Filtration Rate) 11/16/2022 11/16/2021 Hypertension/CHF/CAD Annual BMP Blood Test 11/16/2022 11/16/2021 Osteoporosis Screening (Bone Density Screening) 08/26/2023 08/26/2018 COVID-19 Vaccine ( season) 2024 05/17/2021, 05/17/2021, 08/18/2020, Additional history exists DTaP,Tdap,and Td Vaccines (2 - Td or Tdap) 04/13/2025 04/13/2015 Cholesterol Screening (Lipid Panel) 04/21/2026 04/21/2021 Breast Cancer Screening 09/05/2026 09/06/19, 08/15/2023, 08/15/2023, Additional history exists Colorectal Cancer Screening: Colonoscopy 12/02/2028 12/02/2018 Hepatitis B Vaccines Completed 05/15/2016, 01/12/2016, 12/09/2015 Varicella Vaccines Aged Out 03/07/2019 No longer eligible based on patient's age to complete this topic Zoster Vaccines Completed 03/10/2022, 07/0 07/2021, 03/07/2019 Influenza Vaccine Completed 03/20/2024, , 04/07/2022, Additional history exists HIB Vaccines Aged Out No longer eligi [...] age to complete this topic Meningococcal B Vaccine Aged Out No l onger eligible based on patient's age to complete this topic RSV Immunization Patients Under 20 months Aged Out No longer eligible based on patient's age to complete this topic Procedures Procedure Name Priority Date/Time Associated Diagnosis Comments MG MAMMO DIGITAL SCREENING W ALEXIS BILAT Routine 09/05/2024 1:15 PM EST Encounter for screening mammogram for breast cancer URINE ALBUMIN CREATININE RATIO Routine 11/16/2021 ANNUAL BMP BLOOD TEST Routine 11/16/2021 HEMOGLOBIN A1C Routine 11/16/2021 LIPID PANEL Routine 04/21/2021 COLONOSCOPY Routine 12/02/2018 DXA BONE DENSITY STUDY 1+ SITS AXIAL SKEL Routine 08/26/2018 1:19 PM EST Other specified disorders of bone density and structure, unspecified site from Last 3 Months or Most Recently Relevant to Health Maintenance Results * MG Mammo Digital Screening w Alexis bilat (09/05/2024 1:15 PM EST) Anatomical Region Laterality Modality Breast Bilateral Mammography 09/06/2024 4:06 PM EST Impressions 09/06/2024 4:30 PM EST No mammographic evidence of malignancy. BI-RADS CATEGORY: 1 - NEGATIVE RECOMMENDATION: Screening bilateral mammogram is recommended in 1 year. Mammo Location: [facility], [address] [place] [address], [id number], . -------- FINAL REPORT -------- Dictated By: Verónica Singletary Dictated Date: 09/06/2024 16:06 ET Assigned Physician: Verónica Singletary Reviewed and Electronically Signed By: Verónica Singletary Signed Date: 09/06/2024 16:30 ET Workstation ID: [id number] Transcribed By: Self Edit Transcribed Date: 09/06/2024 16:06 ET Narrative 09/06/2024 4:30 PM EST Bilateral screening mammogram. CLINICAL: 54 years old, Female, routine annual exam. COMPARISON: Prior mammograms, latest from 08/15/2023. ?? TECHNIQUE: Bilateral MLO and CC views were obtained digitally with 2-D C views 3-D mammogram (digital breast tomosynthesis). Computer-aided detection was utilized in evaluation of this exam (CAD). FINDINGS: There is no evidence of suspicious mass or architectural distortion. ??No worrisome calcifications are evident. ??There has been no significant change from prior exam(s). ?? BREAST DENSITY: B - There are scattered areas of fibroglandular density. Procedure Note Verónica Singletary MD - 09/06/2024 Bilateral screening mammogram. CLINICAL: 54 years old, Female, routine annual exam. COMPARISON: Prior mammograms, latest from 08/15/2023. TECHNIQUE: Bilateral MLO and CC views were obtained digitally with 2-D Cviews 3- D mammogram (digital breast tomosynthesis). Computer-aideddetection was utilized in evaluation of this exam (CAD). FINDINGS: There is no evidence of suspicious mass or architectural distortion. Noworrisome calcifications are evident. There has been no significantchange from prior exam(s). BREAST DENSITY: B - There are scattered areas of fibroglandular density. IMPRESSION: No mammographic evidence of malignancy. BI-RADS CATEGORY: 1 - NEGATIVE RECOMMENDATION: Screening bilateral mammogram is recommended in 1 year. Mammo Location: [facility], [address] [place] [address], [id number], . -------- FINAL REPORT -------- Dictated By: Verónica Singletary Dictated Date: 09/06/2024 16:06 ET Assigned Physician: Verónica Singletary Reviewed and Electronically Signed By: Verónica Singletary Signed Date: 09/06/2024 16:30 ET Workstation ID: [id number] Transcribed By: Self Edit Transcribed Date: 09/06/2024 16:06 ET Result [facility] Alda Galan MD IMG BI PROCEDURES Final Result * Urine Albumin Creatinine Ratio (11/16/2021) Pathologist [facility] Urine Albumin Creatinine Ratio Abstracted Result [facility] Provider HEALTH MAINTENANCE Final Result * Annual BMP Blood Test (11/16/2021) Pathologist [facility] Annual BMP Blood Test Abstracted Result [facility] Provider HEALTH MAINTENANCE Final Result * Hemoglobin A1c (11/16/2021) [facility] Hemoglobin A1C 0.0 % Blood Venous blood specimen / Unknown Result [facility] Provider LAB BLOOD ORDERABLES Priti l Result * Lipid panel (04/21/2021) [facility] LDL/HDL Ratio 2 0 - 4 Triglycerides 89 0 - 150 mg/dL Cholesterol 146 0 - 200 mg/dL HDL 62 >=40 mg/dL LDL Cholesterol 67 0 - 100 mg/dL Blood Venous blood specimen / Unknown Result [facility] Historical Provider LAB BLOOD ORDERABLES Priti l Result * Colonoscopy (12/02/2018) Pathologist [facility] Colonoscopy No interpreta tion,abstr acted Anatomical Region Laterality Modality Other Result [facility] Historical Provider HEALTH MAINTENANCE Final Result * [...] (World Health Organization Fracture Risk Assessment) The [facility] Department of Internal Medicine recommends using National [...] (World Health Organization Fracture Risk Assessment) The [facility] Department of Internal Medicine recommendsusing National Osteoporosis [...] fracture risk by FRAX. Raji Wallace MD IM DXA PROCEDURES Final Resul t from Last 3 Months or Most Recently Relevant to Health Maintenance Insurance [facility] [employer] [facility] Care Teams Pan Washer Relationship Specialty Start Date End Date Cleveland Galan NP [address] [facility] [address] [place], [place] PCP - General Nurse Practitioner 09/04/24
--- OUTSIDE RECORDS SUMMARY | 2024-11-11 15:44 | XMS_ITS | Encounter Summary ---
Author Organization [employer] [facility] Address [address] [place] [address] Care Team Providers Care Grinder Operator External Tool Name Role Phone Alda Thurman MD Primary Care Provider renee Hoskins, Pcp [facility] Encounter Details Date Type Department Care Team Description 09/18/2019 Telephone Adult Medicine [facility] [address] [place] [address] Alda Thurman MD Social History Tobacco Use [...] as of this encounter Care Teams Grinder Operator External Tool Relationship Specialty Start Date End Date Alda Thurman MD PCP - General Internal Medicine 08/14/18 [facility], Pcp PCP - General Internal Medicine 12/05/22 documented as of this encounter
--- OUTSIDE RECORDS SUMMARY | 2024-11-11 15:44 | XMS_ITS | Encounter Summary ---
Author Organization [employer] [facility] Address [address] [place] [address] Care Team Providers Care Flipping Machine Operator Name Role Phone Community, Pcp Primary Care Provider Unavailabl e Encounter Details Date Type Department Care Team Description 01/30/2023 Events Traffic Controller Report Medical Records [address] [place] [id number] Gilberto Tinajero MD Social History Tobacco Use [...] documented as of this encounter Care Teams Flipping Machine Operator Relationship Specialty Start Date End Date Community, Pcp PCP - General Internal Medicine 12/05/22 documented as of this encounter
--- OUTSIDE RECORDS SUMMARY | 2024-11-11 15:44 | XMS_ITS | Encounter Summary ---
Author Organization [employer] [facility] Address [address] [place] [address] Care Team Providers Care Early Childhood Coordinator Name Role Phone Alda Thurman MD Primary Care Provider renee [facility], Pcp Primary Care Provider [facility] Encounter Details Date Type Department Care Team Description 01/26/2020 Reel Worker Report Medical Records [address] [place] [phone] Aubrey Carrera MD Social History Tobacco Use Types Packs/Day [...] documented as of this encounter Care Teams Early Childhood Coordinator Relationship Specialty Start Date End Date Alda Thurman MD PCP - General Internal Medicine 08/14/18 [facility], Pcp PCP - General Internal Medicine 12/05/22 documented as of this encounter
--- OUTSIDE RECORDS SUMMARY | 2024-11-11 15:44 | XMS_ITS | Encounter Summary ---
Author Organization [facility] Address [address] [place] [address] Care Team Providers Care Patient Case Coordinator Name Role Electric WelderRaji Wallace MD Primary Care Provider Unavailab Alda Nathan MD Primary Care Provider [facility], Pcp Primary Care Provider Unavailabl e Reason for Visit * Reason Onset Date Comments Director Shopper Marketing Feedback 05/06/2018 toe fracture Encounter Details Date Type Department Care Team Description 05/06/2018 Telephone Medicine/Pediatrics - [address] [phone] Raji Wallace MD Director Shopper Marketing Feedback (toe fracture) Social History Tobacco Use Types Packs/Day Years [...] Miscellaneous Notes * Telephone Encounter - Li Chavarria - 05/06/2018 3:54 PM EST Perfect thank you! * Telephone Encounter - Raji Wallace MD - 05/06/2018 2:38 PM EST That's more than fine, thanks! * Telephone Encounter - Li Mckeonmody - 05/06/2018 1:[address] Wallace, Are you ok with this patient seeing podiatry internally regarding the toe fracture rather than seeing orthopedics at this time? Thank you, Li Referrals Coordinator documented in this encounter Plan of Treatment Not on file documented as of this encounter Visit Diagnoses Not on filedocumented in this encounter Additional Health Concerns Infection Onset Date Last Indicated Resolved Time COVID-19 01/17/2022 01/17/2022 documented as of this encounter Care Teams Patient Case Coordinator Relationship Specialty Start Date End Date Raji Wallace MD PCP - General Internal Medicine 01/29/15 08/13/18 Alda Thurman MD PCP - General Internal Medicine 08/14/18 [facility], Pcp PCP - General Internal Medicine 12/05/22 documented as of this encounter
--- OUTSIDE RECORDS SUMMARY | 2024-11-11 15:44 | XMS_ITS | Encounter Summary ---
Author Organization [employer] [facility] Address [address] [place] [address] Care Team Providers Care Corn Cooker Name Role Phone Alda Thurman MD Primary Care Provider renee [facility], Pcp Primary Care Provider [facility] Encounter Details Date Type Department Care Team Description 10/04/2018 Hospital Medical Records [address] [place] [address] Nils Duggan IV, MD Social History Tobacco [...] documented as of this encounter Care Teams Corn Cooker Relationship Specialty Start Date End Date Alda Thurman MD PCP - General Internal Medicine 08/14/18 [facility], Pcp PCP - General Internal Medicine 12/05/22 documented as of this encounter
--- OUTSIDE RECORDS SUMMARY | 2024-11-11 15:44 | XMS_ITS | Encounter Summary ---
[facility] Organization [facility] Address [address] [place] [address] Care Team Providers Care Steel Rigger Name Role Phone Alda Thurman MD Primary Care Provider [facility], Pcp Primary Care Provider Unavailabl e Reason for Visit * Reason Onset Date Comments Faxed Refill 03/01/2020 Encounter Details Date Type Department Care Team Description 03/01/2020 Refill Adult Medicine - [facility] [address] [place] [address] Alda Thurman MD Faxed Refill Social History [...] N/A Patients current insurance carrier is: Payor: [facility] / Plan: O $25 [place] 1 / Product Type: HMO [id number] documented in this encounter Plan of Treatment Not on file documented as of this encounter Visit Diagnoses Not on filedocumented in this encounter Additional Health Concerns Infection Onset Date Last Indicated Resolved Time COVID-19 01/17/2022 01/17/2022 documented as of this encounter Care Teams Steel Rigger Relationship Specialty Start Date End Date Alda Thurman MD PCP - General Internal Medicine 08/14/18 [facility], Pcp PCP - General Internal Medicine 12/05/22 documented as of this encounter
--- OUTSIDE RECORDS SUMMARY | 2024-11-11 15:44 | XMS_ITS | Encounter Summary ---
[facility] Address [address] [place] [address] Care Team Providers Care Cancer Program Consultant Name Role Phone Alda Thurman MD Primary Care Provider [facility], Pcp [facility] Reason for Referral * EXTERNAL (Urgent) - Authorized/Booked Specialty Diagnoses / Procedures Referred By Contac t Referred To Contact Internal Medicine / Adult Med Procedures REFERRAL TO ADULT MEDICINE Alda Thurman MD [address] [place] [address] Garry Arnold MD [address] [place] [id number] Referral ID Status Reason Start Date Expiration Date Visits Requested Visits Authorized SEE NOTE Authorized/ Booked Emergency Services 11/21/2018 02/22/2019 1 1 Reason for Visit * Reason Onset Date Comments Heavy Mobile Equipment Operator Feedback 11/21/2018 U/Lauren, Dr Garry Mcguire [facility] Encounter Details Date Type Department Care Team Description 11/21/2018 Telephone Adult Medicine [address] [address] Alda Thurman MD Heavy Mobile Equipment Operator Feedback (U/C, Dr Garry Latif [facility]) Social History Tobacco Use Types Packs/Day Years [...] insurance must be obtained and registered in [facility] or their referral can not be processed. [employer] will not retro referral requests over 90 days. If request is for this please instruct patient to call the 800# on their insurance card to appeal. Do not submit a request. Please tell patient while on the call: [facility] has many new providers and ample appointments available daily for urgent care visits. We are also open every Sunday & Sunday 8:30-5PM in our [place] office for UC visits. Please callour office [...] name of the clinic patient went to? [facility] [place], [place] [phone] FIRST and LAST NAME of provider patient [...] documented as of this encounter Care Teams Cancer Program Consultant Relationship Specialty Start Date End Date Alda Thurman MD PCP - General Internal Medicine 08/14/18 [facility], Pcp PCP - General Internal Medicine 12/05/22 documented as of this encounter
--- OUTSIDE RECORDS SUMMARY | 2024-11-11 15:44 | XMS_ITS ---
Author Organization [facility] Address [address] [place] [address] Care Team Providers Care Design Transferrer Name Role Phone ACE UGALDE Unavailable [phone] VLAD BALL Unavailable [phone] Encounters Encounter Location Date Provider Diagnosis [address] [place] [phone] 06/10/2024 VLAD BALL PLAN OF TREATMENT No Information Progress Notes * Sherie GARCIADOB:[birth year] (54 yo F)Acc No.[id number]:06/10/2024 Patient:??Catie GARCIA Provider:??VLAD BALL PA-C :1970?Age:54 Y?Sex:Fe male Date:06/10/2024 Address:[address] [place], [place] [id number] Subjective: * Chief Complaints: * ? * Medical History:?? Objective: Assessment: Plan: * Treatment: * Images: Billing Information: * Visit Code:?? * Procedure Codes:?? * Sign off status: Pending * Provider:??VLAD BALL PA-C Date:?? 06/10/2024
--- OUTSIDE RECORDS SUMMARY | 2024-11-11 15:44 | XMS_ITS | Encounter Summary ---
Author Organization [facility] Address [address] [place] [address] Care Team Providers Care Automation Tech Name Role Phone Alda Thurman MD Primary Care Provider [facility], Pcp Primary Care Provider [facility] e Encounter Details Date Type Department Care Team Description 12/19/2019 Telephone Adult Medicine - [address] [address] Alda Thurman MD Social History Tobacco Use [...] visit, patient had a stress test at [facility] on 11/04/2019 but the results are not scanned. Can you please obtain records so I can inform patient? THank you documented in this encounter Plan of Treatment Not on file documented as of this encounter Visit Diagnoses Not on filedocumented in this encounter Additional Health Concerns Infection Onset Date Last Indicated Resolved Time COVID-19 01/17/2022 01/17/2022 documented as of this encounter Care Teams Automation Tech Relationship Specialty Start Date End Date Alda Thurman MD PCP - General Internal Medicine 08/14/18 [facility], Pcp PCP - General Internal Medicine 12/05/22 documented as of this encounter
--- OUTSIDE RECORDS SUMMARY | 2024-11-11 15:44 | XMS_ITS | Encounter Summary ---
Author Organization [employer] [facility] Address [address] [place] [address] Care Team Providers Care Ethernet Network Architect Name Role Phone Community, Pcp Primary Care Provider Unavailabl e Encounter Details Date Type Department Care Team Description 03/06/2023 Journalism Teacher Report Medical Records [address] [place] [address] Gilberto Tinajero MD Social History Tobacco Use [...] documented as of this encounter Care Teams Ethernet Network Architect Relationship Specialty Start Date End Date Community, Pcp PCP - General Internal Medicine 12/05/22 documented as of this encounter
--- OUTSIDE RECORDS SUMMARY | 2024-11-11 15:44 | XMS_ITS | Patient Health Record ---
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) Active confirmed 021003698 Problem Anxiety (F41.9) Active confirmed 239077 02 Problem MARY KATE (obstructive sleep apnea) (G47.33) Active confirmed 59101427 Problem Body mass index [BMI] 39.0-39.9, adult (Z68.39) Active confirmed 597131608 Problem BMI 37.0-37.9, adult (Z68.37) Active confirmed 545453470 Problem BMI 33.0-33.9,adult (Z68.33) Active confirmed 142525512 Problem BMI 38.0-38.9,adult (Z68.38) Active confirmed 342676921 Problem Adult-onset obesity (E66.9) Active confirmed 596033380 VITAL SIGNS Heart Rate 80 /min 05/09/2024 Blood pressure diastolic 82 mm Hg 05/09/2024 Oximetry 99 % 05/09/2024 Height 62 in 05/09/2024 Blood pressure systolic 126 mm Hg 05/09/2024 Weight 184 lbs 05/09/2024 BMI 33.65 kg/m2 05/09/2024 Encounters Encounter Location Date Provider Diagnosis [facility] [address] [facility] [address] [address] [facility] [address] [facility] [address] 12/21/[address] [facility] [address] [facility] [address] [facility] [address] 01/02/2024 [facility] [address] 01/17/[address] [facility] [address] [facility] [address] [facility] [address] 02/04/2024 ACE UGALDE Other obesity due to excess calories E66.09 ; BMI 37.0-37.9, adult Z68.37 ; Dietary counseling and surveillance Z71.3 ; Prediabetes R73.03 and MARY KATE (obstructive sleep apnea) G47.33 [address] [facility] [address] [address] 05/19/2024 ACE UGALDE [address] [facility] [address] [place] [address] 06/02/2024 ACE UGALDE [address] [facility] [address] [place] [address] 06/10/2024 VLAD BALL [facility] [address] [address] 07/08/2024 ACE UGALDE [facility] [address] [address] 12/03/2023 ACE UGALDE Other obesity due to excess calories E66.09 ; BMI 37.0-37.9, adult Z68.37 ; Dietary counseling and surveillance Z71.3 ; Prediabetes R73.03 and MARY KATE (obstructive sleep apnea) G47.[address] [facility] [address] [facility] [address] [address] 04/07/2024 ACE UGALDE Other obesity due to excess calories E66.09 ; BMI 33.0-33.9,adult Z68.33 ; Dietary counseling and surveillance Z71.3 ; Prediabetes R73.03 and MARY KATE (obstructive sleep apnea) G47.33 [facility] [address] [address] 05/09/2024 AKIL STARKS Adult-onset obesity E66.9 ; BMI 33.0-33.9,adult Z68.33 ; Prediabetes R73.03 ; Anxiety F41.9 and Nausea R11.0 [facility] [address] [address] 12/20[facility]20[facility] [address] [address] 05/15/2024 [place] [address] [address] 05/16/2024 ACE BLANTONUrszula ASSESSMENTS Encounter Date Diagnosis Assessment Notes Treatment Notes Treatment Clinical Notes Section Notes 12/03/2023 Other obesity due to excess calories (ICD-10 - E66.09) #Weight Management 12/03/2023 scheduled to have left hand CTS surgery, [facility] under local anesthesia, not GENERAL, 01/07/2024 she [...] minimum of 6 months The most recent [place] Association of clinical endocrinologists and [employer] College of endocrinology guidelines recommend patients who [...] track activity level. Consider using apps like [employer] exceShopgateise, myfitnesspal, lose it, stick as needed for self-monitoring and weight management. Consider group exercises. Consider hiring a graduate assistant athletic trainer. Regular exercise is arce to sustainable [...] counseling and psychiatry and Dr Saldana at [email or web address]. We would like to cover regular topics [...] software and direct typing Please excuse inadvertent digital photographic printer or typing errors, or uncorrected word substitutions Although every attempt has been made by the provider to proofread this document, occasional misspellings and typographical errors may still be present Due to the previous pandemic, and the use of personal protective equipment (PPE) This may decrease voice recognition accuracy Inadvertent digital photographic printer errors may occur 12/03/2023 BMI 37.0-37.9, adult (ICD-10 - Z68.37) #Weight Management 12/03/2023 scheduled to have left hand CTS surgery, [facility] under local anesthesia, not GENERAL, 01/07/2024 she [...] minimum of 6 months The most recent [place] Association of clinical endocrinologists and [employer] College of endocrinology guidelines recommend patients who [...] track activity level. Consider using apps like Improveit! 360, myfitFree & Clearpal, lose it, stick as needed for self-monitoring and weight management. Consider group exercises. Consider hiring a graduate assistant athletic trainer. Regular exercise is arce to sustainable [...] counseling and psychiatry and Dr Saldana at [email or web address]. We would like to cover regular topics [...] software and direct typing Please excuse inadvertent digital photographic printer or typing errors, or uncorrected word substitutions Although every attempt has been made by the provider to proofread this document, occasional misspellings and typographical errors may still be present Due to the previous pandemic, and the use of personal protective equipment (PPE) This may decrease voice recognition accuracy Inadvertent digital photographic printer errors may occur 02/04/2024 Other obesity due to excess calories (ICD-10 - E66.09) #Weight Management 02/04/2024 scheduled to have left hand CTS surgery, [facility] under local anesthesia, not GENERAL, 01/07/2024 she [...] minimum of 6 months The most recent [place] Association of clinical endocrinologists and [employer] College of endocrinology guidelines recommend patients who [...] track activity level. Consider using apps like Improve[employer]! 360, [employer]AGS[employer] & Clearpal, lose it, stick as needed for self-monitoring and weight management. Consider group exercises. Consider hiring a graduate assistant athletic trainer. Regular exercise is arce to sustainable [...] counseling and psychiatry and Dr Saldana at [email or web address]. We would like to cover regular topics [...] software and direct typing Please excuse inadvertent digital photographic printer or typing errors, or uncorrected word substitutions Although every attempt has been made by the provider to proofread this document, occasional misspellings and typographical errors may still be present Due to the previous pandemic, and the use of personal protective equipment (PPE) This may decrease voice recognition accuracy Inadvertent digital photographic printer errors may occur 04/07/2024 Other obesity due to excess calories (ICD-10 - E66.09) #Weight Management 04/07/2024 Patient reports intestinal obstruction two weeks ago, treated at [place]. Will obtain ER and admission notes from [place] to verify diagnosis and adjust treatment if [...] minimum of 6 months The most recent [place] Association of clinical endocrinologists and [employer] College of endocrinology guidelines recommend patients who [...] track activity level. Consider using apps like [employer] exceShopgateise, myStarMaker Interactivepal, lose it, stick as needed for self-monitoring and weight management. Consider group exercises. Consider hiring a graduate assistant athletic trainer. Regular exercise is arce to sustainable [...] counseling and psychiatry and Dr Saldana at [email or web address]. We would like to cover regular topics [...] software and direct typing Please excuse inadvertent digital photographic printer or typing errors, or uncorrected word substitutions Although every attempt has been made by the provider to proofread this document, occasional misspellings and typographical errors may still be present Due to the previous pandemic, and the use of personal protective equipment (PPE) This may decrease voice recognition accuracy Inadvertent digital photographic printer errors may occur 04/07/2024 BMI 33.0-33.9,adult (ICD-10 - Z68.33) #Weight Management 04/07/2024 Patient reports intestinal obstruction two weeks ago, treated at [place]. Will obtain ER and admission notes from [place] to verify diagnosis and adjust treatment if [...] minimum of 6 months The most recent [place] Association of clinical endocrinologists and [employer] College of endocrinology guidelines recommend patients who [...] track activity level. Consider using apps like [employer]! 360, myfitnesspal, lose it, stick as needed for self-monitoring and weight management. Consider group exercises. Consider hiring a graduate assistant athletic trainer. Regular exercise is arce to sustainable [...] counseling and psychiatry and Dr Saldana at [email or web address]. We would like to cover regular topics [...] software and direct typing Please excuse inadvertent digital photographic printer or typing errors, or uncorrected word substitutions Although every attempt has been made by the provider to proofread this document, occasional misspellings and typographical errors may still be present Due to the previous pandemic, and the use of personal protective equipment (PPE) This may decrease voice recognition accuracy Inadvertent digital photographic printer errors may occur 05/09/2024 BMI 33.0-33.9,adult (ICD-10 [...] Dictation was accomplished with the use of [email or web address] voice recognition software, which is prone to [...] Dictation was accomplished with the use of [email or web address] voice recognition software, which is prone to [...] Dictation was accomplished with the use of [employer] voice recognition software, which is prone to medical misidentifications and grammatical errors. This are unintentional and the practitioner does try to identify and correct these, but some could still be present. Please do not hesitate to contact practitioner for clarification. 04/07/2024 Dietary counseling and surveillance (ICD-10 - Z71.3) #Weight Management 04/07/2024 Patient reports intestinal obstruction two weeks ago, treated at [place]. Will obtain ER and admission notes from [place] to verify diagnosis and adjust treatment if [...] minimum of 6 months The most recent [place] Association of clinical endocrinologists and [employer] College of endocrinology guidelines recommend patients who [...] track activity level. Consider using apps like [employer], myfitnesspal, lose it, stick as needed for self-monitoring and weight management. Consider group exercises. Consider hiring a graduate assistant athletic trainer. Regular exercise is arce to sustainable [...] counseling and psychiatry and Dr Saldana at [email or web address]. We would like to cover regular topics [...] software and direct typing Please excuse inadvertent digital photographic printer or typing errors, or uncorrected word substitutions Although every attempt has been made by the provider to proofread this document, occasional misspellings and typographical errors may still be present Due to the previous pandemic, and the use of personal protective equipment (PPE) This may decrease voice recognition accuracy Inadvertent digital photographic printer errors may occur 12/03/2023 Dietary counseling and surveillance (ICD-10 - Z71.3) #Weight Management 12/03/2023 scheduled to have left hand CTS surgery, [facility] under local anesthesia, not GENERAL, 01/07/2024 she [...] minimum of 6 months The most recent [place] Association of clinical endocrinologists and [employer] College of endocrinology guidelines recommend patients who [...] track activity level. Consider using apps like Improve[employer]! 360, TrialBeepal, lose it, stick as needed for self-monitoring and weight management. Consider group exercises. Consider hiring a graduate assistant athletic trainer. Regular exercise is arce to sustainable [...] counseling and psychiatry and Dr Saldana at [email or web address]. We would like to cover regular topics [...] software and direct typing Please excuse inadvertent digital photographic printer or typing errors, or uncorrected word substitutions Although every attempt has been made by the provider to proofread this document, occasional misspellings and typographical errors may still be present Due to the previous pandemic, and the use of personal protective equipment (PPE) This may decrease voice recognition accuracy Inadvertent digital photographic printer errors may occur 02/04/2024 BMI 37.0-37.9, adult (ICD-10 - Z68.37) #Weight Management 02/04/2024 scheduled to have left hand CTS surgery, [facility] under local anesthesia, not GENERAL, 01/07/2024 she [...] minimum of 6 months The most recent [place] Association of clinical endocrinologists and [employer] College of endocrinology guidelines recommend patients who [...] track activity level. Consider using apps like Improveit! 360, APERA BAGSfitFree & Clearpal, lose it, stick as needed for self-monitoring and weight management. Consider group exercises. Consider hiring a graduate assistant athletic trainer. Regular exercise is arce to sustainable [...] counseling and psychiatry and Dr Saldana at [email or web address]. We would like to cover regular topics [...] software and direct typing Please excuse inadvertent digital photographic printer or typing errors, or uncorrected word substitutions Although every attempt has been made by the provider to proofread this document, occasional misspellings and typographical errors may still be present Due to the previous pandemic, and the use of personal protective equipment (PPE) This may decrease voice recognition accuracy Inadvertent digital photographic printer errors may occur 12/03/2023 Prediabetes (ICD-10 - R73.03) #Weight Management 12/03/2023 scheduled to have left hand CTS surgery, [facility] under local anesthesia, not GENERAL, 01/07/2024 she would not have to hold this dual incretin Updated hemoglobin A1c in office 5.5, now euglycemic cont 7.5 mg Frankunjacezar Body analysis improvement including [...] minimum of 6 months The most recent [place] Association of clinical endocrinologists and [place] College of endocrinology guidelines recommend patients who [...] and Eat Fat Get Lean by Dr Jhonaatn [place]. Self education is important in the [...] track activity level. Consider using apps like [employer]! 360, TrialBeepal, lose it, stick as needed for self-monitoring and weight management. Consider group exercises. Consider hiring a graduate assistant athletic trainer. Regular exercise is arce to sustainable [...] counseling and psychiatry and Dr Saldana at [email or web address]. We would like to cover regular topics [...] software and direct typing Please excuse inadvertent digital photographic printer or typing errors, or uncorrected word substitutions Although every attempt has been made by the provider to proofread this document, occasional misspellings and typographical errors may still be present Due to the previous pandemic, and the use of personal protective equipment (PPE) This may decrease voice recognition accuracy Inadvertent digital photographic printer errors may occur 04/07/2024 Prediabetes (ICD-10 - R73.03) #Weight Management 04/07/2024 Patient reports intestinal obstruction two weeks ago, treated at [place]. Will obtain ER and admission notes from [place] to verify diagnosis and adjust treatment if [...] minimum of 6 months The most recent [place] Association of clinical endocrinologists and [employer] College of endocrinology guidelines recommend patients who [...] track activity level. Consider using apps like [employer]! 360, myfitnesspal, lose it, stick as needed for self-monitoring and weight management. Consider group exercises. Consider hiring a graduate assistant athletic trainer. Regular exercise is arce to sustainable [...] counseling and psychiatry and Dr Saldana at [email or web address]. We would like to cover regular topics [...] software and direct typing Please excuse inadvertent digital photographic printer or typing errors, or uncorrected word substitutions Although every attempt has been made by the provider to proofread this document, occasional misspellings and typographical errors may still be present Due to the previous pandemic, and the use of personal protective equipment (PPE) This may decrease voice recognition accuracy Inadvertent digital photographic printer errors may occur 02/04/2024 Dietary counseling and surveillance (ICD-10 - Z71.3) #Weight Management 02/04/2024 scheduled to have left hand CTS surgery, [facility] under local anesthesia, not GENERAL, 01/07/2024 she would not have to hold this dual incretin Updated hemoglobin A1c in office 5.5, now euglycemic cont 7.5 mg Frankunjacezar Body analysis improvement including [...] minimum of 6 months The most recent [place] Association of clinical endocrinologists and [employer] College of endocrinology guidelines recommend patients who [...] track activity level. Consider using apps like [employer]! 360, TrialBeepal, lose it, stick as needed for self-monitoring and weight management. Consider group exercises. Consider hiring a graduate assistant athletic trainer. Regular exercise is arce to sustainable [...] counseling and psychiatry and Dr Saldana at [email or web address]. We would like to cover regular topics [...] software and direct typing Please excuse inadvertent digital photographic printer or typing errors, or uncorrected word substitutions Although every attempt has been made by the provider to proofread this document, occasional misspellings and typographical errors may still be present Due to the previous pandemic, and the use of personal protective equipment (PPE) This may decrease voice recognition accuracy Inadvertent digital photographic printer errors may occur 05/09/2024 Anxiety (ICD-10 - [...] Dictation was accomplished with the use of [email or web address] voice recognition software, which is prone to [...] Dictation was accomplished with the use of [employer] voice recognition software, which is prone to medical misidentifications and grammatical errors. This are unintentional and the practitioner does try to identify and correct these, but some could still be present. Please do not hesitate to contact practitioner for clarification. 02/04/2024 Prediabetes (ICD-10 - R73.03) #Weight Management 02/04/2024 scheduled to have left hand CTS surgery, [facility] under local anesthesia, not GENERAL, 01/07/2024 she [...] minimum of 6 months The most recent [place] Association of clinical endocrinologists and [place] College of endocrinology guidelines recommend patients who [...] track activity level. Consider using apps like 7 [employer] excercise, myfitnesspal, lose it, stick as needed for self-monitoring and weight management. Consider group exercises. Consider hiring a graduate assistant athletic trainer. Regular exercise is arce to sustainable [...] counseling and psychiatry and Dr Saldana at [email or web address]. We would like to cover regular topics [...] software and direct typing Please excuse inadvertent digital photographic printer or typing errors, or uncorrected word substitutions Although every attempt has been made by the provider to proofread this document, occasional misspellings and typographical errors may still be present Due to the previous pandemic, and the use of personal protective equipment (PPE) This may decrease voice recognition accuracy Inadvertent digital photographic printer errors may occur 04/07/2024 MARY KATE (obstructive sleep apnea) (ICD-10 - G47.33) #Weight Management 04/07/2024 Patient reports intestinal obstruction two weeks ago, treated at [place]. Will obtain ER and admission notes from [place] to verify diagnosis and adjust treatment if [...] minimum of 6 months The most recent [place] Association of clinical endocrinologists and [employer] College of endocrinology guidelines recommend patients who [...] track activity level. Consider using apps like [employer]! 360, TrialBeepal, lose it, stick as needed for self-monitoring and weight management. Consider group exercises. Consider hiring a graduate assistant athletic trainer. Regular exercise is arce to sustainable [...] counseling and psychiatry and Dr Saldana at [email or web address]. We would like to cover regular topics [...] software and direct typing Please excuse inadvertent digital photographic printer or typing errors, or uncorrected word substitutions Although every attempt has been made by the provider to proofread this document, occasional misspellings and typographical errors may still be present Due to the previous pandemic, and the use of personal protective equipment (PPE) This may decrease voice recognition accuracy Inadvertent digital photographic printer errors may occur 12/03/2023 MARY KATE (obstructive sleep apnea) (ICD-10 - G47.33) #Weight Management 12/03/2023 scheduled to have left hand CTS surgery, [facility] under local anesthesia, not GENERAL, 01/07/2024 she would not have to hold this dual incretin Updated hemoglobin A1c in office 5.5, now euglycemic cont 7.5 mg [place] Body analysis improvement including fat mass Total [...] minimum of 6 months The most recent [place] Association of clinical endocrinologists and [place] College of endocrinology guidelines recommend patients who [...] track activity level. Consider using apps like [employer], myfitFree & Clearpal, lose it, stick as needed for self-monitoring and weight management. Consider group exercises. Consider hiring a graduate assistant athletic trainer. Regular exercise is arce to sustainable [...] counseling and psychiatry and Dr Saldana at [email or web address]. We would like to cover regular topics [...] software and direct typing Please excuse inadvertent digital photographic printer or typing errors, or uncorrected word substitutions Although every attempt has been made by the provider to proofread this document, occasional misspellings and typographical errors may still be present Due to the previous pandemic, and the use of personal protective equipment (PPE) This may decrease voice recognition accuracy Inadvertent digital photographic printer errors may occur 02/04/2024 MARY KATE (obstructive sleep apnea) (ICD-10 - G47.33) #Weight Management 02/04/2024 scheduled to have left hand CTS surgery, [facility] under local anesthesia, not GENERAL, 01/07/2024 she [...] minimum of 6 months The most recent [place] Association of clinical endocrinologists and [employer] College of endocrinology guidelines recommend patients who [...] track activity level. Consider using apps like [employer]! 360, myfitnesspal, lose it, stick as needed for self-monitoring and weight management. Consider group exercises. Consider hiring a graduate assistant athletic trainer. Regular exercise is arce to sustainable [...] counseling and psychiatry and Dr Saldana at [email or web address]. We would like to cover regular topics [...] software and direct typing Please excuse inadvertent digital photographic printer or typing errors, or uncorrected word substitutions Although every attempt has been made by the provider to proofread this document, occasional misspellings and typographical errors may still be present Due to the previous pandemic, and the use of personal protective equipment (PPE) This may decrease voice recognition accuracy Inadvertent digital photographic printer errors may occur PLAN OF TREATMENT Pending [...] [place] [address] [id number] [place] [place] [id number] Sherie Garcia Self - patient is the [...]
--- OUTSIDE RECORDS SUMMARY | 2024-11-11 15:44 | XMS_ITS | Encounter Summary ---
Author Organization [facility] Address [address] [place] [address] Care Team Providers Care Zoology Technical Officer Name Role Phone Community, Pcp Primary Care Provider Unavailabl e Encounter Details Date Type Department Care Team Description 07/03/2023 Transfer Records Medical Records [address] [place] [id number] Abstract, Provider Social History Tobacco Use Types [...] documented as of this encounter Care Teams Zoology Technical Officer Relationship Specialty Start Date End Date Community, Pcp PCP - General Internal Medicine 12/05/22 documented as of this encounter
--- OUTSIDE RECORDS SUMMARY | 2024-11-11 15:44 | XMS_ITS | Clinical Summary ---
Author Organization [facility] Address [address] [place] [address] Care Team Providers Care Fire Department Marine Engineer Name Role Phone Community, Pcp Primary Care Provider Unavailabl e Allergies Active Allergy Reactions Severity Noted Date Comments Lisinopril Cough 04/13/2015 Penicillins Rash/Dermatitis 03/15/2015 Acetaminophen Rash/Dermatitis 03/15/2015 Medications Medication Sig Dispensed Refills Start Date End Date Status ketoconazole (NIZORAL) 2 % shampoo Apply to wet hair, lather, and rinse thoroughly; repeat. Use every 3 to 4 days for up to 8 weeks 500 mL 1 11/16/2021 Active ALBUTEROL SULFATE 108 (90 Base) MCG/ACT Aero Soln Inhale 2 Puffs into the lungs every 4 hours as needed for Cough, Wheezing or Shortness of Breath. 8.5 g 0 05/19/2022 Active gabapentin (NEURONTIN) 100 MG capsule Take 1 Capsule by mouth daily. 0 Active irbesartan (AVAPRO) 75 MG tablet TAKE 1 TABLET BY MOUTH EVERY DAY 90 Tablet 0 12/04/2022 Active famotidine (PEPCID) 20 MG tablet TAKE 1 TABLET BY MOUTH TWICE A DAY NEEDED FOR DYSPEPSIA 0 03/13/2023 Active Zolpidem Tartrate 10 MG Tab TAKE 1 TABLET BY MOUTH EVERY DAY AT BEDTIME NEEDED 0 05/04/2023 Active Mounjaro 2.5 MG/0.5ML Solution Pen-injector INJECT 1 PEN WEEKLY 0 05/31/2023 Active risperidone (RISPERDAL) 0.5 MG tablet TAKE 1 TABLET BY MOUTH AT BEDTIME 0 06/01/2023 Active ibuprofen (ADVIL,MOTRIN) 200 MG tablet TAKE 2 TABLETS BY MOUTH EVERY 6 HOURS NEEDED FOR PAIN 0 04/28/2023 Active hydroquinone 4 % cream APPLY TO DARK SPOTS ON FACE TWICE A DAY X6 MONTHS 0 03/27/2023 Active Active Problems Problem Noted Date Left carpal tunnel syndrome 09/19/2022 Right carpal tunnel syndrome 09/19/2022 COVID-19 virus detected 01/17/2022 Prediabetes 11/22/2021 Obesity (BMI 35.0-39.9 without comorbidi ty) 12/25/2018 Type 2 diabetes mellitus wit hout complication, without long-term current use of insulin 05/01/2018 Gastroesophageal reflux disease 09/06/19 18 Asthma 09/05/2017 Positive PPD 05/02/2017 Overview: [facility] 01/16 - negative QuantiFERON testing Obstructive sleep apnea Moderate overall AHI 25; severe in REM AHI 90 04/24/2016 Overview: Intolerant to CPAP [facility] 06/28/18 - home sleep study ordered, follow-up 3 months Home sleep study 07/11/18 - mild obstructive sleep apnea, auto CPAP 8-16 cm H2O Osteopenia 09/20/2015 Overview: 08/20 - bone density, osteopenia Former smoker 04/14/2015 Migraine 03/15/2015 Hypertension 03/15/2015 Resolved Problems Problem Noted Date Resolved Date Elevated hemoglobin A1c 12/11/2016 05/01/20 18 Morbid obesity with BMI of 40.0-44.9, adult 04/0112/25/2018 Abnormal mammogram 04/01/2015 04/21/2021 Overview: 03/31/15 Probable benign lymph node R breast- follow up recommended 6 months 09/27/15 - mammo repeated 04/16 - normal mammogram Immunizations Name Administration Dates Next Due COVID-19 (Moderna) PT Reported 05/17/2021,2020,07/23/2020 Hepatitis B > 19yrs 05/15/2016,01/12/2016,2015 Influenza (> 6 Months) 04/04/2022,2018,03/02/2017, 016 Influenza Vaccine-preservati ve Free-quadrivalent 4 Years 04/21/2021,03/24/2020 PPD-RBMG 12/24/2015 Pckficw-Jenat-Llkweywe + 03/06/2019 Tdap 04/13/2015 Varicella 03/07/2019 Family History Medical History Relation Name Comments CA Lung Father Diabetes Father HTN CA Breast Mother dx'd age 73 Mental Disorder Mother dx'd age 73 CAD, ulcers Blindness Other great paternal uncle Lupus Sister 1 Depression Sister 2 chronic back pa in No Known Problems Son 1 No Known Problems Son 2 CA Colon Negative Hx CA Ovarian Negative Hx Cataract Negative Hx Glaucoma Negative Hx Macular Degeneration Negative Hx Strabismus Negative Hx Relation Name Status Comments Father Maternal Grandfather Alive Maternal Grandmother Stroke Mother dx'd age 73 Alive Other Paternal Grandfather Paternal Grandmother Stomach Ca Sister 1 Sister 2 Alive Son 1 Alive Healthy Son 2 Alive Healthy Social History Tobacco Use Types Packs/Day Years Used Date Smoking Tobacco: Former Cigarettes 0 07/02/2015 - 06/25/2016 Smokeless Tobacco: Never Tobacco Cessation:Counseling Given: Not Answered Alcohol Use Standard Drinks/Week Comments No 0 (1 standard drink = 0.6 oz pur e alcohol) Sex Assigned at Date Recorded Not on file Job Start Date Occupation Industry Not on file Not on file Not on file Last Filed Vital Signs Vital Sign Reading Time Taken Comments Blood Pressure 126/85 04/15/2024 8:17 AM EDT Pulse 84 04/15/2024 8:17 AM EDT Temperature 36.7 ??C (98 ??F) 04/15/2024 8:17 AM EDT Respiratory Rate 18 10/25/2023 2:46 PM EDT Oxygen Saturation 97% 06/15/2022 8:35 AM EST Inhaled Oxygen Concentration - - Weight 86.6 kg (191 lb) 04/15/2024 8:17 AM EDT Height 157.5 cm (5' 2 ) 04/15/2024 8:17 AM EDT Body Mass Index 34.93 04/15/2024 8:17 AM EDT Plan of Treatment Health Maintenance Due Date Last Done Comments HEPATITIS C SCREENING 1986 PNEUMOCOCCAL VACCINE FOR HIG H RISK PATIENTS (#1) 1987 SHINGLES VACCINE (1 of 2) 2018 DIABETES: ANNUAL FOOT EXAM 08/05/2019 08/05/2018 BASELINE HEALTH EXAM 40-64 08/05/202008/05, 03/26/2017, 04/13/2015 DIABETES: ANNUAL EYE EXAM 03/31/20212019, 12/05/2018, 09/24/2017, Additional history exists DIABETES: BLOOD SUGAR CONTRO L TEST (HGBA1C) 02/16/2022 11/16/2021, 04/21/2021, 09/21/2020, Additional history exists DIABETES/HEART DISEASE: BAMBI CORBETT CHOLESTEROL (LDL) 04/21/2022 04/21/2021, 12/30/2019, 09/13/2019, Additional history exists DIABETES: ANNUAL URINE PROTE IN TEST (MICROALBUMIN) 04/21/2022 04/21/2021, 12/30/2019, 09/13/2019, Additional history exists BONE DENSITY SCREENING 08/26/2023 08/26/2018, 2015 Covid-19 Vaccine (2022- 4 season) 2024 05/17/2021, 08/18/2020, 07/23/2020 BMI CHECK/ADVISE 07/02/2024 04/15/2024, 03/2024, 10/25/2023, Additional history exists MAMMOGRAM 08/15/2024 08/15/2023, 08/02, 07/14/2021, Additional history exists INFLUENZA (Season Ended) 2025 022, 04/21/2021, 03/24/2020, Additional history exists DTAP/TDAP/TD (2 - Td or Tdap) 04/13/2025 04/13/2015 COLON CANCER SCREENING 12/02/2028 12/02/2018 Additional Health Concerns Infection Onset Date Last Indicated COVID-19 01/17/2022 01/17/2022 Care Teams Fire Department Marine Engineer Relationship Specialty Start Date End Date Community, Pcp PCP - General Internal Medicine 12/05/22
--- OUTSIDE RECORDS SUMMARY | 2024-11-11 15:44 | XMS_ITS | Encounter Summary ---
Author Organization [facility] Address [address] [place] [address] Care Team Providers Care Polymer Tester Name Role Phone Alda Thurman MD Primary Care Provider renee [facility], Pcp Primary Care Provider [facility] Encounter Details Date Type Department Care Team Description 12/03/2018 Commercial Internship Report Medical Records [address] [place] [address] Andry Desir Np Social History Tobacco Use Types Packs/Day Years [...] documented as of this encounter Care Teams Polymer Tester Relationship Specialty Start Date End Date Alda Thurman MD PCP - General Internal Medicine 08/14/18 [place], Pcp PCP - General Internal Medicine 12/05/22 documented as of this encounter
--- OUTSIDE RECORDS SUMMARY | 2024-11-11 15:44 | XMS_ITS | Encounter Summary ---
Author Organization [facility] Address [address] [place] [address] Care Team Providers Care Director Global Development Name Role Phone Community, Pcp Primary Care Provider Unavailabl e Encounter Details Date Type Department Care Team Description 01/09/2023 Telephone [facility] [address] [phone] Lea Egan MD [address] [id number] Social History Tobacco Use Types Packs/Day Years [...] Note from Dr Egan be faxed to [phone] Unable to find in [facility] may have been surgery ctr in the past Please obtain from [facility] and scan into chart Thank You documented in this encounter Plan of Treatment Not on file documented as of this encounter Visit Diagnoses Not on filedocumented in this encounter Additional Health Concerns Infection Onset Date Last Indicated Resolved Time COVID-19 01/17/2022 01/17/2022 documented as of this encounter Care Teams Director Global Development Relationship Specialty Start Date End Date Community, Pcp PCP - General Internal Medicine 12/05/22 documented as of this encounter
--- OUTSIDE RECORDS SUMMARY | 2024-11-11 15:44 | XMS_ITS | Encounter Summary ---
Author Organization [facility] Address [address] [place] [address] Care Team Providers Care Grant Administrator Name Role Phone Alda Thurman MD Primary Care Provider [facility], Pcp Primary Care Provider Unavailabl e Reason for Visit * Reason Onset Date Comments Prior Authorization 10/15/2018 Encounter Details Date Type Department Care Team Description 10/15/2018 Telephone Gastroenterology - [address] [place] [address] Karen Ndiaye MD [address] [place] [address] [phone] Prior Authorization Social History Tobacco Use Types [...] * Telephone Encounter - Diane Marquez - 10/16/2018 7:53 AM EDT [employer]- no auth required * Telephone Encounter - María Elena Porter - 10/15/2018 4:21 PM EDT Pre-auth needed Patient is scheduled for an Endoscopy on 12/02/18 Patients insurance: [facility] Appointment is with Adrien Ndiaye MD Code to process pre-auth for: [id number] Location of procedure: [facility] documented in this encounter Plan of Treatment Not on file documented as of this encounter Visit Diagnoses Not on filedocumented in this encounter Additional Health Concerns Infection Onset Date Last Indicated Resolved Time COVID-19 01/17/2022 01/17/2022 documented as of this encounter Care Teams Grant Administrator Relationship Specialty Start Date End Date Alda Thurman MD PCP - General Internal Medicine 08/14/18 [facility], Pcp PCP - General Internal Medicine 12/05/22 documented as of this encounter
== END 2024-11-11 15:17 | disposition home or self-care (01) ==
LOC: HO.HMCH 14:35
PROVIDERS: PCP Internal Medicine; Visit Provider Internal Medicine
DX: I10 Essential (primary) hypertension (principal); F31.30 Bipolar disorder, current episode depressed, mild or moderate severity, unspecified; E66.9 Obesity, unspecified; Z68.35 Body mass index [BMI] 35.0-35.9, adult; J45.20 Mild intermittent asthma, uncomplicated; K21.9 Gastro-esophageal reflux disease without esophagitis; K59.00 Constipation, unspecified; M79.7 Fibromyalgia; G47.00 Insomnia, unspecified; F41.9 Anxiety disorder, unspecified

== ENCOUNTER → 2024-11-11 14:35 | Outpatient (BNVA) | payer OTHER, SELFPAY | PROVIDERS: PCP Internal Medicine; Visit Provider Internal Medicine | DX: Z76.89 Persons encountering health services in other specified circumstances (principal); I10 Essential (primary) hypertension; J45.20 Mild intermittent asthma, uncomplicated; K21.9 Gastro-esophageal reflux disease without esophagitis; K59.00 Constipation, unspecified; M79.7 Fibromyalgia; G47.00 Insomnia, unspecified; F41.9 Anxiety disorder, unspecified; F31.9 Bipolar disorder, unspecified; E66.9 Obesity, unspecified; Z68.35 Body mass index [BMI] 35.0-35.9, adult; Z79.899 Other long term (current) drug therapy | CPT/HCPCS: 96127 ==

== ENCOUNTER 2025-01-06 10:43 | Day surgery (SDC) | payer OTHER, SELFPAY ==
--- OUTSIDE RECORDS SUMMARY | 2024-12-08 10:16 | XMS_ITS ---
Author Organization [facility] [address] Address [address] [place] [address] Care Team Providers Care Correctional Facility Nurse Name Role Phone SAGARACE NICE Unavailable [phone] VLAD BALL Unavailable [phone] Encounters Encounter Location Date Provider Diagnosis [facility] [address] [address] 06/10/2024 VLAD BALL Plan Of Treatment No Information Progress Notes * Sherie GARCIADOB:[birth year] (54 yo F)Acc No.[id number]:06/10/2024 Patient:?Sherie GARCIA Provider:?VLAD BALL PA-C :1970???Age:54 Y???Sex:Female D ate:06/10/2024 Address:[address] [place], [place] [id number] Subjective: * Chief Complaints: * ??? * Medical History:? Objective: * Vitals:? Assessment: Plan: * Treatment: * Images: Billing Information: * Visit Code:? * Procedure Codes:? * Electronic signature of JAMIN BALL PA-C on 12/08/2024 at 10:15 AM EDT Sign off status: Pending * Provider:?VLAD BALL PA-C Date:? Generated for Jolie bocanegra/Caitlyn/eTransmitting on:?12/08/2024 10:15 AM EDT
[2025-01-01 13:27] VITALS: BMI 35.3
--- NOTE | 2025-01-05 09:32 | HO.ANESPROP2 ---
Documented by User: Andria Raymond NP 01/05/25 09:33 HPI - Anesthesia Eval Consult details Narrative: 54yo F for Upper Endoscopy PMFSH Active Problems Active Problems: All Active Problems Bipolar disorder (Acute) Obesity (BMI 30-39.9) (Acute) Constipation (Acute) Essential hypertension (Acute) Obesity (Acute) GERD (gastroesophageal reflux disease) (Acute) Asthma (Acute) Anxiety (Acute) Depression (Acute) Insomnia (Acute) Fibromyalgia (Acute) BMI 36.0-36.9,adult (Acute) QUAN positive (Acute) Carpal tunnel syndrome of right wrist (Acute) Numbness and tingling of right hand (Acute) Extensor carpi ulnaris tendinitis (Acute) Carpal tunnel syndrome of left wrist (Acute) History of carpal tunnel surgery of right wrist (Acute) Instability of shoulder joint (Acute) Bursitis of right shoulder (Acute) Unspecified injury of muscle(s) and tendon(s) of the rotator cuff of right shoulder, initial encounter (Acute) Rotator cuff arthropathy of right shoulder (Acute) Left ankle sprain (Acute) Pre-op evaluation (Acute) History of sleeve gastrectomy (Acute) Past Medical History Medical History Osteopenia Bipolar disorder Obesity (BMI 30-39.9) Constipation Essential hypertension GERD (gastroesophageal reflux disease) Obesity Asthma Anxiety Depression Insomnia Fibromyalgia MARY KATE on CPAP Abnormal ECG Chronic constipation Adjustment disorder, unspecified Diabetes mellitus Family History Family History Mother Diabetes Hypertension Father No problems noted. Sister Lupus (systemic lupus erythematosus) Sister Arthritis Son Diabetes Son Diabetes Surgical History Surgical History History of sleeve gastrectomy Hx of cholecystectomy Hx of carpal tunnel repair Hx of tubal ligation Hx of total hysterectomy Hx of breast surgery Social History Social History Household Members: Children Housing: House Do you presently have visiting nurse or other home services: No Alcohol intake: never Comment: counts correct Patient Tobacco Use Status: Former Tobacco user e-Cigarette/Vaping Use: Never Used Use of substances other than those prescribed or required for medical reasons: No Are you DNR?: No Advance Directives: No Advance Directives Information Provided: Yes service: No Current occupational status: employed 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 Current occupational exposures/hazards: No Cognitive needs: No Hearing needs: No Vision needs: No Meds Allergies Allergy/AdvReac Type Severity Reaction Status Date / Time penicillin G Allergy Severe hives Verified 01/06/25 11:03 lisinopril Allergy Intermediate tingling Verified 01/06/25 11:03 in throat and cough acetaminophen Allergy Mild Hives Verified 01/06/25 11:03 Home Medications ?Medication ?Instructions ?Recorded ?Confirmed ?Last Taken ?Type albuterol sulfate 90 mcg/actuation 2 puff inhalation QID PRN 02/27/24 01/06/25 Unknown History aerosol inhaler Shortness Of Breath Or Wheezing alprazolam 0.5 mg tablet 0.5 mg PO DAILY PRN Anxiety 02/27/24 01/06/25 03/18/24 History diclofenac sodium 1 % topical gel 1 ea topical BID PRN Pain 02/27/24 01/06/25 Unknown History vitamin B complex 1 tab PO DAILY 03/19/24 01/06/25 03/18/24 History famotidine 20 mg tablet (Acid 20 mg PO BID 08/22/24 01/06/25 Unknown History Band Director (famotidine)) gabapentin 300 mg capsule 300 mg PO DAILY 08/22/24 01/06/25 Unknown History docusate sodium 100 mg capsule 100 mg PO BID PRN Constipation 11/11/24 01/06/25 Unknown History (Colace) zolpidem 10 mg tablet 10 mg PO BEDTIME PRN Insomnia 11/11/24 01/06/25 Unknown History Exam Height,Weight and Vital Signs: Height 5 ft 2 in Weight 87.543 kg Assessment and Plan Assessment Anesthesia Assessment: Chart Reviewed Documented by User: Avelina Rouse MD 01/06/25 13:02 [facility] Past Medical History Medical History Osteopenia Bipolar disorder Obesity (BMI 30-39.9) Constipation Essential hypertension GERD (gastroesophageal reflux disease) Obesity Asthma Anxiety Depression Insomnia Fibromyalgia MARY KATE on CPAP Abnormal ECG Chronic constipation Adjustment disorder, unspecified Diabetes mellitus Family History Family History Mother Diabetes Hypertension Father No problems noted. Sister Lupus (systemic lupus erythematosus) Sister Arthritis Son Diabetes Son Diabetes Surgical History Surgical History History of sleeve gastrectomy Hx of cholecystectomy Hx of carpal tunnel repair Hx of tubal ligation Hx of total hysterectomy Hx of breast surgery History of Problems with Anesthesia: No Social History Social History Household Members: Children Housing: House Do you presently have visiting nurse or other home services: No Alcohol intake: never Comment: counts correct Patient Tobacco Use Status: Former Tobacco user e-Cigarette/Vaping Use: Never Used Use of substances other than those prescribed or required for medical reasons: No Are you DNR?: No Advance Directives: No Advance Directives Information Provided: Yes service: No Current occupational status: employed 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 Current occupational exposures/hazards: No Cognitive needs: No Hearing needs: No Vision needs: No Meds Allergies Allergy/AdvReac Type Severity Reaction Status Date / Time penicillin G Allergy Severe hives Verified 01/06/25 11:03 lisinopril Allergy Intermediate tingling Verified 01/06/25 11:03 in throat and cough acetaminophen Allergy Mild Hives Verified 01/06/25 11:03 Home Medications ?Medication ?Instructions ?Recorded ?Confirmed ?Last Taken ?Type albuterol sulfate 90 mcg/actuation 2 puff inhalation QID PRN 02/27/24 01/06/25 Unknown History aerosol inhaler Shortness Of Breath Or Wheezing alprazolam 0.5 mg tablet 0.5 mg PO DAILY PRN Anxiety 02/27/24 01/06/25 03/18/24 History diclofenac sodium 1 % topical gel 1 ea topical BID PRN Pain 02/27/24 01/06/25 Unknown History vitamin B complex 1 tab PO DAILY 03/19/24 01/06/25 03/18/24 History famotidine 20 mg tablet (Acid 20 mg PO BID 08/22/24 01/06/25 Unknown History Band Director (famotidine)) gabapentin 300 mg capsule 300 mg PO DAILY 08/22/24 01/06/25 Unknown History docusate sodium 100 mg capsule 100 mg PO BID PRN Constipation 11/11/24 01/06/25 Unknown History (Colace) zolpidem 10 mg tablet 10 mg PO BEDTIME PRN Insomnia 11/11/24 01/06/25 Unknown History Exam Airway Mallampati Class: III TM Dist: >3cm Neck ROM: Full Loose/Missing/Broken Teeth: No Heart: RRR Lungs: CTA Assessment and Plan Assessment Anesthesia Assessment: Anesthesia Plan Discussed Final Anesthetic Review History of Problems with Anesthesia: No NPO: Yes ASA Class: III Final Preanesthetic Review: Meds/Allgs Chart Reviewed, Consent Obtained/Reviewed and Anes Risks/Benef Reviewed Patient Risk: Intermediate Procedure Risk: Intermediate Anesthetic Plan Anesthetic Plan: MAC: Disposition: Standard PACU
[2025-01-06 11:03] VITALS: BMI 36.5
[2025-01-06 11:10] VITALS: BP 136/79; PULSE 70; RESP 15; TEMP 36.3; O2SAT 98
[2025-01-06] MEDS: Lactated Ringers 1,000 ML 80 ML IVCONT (11:27)
--- NOTE | 2025-01-06 12:51 | MHC.SHP ---
Pre-Procedural Eval Section A - 24 Hr Update-Section A only Date of Service: 01/06/25 The patient is an INPATIENT: No The patient has been examined within 24 hours of the surgical procedure. The History & Physical has been completed within 30 days and I have reviewed it.: Yes Section B - Complete if H&P > 30 days Chief Complaint: Morbid (severe) obesity due to excess calories Details of Present Illness: GERD Relevant Family History (Specify if Yes): No Relevant Social History: None Medical History: No relevant PMH History of Previous Operations: Relevant previous surgery/procedure and date(s) (Laparoscopic sleeve gastrectomy) Allergies: Allergies Allergy/AdvReac Type Severity Reaction Status Date / Time penicillin G Allergy Severe hives Verified 01/06/25 11:03 lisinopril Allergy Intermediate tingling Verified 01/06/25 11:03 in throat and cough acetaminophen Allergy Mild Hives Verified 01/06/25 11:03 Review of Systems Sugical H&P ROS: Negative: Constitution, Cardiovascular, Respiratory, Neurological, Psychiatric, Hem-Onc, Allergic/Immunologic, Gastrointestinal, Genitourinary, Musculoskeletal, Integumentary, Endocrine and Eyes/Ears/Nose/Throat Exam Surgical H&P Exam: Normal: HEENT, Normal: Heart, Normal: Lungs, Normal: Extremities, Normal: Abdomen, Normal: Skin and Normal: Neurological Plan Diagnosis/Plan: Unchanged (EGD to assess etiology of GERD and the sleeve's anatomy. Risks of bleeding and perforation were discussed with the patient and she is in agreement with the plan.) I have reviewed the history and physical and performed a pertinent physical examination on my patient. No changes have occurred unless specified. Time Spent With Patient Time: Total time managing care of this patient today ____ minutes.
--- NOTE | 2025-01-06 12:52 | PM.OP ---
Brief Operative Note Date of Service: 01/06/25 Pre-op diagnosis: GERD, s/p sleeve gastrectomy Post-op diagnosis: same Procedure: PROCEDURE DATE: 01/06/2025 PREOPERATIVE DIAGNOSIS: GERD, s/p sleeve gastrectomy POSTOPERATIVE DIAGNOSIS: ?Same as above. 1) large retained gastric fundus, 2) enlarged sleeve, 3) angulation at the incisura angularis, 4) duodenal polyp PROCEDURE: Goconted-sjxlbd-orkewktrapxx with biopsies Surgeon: ?Griffin Scherer M.D.. Ph.D. Housekeeping Coordinator: None ? Anesthesia: IV sedation Estimated blood loss: ?Minimal FINDINGS AND PROCEDURE: ? OPERATIVE INDICATIONS: ?The patient is a 54 year old female known to me who underwent a laparoscopic sleeve gastrectomy elsewhere. The patient had poor weight loss so far and has been complaining of severe GERD. Based on this information I recommended an upper endoscopy to evaluate the patient's symptoms. Risks and complications of the surgery were discussed with the patient in advance particularly the possibility of perforation or bleeding that may require surgical intervention. The patient understood the risks and was in agreement with the plan. ? PROCEDURE: After informed consent was obtained by the patient, the patient was ?transferred to the Operating Room and was placed in the supine position.? After successful induction of IV sedation, a mouth block was inserted and the patient was placed in the left lateral decubitus position. An upper endoscopy was performed next, the oropharynx and esophagus appeared within the normal limits. There was no hiatal hernia. The z-line was smooth. Two biopsies were obtained from the distal esophagus 2-3 cm proximal to the GE junction and two additional biopsies from the GE junction. The sleeve was entered and it appeared to be enalrged throughout. There was no gastritis. There was no stricture or ulcer but there was significant angulation at the incisura angularis requiring negotiation to advance the scope to the pylorus. Biopsies were obtained from the proximal sleeve as well as the antrum. No significant bleeding was noted from any of the biopsy sites. Due to the size of the sleeve, retroflexion was possible and confirmed the large retained gastric fundus but there was no hernia. The scope was then advanced into the duodenum which showed a small polyp at the 2nd portion which was biopsied. At that point the duodenum ?and the sleeve were decompressed and the scope was withdrawn from the patient's mouth. The patient extubated and was transferred in stable condition to the Recovery Room for further care. I was present and performed all steps of the procedure. There were no residents to assist with this case. Griffin Scherer M.D., Ph.D. Surgeon: Harley Scherer MD Anesthesia: MAC Was an Housekeeping Coordinator used for this Procedure?: No Estimated blood loss (mL): 0 IV fluids (mL): 400 Urine output (mL): 0 (No Buenrostro to record output) Pathology: other (1) antrum x1, 2) proximal sleeve/gastric fundus x1, 3) EGJ x2, 4) distal esophagus x2, 5) duodenal polyp x1) Condition: stable Disposition: PACU
[2025-01-06 13:35] VITALS: BP 124/67; PULSE 80; RESP 18; TEMP 36.1; O2SAT 99
[2025-01-06 13:49] VITALS: BP 129/78; PULSE 72; RESP 18; TEMP 36.2; O2SAT 99
== END 2025-01-06 14:14 | disposition home or self-care (01) ==
PROVIDERS: PCP Internal Medicine; Visit Provider Surgery
PROC: 0DJ08ZZ Inspection of Upper Intestinal Tract, Via Natural or Artificial Opening Endoscopic (ICD-10-PCS; CPT 43235; principal; 2025-01-06 13:00)
DX: K21.9 Gastro-esophageal reflux disease without esophagitis (principal); Z98.84 Bariatric surgery status; K95.89 Other complications of other bariatric procedure; K31.89 Other diseases of stomach and duodenum; K31.7 Polyp of stomach and duodenum; E66.01 Morbid (severe) obesity due to excess calories; Z68.35 Body mass index [BMI] 35.0-35.9, adult; K59.09 Other constipation; E11.9 Type 2 diabetes mellitus without complications; J45.909 Unspecified asthma, uncomplicated; M79.7 Fibromyalgia; G47.33 Obstructive sleep apnea (adult) (pediatric); F32.A Depression, unspecified; F41.9 Anxiety disorder, unspecified; F43.20 Adjustment disorder, unspecified; Z79.899 Other long term (current) drug therapy; Z88.0 Allergy status to penicillin; Z88.8 Allergy status to other drugs, medicaments and biological substances; Z99.89 Dependence on other enabling machines and devices; Z90.49 Acquired absence of other specified parts of digestive tract; Z98.890 Other specified postprocedural states; Z87.891 Personal history of nicotine dependence
CPT/HCPCS: 43239; 88305; 88313; 88342; J2003; J2704

== ENCOUNTER → 2025-01-06 10:43 | Outpatient (BNV) | payer OTHER, SELFPAY | PROVIDERS: PCP Internal Medicine; Visit Provider Surgery | DX: K21.9 Gastro-esophageal reflux disease without esophagitis (principal); K95.89 Other complications of other bariatric procedure; K31.7 Polyp of stomach and duodenum | CPT/HCPCS: 43239 ==

== ENCOUNTER 2025-03-20 14:13 | Outpatient (AMB) | payer OTHER, SELFPAY ==
--- OUTSIDE RECORDS SUMMARY | 2025-03-20 14:17 | XMS_ITS | Clinical Summary ---
Author Organization [address] Address [address] [place] [id number] Phone Care Team Providers Care Refrigerator Cabinetmaker Name Role Phone Cleveland Galan NP Primary Care Provider [phone] Allergies Active Allergy Reactions Criticality Noted Date [...] complication, without long-term current use of insulin ([facility] V24, [facility] V28) 05/01/2018 Asthma 09/05/2017 Gastroesophageal reflux disease 09/05/2017 Positive PPD 05/02/2017 Overview (06/12/2024): [facility] 01/16 - negative QuantiFERON testing Obstructive sleep apnea 04/24/2016 Overview (06/12/2024): Intolerant to CPAP [facility] 06/28/18 - home sleep study ordered, follow-up 3 months Home sleep study 07/11/18 - mild obstructive sleep apnea, auto CPAP 8-16 cm H2O Osteopenia 09/20/2015 Overview (06/12/2024): 08/20 - bone density, osteopenia Hypertension 03/15/2015 Migraine 03/15/2015 Immunizations Name Administration Dates Next Due Hepatitis B (Tjfmulg-H-Eocyq , Recombivax HB-Adult) 19yo and older 05/15/2016,01/12/2016,12/09/2015 [...] GUID; COMMENT: benign BREAST SURGERY Left PROCEDURE: MO UNLISTED PROCEDURE BREAST; COMMENT: exc as teenager benign BREAST SURGERY Right PROCEDURE: MO UNLISTED PROCEDURE BREAST; COMMENT: exc as teenager benign COLONOSCOPY 12/02/2018 PROCEDURE: HISTORICAL COLONOSCOPY; COMMENT: Senthil. Normal. q10 years OTHER SURGICAL HISTORY 10/04/2018 PROCEDURE: ---- OTHER ----; COMMENT: Urban. Sleeve Gastrectomy Medical History Medical History Date Comments Essential hypertension DX:Essent ial hypertension Positive PPD 05/02/2017 DX:Positive PPD Gastroesophageal reflux disease 09/05/2017 DX:Gastroesophageal reflux disease Morbid obesity with BMI of 4 0.0-44.9, adult ([facility] V24, [facility] V28) 04/16/2015 DX:Morbid obesity wit h BMI of 40.0-44.9, adult ([facility]) Abnormal mammogram 04/01/2015 DX:Abnormal m ammogram; COMMENT: 03/31/15 Probable benign lymph node R breast- follow up recommended 6 months 09/27/15 - mammo repeated 04/16 - normal mammogram Asthma 09/05/2017 DX:Asthma Elevated hemoglobin A1c 12/11/2016 DX:[place] hemoglobin A1c Hypertension 03/15/2015 DX:Hypertension Migraine 03/15/2015 DX:Migraine Obstructive sleep apnea 04/24/2016 DX:Obstr uctive sleep apnea; COMMENT: Intolerant to CPAP Osteopenia 09/20/2015 DX:Osteopenia Smoker 04/14/2015 DX:Smoker Type 2 diabetes mellitus wit hout complication, without long-term current use of insulin ([facility] V24, [facility] V28) 05/01/2018 DX:Type 2 diabetes mellitus without complication, without long-term current use of insulin ([facility]) Family History Medical History Relation Name Comments [...] Years (1 of 2 - PCV) 1987 HIV Screening 06/10/2022 Hepatitis C Screening 06/10/2022 Social Influencers of Health Screening 06/10/2022 Diabetes: Blood Sugar Control Test (HGBA1C) 06/16/2022 11/16/2021 Diabetes: Annual Urine Albumin-Creatinine Ratio (uACR) 11/16/2022 11/16/2021 Diabetes: Annual GFR (Glomerular Filtration Rate) 11/16/2022 11/16/2021 Hypertension/CHF/CAD Annual BMP Blood Test 11/16/2022 11/16/2021 Osteoporosis Screening (Bone Density Screening) 08/26/2023 08/26/2018 Depression Screening 07/02/2024 COVID-19 Vaccine ( season) 2025 05/17/2021, 05/17/2021, 08/18/2020, Additional history exists Influenza Vaccine (#1) 2025 , 04/11/2023, 04/07/2022, Additional history exists DTaP,Tdap,and Td Vaccines (2 [...] Zoster Vaccines Completed 03/10/2022, 07/0 07/2021, 03/07/2019 HIB Vaccines Aged Out No longer eligi [...] is recommended in 1 year. Mammo Location: [facility], [address] [place] [address], [phone], . -------- FINAL REPORT -------- Dictated By: Verónica Singletary Dictated Date: 09/06/2024 16:06 ET Assigned Physician: Verónica Singletary Reviewed and Electronically Signed By: Verónica Singletary Signed Date: 09/06/2024 16:30 ET Workstation ID: [id number] Transcribed By: Self Edit Transcribed Date: 09/06/2024 [...] evidence of suspicious mass or architectural distortion. No worrisome calcifications are evident. There has been no significant change from prior exam(s). BREAST DENSITY: B - [...] is recommended in 1 year. Mammo Location: [facility], [address] [place] [address], [id number], . -------- FINAL REPORT -------- Dictated By: Verónica Singletary Dictated Date: 09/06/2024 16:06 ET Assigned Physician: Verónica Singletary Reviewed and Electronically Signed By: Verónica Singletary Signed Date: 09/06/2024 16:30 ET Workstation ID: [id number] Transcribed By: Self Edit Transcribed Date: 09/06/2024 16:06 ET us Alda S [place] MD IMG BI PROCEDURES Final Result * Urine Albumin Creatinine Ratio (11/16/2021) Pathologist [facility] Urine Albumin Creatinine Ratio Abstracted Result [facility] Provider HEALTH MAINTENANCE Final Result * Annual BMP Blood Test (11/16/2021) Pathologist [facility] Annual BMP Blood Test Abstracted Result [facility] HEALTH MAINTENANCE Final Result * Hemoglobin A1c (11/16/2021) [facility] Hemoglobin A1C 0.0 % Blood Venous blood specimen / Unknown Result [facility] Provider LAB BLOOD ORDERABLES Priti l Result * Lipid panel (04/21/2021) [facility] LDL/HDL Ratio 2 0 - 4 Triglycerides 89 0 - 150 mg/dL Cholesterol 146 0 - 200 mg/dL HDL 62 >=40 mg/dL LDL Cholesterol 67 0 - 100 mg/dL Blood Venous blood specimen / Unknown Result [facility] Provider LAB BLOOD ORDERABLES Priti l Result * Colonoscopy (12/02/2018) [facility] Colonoscopy No interpreta tion,abstr acted Anatomical Region Laterality Modality Other Result [facility] Provider [facility] Final Result * DXA BONE DENSITY STUDY 1+ SITS AXIAL SKEL (08/26/2018 1:19 PM EST) Anatomical Region Laterality Modality Bone Densitometr y 08/05/2018 12:1 8 PM EST Narrative 08/26/2018 4:33 PM EST BONE DENSITY Lumbar Spine T-score is -1.4 (SD relative to 20-29 y/o adult) Z-score is -0.7 (SD relative to age matched peers) This is consistent with osteopenia by criteria defined by the WHO. Left Hip T-score is -0.8 Z-score is -0.3 This is normal by criteria defined by the WHO. Comparison exam(s): significant increase in bone density of hip and lumbar spine when compared to most recent bone density examination Confidence level is +/-95%. Impression: Based on the World Health Organization criteria, Sherie Michelle should be classified as having osteopenia. This patient has a 1.8% risk of major osteoporotic fracture and a 0.1% risk of hip fracture over the next 10 years. (World Health Organization Fracture Risk Assessment) [facility] [facility] Department of Internal Medicine recommends using National [...] on the World Health Organization criteria, Sherie Michelleshould be classified as having osteopenia. This patient has a 1.8% risk ofmajor osteoporotic fracture and a 0.1% risk of hip fracture over the next10 years. (World Health Organization Fracture Risk Assessment) [facility] [employer] [facility] Department of Internal Medicine recommendsusing National Osteoporosis [...] fracture risk by FRAX. Raji Wallace MD [facility] DXA PROCEDURES Final Resul t from Last 3 Months or Most Recently Relevant to Health Maintenance Insurance [employer] [facility] Care Teams Refrigerator Cabinetmaker Relationship Specialty Start Date End Date Cleveland Galan NP [address] [facility] [address] [place], [place] PCP - General Nurse Practitioner 09/04/24
[2025-03-20 14:22] VITALS: BP 116/80; PULSE 91; O2SAT 97; BMI 36.4
--- NOTE | 2025-03-20 14:22 | A.OFFPC_ITS ---
Vital Signs 03/20/25 14:22 Height 5 ft 2 in Weight 199 lb 2 oz BMI 36.4 BP 116/80 Blood Pressure Location Lt brachial Position Sitting Pulse 91 Pulse Source Pulse Oximeter Pulse Oximetry (%) 97 Oxygen Delivery Method Room Air Intake Visit Reasons: 4 months Redevelopment Specialist Required: No Accompanied by: Self / Same As Patient Allergies penicillin G Allergy (Severe, Verified 03/20/25 14:44) hives lisinopril Allergy (Intermediate, Verified 03/20/25 14:44) tingling in throat and cough acetaminophen Allergy (Mild, Verified 03/20/25 14:44) Hives Medication List - Last Reconciled 03/20/25 by Abhay العراقي MD albuterol sulfate 90 mcg/actuation 2 puffs inhalation QID PRN alprazolam 0.5 mg PO DAILY PRN diclofenac sodium 1% 1 ea topical BID PRN docusate sodium (Colace) 100 mg PO BID PRN famotidine (Acid Derrick Engineer (famotidine)) 20 mg PO BID gabapentin 300 mg PO DAILY irbesartan 75 mg PO DAILY 90 days vitamin B complex 1 tab PO DAILY zolpidem 10 mg PO BEDTIME PRN Tobacco use date assessed: 03/20/25 Dental Screening Dental Screen Date: 03/20/25 Did you have a dental visit in the last 12 months?: Yes Did you have a dental problem in the last 6 months where you did not have access to dental care?: No Was dental information given to patient?: Patient has dentist HPI 4 months HPI Details Patient comes in today for her follow up visit States that she is still experiencing on and off diffuse aches and pains due to her fibromyalgia but otherwise feels okay She denies any headaches or dizziness Denies any chest pains, no SOB No nausea/vomiting, no abdominal pain No change in bowel habits noted Needs her Irbesartan Rx refilled today She was not able to get her follow up labs done yet as she has been dealing with a family situation and is flying out to [place] again next week States that she will try to get labs done Sunday before she heads out [facility] Medical History Osteopenia Bipolar disorder Obesity (BMI 30-39.9) Constipation Essential hypertension GERD (gastroesophageal reflux disease) Obesity Asthma Anxiety Depression Insomnia Fibromyalgia MARY KATE on CPAP Abnormal ECG Chronic constipation Adjustment disorder, unspecified Diabetes mellitus Surgical History History of sleeve gastrectomy Hx of cholecystectomy Hx of carpal tunnel repair Hx of tubal ligation Hx of total hysterectomy Hx of breast surgery Family History Mother Diabetes Hypertension Father No problems noted. 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 Current occupational exposures/hazards: No Cognitive needs: No Hearing needs: No Vision needs: No Questionnaire Thrive Questionnaire Date Thrive assessed: 11/11/24 I am a: Patient What is your living situation today?: I have a steady place to live Within the past 12 months, did the food you bought not last and you didn't have the money to get more?: Never true Within the past 12 months, did you worry whether your food would run out before you got money to buy more?: Never true Do you have trouble paying for medicines?: No Do you have trouble getting transportation to medical appointments?: No Do you have trouble paying your heating and electricity bill?: No Do you have trouble taking care of your child, family member or friend?: No Do you have trouble with day-to-day activities such as bathing, preparing meals, shopping, managing finances, etc.?: No Are you currently unemployed and looking for a job?: No Are you interested in more education?: No Please select the resources that you would like help with: None Currently or been in a relationship where the following occur: No concerns reported THRIVE Score: 0 AUDIT C Alcohol Use Questionnaire (AUDIT-C) 1. How often do you have a drink containing alcohol?: Never 3. How often do you have six or more drinks on one occasion?: Never Total Score: 0 Score Reviewed/Action Taken: Yes KELLY-7 AMB Questionnaire KELLY-7 Date KELLY - 7 assessed: 11/11/24 Source: Developed by Drs. Yunior Amaro, Joan Fragoso, Mark Anthony Toussaint and colleagues, with an educational margarito from [employer]. Review of Systems Const Denies chills, Denies fatigue, Denies fever(s) and Denies headache(s) ENT Denies dysphagia, Denies dizziness, Denies otalgia, Denies headache(s), Denies neck pain, Denies odynophagia and Denies sore throat Card Denies chest pain, Denies rapid heart rate, Denies irregular heart rhythm, Denies palpitations and Denies dyspnea Resp Denies chest congestion, Denies cough and Denies dyspnea GI Denies abdominal pain, Denies constipation, Denies dysphagia, Denies heartburn, Denies diarrhea, Denies nausea, Denies odynophagia and Denies vomiting Denies difficulty voiding, Denies nocturia, Denies dysuria and Denies urinary urgency Musc Denies back pain, Reports myalgias (diffuse), Reports arthralgias (on and off over multiple joints), Denies joint swelling and Denies neck pain Skin/Breast Denies rash Neuro Denies dizziness, Denies headache(s) and Denies paresthesias Psych Reports anxiety and Reports depression Endo Denies fatigue and Denies palpitations Amado/Lymph Denies easy bruising Physical exam (Primary Care) Vital Signs: Last Vital Signs Pulse 91 03/20/25 14:22 BP 116/80 03/20/25 14:22 Pulse Ox 97 03/20/25 14:22 Oxygen Delivery Method Room Air 03/20/25 14:22 BMI result Body Mass Index 36.4 Tobacco/Smoking Status: Tobacco use Status Tobacco use date assessed 03/20/25 03/20/25 14:25 Patient Tobacco Use Status Former Tobacco user 03/20/25 14:25 e-Cigarette/Vaping Use Never Used 03/20/25 14:25 Thrive Assessment: Date of Thrive Assessment Date Thrive assessed 11/11/24 03/20/25 14:25 Currently or been in a relationship where the following occur: No concerns reported Const General: no acute distress and alert HENMT Ears: TM's normal bilaterally and EAC's normal Throat: Yes posterior oropharynx normal and Yes tonsils normal (no TP congestion) Neck Neck: Yes supple and No lymphadenopathy Thyroid: Thyroid normal Resp Auscultation: clear to auscultation bilaterally, no rales and no wheezes Cardio Rate: regular rate Rhythm: regular rhythm Heart sounds: no murmurs GI Palpation (GI): Soft to palpation and nontender Auscultation: normal bowel sounds General: Yes no CVA tenderness Back/Spine/Pelvis Back: no CVA tenderness Thoracic/Lumbar Spine: No lumbar spinal tenderness Skin Rashes: no rashes Extrem General: Yes no clubbing, cyanosis or edema Coding Level of Care Code Est Pt Level 4 (43406) Diagnoses Essential hypertension I10 Mild intermittent asthma without complication J45.20 Asthma complication type: uncomplicated Asthma persistence: intermittent Asthma severity: mild Gastroesophageal reflux disease, unspecified whether esophagitis present K21.9 Esophagitis presence: esophagitis presence not specified Constipation, unspecified constipation type K59.00 Constipation type: unspecified constipation type Fibromyalgia M79.7 Insomnia, unspecified type G47.00 Insomnia type: unspecified Anxiety F41.9 Bipolar affective disorder, current episode depressed, current episode severity unspecified F31.30 Active/Remission status: currently active Current bipolar episode type: depressed Current episode severity: unspecified Obesity (BMI 30-39.9) E66.9 Assessment & Plan Assessment & Plan (1) Essential hypertension: Code(s): I10 - Essential (primary) hypertension Category: Medical Plan: Reinforced low sodium diet - goal is systolic BP of 120 mm or less Continue Irbesartan 75 mg QD - Rx refilled Patient is reminded to continue monitoring her blood pressure regularly She was not able to get her labs done prior to coming in today due to some pressing family issues - states that she will try to get this done sometime early next week before heading back down to [place] for these family issues (2) Asthma: Code(s): J45.909 - Unspecified asthma, uncomplicated Category: Medical Qualifiers: Asthma complication type: uncomplicated Asthma persistence: intermittent Asthma severity: mild Qualified Code(s): J45.20 - Mild intermittent asthma, uncomplicated Plan: Controlled Continue Albuterol HFA 1 to 2 inhalations Q 6 hours PRN (3) GERD (gastroesophageal reflux disease): Code(s): K21.9 - Gastro-esophageal reflux disease without esophagitis Category: Medical Qualifiers: Esophagitis presence: esophagitis presence not specified Qualified Code(s): K21.9 - Gastro-esophageal reflux disease without esophagitis Plan: Dietary restrictions reinforced Continue Famotidine 20 mg BID PRN (4) Constipation: Code(s): K59.00 - Constipation, unspecified Category: Medical Qualifiers: Constipation type: unspecified constipation type Qualified Code(s): K59.00 - Constipation, unspecified Plan: Patient is encouraged again on increased oral fluids and dietary fiber intake to help better manage her symptoms of constipation Continue Colace 100 mg BID PRN (5) Fibromyalgia: Code(s): M79.7 - Fibromyalgia Category: Medical Plan: Patient is encouraged again also on regular exercise and increased physical activity as much as she can to help manage her fibromyalgia symptoms better Continue Gabapentin 300 mg QD, Baclofen 5 mg BID PRN and Diclofenac sodium 1% to apply topically to affected areas/joints BID PRN for symptomatic relief (6) Insomnia: Code(s): G47.00 - Insomnia, unspecified Category: Medical Qualifiers: Insomnia type: unspecified Qualified Code(s): G47.00 - Insomnia, unspecified Plan: Sleep hygiene reinforced Continue Zolpidem 10 mg Q HS PRN (7) Anxiety: Code(s): F41.9 - Anxiety disorder, unspecified Category: Medical Plan: Continue Alprazolam 0.5 mg QD PRN Follow up with psychiatry as scheduled (8) Bipolar disorder: Code(s): F31.9 - Bipolar disorder, unspecified Category: Medical Qualifiers: Active/Remission status: currently active Current bipolar episode type: depressed Current episode severity: unspecified Qualified Code(s): F31.30 - Bipolar disorder, current episode depressed, mild or moderate severity, unspecified Plan: Patient used to take Mirtazapine and Risperidone but have apparently stopped taking these recently Follow up with psychiatry (Dr. Mcallister in [place]) as scheduled (9) Obesity (BMI 30-39.9): Code(s): E66.9 - Obesity, unspecified Category: Medical Plan: S/P sleeve gastrectomy at [facility] about 6 to 7 years ago Reinforced activity and weight-lifting restrictions Plan Follow up in 4 months Medications: Refilled irbesartan 75 mg PO DAILY 90 tabs 1RF 90 days
== END 2025-03-20 14:51 | disposition home or self-care (01) ==
LOC: HO.HMCH 14:14
PROVIDERS: PCP Internal Medicine; Visit Provider Internal Medicine
DX: I10 Essential (primary) hypertension (principal); F31.30 Bipolar disorder, current episode depressed, mild or moderate severity, unspecified; E66.9 Obesity, unspecified; Z68.36 Body mass index [BMI] 36.0-36.9, adult; J45.20 Mild intermittent asthma, uncomplicated; K21.9 Gastro-esophageal reflux disease without esophagitis; K59.00 Constipation, unspecified; M79.7 Fibromyalgia; G47.00 Insomnia, unspecified; F41.9 Anxiety disorder, unspecified

== ENCOUNTER 2025-03-23 06:09 | Outpatient (REF) | payer SELFPAY ==
--- OUTSIDE RECORDS SUMMARY | 2024-05-19 10:00 | XMS_ITS ---
Author Organization [facility] [address] Address [address] [place] [address] Care Team Providers Care Flap Presser Name Role Phone ACE UGALDE Unavailable [phone] REASON FOR VISIT Pt received Tirzepatide 2.5mg on LLQ sub q, pt tolerated well with no reaction. Encounters Encounter Location Date Provider Diagnosis [facility] [phone] [phone] 05/19/2024 ACE UGLADE Plan Of Treatment No Information Medications Administered Medication Instructions Date of Administration Dosage Notes Tirzepatide 05/19/2024 2.5 mg Progress Notes * Sherie GARCIADOB:[birth year] (54 yo F)Acc No.[id number]:05/19/2024 Patient: Yg Sherie KEEN Provider: Karen UGALDE NP :1970 A ge:53 Y S ex:Female Date:05/19/2024 Address:[address] [place] [address] Subjective: * Chief Complaints: * 1 . Pt received Tirzepatide 2.5mg on LLQ sub q, pt tolerated well with no reaction.. * Medical History: Objective: * Vitals: Assessment: Plan: * Treatment: * Therapeutic Injections: Tirzepatide : 2.5 mg (Route: Subcutaneous) given by Elaine Mendieta on subcutaneus * Images: Billing Information: * Visit Code: * Procedure Codes: * Electronic signature of NAHUN UGALDE on 03/23/2025 at 06:13 AM EDT Sign off status: Pending * Provider: Karen UGALDE NP Date: 07/19/2023 Generated for Jolie bocanegra/Caitlyn/Karen on: 03/23/2025 06:13 AM EDT
--- OUTSIDE RECORDS SUMMARY | 2024-06-02 04:15 | XMS_ITS ---
Author Organization [facility] [address] Address [address] [place] [address] Care Team Providers Care [employer] Police Officer Name Role Phone ACE UGALDE Unavailable [phone] REASON FOR VISIT Pt here for Tirzepatide 2.5mg on LLQ sub q, pt tolerated well with no reaction. Encounters Encounter Location Date Provider Diagnosis [facility] [address] [phone] 06/02/2024 ACE UGALDE Plan Of Treatment No Information Medications Administered Medication Instructions Date of Administration Dosage Notes Tirzepatide 06/02/2024 Progress Notes * Sherie GARCIADOB:[birth year] (54 yo F)Acc No.[id number]:06/02/2024 Patient: Yg Sherie KEEN Provider: Karen UGALDE NP :1970 A ge:53 Y S ex:Female Date:06/02/2024 Address:[address] [place] [address] Subjective: * Chief Complaints: * 1 . Pt here for Tirzepatide 2.5mg on LLQ sub q, pt tolerated well with no reaction.. * Medical History: Objective: * Vitals: Assessment: Plan: * Treatment: * Therapeutic Injections: Tirzepatide (Route: Subcutaneous) given by Elaine Mendieta on subcutaneus * Images: Billing Information: * Visit Code: * Procedure Codes: * Electronic signature of NAHUN UGALDE on 03/23/2025 at 06:14 AM EDT Sign off status: Pending * Provider: Karen UGALDE NP Date: 08/03/2023 Generated for Jolie bocanegra/Caitlyn/Karen on: 0 03/23/2025 06:14 AM EDT
--- OUTSIDE RECORDS SUMMARY | 2024-06-10 05:15 | XMS_ITS ---
Author Organization [facility] [address] Address [address] [place] [address] Care Team Providers Care Manager Marketing Name Role Phone ACE UGALDE Unavailable [phone] VLAD BALL Unavailable [phone] Encounters Encounter Location Date Provider Diagnosis [facility] [address] [address] 06/10/2024 VLAD BALL Plan Of Treatment No Information Progress Notes * Sherie GARCIADOB:[birth year] (54 yo F)Acc No.[id number]:06/10/2024 Patient: Marcellus CLINTONia Provider: Lauren BALL PA-C :1970 A ge:54 Y S ex:Female Date:06/10/2024 Address:[address] [place], [place] [id number] Subjective: * Chief Complaints: * * Medical History: Objective: * Vitals: Assessment: Plan: * Treatment: * Images: Billing Information: * Visit Code: * Procedure Codes: * Electronic signature of JAMIN BALL PA-C on 03/23/2025 at 06:13 AM EDT Sign off status: Pending * Provider: Lauren BALL PA-C Date: 1 08/11/2023 Generated for Printi ng/Faxing/eTransmitting on: 0 03/23/2025 06:13 AM EDT
--- OUTSIDE RECORDS SUMMARY | 2024-07-08 05:45 | XMS_ITS ---
Author Organization [facility] [address] Address [address] [place] [address] Care Team Providers Care Corporate Development Officer Name Role Phone ACE UGALDE Unavailable [phone] Encounters Encounter Location Date Provider Diagnosis [facility] [address] [address] 07/08/2024 ACE UGALDE Plan Of Treatment No Information Progress Notes * Sherie GARCIADOB:[birth year] (54 yo F)Acc No.[id number]:07/08/2024 Patient: Yg SHER PAT Sherie Provider: Karen UGALDE NP :1970 A ge:54 Y S ex:Female Date:07/08/2024 Address:[address] [place], [place] [id number] Subjective: * Chief Complaints: * * Medical History: Objective: * Vitals: Assessment: Plan: * Treatment: * Images: Billing Information: * Visit Code: * Procedure Codes: * Electronic signature of NAHUN UGALDE on 03/23/2025 at 06:14 AM EDT Sign off status: Pending * Provider: Karen UGALDE NP Date: 07/08/2024 Generated for Printi ng/Fadelmisg/eTransmitting on: 0 03/23/2025 06:14 AM EDT
--- OUTSIDE RECORDS SUMMARY | 2025-03-23 06:14 | XMS_ITS | Patient Health Record ---
Author Organization [facility] [address] Address [address] [place] [address] Care Team Providers Care Wringer And Setter Name Role Phone ACE UGALDE Unavailable [phone] VLAD BALL Unavailable [phone] AKIL STARKS Unavailable [phone] Allergies Allergen (clinical drug ingredient) Drug/Non Drug Allergy documented on EMR Reaction Allergy Type Onset Date Status lisinopril Lisinopril Dry cough Drug Allergy Activ e acetaminophen Tylenol hives Drug Allergy Act sary Penicillin hives Drug Allergy Active Reason For Referral No Information Medications Medication SIG (Take, Route, Frequency, Duration) Notes Start Date End Date Status Mounjaro 2.5 MG/0.5ML 2.5mg Subcutaneous weekly; Duration: 30 days Not-Taking Ondansetron 4 MG 1 tablet on the tong ue and allow to dissolve prn nausea/vomiting Orally Once a day; Duration: 30 days 09/28/2023 Active Zepbound 10 MG/0.5ML 10mg Subcutaneous w eekly; Duration: 30 days 05/15/2024 Active Mounjaro 10 MG/0.5ML Inject 10 mg (0.5 m L) Subcutaneous once weekly; Duration: 28 days Active ALPRAZolam 0.5 MG 1 tablet Orally Twice a day As needed anxiety Active Irbesartan 75 MG 2 tablets Orally Onc e a day Active risperiDONE 0.5 MG 1 tablet on the tongue and allow to dissolve Orally Once daily at night time For anxiety and intrusive thoughts Active Mounjaro 5 MG/0.5ML 5mg Subcutaneous wee lizbeth; Duration: 30 days 06/18/2023 Not-Taking Problems Problem Type SNOMED Code ICD Code Onset Dates Problem Status W/U Status Risk Notes Problem Vitamin D deficiency (88961591) Vitamin D deficiency, unspecified (E55.9) Active confirmed Problem Obesity due to excess calories (587373870) Other obesity due to excess calories (E66.09) Active confirmed Problem Anxiety (64681437) Anxiety (F41.9) Active confirmed Problem Obstructive sleep apnea syndrome (05540970) MARY KATE (obstructive sleep apnea) (G47.33) Active confirmed Problem Body mass index 35.00 to 39.99 (852824532427079 ) Body mass index [BMI] 39.0-39.9, adult (Z68.39) Active confirmed Problem Obese class II (124962440007699 ) BMI 37.0-37.9, adult (Z68.37) Active confirmed Problem Obese class I (630152732136671 ) BMI 33.0-33.9,adult (Z68.33) Active confirmed Problem Obese class II (774664806097809 ) BMI 38.0-38.9,adult (Z68.38) Active confirmed Problem Adult-onset obesity (852102865) Adult-onset obesity (E66.9) Active confirmed Vital Signs Heart Rate 80 /min 05/09/2024 Oximetry 99 % 05/09/2024 Blood pressure diastolic 82 mm Hg 05/09/2024 Height 62 in 05/09/2024 Blood pressure systolic 126 mm Hg 05/09/2024 Weight 184 lbs 05/09/2024 BMI 33.65 kg/m2 05/09/2024 Encounters Encounter Location Date Provider Diagnosis [facility] [address] [facility] [address] [place] [address] 05/19/2024 ACE UGALDE [facility] [address] [facility] [address] [place] [address] 04/07/2024 ACE UGALDE Other obesity due to excess calories E66.09 ; BMI 33.0-33.9,adult Z68.33 ; Dietary counseling and surveillance Z71.3 ; Prediabetes R73.03 and MARY KATE (obstructive sleep apnea) G47.33 [facility] [address] [facility] [address] [place], [place] 05/09/2024 AKIL STARKS Adult-onset obesity E66.9 ; BMI 33.0-33.9,adult Z68.33 ; Prediabetes R73.03 ; Anxiety F41.9 and Nausea R11.0 [facility] [address] 05/15/2024 ACE TRAM [facility] [address] 05/16/2024 ACE UGALDE Assessments Encounter Date Diagnosis (ICD Code) Assessment Notes Treatment Notes Treatment Clinical Notes Section Notes 05/09/2024 BMI 33.0-33.9,adult (ICD-10 - Z68.33) Patient [...] Dictation was accomplished with the use of [employer] voice recognition software, which is prone to [...] Dictation was accomplished with the use of [employer] voice recognition software, which is prone to medical misidentifications and grammatical errors. This are unintentional and the practitioner does try to identify and correct these, but some could still be present. Please do not hesitate to contact practitioner for clarification. 04/07/2024 Other obesity due to excess calories (ICD-10 - E66.09) #Weight Management 04/07/2024 Patient reports intestinal obstruction two weeks ago, treated at [facility]. Will obtain ER and admission notes from [facility] to verify diagnosis and adjust treatment if [...] minimum of 6 months The most recent [place] Association of clinical endocrinologists and [place] College of endocrinology guidelines recommend patients who [...] track activity level. Consider using apps like [employer], [facility], lose it, stick as needed for self-monitoring and weight management. Consider group exercises. Consider hiring a personal injury specialist. Regular exercise is arce to sustainable health [...] counseling and psychiatry and Dr Saldana at [facility]. We would like to cover regular topics [...] software and direct typing Please excuse inadvertent guest services manager or typing errors, or uncorrected word substitutions Although every attempt has been made by the provider to proofread this document, occasional misspellings and typographical errors may still be present Due to the previous pandemic, and the use of personal protective equipment (PPE) This may decrease voice recognition accuracy Inadvertent guest services manager errors may occur 04/07/2024 BMI 33.0-33.9,adult (ICD-10 - Z68.33) #Weight Management 04/07/2024 Patient reports intestinal obstruction two weeks ago, treated at [facility]. Will obtain ER and admission notes from [facility] to verify diagnosis and adjust treatment if [...] minimum of 6 months The most recent [place] Association of clinical endocrinologists and [place] College of endocrinology guidelines recommend patients who [...] track activity level. Consider using apps like [employer], [facility], lose it, stick as needed for self-monitoring and weight management. Consider group exercises. Consider hiring a personal injury specialist. Regular exercise is arce to sustainable health [...] counseling and psychiatry and Dr Saldana at [facility]. We would like to cover regular topics [...] software and direct typing Please excuse inadvertent guest services manager or typing errors, or uncorrected word substitutions Although every attempt has been made by the provider to proofread this document, occasional misspellings and typographical errors may still be present Due to the previous pandemic, and the use of personal protective equipment (PPE) This may decrease voice recognition accuracy Inadvertent guest services manager errors may occur 05/09/2024 Prediabetes (ICD-10 - R73.03) Patient is [...] Dictation was accomplished with the use of [employer] voice recognition software, which is prone to medical misidentifications and grammatical errors. This are unintentional and the practitioner does try to identify and correct these, but some could still be present. Please do not hesitate to contact practitioner for clarification. 04/07/2024 Dietary counseling and surveillance (ICD-10 - Z71.3) #Weight Management 04/07/2024 Patient reports intestinal obstruction two weeks ago, treated at [facility]. Will obtain ER and admission notes from [facility] to verify diagnosis and adjust treatment if [...] minimum of 6 months The most recent [place] Association of clinical endocrinologists and [place] College of endocrinology guidelines recommend patients who [...] track activity level. Consider using apps like [employer], [facility], lose it, stick as needed for self-monitoring and weight management. Consider group exercises. Consider hiring a personal injury specialist. Regular exercise is arce to sustainable health [...] counseling and psychiatry and Dr Saldana at [facility]. We would like to cover regular topics [...] software and direct typing Please excuse inadvertent guest services manager or typing errors, or uncorrected word substitutions Although every attempt has been made by the provider to proofread this document, occasional misspellings and typographical errors may still be present Due to the previous pandemic, and the use of personal protective equipment (PPE) This may decrease voice recognition accuracy Inadvertent guest services manager errors may occur 04/07/2024 Prediabetes (ICD-10 - R73.03) #Weight Management 04/07/2024 Patient reports intestinal obstruction two weeks ago, treated at [facility]. Will obtain ER and admission notes from [facility] to verify diagnosis and adjust treatment if [...] minimum of 6 months The most recent [place] Association of clinical endocrinologists and [place] College of endocrinology guidelines recommend patients who [...] track activity level. Consider using apps like [employer], [employer], lose it, stick as needed for self-monitoring and weight management. Consider group exercises. Consider hiring a personal injury specialist. Regular exercise is arce to sustainable health [...] counseling and psychiatry and Dr Saldana at [facility]. We would like to cover regular topics [...] software and direct typing Please excuse inadvertent guest services manager or typing errors, or uncorrected word substitutions Although every attempt has been made by the provider to proofread this document, occasional misspellings and typographical errors may still be present Due to the previous pandemic, and the use of personal protective equipment (PPE) This may decrease voice recognition accuracy Inadvertent guest services manager errors may occur 05/09/2024 Anxiety (ICD-10 - [...] Dictation was accomplished with the use of [employer] voice recognition software, which is prone to [...] Dictation was accomplished with the use of [employer] voice recognition software, which is prone to medical misidentifications and grammatical errors. This are unintentional and the practitioner does try to identify and correct these, but some could still be present. Please do not hesitate to contact practitioner for clarification. 04/07/2024 MARY KATE (obstructive sleep apnea) (ICD-10 - G47.33) #Weight Management 04/07/2024 Patient reports intestinal obstruction two weeks ago, treated at [facility]. Will obtain ER and admission notes from [facility] to verify diagnosis and adjust treatment if [...] minimum of 6 months The most recent [place] Association of clinical endocrinologists and [place] College of endocrinology guidelines recommend patients who [...] track activity level. Consider using apps like [employer], [employer], lose it, stick as needed for self-monitoring and weight management. Consider group exercises. Consider hiring a personal injury specialist. Regular exercise is arce to sustainable health [...] counseling and psychiatry and Dr Saldana at [facility]. We would like to cover regular topics [...] software and direct typing Please excuse inadvertent guest services manager or typing errors, or uncorrected word substitutions Although every attempt has been made by the provider to proofread this document, occasional misspellings and typographical errors may still be present Due to the previous pandemic, and the use of personal protective equipment (PPE) This may decrease voice recognition accuracy Inadvertent guest services manager errors may occur Plan Of Treatment Pending Test Test Name Order Date CBC (COMPLETE BLOOD COUNT) WITH DIFF 12/2023 COMPREHENSIVE METABOLIC PANEL 04/07/2024 HEMOGLOBIN A1C 04/07/2024 LIPID PANEL 04/07/2024 TSH 04/07/2024 URINALYSIS, COMPLETE 04/07/2024 VITAMIN D, 1,25 DIHYDROXY LC/MS/MS 04/07 Insurance Providers Payer Name Payer Address Payer Phone Subscriber Number Group Number Insured Name Patient Relationship to Insured Coverage Start Date Coverage End Date [employer] [place] [address] [address] [place] [address] [id number] Sherie Garcia Self - patient is the insured Medications Administered Medication Instructions Date of Administration Dosage Notes MICC B12 INJECTION 12/21/2023 MICC B12 INJECTION 01/02/2024 1 mL MICC B12 INJECTION 01/17/2024 1 mL Tirzepatide 05/19/2024 2.5 mg Tirzepatide 06/02/2024 Medical (General) History Medical History History ICD Code hypertension type II diabetes asthma hemorrhoids Arthritis kidney stones anxiety weight gain/loss Surgical History Surgery Date(Month/Year) tubes tithe hysterectomy Hospitalization History Reason Date(Month/Year) carpal tunnel
--- OUTSIDE RECORDS SUMMARY | 2025-03-23 06:14 | XMS_ITS | Clinical Summary ---
Author Organization [address] Address [address] [place] [id number] Phone Care Team Providers Care Manager Supplier Name Role Phone Cleveland Galan NP Primary Care Provider [phone] Allergies Active Allergy Reactions Criticality Noted Date [...] complication, without long-term current use of insulin ([facility] V24, [facility] V28) 05/01/2018 Asthma 09/05/2017 Gastroesophageal reflux disease 09/05/2017 Positive PPD 05/02/2017 Overview (06/12/2024): [facility] 01/16 - negative QuantiFERON testing Obstructive sleep apnea 04/24/2016 Overview (06/12/2024): Intolerant to CPAP [facility] 06/28/18 - home sleep study ordered, follow-up 3 months Home sleep study 07/11/18 - mild obstructive sleep apnea, auto CPAP 8-16 cm H2O Osteopenia 09/20/2015 Overview (06/12/2024): 08/20 - bone density, osteopenia Hypertension 03/15/2015 Migraine 03/15/2015 Immunizations Name Administration Dates Next Due Hepatitis B (Cinepzq-G-Fijsr , Recombivax HB-Adult) 19yo and older 05/15/2016,01/12/2016,12/09/2015 [...] GUID; COMMENT: benign BREAST SURGERY Left PROCEDURE: MD UNLISTED PROCEDURE BREAST; COMMENT: exc as teenager benign BREAST SURGERY Right PROCEDURE: MD UNLISTED PROCEDURE BREAST; COMMENT: exc as teenager benign COLONOSCOPY 12/02/2018 PROCEDURE: HISTORICAL COLONOSCOPY; COMMENT: Senthil. Normal. q10 years OTHER SURGICAL HISTORY 10/04/2018 PROCEDURE: ---- OTHER ----; COMMENT: Urban. Sleeve Gastrectomy Medical History Medical History Date Comments Essential hypertension DX:Essent ial hypertension Positive PPD 05/02/2017 DX:Positive PPD Gastroesophageal reflux disease 09/05/2017 DX:Gastroesophageal reflux disease Morbid obesity with BMI of 4 0.0-44.9, adult ([facility] V24, [facility] V28) 04/16/2015 DX:Morbid obesity wit h BMI of 40.0-44.9, adult ([facility]) Abnormal mammogram 04/01/2015 DX:Abnormal m ammogram; COMMENT: 03/31/15 Probable benign lymph node R breast- follow up recommended 6 months 09/27/15 - mammo repeated 04/16 - normal mammogram Asthma 09/05/2017 DX:Asthma Elevated hemoglobin A1c 12/11/2016 DX:[place] sb hemoglobin A1c Hypertension 03/15/2015 DX:Hypertension Migraine 03/15/2015 DX:Migraine Obstructive sleep apnea 04/24/2016 DX:Obstr uctive sleep apnea; COMMENT: Intolerant to CPAP Osteopenia 09/20/2015 DX:Osteopenia Smoker 04/14/2015 DX:Smoker Type 2 diabetes mellitus wit hout complication, without long-term current use of insulin ([facility] V24, [facility] V28) 05/01/2018 DX:Type 2 diabetes mellitus without complication, without long-term current use of insulin ([facility]) Family History Medical History Relation [...] is recommended in 1 year. Mammo Location: [facility], [address] [place] [address], [id number], . -------- FINAL REPORT -------- Dictated By: Verónica Singletary Dictated Date: 09/06/2024 16:06 ET Assigned Physician: Verónica Singletary Reviewed and Electronically Signed By: Verónica Singletary Signed Date: 09/06/2024 16:30 ET Workstation ID: [id number] Transcribed By: Self Edit Transcribed Date: 09/06/2024 [...] is recommended in 1 year. Mammo Location: [facility], [address] [place] [address], [address], . -------- FINAL REPORT -------- Dictated By: Verónica Singletary Dictated Date: 09/06/2024 16:06 ET Assigned Physician: Verónica Singletary Reviewed and Electronically Signed By: Verónica Singletary Signed Date: 09/06/2024 16:30 ET Workstation ID: [id number] Transcribed By: Self Edit Transcribed Date: 09/06/2024 16:06 ET us Alda S [place] MD IMG BI PROCEDURES Final Result * Urine Albumin Creatinine Ratio (11/16/2021) Pathologist [facility] Urine Albumin Creatinine Ratio Abstracted Result [facility] Provider HEALTH MAINTENANCE Final Result * Annual BMP Blood Test (11/16/2021) Pathologist [facility] Annual BMP Blood Test Abstracted Result [facility] HEALTH MAINTENANCE Final Result * Hemoglobin A1c (11/16/2021) [facility] Hemoglobin A1C 0.0 % Blood Venous blood specimen / Unknown Result [facility] Provider LAB BLOOD ORDERABLES Priti l Result * Lipid panel (04/21/2021) [facility] LDL/HDL Ratio 2 0 - 4 Triglycerides 89 0 - 150 mg/dL Cholesterol 146 0 - 200 mg/dL HDL 62 >=40 mg/dL LDL Cholesterol 67 0 - 100 mg/dL Blood Venous blood specimen / Unknown Result [facility] Provider LAB BLOOD ORDERABLES Priti l Result * Colonoscopy (12/02/2018) [facility] Colonoscopy No interpreta tion,abstr acted Anatomical Region Laterality Modality Other Result [facility] Provider [facility] Final Result * DXA BONE DENSITY STUDY [...] (World Health Organization Fracture Risk Assessment) [facility] Department of Internal Medicine recommends using [...] on the World Health Organization criteria, Sherie Michleleshould be classified as having osteopenia. This patient has a 1.8% risk ofmajor osteoporotic fracture and a 0.1% risk of hip fracture over the next10 years. (World Health Organization Fracture Risk Assessment) [facility] Department of Internal Medicine recommendsusing National [...] fracture risk by [employer]. Raji Wallace MD [facility] DXA PROCEDURES Final Resul t from Last 3 Months or Most Recently Relevant to Health Maintenance Insurance [employer] [facility] Care Teams Manager Supplier Relationship Specialty Start Date End Date Cleveland Galan NP [address] [place], [place] PCP - General Nurse Practitioner 09/04/24
--- OUTSIDE RECORDS SUMMARY | 2025-03-23 06:14 | XMS_ITS ---
Author Name [facility] Organization Unknown Care Team Organization Name Specialty Phone Email Start Date End Da alejandra [facility] Alda Galan Primary Care 05/09/2022 4
[2025-03-23 06:29] LABS: MANUAL DIFF FLAG NO
[2025-03-23 07:36] LABS: Hematocrit 39.7 % (37.0-47.0); Hemoglobin 13.2 g/dl (12.0-16.0); Imm Gran Abs Auto 0.02 X10*3/uL (0.00-0.03); Imm Gran Pct Auto 0.4 % (0.0-0.4); Lymphocytes Absolute Auto 2.5 X10*3/uL (1.2-4.9); Mean Corpuscular HGB Conc 33.2 g/dl (31.0-35.0); Mean Corpuscular Hemoglobin 29.9 pg (27.0-33.0); Mean Corpuscular Volume 90.0 fL (80.0-98.0); NRBC Abs Auto 0.040 X10*3/uL (0.0-0.012); NRBC Pct Auto 0.8 /100WBC (0.0-0.2); Platelet Count 195 X10*3/uL (160-400); Red Blood Count 4.41 X10*6/uL (4.20-5.50); White Blood Count 4.7 X10*3/uL (4.8-10.8)
[2025-03-23 07:52] LABS: Appearance Urine Clear; Glucose Urine UA Negative (Negative); PH 5.5 (5.0-9.0); Specific Gravity - Urine 1.025 (1.005-1.025); UMIC TRIGGER UACC YES
[2025-03-23 08:12] LABS: Alanine Aminotransferase 8 U/L (0-31); Albumin Level 4.3 g/dL (3.5-5.0); Alkaline Phosphatase 94 U/L (39-117); Anion Gap 12 (12-20); Aspartate Amino Transferase 16 U/L (5-31); Blood Urea Nitrogen 19 mg/dL (9-16); Calcium 9.6 mg/dL (8.4-10.2); Carbon Dioxide 29 mmol/L (22-29); Chloride 108 mmol/L (96-108); Cholesterol 144 mg/dL (<200); Estimated Glomerular Filt Rate > 60; HDL Cholesterol 55 mg/dL (>40); Potassium 4.6 mmol/L (3.3-5.1); Sodium 144 mmol/L (135-145); Total Protein 7.4 g/dL (6.5-8.0); Triglycerides 81 mg/dL (<150)
[2025-03-23 08:39] LABS: UACC Culture Trigger YES
== END 2025-03-23 06:10 | disposition home or self-care (01) ==
LOC: HO.LAB 06:09
PROVIDERS: PCP Internal Medicine; Visit Provider Internal Medicine
DX: E78.00 Pure hypercholesterolemia, unspecified (principal); E55.9 Vitamin D deficiency, unspecified; D64.9 Anemia, unspecified
CPT/HCPCS: 36415; 80053; 80061; 81001; 82306; 84443; 85025; 87086

== ENCOUNTER 2025-06-05 09:58 | Outpatient (AMB) | payer OTHER, SELFPAY ==
--- NOTE | 2025-06-05 10:00 | MHC.WMTHER ---
Intake Intake Visit Reasons: OV BH Intake Allergies penicillin G Allergy (Severe, Verified 03/20/25 14:44) hives lisinopril Allergy (Intermediate, Verified 03/20/25 14:44) tingling in throat and cough acetaminophen Allergy (Mild, Verified 03/20/25 14:44) Hives FOR[facility]LY [facility], [facility] Medical History Osteopenia Bipolar disorder Obesity (BMI 30-39.9) Constipation Essential hypertension GERD (gastroesophageal reflux disease) Obesity Asthma Anxiety Depression Insomnia Fibromyalgia MARY KATE on CPAP Abnormal ECG Chronic constipation Adjustment disorder, unspecified Diabetes mellitus Surgical History History of sleeve gastrectomy Hx of cholecystectomy Hx of carpal tunnel repair Hx of tubal ligation Hx of total hysterectomy Hx of breast surgery Family History Mother Diabetes Hypertension Father No problems noted. 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 She previously underwent weight loss surgery in 2018 but reports she was unable to achieve significant weight loss postoperatively. She has since developed acid reflux and is now seeking revision surgery to support further weight loss efforts. The patient participated in the program in 2021, starting at 205 lbs, but discontinued due to issues with constipation. She has now re-engaged with the program at 196 lbs and is motivated to proceed with surgery. She reports adherence to the prescribed meal plan and is tolerating it well. She is actively working on improving consistency with exercise and communication. During today?s visit, the patient received psychoeducation regarding program expectations, the importance of commitment, and the necessity of maintaining regular communication with the surgical team?both weekly preoperatively and on an ongoing basis postoperatively?as required by our program model. Presenting Concerns Referral Source WMP-Provider Reason for referral Completion of behavioral health assessment as part of process for weight-loss surgery. Precipitating Event Obesity Living Situation Current Living Situation Rent At risk of losing current housing? No Satisfied with current living situation? No Comments Pt lives with her 35 year old son on the third floor of a home. Food/Weight/Diet Expectations of change The patient re-entered the program at 196 lbs and reports that her surgeon advised her to lose at least 10 lbs prior to surgery. Her most recent recorded weight is 194 lbs. The patient?s goal is to reach a maximum weight of 150 lbs, or as close to her healthy weight as possible. PT is implementing the following: Current meal plan: 2 shakes, 1 meal and 1 bar. Exercise plan: walking/treadmill 3 times at week. Scale: Yes. Communication w/ provider: yes but reports she's not consistent. History/Relationship with food The patient reports that between 2006 and 2010, she frequently used food for comfort. Following her initial weight loss surgery, she developed a pattern of skipping meals and often consumed her only meal of the day very late. Due to her work schedule and inability to consistently prepare meals, she frequently relied on fast food options. Example of meals before starting the program: Breakfast: 5.30am (toast) Lunch:12.30pm (salad, sandwich) Dinner: 5.30pm (meat, salad, rice, beans) Snacks: 10am (Pure protein bar), 7pm (popcorn, chips) Fluids: Coffee (2 cups/d, milk with splenda), hot tea: (3/wk, plain), soda: Coke zero, juice: Crystal light, ETOH: none History/Relationship with weight The patient denies any history of obesity during childhood. She reports that as an adult, including after her pregnancies, her weight remained around 125 lbs. However, following a hysterectomy in 2008, she has experienced a steady increase in weight. Over the past 10 years, her weight has ranged from a low of 196 lbs to a high of 231 lbs. History/Relationship with dieting Gastric slevve-2017 Mounjaro 2023, couple months lost 16Lbs. Regained them. [facility] Weight management. [facility] weight management. Diet, excercise. OTC pills several years ago. Binge Eating Do you frequently eat large amounts of food in short periods of time, not feeling physically hungry? No Do you feel out of control when you eat a large amount of food in a short period of time? No Do you eat large amounts of food rapidly and typically alone? No Night Eating Do you wake up at least once during the night to eat? No If you wake up in the night, do you find that it is necessary to eat something in order to fall back asleep? No Do you have little or no appetite in the morning and feel very hungry in the evening, often overeating between dinner and when you go to bed? No Social History Family history and relationship PT is about over 20 years ago. Currently single and she has 2 adult children (they are 38 and 36) her youngest lives in [place] and the oldest in the area, she also has 1 granddaughter. Father , mother alive. Has 1 sister alive. They both live in [place]. Good family dynamics. 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 Developmental history and status None reported, currently WNL. Social support Sister, 2 close friends, Community support [employer] community. [employer]/Spirituality [employer]. Cultural/Ethnic information PT was born in [place], moved to [place] 10 years ago. Legal Involvement and History Current or historical involvement with the legal system? None reported. Education Highest grade completed Masters Preferred learning style Learn by doing Currently enrolled in educational program? No Interested in further educational program? No Educational Interests/Skills Counseling and BH services. 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 ) Wants help to find employment? No Financial Situation Describe current financial situation Comfortable Financial assistance? None Service Service? No Mental Health and Addiction Treatment Current/Past substance abuse? No Comments Alcohol: None Cigarettes/Tobacco: None Cannabis/Edibles: None. Current/Past addictive behavior concerns? No Psychiatric history The patient is currently under the care of psychiatrist Dr. Mcallister for anxiety and sleep disturbances. She is prescribed zolpidem tartrate (Ambien) 10 mg to be taken at night as needed, and alprazolam (Xanax) 0.5 mg to be used as needed. She reports using zolpidem every other day and alprazolam approximately 0?1 times per week. The patient denies any history of panic attacks. She has a past history of depression, which she reports has resolved. She denies any issues with substance use. The patient has never experienced a mental health crisis or required inpatient psychiatric care. There is no history or current concern regarding suicidal ideation, suicide attempts, self-harm, or harm to others. Medical and Physical Health Summary Additional Medical History not covered in history None aditional. PT denies Dx of Bipolar Disorder. Sexual History concerns None reported. Physical exam in the last year? Yes Pain Screening Current pain? No Pain in the last few months? Yes Comments Due to fibromialgya, hand pain due to hx of carpel tunnel surgery. Medications Is the patient compliant with medications? Yes Does the patient have Hinkle Guardian in place? Not applicable Does the patient use complimentary health approaches? No Trauma/Abuse History History of trauma? No Questionnaires PHQ-9 Over the last 2 weeks, how often have you been bothered by any of the following problems? 1. Little interest or pleasure in doing things: not at all 2. Feeling down, depressed, or hopeless: not at all 3. Trouble falling or staying asleep, or sleeping too much: more than half the days 4. Feeling tired or having little energy: several days 5. Poor appetite or overeating: several days 6. Feeling bad about yourself - or that you are a failure or have let yourself or your family down: not at all 7. Trouble concentrating on things, such as reading the newspaper or watching television: not at all 8. Moving or speaking so slowly that other people could have noticed. Or the opposite - being so fidgety or restless that you have been moving around a lot more than usual: not at all 9. Thoughts that you would be better off or of hurting yourself in some way: not at all Total score: 4 47695 - PHQ-9 Billing: Yes Source: Developed by Drs. Yunior Amaro, Joan Fragoso, Mark Anthony Toussaint and colleagues, with an educational margarito from [employer]. Assessment & Plan Assessment & Plan (1) Depression: Code(s): F32.A - Depression, unspecified Qualifiers: Active/Remission status: in full remission Depression Type: major depressive disorder (2) Generalized anxiety disorder: Code(s): F41.1 - Generalized anxiety disorder (3) Pre-bariatric surgery psychological evaluation: Code(s): Z71.89 - Other specified counseling (4) Sleeping difficulties: Code(s): G47.9 - Sleep disorder, unspecified Plan Following a comprehensive behavioral health assessment?including review of the Binge Eating Scale, PHQ-9, mental status evaluation, and patient self-report?there are currently no behavioral health contraindications to proceeding with bariatric surgery. The patient demonstrates appropriate insight, motivation, and psychological readiness for the procedure. No active psychiatric symptoms or maladaptive eating behaviors were identified that would impede surgical outcomes at this time. The patient is cleared from a behavioral health perspective to proceed with bariatric surgery and documentation can be submitted for insurance approval as indicated. PT will return for a follow-up behavioral health visit 1?4 weeks postoperatively to monitor psychological adjustment, reinforce coping strategies, and screen for any emerging concerns such as mood changes, adjustment difficulties, or disordered eating patterns. Additional behavioral health support will be provided as needed based on postoperative assessment. Next awais: 1-4 weeks PO[place] [address] Psy Diag Eval Patient Type New Diagnoses Depression F32.A Active/Remission status: in full remission Depression Type: major depressive disorder Generalized anxiety disorder F41.1 Pre-bariatric surgery psychological evaluation Z71.89 Sleeping difficulties G47.9 Additional Codes PHQ-9 - 50364 - PHQ-9 Billing: Yes ([id number]) Time Spent (min) 60
== END 2025-06-05 11:17 | disposition home or self-care (01) ==
LOC: HO.HBST 09:59
PROVIDERS: PCP Internal Medicine; Visit Provider Counselor Mental Health
DX: F32.1 Major depressive disorder, single episode, moderate (principal); F41.1 Generalized anxiety disorder; Z71.89 Other specified counseling; G47.9 Sleep disorder, unspecified
CPT/HCPCS: 90791